=== PATIENT | female | born 1940 | race Caucasian/White ===

== ENCOUNTER → 2016-07-15 | Outpatient (CLI) | payer BC ==
[2016-07-15 16:29] LABS: ALB/GLOB RATIO 1.3 (0.9-2); ALT/SGPT 30 U/L (12-78); AST/SGOT 25 U/L (15-37); BLOOD UREA NITROGEN 31 mg/dl (7-18); BUN/CREATININE RATIO 24.2 (10-20); CALCIUM 9.5 mg/dl (8.5-10.1); CARBON DIOXIDE 29 mmol/L (21-32); CHLORIDE 109 mmol/L (98-107); GLUCOSE 96 mg/dl (70-99); POTASSIUM 4.3 mmol/L (3.5-5.1); SODIUM 143 mmol/L (136-145)
[2016-07-15 16:53] LABS: ALKALINE PHOSPHATASE 81 U/L (45-117); CHOLESTEROL 132 mg/dl (0-200); CHOLESTEROL/HDL RATIO 2.1; HDL CHOLESTEROL 62 mg/dl; LDL CHOLESTEROL CALCULATED 60 mg/dl; TRIGLYCERIDES 51 mg/dl (0-150); VERY LOW DENSITY LIPOPROT CALC 10 mg/dl
[2016-07-15 16:56] LABS: RATIO 7.1 mcg/mg (0-30.0)
[2016-07-16 06:29] LABS: ESTIMATED AVERAGE GLUCOSE 128 mg/dl; HA1C FLAG Normal (Normal)
== END | disposition home or self-care (01) ==
LOC: C.LAB 13:29
PROVIDERS: ATTEND Family Medicine
DX: E11.22 Type 2 diabetes mellitus with diabetic chronic kidney disease (principal); E78.00 Pure hypercholesterolemia, unspecified; I12.9 Hypertensive chronic kidney disease with stage 1 through stage 4 chronic kidney disease, or unspecified chronic kidney disease; N18.3 Chronic kidney disease, stage 3 (moderate)

== ENCOUNTER → 2017-02-09 | Outpatient (CLI) | payer BC ==
[2017-02-09 17:27] LABS: ALT/SGPT 26 U/L (12-78); BLOOD UREA NITROGEN 29 mg/dl (7-18); BUN/CREATININE RATIO 20.4 (10-20); CALCIUM 9.5 mg/dl (8.5-10.1); CARBON DIOXIDE 28 mmol/L (21-32); CHLORIDE 107 mmol/L (98-107); CHOLESTEROL 136 mg/dl (0-200); CREATININE 1.42 mg/dl (0.60-1.20); GLUCOSE 107 mg/dl (70-99); POTASSIUM 4.3 mmol/L (3.5-5.1); SODIUM 140 mmol/L (136-145); TRIGLYCERIDES 67 mg/dl (0-150); VERY LOW DENSITY LIPOPROT CALC 13 mg/dl
[2017-02-09 17:30] LABS: CHOLESTEROL/HDL RATIO 2.2; HDL CHOLESTEROL 61 mg/dl; LDL CHOLESTEROL CALCULATED 62 mg/dl
[2017-02-10 06:49] LABS: ESTIMATED AVERAGE GLUCOSE 128 mg/dl; HA1C FLAG Normal (Normal)
== END | disposition home or self-care (01) ==
LOC: C.LABPBG 12:35
PROVIDERS: ATTEND Family Medicine
DX: E11.9 Type 2 diabetes mellitus without complications (principal); E78.00 Pure hypercholesterolemia, unspecified; I10 Essential (primary) hypertension

== ENCOUNTER → 2017-04-14 | Outpatient (CLI) | payer OTHER | END | disposition home or self-care (01) | LOC: C.MAMM 12:52 | PROVIDERS: ATTEND Family Medicine | DX: Z78.0 Asymptomatic menopausal state (principal); E11.9 Type 2 diabetes mellitus without complications; E78.00 Pure hypercholesterolemia, unspecified; I12.9 Hypertensive chronic kidney disease with stage 1 through stage 4 chronic kidney disease, or unspecified chronic kidney disease; N18.3 Chronic kidney disease, stage 3 (moderate); M85.852 Other specified disorders of bone density and structure, left thigh; M85.851 Other specified disorders of bone density and structure, right thigh ==

== ENCOUNTER → 2017-05-03 | Outpatient (CLI) | payer OTHER | END | disposition home or self-care (01) | LOC: C.LABPBG 12:38 | PROVIDERS: ATTEND Family Medicine | DX: M81.0 Age-related osteoporosis without current pathological fracture (principal) ==

== ENCOUNTER → 2017-10-10 | Outpatient (CLI) | payer OTHER ==
[2017-10-10 17:11] LABS: ALBUMIN 3.5 gm/dl (3.4-5.0); ALKALINE PHOSPHATASE 73 U/L (45-117); ALT/SGPT 26 U/L (12-78); AST/SGOT 22 U/L (15-37); BLOOD UREA NITROGEN 28 mg/dl (7-18); CALCIUM 8.9 mg/dl (8.5-10.1); CARBON DIOXIDE 29 mmol/L (21-32); CHOLESTEROL 125 mg/dl (0-200); GLUCOSE 96 mg/dl (70-99); LDL CHOLESTEROL CALCULATED 58 mg/dl; POTASSIUM 4.4 mmol/L (3.5-5.1); SODIUM 142 mmol/L (136-145); TOTAL PROTEIN 6.8 gm/dl (6.4-8.2)
[2017-10-11 07:01] LABS: HEMOGLOBIN A1C 6.3 % (4.5-5.6)
== END | disposition home or self-care (01) ==
LOC: C.LABPBG 12:46
PROVIDERS: ATTEND Family Medicine
DX: E11.9 Type 2 diabetes mellitus without complications (principal); E78.00 Pure hypercholesterolemia, unspecified; N18.3 Chronic kidney disease, stage 3 (moderate); I12.9 Hypertensive chronic kidney disease with stage 1 through stage 4 chronic kidney disease, or unspecified chronic kidney disease

== ENCOUNTER 2019-12-12 00:36 | Inpatient (IN) ==
[2019-12-12] MEDS ORDERED: fentaNYL citrate 100 MCG/2 ML VIAL IV PRN ×3 (01:03→16:12)
[2019-12-12] MEDS ORDERED: ONDANSETRON INJ 2 MG/ML 2 ML VIAL IV STA (01:03)
[2019-12-12] MEDS ORDERED: ACETAMINOPHEN 1,000 MG/100 ML VIAL IV STA (01:03)
--- NOTE | 2019-12-12 01:11 | Emergency Department Note ---
History of Present Illness General Chief complaint: Abdominal Pain Stated complaint: VOMITING,SEVERE ABDOMINAL/BACK PAIN,SICK Time Seen by Provider: 12/12/19 00:46 Source: patient and family Mode of arrival: ambulatory Limitations: no limitations History of Present Illness Provider complaint: Vomiting, diarrhea, abdominal pain, chills Onset (ago): hour(s) 7 Location: abdomen Radiation: back Severity: severe Pain Consistency: + constant and + colicky Maximum Pain Intensity: 10 Current Pain Intensity: 10 Quality: + constant Relieved By: + none Exacerbated By: + none Associated symptoms: + nausea/vomiting, + weakness and + other (Diarrhea) Treatments prior to arrival: none This is an 79-year-old female who presents from home with her due to complaints of abdominal pain, nausea and vomiting, and diarrhea. Patient states symptoms started around 6 PM this evening. She states she and ate dinner approximately an hour before that. The states that they ate the same thing and he has felt fine. She states that she began to not feel well, developed pain in her upper abdomen which began to radiate around bilaterally into her back. Patient states initially she felt rather queasy and tried to induce vomiting. Patient denied seeing any blood. She states after that she then vomited spontaneously approximately 4 times. Patient states she had several episodes of thick but loose stools. She denied any blood in the stools. Patient states she is chilled, has not felt feverish and has not checked her t emperature. States she takes aspirin, no other blood thinners. states she does have a history of chronic back pain, and takes medication for arthritis. He denies that she is had any changes to her medications recently. No known sick contacts or exposure to coronavirus. No treatment prior to arrival. Pt seen during a time of high acuity and national emergency pandemic while wearing PPE. Home Medications Home Medications Medication Instructions Recorded Confirmed Type coenzyme Q10 200 mg capsule 200 mg PO DAILY cap 11/26/18 12/12/19 History cyanocobalamin (vitamin B-12) 1,000 mcg PO DAILY #90 tab 11/26/18 12/12/19 History 1,000 mcg tablet atorvastatin 40 mg tablet 40 mg PO DAILY #90 tab 12/04/18 12/12/19 Rx irbesartan 300 mg tablet 300 mg PO DAILY #90 tab 12/04/18 12/12/19 Rx meloxicam 15 mg tablet 15 mg PO DAILY #90 tab 12/04/18 12/12/19 Rx metformin 500 mg tablet,extended 500 mg PO DAILY #90 tab 08/01/19 12/12/19 Rx release 24 hr alendronate 35 mg tablet 35 mg PO WEEKLY #12 tab 08/31/19 12/12/19 Rx lorazepam 2 mg tablet 2 mg PO BID PRN #180 tab 08/31/19 12/12/19 Rx aspirin [Aspirin Low Dose] 81 mg PO DAILY 12/12/19 12/12/19 History Allergies Allergy/AdvReac Type Severity Reaction Status Date / Time Iodinated Contrast Media Allergy Intermediate Rash Verified 12/12/19 16:26 influenza virus vacc AdvReac Unknown Verified 12/12/19 02:58 trivalent, split [From Fluzone] Past Med/Surg History Medical History Allergic rhinitis Anxiety CKD (chronic kidney disease) stage 3, GFR 30-59 ml/min Depression Diabetic peripheral neuropathy Hypercholesterolemia Hypertension Insomnia Osteoporosis Raynaud's disease Sjogrens syndrome Sleep apnea Thoracic compression fracture Type 2 diabetes mellitus Surgical History History of hand surgery Status post section Family History Mother Arthritis Diabetes Father Arthritis Diabetes Family/Other Arthritis sibling Diabetes sibling Denies family history of Ovarian cancer Prostate cancer Myocardial infarction Breast cancer Colorectal cancer Social History Smoking Status: Never smoker Hx Alcohol Use: No Hx Substance Use: No Preferred Language: Ecuadorean Communication Ability: Effective Visual Impairment: Limited Hearing Ability: Normal Central Supply Clerk Required: No Beliefs That Will Affect Care: None marital status: Current Living Situation: Spouse current occupational status: retired Feels Safe at Home: Yes Childhood Exposure to Second-Hand Smoke: No caffeine: Yes (Coffee x 1 per day.) during the past year weight has: remained stable Dental Care, Regularly: No Physical Activity Frequency: 3-4 Times per Week Seatbelt Use: always Sunscreen Use: Yes Assistive Devices: None Review of Systems See HPI for pertinent positives & negatives. and A total of 10 systems reviewed and were otherwise negative Physical Exam Vital Signs Vital Signs - 24 hr 12/12/19 01:04 12/12/19 01:38 12/12/19 02:00 Pulse Rate [Apical] 103 H 104 H Pulse Rhythm [Apical] Pulse Strength [Apical] Respiratory Rate 18 18 18 Respiratory Effort / Characteristics Respiratory Depth Respiratory Pattern Blood Pressure [Left Arm] 214/100 H 185/99 H 180/89 H Blood Pressure Mean [Left Arm] 138 127 119 Blood Pressure Position [Left Arm] Pulse Oximetry 94 98 98 Oxygen Delivery Method Room Air Nasal Cannula Room Air Oxygen Flow Rate 2 12/12/19 02:31 12/12/19 02:34 12/12/19 02:35 Pulse Rate [Apical] 102 H Pulse Rhythm [Apical] Pulse Strength [Apical] Respiratory Rate 24 Respiratory Effort / Characteristics Respiratory Depth Respiratory Pattern Blood Pressure [Left Arm] 176/87 H Blood Pressure Mean [Left Arm] 116 Blood Pressure Position [Left Arm] Pulse Oximetry 93 87 L 97 Oxygen Delivery Method Room Air Room Air Nasal Cannula Oxygen Flow Rate 2 12/12/19 03:42 Pulse Rate [Apical] 94 H Pulse Rhythm [Apical] Regular Pulse Strength [Apical] Normal Respiratory Rate 18 Respiratory Effort / Characteristics Non-Labored Spontaneous Respiratory Depth Normal Respiratory Pattern Regular Blood Pressure [Left Arm] 127/70 Blood Pressure Mean [Left Arm] 89 Blood Pressure Position [Left Arm] Lying Pulse Oximetry 98 Oxygen Delivery Method Nasal Cannula Oxygen Flow Rate 3 GENERAL: alert, ill appearing, well nourished, moderate distress, pt had a BM initially here EYE EXAM: normal conjunctiva, PERRL and EOM's grossly intact OROPHARYNX: no exudate, no erythema, lips, buccal mucosa, and tongue normal and mucous membranes are dry NECK: supple, no nuchal rigidity, no adenopathy, non-tender LUNGS: Clear to auscultation. Normal chest wall mechanics, no w/r/r HEART: no murmurs, S1 normal and S2 normal ABDOMEN: abdomen soft, tenderness to palpation in the mid epigastric region, normo-active bowel sounds, no masses, no rebound or guarding. BACK: Back is symmetrical on inspection and there is no deformity, no midline tenderness, no CVA tenderness. SKIN: no rashes and no bruising UPPER EXTREMITIES: upper extremities are grossly normal. FROM, nml pulses b/l. LOWER EXTREMITIES: No pitting edema. FROM, nml pulses b/l. NEURO EXAM: Normal sensorium, cranial nerves II-XII grossly intact, normal speech, no gross weakness of arms, no gross weakness of legs. Gross sensation intact. Course Course 0132: Patient reevaluated. Vital signs stable, patient appears more at ease after pain and nausea medications. Patient was placed on oxygen as a precaution by nursing staff as her oxygen levels did dip following administration of fentanyl. 0235: Pt updated on results so far. States pain medication helps but doesn't completely relieve the pain. She states she still feels slightly nauseated. On review of EMR, there is no prior history of elevated LFTs or lipase. 0255: Pt updated on additional results. 0307: Case discussed with Dr. Calderon. Pt heading to US. She will follow-up US and consult GI/surgery after this. Administered Medications Acetaminophen (Acetaminophen 1000 Mg/100 Ml Iv) 1,000 mg IV Q12H PRN PRN Reason: Pain Stop: 12/15/19 10:29 Last Admin: 12/12/19 10:39 Dose: 1,000 mg Documented by: [id number] Atorvastatin Calcium (Atorvastatin 40 Mg Tab) 40 mg PO DAILY JACOB Stop: 01/11/20 08:59 Last Admin: 12/12/19 08:47 Dose: 40 mg Documented by: [id number] Sodium Chloride (Nss 1000ml) 1,000 mls @ 80 mls/hr IV .[id number] JACOB Stop: 01/11/20 20:28 Last Infusion: 12/12/19 21:16 Dose: 80 mls/hr Documented by: [id number] Infusion: 12/12/19 20:44 Dose: 0 mls/hr Documented by: [id number] Admin: 12/12/19 20:43 Dose: 80 mls/hr Documented by: [id number] Insulin Aspart (Insulin Aspart 100 Units/Ml 3 Ml Pen) 0 units SC ACHS JACOB Stop: 01/11/20 20:59 Last Admin: 12/12/19 21:28 Dose: 1 units Documented by: [id number] Cosigned by: [id number] Irbesartan (Irbesartan 150 Mg Tab) 300 mg PO DAILY JACOB Stop: 01/11/20 08:59 Last Admin: 12/12/19 08:47 Dose: 300 mg Documented by: [id number] Lorazepam (Lorazepam 1 Mg Tab) 2 mg PO BID PRN PRN Reason: anxiety Stop: 01/11/20 05:37 Last Admin: 12/13/19 00:08 Dose: 2 mg Documented by: [id number] Discontinued Medications Bupivacaine HCl (Bupivacaine 0.5 % 5 Mg/1 Ml Mpf 30ml Vial) Confirm Administered Dose 30 ml .ROUTE .STK-MED ONE Stop: 12/12/19 16:22 Last Admin: 12/12/19 18:16 Dose: 9 ml Documented by: [id number] Fentanyl Citrate (Fentanyl Citrate 100 Mcg/2 Ml Vial) 50 mcg IV Q15M PRN PRN Reason: Pain Stop: 12/26/19 01:02 Last Admin: 12/12/19 01:26 Dose: 50 mcg Documented by: [id number] Fentanyl Citrate (Fentanyl Citrate 100 Mcg/2 Ml Vial) 25 mcg IV Q15M PRN PRN Reason: Pain Stop: 12/26/19 02:23 Last Admin: 12/12/19 02:29 Dose: 25 mcg Documented by: [id number] Sodium Chloride (Nss 1000ml) 1,000 mls @ 250 mls/hr IV .Q4H JACOB Stop: 01/11/20 01:14 Last Admin: 12/12/19 05:36 Dose: Not Given Documented by: [id number] Infusion: 12/12/19 05:36 Dose: 0 mls/hr Documented by: [id number] Admin: 12/12/19 01:24 Dose: 250 mls/hr Documented by: [id number] Acetaminophen (Ofirmev) 1,000 mg in 100 mls @ 400 mls/hr IV NOW STA Stop: 12/12/19 01:17 Last Infusion: 12/12/19 01:43 Dose: 0 mls/hr Documented by: [id number] Admin: 12/12/19 01:27 Dose: 400 mls/hr Documented by: [id number] Magnesium Sulfate/Dextrose (Magnesium Sulfate / D5w) 1 gm in 100 mls @ 100 mls/hr IV NOW STA Stop: 12/12/19 03:09 Last Infusion: 12/12/19 03:41 Dose: 0 mls/hr Documented by: [id number] Admin: 12/12/19 02:19 Dose: 100 mls/hr Documented by: [id number] Lactated Ringer's (Lr) 1,000 mls @ 125 mls/hr IV .Q8H JACOB Stop: 12/13/19 05:19 Last Infusion: 12/12/19 20:39 Dose: 0 mls/hr Documented by: [id number] Admin: 12/12/19 14:18 Dose: 125 mls/hr Documented by: [id number] Infusion: 12/12/19 13:53 Dose: 125 mls/hr Documented by: [id number] Admin: 12/12/19 05:53 Dose: 125 mls/hr Documented by: [id number] Piperacillin Sod/Tazobactam (Sod 3.375 gm/ Dextrose) 115 mls @ 230 mls/hr IV ONE ONE; Protocol Stop: 12/12/19 06:29 Last Infusion: 12/12/19 06:45 Dose: 0 mls/hr Documented by: [id number] Admin: 12/12/19 06:12 Dose: 230 mls/hr Documented by: [id number] Piperacillin Sod/Tazobactam (Sod 2.25 gm/ Dextrose) 110 mls @ 200 mls/hr IV Q6H JACOB; Protocol Stop: 12/22/19 05:59 Last Infusion: 12/12/19 21:16 Dose: 0 mls/hr Documented by: [id number] Admin: 12/12/19 20:43 Dose: 200 mls/hr Documented by: [id number] Infusion: 12/12/19 12:56 Dose: 0 mls/hr Documented by: [id number] Admin: 12/12/19 12:10 Dose: 200 mls/hr Documented by: [id number] Acetaminophen (Ofirmev) 1,000 mg in 100 mls @ 400 mls/hr IV NOW ONE; Protocol Stop: 12/12/19 18:54 Last Infusion: 12/12/19 19:50 Dose: 0 mls/hr Documented by: [id number] Admin: 12/12/19 19:35 Dose: 400 mls/hr Documented by: [id number] Indomethacin (Indomethacin 50 Mg Supp) 100 mg UT TODAY@1030 JACOB Stop: 12/12/19 18:00 Last Admin: 12/12/19 18:31 Dose: Not Given Documented by: [id number] Indomethacin (Indomethacin 50 Mg Supp) Confirm Administered Dose 100 mg UT .STK- MED ONE Stop: 12/12/19 16:23 Last Admin: 12/12/19 17:42 Dose: 100 mg Documented by: [id number] Insulin Aspart (Insulin Aspart 100 Units/Ml 3 Ml Pen) 0 units SC Q6 JACOB Stop: 01/11/20 05:59 Last Admin: 12/12/19 20:35 Dose: Not Given Documented by: [id number] Cosigned by: [id number] Admin: 12/12/19 12:16 Dose: Not Given Documented by: [id number] Cosigned by: [id number] Admin: 12/12/19 05:56 Dose: Not Given Documented by: [id number] Ioversol (Ioversol 100ml) 93 ml IV ONCE ONE Stop: 12/12/19 02:15 Last Admin: 12/12/19 02:14 Dose: 93 ml Documented by: [id number] Ioversol (Ioversol 50ml) Confirm Administered Dose 1 ml IV .STK-MED ONE Stop: 12/12/19 13:22 Last Admin: 12/12/19 21:22 Dose: Not Given Documented by: [id number] Ondansetron HCl (Ondansetron Inj 2 Mg/Ml 2 Ml Vial) 4 mg IV NOW STA Stop: 12/12/19 01:04 Last Admin: 12/12/19 01:25 Dose: 4 mg Documented by: [id number] Medical Decision Making Differential Diagnosis Differential: Gastroenteritis, Food Borne, Esophageal Perforation, DKA, Electrolyte Abnormality, Dehydration, Intraabdominal Infection, UTI/Pyelonephritis, Bowel Obstruction, Biliary Pathology, amongst other p athology entertained. Medical Records Attestation: I reviewed the patient's medical records. Home Medications Current Medication List: was personally reviewed by me Laboratory Data Attestation: I reviewed the patient's lab results. Result diagrams: 12/12/19 01:18 12/12/19 01:18 Lab Results 12/12/19 12/12/19 12/12/19 Range/Units 01:18 01:18 01:18 WBC 8.31 (4.8-10.8) K/uL RBC 4.57 (4.2-5.4) M/uL Hgb 13.6 (12.0-16.0) g/dL Hct 41.4 (37-47) % MCV 90.6 (80-100) fL MCH 29.8 (25-34) pg MCHC 32.9 (32-36) g/dL RDW Std Deviation 48.1 H (36.4-46.3) fL RDW Coeff of Shikha 14.5 (11.5-14.5) % Plt Count 172 (130-400) K/uL MPV 10.6 H (7.4-10.4) fL Immature Gran % (Auto) 0.2 % Neut % (Auto) 90.9 % Lymph % (Auto) 7.5 % [place] % (Auto) 1.2 % Eos % (Auto) 0.1 % Baso % (Auto) 0.1 % Neut # (Auto) 7.55 H (1.4-6.5) K/uL Lymph # (Auto) 0.62 L (1.2-3.4) K/uL [place] # (Auto) 0.10 L (0.11-0.59) K/uL Eos # (Auto) 0.01 (0-0.5) K/uL Baso # (Auto) 0.01 (0-0.2) K/uL Immature Gran # (Auto) 0.02 (0.00-0.02) K/uL Rouleaux 1+ PT 11.0 (9.0-12.0) Seconds INR 1.0 (0.9-1.1) Sodium (136-145) mmol/L Potassium (3.5-5.1) mmol/L Chloride (98-107) mmol/L Carbon Dioxide (21-32) mmol/L Anion Gap (3-11) BUN (7-18) mg/dl Creatinine (0.6-1.2) mg/dl Est Cr Clr Drug Dosing ml/min Est GFR ( Amer) Est GFR (Non-Af Amer) BUN/Creatinine Ratio (10-20) Glucose (70-99) mg/dl Lactate 3.0 H* (0.4-2.0) mmol/L Calcium (8.5-10.1) mg/dl Phosphorus (2.5-4.9) mg/dl Magnesium (1.8-2.4) mg/dl Total Bilirubin (0.2-1) mg/dl AST (15-37) U/L ALT (12-78) U/L Alkaline Phosphatase (45-117) U/L Troponin I (0-0.045) ng/ml Total Protein (6.4-8.2) gm/dl Albumin (3.4-5.0) gm/dl Globulin (2.5-4.0) gm/dl Albumin/Globulin Ratio (0.9-2) Lipase (73-393) U/L Urine Color Urine Appearance (Clear) Urine pH (4.5-7.5) Ur Specific [place] (1.000-1.030) Urine Protein (Negative) Urine Glucose (UA) (Negative) Urine Ketones (Negative) Urine Blood (Negative) Urine Nitrite (Negative) Urine Bilirubin (Negative) Urine Urobilinogen (Negative) Ur Leukocyte Esterase (Negative) Urine WBC (Auto) (0-5) /hpf Urine RBC (Auto) (0-4) /hpf U Hyaline Cast (Auto) (0-5) /lpf U Epithel Cells (Auto) (0-5) /lpf Urine Bacteria (Auto) (Negative) 12/12/19 12/12/19 12/12/19 Range/Units 01:18 01:18 02:56 WBC (4.8-10.8) K/uL RBC (4.2-5.4) M/uL Hgb (12.0-16.0) g/dL Hct (37-47) % MCV (80-100) fL MCH (25-34) pg MCHC (32-36) g/dL RDW Std Deviation (36.4-46.3) fL RDW Coeff of Shikha (11.5-14.5) % Plt Count (130-400) K/uL MPV (7.4-10.4) fL Immature Gran % (Auto) % Neut % (Auto) % Lymph % (Auto) % [place] % (Auto) % Eos % (Auto) % Baso % (Auto) % Neut # (Auto) (1.4-6.5) K/uL Lymph # (Auto) (1.2-3.4) K/uL [place] # (Auto) (0.11-0.59) K/uL Eos # (Auto) (0-0.5) K/uL Baso # (Auto) (0-0.2) K/uL Immature Gran # (Auto) (0.00-0.02) K/uL Rouleaux PT (9.0-12.0) Seconds INR (0.9-1.1) Sodium 142 (136-145) mmol/L Potassium 3.6 (3.5-5.1) mmol/L Chloride 108 H (98-107) mmol/L Carbon Dioxide 25 (21-32) mmol/L Anion Gap 9.0 (3-11) BUN 26 H (7-18) mg/dl Creatinine 1.39 H (0.6-1.2) mg/dl Est Cr Clr Drug Dosing 30.2 ml/min Est GFR ( Amer) 41.4 Est GFR (Non-Af Amer) 35.7 BUN/Creatinine Ratio 19.0 (10-20) Glucose 188 H (70-99) mg/dl Lactate (0.4-2.0) mmol/L Calcium 9.2 (8.5-10.1) mg/dl Phosphorus 3.1 (2.5-4.9) mg/dl Magnesium 1.7 L (1.8-2.4) mg/dl Total Bilirubin 2.2 H (0.2-1) mg/dl AST 555 H (15-37) U/L ALT 336 H (12-78) U/L Alkaline Phosphatase 155 H (45-117) U/L Troponin I < 0.015 (0-0.045) ng/ml Total Protein 7.5 (6.4-8.2) gm/dl Albumin 3.9 (3.4-5.0) gm/dl Globulin 3.6 (2.5-4.0) gm/dl Albumin/Globulin Ratio 1.1 (0.9-2) Lipase 673 H (73-393) U/L Urine Color Yellow Urine Appearance Clear (Clear) Urine pH 7.5 (4.5-7.5) Ur Specific [place] 1.022 (1.000-1.030) Urine Protein Negative (Negative) Urine Glucose (UA) Trace H (Negative) Urine Ketones Trace H (Negative) Urine Blood Negative (Negative) Urine Nitrite Negative (Negative) Urine Bilirubin Negative (Negative) Urine Urobilinogen Negative (Negative) Ur Leukocyte Esterase Trace H (Negative) Urine WBC (Auto) 1-5 (0-5) /hpf Urine RBC (Auto) 0-4 (0-4) /hpf U Hyaline Cast (Auto) 1-5 (0-5) /lpf U Epithel Cells (Auto) 5-10 H (0-5) /lpf Urine Bacteria (Auto) Negative (Negative) 12/12/19 Range/Units 04:11 WBC (4.8-10.8) K/uL RBC (4.2-5.4) M/uL Hgb (12.0-16.0) g/dL Hct (37-47) % MCV (80-100) fL MCH (25-34) pg MCHC (32-36) g/dL RDW Std Deviation (36.4-46.3) fL RDW Coeff of Shikha (11.5-14.5) % Plt Count (130-400) K/uL MPV (7.4-10.4) fL Immature Gran % (Auto) % Neut % (Auto) % Lymph % (Auto) % [place] % (Auto) % Eos % (Auto) % Baso % (Auto) % Neut # (Auto) (1.4-6.5) K/uL Lymph # (Auto) (1.2-3.4) K/uL [place] # (Auto) (0.11-0.59) K/uL Eos # (Auto) (0-0.5) K/uL Baso # (Auto) (0-0.2) K/uL Immature Gran # (Auto) (0.00-0.02) K/uL Rouleaux PT (9.0-12.0) Seconds INR (0.9-1.1) Sodium (136-145) mmol/L Potassium (3.5-5.1) mmol/L Chloride (98-107) mmol/L Carbon Dioxide (21-32) mmol/L Anion Gap (3-11) BUN (7-18) mg/dl Creatinine (0.6-1.2) mg/dl Est Cr Clr Drug Dosing ml/min Est GFR ( Amer) Est GFR (Non-Af Amer) BUN/Creatinine Ratio (10-20) Glucose (70-99) mg/dl Lactate 2.1 H* (0.4-2.0) mmol/L Calcium (8.5-10.1) mg/dl Phosphorus (2.5-4.9) mg/dl Magnesium (1.8-2.4) mg/dl Total Bilirubin (0.2-1) mg/dl AST (15-37) U/L ALT (12-78) U/L Alkaline Phosphatase (45-117) U/L Troponin I (0-0.045) ng/ml Total Protein (6.4-8.2) gm/dl Albumin (3.4-5.0) gm/dl Globulin (2.5-4.0) gm/dl Albumin/Globulin Ratio (0.9-2) Lipase (73-393) U/L Urine Color Urine Appearance (Clear) Urine pH (4.5-7.5) Ur Specific [place] (1.000-1.030) Urine Protein (Negative) Urine Glucose (UA) (Negative) Urine Ketones (Negative) Urine Blood (Negative) Urine Nitrite (Negative) Urine Bilirubin (Negative) Urine Urobilinogen (Negative) Ur Leukocyte Esterase (Negative) Urine WBC (Auto) (0-5) /hpf Urine RBC (Auto) (0-4) /hpf U Hyaline Cast (Auto) (0-5) /lpf U Epithel Cells (Auto) (0-5) /lpf Urine Bacteria (Auto) (Negative) Imaging Data Radiologist's Impression: CT abdomen and pelvis with contrast: Areas of mild small and large bowel wall thickening or underdistention. Correlate clinically regarding enterocolitis. Distended gallbladder with prominent biliary ducts and pancreatic duct. Ultrasound/MRCP can further evaluate if indicated. Small hiatal hernia. Right greater than left basilar atelectasis/pneumonitis. Small pulmonary nodules. Trace pericardial fluid. Radiologist: Neeta Summers MD Ultrasound right upper quadrant: Compared to CT 12/12/2019 Distended gallbladder with wall edema. No visualized gallstones. MRCP can fu rther evaluate if indicated. Prominent pancreatic duct. Small right renal cystic structure. Radiologist: Neeta Summers MD ECG Data Attestation: I personally reviewed and interpreted this ECG as follows: Indication: + abdominal pain, + nausea and + vomiting Rate (beats per minute): 110 Rhythm: + normal sinus ECG Intervals/blocks: + Normal QRS and + Normal QT ECG [place]: + Normal ECG ST segments: + Normal ST segments Blood Pressure Blood Pressure Findings: Elevated blood pressure Blood Pressure Disposition: further management by hospitalist [facility] Narrative This is an 79-year-old female who presents the emergency department with abrupt onset of abdominal pain, nausea/vomiting, and diarrhea. Patient initially ill- appearing, however was mildly improved with IV fluids, Zofran, and fentanyl. Patient's labs revealed elevated LFTs and lipase, however no leukocytosis. Lactic acid was mildly elevated at 3.0 although patient was afebrile. Patient denies any prior known history of abnormal LFTs, hepatic or biliary disease. Patient denies any recent use of alcohol. Patient sent for CT of the abdomen and pelvis, and then follow-up ultrasound for better evaluation of the biliary tree and gallbladder. No evidence of acute cholecystitis, cholelithiasis, or choledocholithiasis noted despite the gallbladder distention. Patient remained hemodynamically stable here. Case discussed with hospitalist while ultrasound was still being performed and was pending. They will follow-up ultrasound. We did discuss possible differential diagnosis and potential need for empiric antibiotics at this time given likelihood of biliary disease and concern for evolving infection. Will defer choice of antibiotics to the hospitalist. Given additional pending studies, I had not yet contacted GI or general surgery on- call, hospitalist was in agreement and will follow-up ultrasound and add consultations from there. Patient and at bedside were updated several times and patient rechecked several times given concern for her condition. I did discuss with them possibility of acute cholecystitis, choledocholithiasis, gallstone pancreatitis, or ascending cholangitis. I do not believe there is evidence at this time for bacteremia/sepsis despite mildly elevated lactic. Mild hyperglycemia noted, no evidence of DKA or HHS. Patient with borderline elevated creatinine. Patient and verbalized understanding of all results were in agreement with the plan. An order was placed for continuous cardiac monitoring. The monitor shows a rate of 80_ with _normal sinus_ rhythm. Impression & Plan Abdominal pain, Abnormal LFTs, Elevated lipase, Nausea vomiting and diarrhea Discharge Plan Visit Data Chief Complaint: Abdominal Pain Stated Complaint: VOMITING,SEVERE ABDOMINAL/BACK PAIN,SICK ED Provider: Emilie Turner Discharge Problem: Abdominal pain, Abnormal LFTs, Elevated lipase, Nausea vomiting and diarrhea Patient Disposition: Admitted As Inpatient Discharge Instructions Interventions: ED Discharge Assessment Last Done: 12/12/19 04:49
[2019-12-12] MEDS: SODIUM CHLORIDE 0.9% 1000ML 1,000 ML IV SCH ×3 (01:24→20:43)
[2019-12-12 01:57] LABS: Alanine Aminotransferase 336 U/L (12-78); Albumin Level 3.9 gm/dl (3.4-5.0); Aspartate Aminotransferase 555 U/L (15-37); Blood Urea Nitrogen 26 mg/dl (7-18); Calcium 9.2 mg/dl (8.5-10.1); Carbon Dioxide 25 mmol/L (21-32); Chloride 108 mmol/L (98-107); Creatinine Clr Calc Pharmacy 30.2 ml/min; Est GFR (African American) 41.4; Est GFR (Non-African American) 35.7; Glucose 188 mg/dl (70-99); Lipase 673 U/L (73-393); Magnesium 1.7 mg/dl (1.8-2.4); Potassium 3.6 mmol/L (3.5-5.1); Sodium 142 mmol/L (136-145)
[2019-12-12 02:02] LABS: Albumin Globulin Ratio 1.1 (0.9-2); Alkaline Phosphatase 155 U/L (45-117); Bilirubin,Total 2.2 mg/dl (0.2-1); Globulin 3.6 gm/dl (2.5-4.0); Total Protein 7.5 gm/dl (6.4-8.2); Troponin I < 0.015 ng/ml (0-0.045)
[2019-12-12] MEDS ORDERED: MAGNESIUM SULFATE / D5W 1 GM/100 ML BAG IV STA (02:10)
[2019-12-12 02:14] LABS: Basophils # (auto) 0.01 K/uL (0-0.2); Basophils % (auto) 0.1 %; Eosinophils # (auto) 0.01 K/uL (0-0.5); Eosinophils % (auto) 0.1 %; Hematocrit (blood only) 41.4 % (37-47); Hemoglobin 13.6 g/dL (12.0-16.0); Immature Granulocytes # (auto) 0.02 K/uL (0.00-0.02); Immature Granulocytes % (auto) 0.2 %; Lymphocytes # (auto) 0.62 K/uL (1.2-3.4); Lymphocytes % (auto) 7.5 %; Mean Corpuscular Hemoglobin 29.8 pg (25-34); Mean Corpuscular Hgb Conc 32.9 g/dL (32-36); Mean Corpuscular Volume 90.6 fL (80-100); Mean Platelet Volume 10.6 fL (7.4-10.4); Monocytes % (auto) 1.2 %; Neutrophils # (auto) 7.55 K/uL (1.4-6.5); Neutrophils % (auto) 90.9 %; Platelet Count 172 K/uL (130-400); RDW Coefficient of Variation 14.5 % (11.5-14.5); RDW Standard Deviation 48.1 fL (36.4-46.3); Red Blood Count 4.57 M/uL (4.2-5.4); Rouleaux 1+; White Blood Count 8.31 K/uL (4.8-10.8)
[2019-12-12] MEDS ORDERED: IOVERSOL 100ml IV ONE (02:14)
[2019-12-12 03:04] LABS: Appearance Urine Clear (Clear); Bacteria Urine Automated Negative (Negative); Bilirubin Urine Negative (Negative); Blood Urine Negative (Negative); Color Urine Yellow; Glucose Urine UA Trace (Negative); Ketones Urine Trace (Negative); Leukocyte Esterase Urine Trace (Negative); Nitrite Urine Negative (Negative); Protein Urine Negative (Negative); RBC Urine Automated 0-4 /hpf (0-4); Specific Gravity Urine 1.022 (1.000-1.030); Urobilinogen Urine Negative (Negative); pH Urine 7.5 (4.5-7.5)
--- NOTE | 2019-12-12 04:35 | History & Physical Report ---
Date of Service December 12, 2019 Assessment & Plan (1) Abdominal pain: 79yo C female presenting with acute onset epigastric abdominal pain with radiation to back. Labs significant for abnormal liver studies in mixed hepatocellular/obstructive pattern as well as elevated lipase. Imaging with gallbladder distention, wall edema and dilated biliary and pancreatic ducts. Patient is afebrile, HD stable, non-toxic in appearance. ?Acute cholecystitis, cholangitis, pancreatitis -Admit to medical floor -Keep NPO -Check MRCP -Repeat labs - BMP, CBC, LFTs -Repeat lactate pending -GI Consultation appreciated -May need general surgery consultation as well -Will hold ASA for possible intervention -Will check Covid-19 PCR in anticipation for interventional procedure Present on Admission?: Yes (2) Abnormal LFTs: As above, patient with elevated AP/Tbili, Lipase and AST/ALT -Repeat labs -MRCP -GI consultation appreciated Present on Admission?: Yes (3) Type 2 diabetes mellitus: Well controlled. Last [id number]=[id number] on 12/03/19 -Hold Metformin while inpatient -ISS, goal blood sugar 100 - 140 -NPO for now Present on Admission?: Yes (4) Hypertension: Blood pressure stable at present -Continue Irbesartan. Will need to be held if patient goes to surgery -Continue to monitor Present on Admission?: Yes (5) Hypercholesterolemia: Chronic. Stable -Continue Atorvastatin Present on Admission?: Yes (6) CKD (chronic kidney disease) stage 3, GFR 30-59 ml/min: Chronic. Stable -Monitor BUN/Cr/Electroltyes and UOP -Avoid nephrotoxic agents -Renal dosing where needed F/E/N - LR at 125mL/hr x 1 liter, monitor electrolytes, NPO for now Ppx - SCDs to bilateral LE Code -Full per discussion with patient, at bedside Dispo - Admit to medical floor History of Present Illness Chief Complaint: abdominal pain Primary Care Provider: DO Eloise Cooper Edinson is an 79yo C female with history of HTN, HLP, DM and CKD presenting with abdominal pain. Pain began around 17:00 yesterday, located in the epigastric area with band-like radiation to the back. Pain is severe, "like nothing I ever felt before". Pain began approximately 2 hours after patient ate a TV dinner. She tried to induce emesis thinking that the TV dinner may have caused the discomfort, states that she usually doesn't eat things like that. She had multiple episodes of non-bloody/non-bilious emesis as well as non-bloody diarrhea. Pain continued which prompted her to come to the ER. She had some shaking chills upon arrival to the ER, otherwise no complaints. She feels a little better than before. She denies fever, chest pain, palpitations, cough, SOB, dysuria. No additional complaints at this time. ER Course: Tylenol, Fentanyl, Magnesium, Zofran, NSS Allergies Allergy/AdvReac Type Severity Reaction Status Date / Time influenza virus vacc AdvReac Unknown Verified 12/12/19 02:58 trivalent, split [From Fluzone] Home Medications Home Medications Medication Instructions Recorded Confirmed Type coenzyme Q10 200 mg capsule 200 mg PO DAILY cap 11/26/18 12/12/19 History cyanocobalamin (vitamin B-12) 1,000 mcg PO DAILY #90 tab 11/26/18 12/12/19 History 1,000 mcg tablet atorvastatin 40 mg tablet 40 mg PO DAILY #90 tab 12/04/18 12/12/19 Rx irbesartan 300 mg tablet 300 mg PO DAILY #90 tab 12/04/18 12/12/19 Rx meloxicam 15 mg tablet 15 mg PO DAILY #90 tab 12/04/18 12/12/19 Rx metformin 500 mg tablet,extended 500 mg PO DAILY #90 tab 08/01/19 12/12/19 Rx release 24 hr alendronate 35 mg tablet 35 mg PO WEEKLY #12 tab 08/31/19 12/12/19 Rx lorazepam 2 mg tablet 2 mg PO BID PRN #180 tab 08/31/19 12/12/19 Rx aspirin [Aspirin Low Dose] 81 mg PO DAILY 12/12/19 12/12/19 History Past Med/Surg History Medical History Allergic rhinitis Anxiety CKD (chronic kidney disease) stage 3, GFR 30-59 ml/min Depression Diabetic peripheral neuropathy Hypercholesterolemia Hypertension Insomnia Osteoporosis Raynaud's disease Sjogrens syndrome Sleep apnea Thoracic compression fracture Type 2 diabetes mellitus Surgical History History of hand surgery Status post section Family History Mother Arthritis Diabetes Father Arthritis Diabetes Family/Other Arthritis sibling Diabetes sibling Denies family history of Ovarian cancer Prostate cancer Myocardial infarction Breast cancer Colorectal cancer Social History Smoking Status: Never smoker Hx Alcohol Use: No Hx Substance Use: No Preferred Language: Indonesian Communication Ability: Effective Visual Impairment: Limited Hearing Ability: Normal Beliefs That Will Affect Care: None marital status: Current Living Situation: Spouse current occupational status: retired Feels Safe at Home: Yes Childhood Exposure to Second-Hand Smoke: No caffeine: Yes (Coffee x 1 per day.) during the past year weight has: remained stable Dental Care, Regularly: No Physical Activity Frequency: 3-4 Times per Week Seatbelt Use: always Sunscreen Use: Yes Review of Systems Review of Systems: All systems reviewed & are unremarkable except as noted in HPI & below Physical Exam Physical Exam: General: patient resting comfortably, NAD, non-toxic in appearance, AA&O x 4 Skin: warm, dry, intact, no rashes or lesions, appears slightly jaundiced HEENT: NC/AT, PERRL, mildly icteric sclera, conjunctiva without injection, external ear normal to inspection and nontender, nares patent, moist mucus membranes, dentition intact, no oropharyngeal lesions, neck supple, trachea midline, no LAD, no thyromegaly, no JVD Heart: +S1/S2, regular, no m/r/g Lungs: equal air entry bilaterally, no rales/rhonchi/wheezes Abd: +BS, soft, tender in the epigastric region with voluntary guarding, no masses/organomegaly/ascites Ext: warm, 2+ pulses in UE/LE bilaterally, no clubbing/cyanosis or edema Neuro: nonfocal, patient AA&O x 4, speech intact, no facial droop, moving all extremities on command with equal strength 5/5 Results & Data Results & Data ([facility]) Vital Signs (Past 12 Hours) Vital Signs Temp Pulse Pulse Resp BP Pulse Ox 12/12/19 03:42 94 H 18 127/70 98 12/12/19 02:35 97 12/12/19 02:34 87 L 09/23/20 02:31 102 H 24 176/87 H 93 12/12/19 02:00 104 H 18 180/89 H 98 12/12/19 01:38 103 H 18 185/99 H 98 12/12/19 01:04 18 214/100 H 94 12/12/19 00:38 37.1 C 100 H 22 98 Laboratory Results Lab Results 12/12/19 12/12/19 12/12/19 Range/Units 01:18 01:18 01:18 WBC 8.31 (4.8-10.8) K/uL RBC 4.57 (4.2-5.4) M/uL Hgb 13.6 (12.0-16.0) g/dL Hct 41.4 (37-47) % MCV 90.6 (80-100) fL MCH 29.8 (25-34) pg MCHC 32.9 (32-36) g/dL RDW Std Deviation 48.1 H (36.4-46.3) fL RDW Coeff of Shikha 14.5 (11.5-14.5) % Plt Count 172 (130-400) K/uL MPV 10.6 H (7.4-10.4) fL Immature Gran % (Auto) 0.2 % Neut % (Auto) 90.9 % Lymph % (Auto) 7.5 % [place] % (Auto) 1.2 % Eos % (Auto) 0.1 % Baso % (Auto) 0.1 % Neut # (Auto) 7.55 H (1.4-6.5) K/uL Lymph # (Auto) 0.62 L (1.2-3.4) K/uL [place] # (Auto) 0.10 L (0.11-0.59) K/uL Eos # (Auto) 0.01 (0-0.5) K/uL Baso # (Auto) 0.01 (0-0.2) K/uL Immature Gran # (Auto) 0.02 (0.00-0.02) K/uL Rouleaux 1+ PT 11.0 (9.0-12.0) Seconds INR 1.0 (0.9-1.1) Sodium (136-145) mmol/L Potassium (3.5-5.1) mmol/L Chloride (98-107) mmol/L Carbon Dioxide (21-32) mmol/L Anion Gap (3-11) BUN (7-18) mg/dl Creatinine (0.6-1.2) mg/dl Est Cr Clr Drug Dosing ml/min Est GFR ( Amer) Est GFR (Non-Af Amer) BUN/Creatinine Ratio (10-20) Glucose (70-99) mg/dl Lactate 3.0 H* (0.4-2.0) mmol/L Calcium (8.5-10.1) mg/dl Magnesium (1.8-2.4) mg/dl Total Bilirubin (0.2-1) mg/dl AST (15-37) U/L ALT (12-78) U/L Alkaline Phosphatase (45-117) U/L Troponin I (0-0.045) ng/ml Total Protein (6.4-8.2) gm/dl Albumin (3.4-5.0) gm/dl Globulin (2.5-4.0) gm/dl Albumin/Globulin Ratio (0.9-2) Lipase (73-393) U/L Urine Color Urine Appearance (Clear) Urine pH (4.5-7.5) Ur Specific [place] (1.000-1.030) Urine Protein (Negative) Urine Glucose (UA) (Negative) Urine Ketones (Negative) Urine Blood (Negative) Urine Nitrite (Negative) Urine Bilirubin (Negative) Urine Urobilinogen (Negative) Ur Leukocyte Esterase (Negative) Urine WBC (Auto) (0-5) /hpf Urine RBC (Auto) (0-4) /hpf U Hyaline Cast (Auto) (0-5) /lpf U Epithel Cells (Auto) (0-5) /lpf Urine Bacteria (Auto) (Negative) 12/12/19 12/12/19 Range/Units 01:18 02:56 WBC (4.8-10.8) K/uL RBC (4.2-5.4) M/uL Hgb (12.0-16.0) g/dL Hct (37-47) % MCV (80-100) fL MCH (25-34) pg MCHC (32-36) g/dL RDW Std Deviation (36.4-46.3) fL RDW Coeff of Shikha (11.5-14.5) % Plt Count (130-400) K/uL MPV (7.4-10.4) fL Immature Gran % (Auto) % Neut % (Auto) % Lymph % (Auto) % [place] % (Auto) % Eos % (Auto) % Baso % (Auto) % Neut # (Auto) (1.4-6.5) K/uL Lymph # (Auto) (1.2-3.4) K/uL [place] # (Auto) (0.11-0.59) K/uL Eos # (Auto) (0-0.5) K/uL Baso # (Auto) (0-0.2) K/uL Immature Gran # (Auto) (0.00-0.02) K/uL Rouleaux PT (9.0-12.0) Seconds INR (0.9-1.1) Sodium 142 (136-145) mmol/L Potassium 3.6 (3.5-5.1) mmol/L Chloride 108 H (98-107) mmol/L Carbon Dioxide 25 (21-32) mmol/L Anion Gap 9.0 (3-11) BUN 26 H (7-18) mg/dl Creatinine 1.39 H (0.6-1.2) mg/dl Est Cr Clr Drug Dosing 30.2 ml/min Est GFR ( Amer) 41.4 Est GFR (Non-Af Amer) 35.7 BUN/Creatinine Ratio 19.0 (10-20) Glucose 188 H (70-99) mg/dl Lactate (0.4-2.0) mmol/L Calcium 9.2 (8.5-10.1) mg/dl Magnesium 1.7 L (1.8-2.4) mg/dl Total Bilirubin 2.2 H (0.2-1) mg/dl AST 555 H (15-37) U/L ALT 336 H (12-78) U/L Alkaline Phosphatase 155 H (45-117) U/L Troponin I < 0.015 (0-0.045) ng/ml Total Protein 7.5 (6.4-8.2) gm/dl Albumin 3.9 (3.4-5.0) gm/dl Globulin 3.6 (2.5-4.0) gm/dl Albumin/Globulin Ratio 1.1 (0.9-2) Lipase 673 H (73-393) U/L Urine Color Yellow Urine Appearance Clear (Clear) Urine pH 7.5 (4.5-7.5) Ur Specific [place] 1.022 (1.000-1.030) Urine Protein Negative (Negative) Urine Glucose (UA) Trace H (Negative) Urine Ketones Trace H (Negative) Urine Blood Negative (Negative) Urine Nitrite Negative (Negative) Urine Bilirubin Negative (Negative) Urine Urobilinogen Negative (Negative) Ur Leukocyte Esterase Trace H (Negative) Urine WBC (Auto) 1-5 (0-5) /hpf Urine RBC (Auto) 0-4 (0-4) /hpf U Hyaline Cast (Auto) 1-5 (0-5) /lpf U Epithel Cells (Auto) 5-10 H (0-5) /lpf Urine Bacteria (Auto) Negative (Negative) Diagnostic Findings CT Abdomen and Pelvis with contrast: Per STAT-rad - areas of mild small and large bowel wall thickening or underdistention. Correlate clinically regarding enterocoliltis,. Distended gallbladder with prominent biliary ducts and pancreatic duct. Ultrasound/MRCP can further evaluate if indicated. Small hiatal hernia. Right greater than left basilar atelectasis/pneumonitis. Small pulmonary nodules. Trace pericardial fluid RUQUS - Per STAT-rad: Compared to CT 12/12/19 - Distended gallbladder wtih wall edema. No visualized gallstones. MRCP can further evaluate if indicated. Prominent pancreatic duct. Small right renal cystic structure. ECG Additional Comments: EKG wtih ST at 110, normal axis, FW=140, QRS=86, HJi=982. No acute ischemic changes Code Status & VTE Plan Code Status Full Code PG Care Time/CCT Total # of Minutes Spent Total Time Spent with Patient: Total time spent is greater than 50% in coordination of care (as documented) at patient's floor/unit and/or counseling patient: Coding Level of Care Code 28748 Initial Inpt Care Lvl 3 Diagnoses Abdominal pain R10.10 Abdominal location: upper abdomen, unspecified Abnormal LFTs R94.5 Type 2 diabetes mellitus E11.9 Diabetes mellitus residential insulin use: without residential use Diabetes mellitus complication status: without complication Hypertension I10 Hypertension type: essential hypertension Hypercholesterolemia E78.00 CKD (chronic kidney disease) stage 3, GFR 30-59 ml/min N18.3 (1) Type 2 diabetes mellitus Diabetes mellitus 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
[2019-12-12] MEDS ORDERED: DEXTROSE 50% 50 ML SYRINGE IV PRN (05:20)
[2019-12-12] MEDS ORDERED: GLUCAGON FOR INJ 1 MG VIAL SQ PRN (05:20)
[2019-12-12] MEDS ORDERED: ONDANSETRON INJ 2 MG/ML 2 ML VIAL IV PRN ×3 (05:20→20:29)
[2019-12-12] MEDS ORDERED: GLUCOSE 10 TABS/TUBE PO PRN (05:20)
[2019-12-12] MEDS ORDERED: CARBOHYDRATES FOR HYPOGLYCEMIA PO PRN (05:20)
[2019-12-12] MEDS ORDERED: GLUCOSE 40% GEL 15 GM TUBE PO PRN (05:20)
[2019-12-12] MEDS ORDERED: PIPERACILL/TAZOBAC CONSULT ACTIVE PRN (05:20)
[2019-12-12] MEDS ORDERED: MoRPHine SULFATE 2 MG/ML CARP IV PRN ×2 (05:20→20:29)
[2019-12-12] MEDS: LACTATED RINGER'S 1,000 ML IV SCH ×2 (05:53→14:18)
[2019-12-12] MEDS: INSULIN ASPART 100 UNITS/ML 3 ML PEN SC SCH ×4 (05:56→21:28)
[2019-12-12] MEDS ORDERED: PIPERACILLIN/TAZOBACTAM 3.375 GM in DEXTROSE 5% 100 ML IV ONE (06:00)
--- NOTE | 2019-12-12 06:41 | Ultrasound Report ---
US gallbladder CLINICAL HISTORY: abn lft's, Gi sx COMPARISON STUDY: CT of the abdomen and pelvis December 12, 2019. FINDINGS: Liver is sonographically normal. Note is made of mild biliary ductal dilatation. The common bile duct measures 7 mm in caliber. There is also borderline dilatation of the pancreatic duct, barb uring 3 mm in caliber. Pancreatic body is unremarkable. Head and tail are partially obscured. There i s no right hydronephrosis. No common bile calculi are identified although the distal common bile duct is obscured. Gallbladder is moderately distended. There is gallbladder wall thickening. Gallbladder wall edema is noted. Sonographic Malloy sign could not be assessed for in this patient. No gallstones were identified. IMPRESSION: 1. Moderate gallbladder distention with gallbladder wall thickening and edema within the gallbladder wall. No gallstones. Acute cholecystitis cannot be excluded. A hepatobiliary scan could be obtained i f indicated. 2. Mild biliary ductal dilatation. No common bile duct calculi identified though distal common bile d uct obscured. Correlation with obstructive liver function tests is recommended. Borderline dilatation of the pancreatic duct. ACT 112: Negative or not required by law. Electronically signed by: Davy Bartholomew M.D. 12/12/2019 6:39 AM
--- NOTE | 2019-12-12 08:14 | CT Scan Report ---
ABDOMEN AND PELVIS CT WITH IV CONTRAST CT DOSE: 374.16 mGy.cm HISTORY: Acute nausea, vomiting and diarrhea with upper abdominal pain n/v/d, abd pain TECHNIQUE: Multiaxial CT images of the abdomen and pelvis were performed following the IV administrat ion of 93 cc of Optiray 320, A dose lowering technique was utilized adhering to the principles of AL WILBERTO. COMPARISON STUDY: Right upper quadrant abdominal ultrasound of same day FINDINGS: Coronary artery calcifications. The imaged inferior cardiac chambers are unremarkable. Mild right hemidiaphragmatic elevation. Mild dependent subsegmental bibasilar atelectasis. 2 mm solid nod ule of the right middle lobe. There is no pneumatosis or pneumoperitoneum. The spleen and adrenal glands appear normal. Peripancreatic duct measures the upper limits of normal at 3.7 mm. Additionally, there is mild intrahepatic and extrahepatic biliary ductal dilation with the common bile duct measuring up to approximately 9 mm. No obstructing distal lesion or stone. No joe lithiasis identified. There is moderate distention of the gallbladder with mild gallbladder wall thic k[place]. Liver is otherwise unremarkable. Patency of the hepatic and portal veins. Mild cortical thinning and parenchymal scarring of the superior pole left kidney. Probable cyst of th e inferior pole left kidney, 5 mm. Unremarkable urinary bladder, uterus and adnexa. Mixed plaque the abdominal aorta without aneurysm. No adenopathy. Small hiatal hernia with fluid present within the di stal esophagus. There is no bowel obstruction or bowel wall thickening. Visualized appendix appears n ormal. Soft tissues are within normal limits. Demineralized appearance of the bones with degenerative changes of the spine, pelvis and hips. Dextroscoliosis of the thoracolumbar junction. IMPRESSION: 1. No bowel obstruction or bowel wall thickening. Normal appendix. 2. Moderate gallbladder distention with mild wall thickening. Mild intrahepatic and extrahepatic bili alison ductal dilation is noted in addition to the pancreatic duct measuring within the upper limits of normal. No obstructing stone or lesion identified. Correlation with laboratory analysis recommended t o exclude obstructive process. Additionally, nuclear medicine hepatobiliary scan could be considered to exclude developing acute cholecystitis. 3. Small hiatal hernia. 4. Additional findings as above. ACT 112: Negative or not required by law. The above report was generated using voice recognition software. It may contain grammatical, syntax o r spelling errors. Electronically signed by: Juan Pablo Cuevas M.D. 12/12/2019 8:13 AM
[2019-12-12] MEDS: IRBESARTAN 150 MG TAB PO SCH (08:47)
[2019-12-12] MEDS: ATORVASTATIN 40 MG TAB PO SCH (08:47)
--- NOTE | 2019-12-12 10:28 | Gastrointestinal Consultation ---
Date of Consultation December 12, 2019 Assessment & Plan (1) Abnormal LFTs: Patient with presumed gallstone pancreatitis. Discussed with Miranda PIEDRA of [facility]. Will cancel MRCP and consult [facility] for possible ERCP. Consider general surgery evaluation as well. Continue IV antibiotics and supportive care. Thank you for allowing us to participate in the care of this patient. Supervising Physician Co-Signing Physician Notes Agree with LORENA Aquino Abd: Soft, Tender RUQ, ND Dr. Wooten for ERCP today Continue current therapy and supportive care History of Present Illness Reason for Consultation: Possible Pancreatitis Attending Physician: Velvet Munguia MD History of Present Illness Patient is an 79 yo female with a PMH of HTN, HLD, DM2, and CKD who presents to [facility] with abdominal pain. She reports that her pain began nearly 24 hours prior to presentation to the ED. She describes it as epigastric & RUQ pain that radiates to her back. She reports that the pain was 10/10, noting that it was worse than anything she has ever experienced. She reports she thought she may have food poising from a frozen TV dinner, however the pain worsened and she developed vomiting and diarrhea. She decided to present to the ED. Since presentation, she had an US & CT scan that indicated some concern for a possible gallstone pancreatitis with gallbladder distention and thickening. There appeared to be mild biliary dilatation, however, a stone was not able to be visualized due to limitations of the study. T Bili is 2.2, AST 555, ALT 336, AP 155. She is currently on IV Zosyn. An MRCP is ordered and pending. Eloise reports improvement of her symptoms since coming to the ED, but pain has not entirely resolved. No additional complaints at this time. Allergies Allergy/AdvReac Type Severity Reaction Status Date / Time influenza virus vacc AdvReac Unknown Verified 12/12/19 02:58 trivalent, split [From Fluzone] Home Medications Home Medications Medication Instructions Recorded Confirmed Type coenzyme Q10 200 mg capsule 200 mg PO DAILY cap 11/26/18 12/12/19 History cyanocobalamin (vitamin B-12) 1,000 mcg PO DAILY #90 tab 11/26/18 12/12/19 History 1,000 mcg tablet atorvastatin 40 mg tablet 40 mg PO DAILY #90 tab 12/04/18 12/12/19 Rx irbesartan 300 mg tablet 300 mg PO DAILY #90 tab 12/04/18 12/12/19 Rx meloxicam 15 mg tablet 15 mg PO DAILY #90 tab 12/04/18 12/12/19 Rx metformin 500 mg tablet,extended 500 mg PO DAILY #90 tab 08/01/19 12/12/19 Rx release 24 hr alendronate 35 mg tablet 35 mg PO WEEKLY #12 tab 08/31/19 12/12/19 Rx lorazepam 2 mg tablet 2 mg PO BID PRN #180 tab 08/31/19 12/12/19 Rx aspirin [Aspirin Low Dose] 81 mg PO DAILY 12/12/19 12/12/19 History Patient History Medical History Allergic rhinitis Anxiety CKD (chronic kidney disease) stage 3, GFR 30-59 ml/min Depression Diabetic peripheral neuropathy Hypercholesterolemia Hypertension Insomnia Osteoporosis Raynaud's disease Sjogrens syndrome Sleep apnea Thoracic compression fracture Type 2 diabetes mellitus Surgical History History of hand surgery Status post section Family History Mother Arthritis Diabetes Father Arthritis Diabetes Family/Other Arthritis sibling Diabetes sibling Denies family history of Ovarian cancer Prostate cancer Myocardial infarction Breast cancer Colorectal cancer Social History Smoking Status: Never smoker Hx Alcohol Use: No Hx Substance Use: No Preferred Language: Welsh Communication Ability: Effective Visual Impairment: Limited Hearing Ability: Normal 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 Beliefs That Will Affect Care: None marital status: Current Living Situation: Spouse current occupational status: retired Feels Safe at Home: Yes Childhood Exposure to Second-Hand Smoke: No caffeine: Yes (Coffee x 1 per day.) during the past year weight has: remained stable Dental Care, Regularly: No Physical Activity Frequency: 3-4 Times per Week Seatbelt Use: always Sunscreen Use: Yes Assistive Devices: None Results & Data ([facility]) Vital Signs (Past 12 Hours) Vital Signs Temp Pulse Pulse Pulse Resp BP Pulse Ox 12/12/19 09:47 37 C 92 H 16 111/69 92 12/12/19 07:41 91 H 95 12/12/19 06:16 37.7 C H 104 H 24 162/87 H 100 12/12/19 04:48 101 H 18 141/77 H 99 12/12/19 03:42 94 H 18 127/70 98 12/12/19 02:35 97 12/12/19 02:34 87 L 12/12/19 02:31 102 H 24 176/87 H 93 12/12/19 02:00 104 H 18 180/89 H 98 12/12/19 01:38 103 H 18 185/99 H 98 12/12/19 01:04 18 214/100 H 94 12/12/19 00:38 37.1 C 100 H 22 98 PG Care Time/CCT Total # of Minutes Spent Total Time Spent with Patient: Total time spent is greater than 50% in coordination of care (as documented) at patient's floor/unit and/or counseling patient: Coding Level of Care Code 58325 Initial Inpt Care Lvl 3 Diagnoses Abnormal LFTs R94.5
[2019-12-12] MEDS ORDERED: INDOMETHACIN 50 MG SUPP PR SCH (10:30)
--- NOTE | 2019-12-12 10:30 | Gastroenterology Progress Note ---
Date of Service December 12, 2019 Assessment & Plan (1) Abdominal pain: (2) Abnormal LFTs: (3) Elevated lipase: Pt is a 79 yo female w symptoms of epigastric abd pain radiating to back, noted to have lactic acidosis, febrile, LFTs, lipase elevations. Imaging studies showed distended CBD, pancreatic ducts w/o obvious stones in gallbladder or CBD areas. - IVF support w LR - IV antibx for possible cholangitis - Keep NPO, plan for ERCP in OR by Dr. Darrel Wooten today - Symptomatic management w antiemetics and analgesics prn Admission and Anticipated Discharge Date Admission Date: December 12, 2019 Supervising Physician Co-Signing Physician Notes I performed a history and physical examination of the patient today, including s pecifically on physical exam - soft abdomen. I have discussed the patient's management with the advanced practitioner. Please refer to the nurse practitioner's note for the documented findings and plan of care. 79 yrs old female patient admitted with abdominal pain, found to have elevated lipase and LFTs with dilated CBD on imaging and suspected cholecystitis, concern for choledocholithiasis. EUS/ERCP today. Subjective Received request for ERCP evaluation from [facility]. Pt admitted last night for epigastric abd pain radiating to back associated w n/v. Upon eval noted to have elevated LFTs, lipase, and CT/US imaging studies suggestive of distended gallbladder w edema, dilated biliary (9mm) and pancreatic duct (3mm). CBD stone not identified. Lactic acid is up, pt is febrile. She is receiving Zosyn for possible cholangitis Pt reports this AM abd pain is improved, no more n/v. She denies any changes in bowel habits or signs of dark tarry stools/rectal bleeding. Denies jaundice, or unexpected weight loss She denies tobacco, ETOh, illicit drugs Hx of Csection Brother w hx of pancreatic ca Review of Systems Review of Systems: All systems reviewed & are unremarkable except as noted in HPI & below Physical Exam Constitutional: WD/WN, vitals as above well groomed and cooperative Eyes: PERRL, conjunctivae normal, anicteric sclerae ENMT: external ear and nose normal, oropharynx normal Respiratory: normal respiratory effort, lungs clear to auscultation Cardiovascular: RRR, no murmur, no edema Gastrointestinal (Abdomen): normal bowel sounds, soft, nontender, no hepatosplenomegaly Skin: no rashes, warm and dry no jaundice Psychiatric: A+Ox3, euthymic affect Lymphatic: no lymphedema Results & Data ([facility]) Vital Signs (Past 12 Hours) Vital Signs Temp Pulse Pulse Pulse Resp BP Pulse Ox 12/12/19 09:47 37 C 92 H 16 111/69 92 12/12/19 07:41 91 H 95 12/12/19 06:16 37.7 C H 104 H 24 162/87 H 100 12/12/19 04:48 101 H 18 141/77 H 99 12/12/19 03:42 94 H 18 127/70 98 12/12/19 02:35 97 12/12/19 02:34 87 L 12/12/19 02:31 102 H 24 176/87 H 93 12/12/19 02:00 104 H 18 180/89 H 98 12/12/19 01:38 103 H 18 185/99 H 98 12/12/19 01:04 18 214/100 H 94 12/12/19 00:38 37.1 C 100 H 22 98 (1) Abdominal pain Abdominal location: upper abdomen, unspecified Qualified Code(s): R10.10 - Upper abdominal pain, unspecified
[2019-12-12] MEDS: ACETAMINOPHEN 1000 MG/100 ML IV IV PRN (10:39)
--- NOTE | 2019-12-12 11:37 | Surgery Consultation ---
Date of Consultation December 12, 2019 Assessment & Plan (1) Abnormal LFTs: Evidence of cholecystitis on U/S and CT. On Zosyn. Tentatively plan for lap joe this afternoon to follow ERCP. Will discuss with GI. Dr. Mejia saw the patient in her room and discussed laparoscopic cholecystectom y with the patient-she does seem to understand We will try to proceed after the ERCP to avoid a second operation over the next several days. Normally she should have her gallbladder removed during this admission. It is likely she had sludge or debris from the gallbladder obstruct the common duct. History of Present Illness Attending Physician: Velvet Munguia MD History of Present Illness 79 y/o female developed abdominal pain, N/V, diarrhea between 5 and 6 last ev ening a few hours after eating a TV dinner. No previous symptoms. Symptoms are improved today. Back pain has resolved. Was admitted overnight, ERCP planned for this afternoon. Allergies Allergy/AdvReac Type Severity Reaction Status Date / Time influenza virus vacc AdvReac Unknown Verified 12/12/19 02:58 trivalent, split [From Fluzone] Home Medications Home Medications Medication Instructions Recorded Confirmed Type coenzyme Q10 200 mg capsule 200 mg PO DAILY cap 11/26/18 12/12/19 History cyanocobalamin (vitamin B-12) 1,000 mcg PO DAILY #90 tab 11/26/18 12/12/19 History 1,000 mcg tablet atorvastatin 40 mg tablet 40 mg PO DAILY #90 tab 12/04/18 12/12/19 Rx irbesartan 300 mg tablet 300 mg PO DAILY #90 tab 12/04/18 12/12/19 Rx meloxicam 15 mg tablet 15 mg PO DAILY #90 tab 12/04/18 12/12/19 Rx metformin 500 mg tablet,extended 500 mg PO DAILY #90 tab 08/01/19 12/12/19 Rx release 24 hr alendronate 35 mg tablet 35 mg PO WEEKLY #12 tab 08/31/19 12/12/19 Rx lorazepam 2 mg tablet 2 mg PO BID PRN #180 tab 08/31/19 12/12/19 Rx aspirin [Aspirin Low Dose] 81 mg PO DAILY 12/12/19 12/12/19 History Patient History Medical History Allergic rhinitis Anxiety CKD (chronic kidney disease) stage 3, GFR 30-59 ml/min Depression Diabetic peripheral neuropathy Hypercholesterolemia Hypertension Insomnia Osteoporosis Raynaud's disease Sjogrens syndrome Sleep apnea Thoracic compression fracture Type 2 diabetes mellitus Surgical History History of hand surgery Status post section Family History Mother Arthritis Diabetes Father Arthritis Diabetes Family/Other Arthritis sibling Diabetes sibling Denies family history of Ovarian cancer Prostate cancer Myocardial infarction Breast cancer Colorectal cancer Social History Smoking Status: Never smoker Hx Alcohol Use: No Hx Substance Use: No Preferred Language: Romansh Communication Ability: Effective Visual Impairment: Limited Hearing Ability: Normal [place] Required: No Beliefs That Will Affect Care: None marital status: Current Living Situation: Spouse current occupational status: retired Feels Safe at Home: Yes Childhood Exposure to Second-Hand Smoke: No caffeine: Yes (Coffee x 1 per day.) during the past year weight has: remained stable Dental Care, Regularly: No Physical Activity Frequency: 3-4 Times per Week Seatbelt Use: always Sunscreen Use: Yes Assistive Devices: None Review of Systems Constitutional: no fever and no chills Gastrointestinal: + abdominal pain, + nausea and + vomiting Physical Exam Constitutional: WD/WN, vitals as above Respiratory: normal respiratory effort, lungs clear to auscultation Cardiovascular: RRR, no murmur, no edema Gastrointestinal (Abdomen): Inspection/Auscultation: abdomen not distended Percussion/Palpation: + abdomen tender (mild RUQ) and abdomen soft Results & Data ([facility]) Vital Signs (Past 12 Hours) Vital Signs Temp Pulse Pulse Pulse Resp BP Pulse Ox 12/12/19 09:47 37 C 92 H 16 111/69 92 12/12/19 07:41 91 H 95 12/12/19 06:16 37.7 C H 104 H 24 162/87 H 100 12/12/19 04:48 101 H 18 141/77 H 99 12/12/19 03:42 94 H 18 127/70 98 12/12/19 02:35 97 12/12/19 02:34 87 L 12/12/19 02:31 102 H 24 176/87 H 93 12/12/19 02:00 104 H 18 180/89 H 98 12/12/19 01:38 103 H 18 185/99 H 98 12/12/19 01:04 18 214/100 H 94 12/12/19 00:38 37.1 C 100 H 22 98 PG Care Time/CCT Total # of Minutes Spent Total Time Spent with Patient: Total time spent is greater than 50% in coordination of care (as documented) at patient's floor/unit and/or counseling patient: Coding Level of Care Code 35654 Initial Inpt Care Lvl 1 Diagnoses Abnormal LFTs R94.5
[2019-12-12] MEDS ORDERED: PIPERACILLIN/TAZOBACTAM 3.375 GM in DEXTROSE 5% 100 ML IV SCH (12:00)
[2019-12-12] MEDS: PIPERACILLIN/TAZOBACTAM 2.25 GM in DEXTROSE 5% 100 ML IV SCH ×2 (12:10→20:43)
[2019-12-12] MEDS ORDERED: IOVERSOL 50ml IV ONE (13:21)
--- NOTE | 2019-12-12 14:21 | Medical Student Progress Note ---
Date of Service December 12, 2019 Assessment & Plan (1) Abdominal pain: 79 y/o female presenting with acute epigastric abdominal pain with radiation to the back. Labs significant for transaminitis, elevated T bili, and elevated lipase. Imaging suggestive of gallbladder distention with dilated CBD and pancreatic ducts. 1) Abdominal pain - cholecystitis vs cholangitis vs pancreatitis -Distended gallbladder and dilated CBD/pancreatic duct, transaminitis, elevated t.bili and lipase -GI consulted for ERCP -Gen surgery consult for cholecystectomy evaluation -hold ASA in setting of possible intervention -keep NPO -CMP and CBC daily - no electrolyte abnormalities seen on today's labs 2) Abnormal LFTs -likely elevated in the setting of cholecystitis vs biliary obstruction -GI consulted as above for possible ERCP -CMP daily 3) Type 2 DM - controlled, last A1c - 6.1 -hold metform while inpatient -insulin sliding scale w. goal of 100-140 -npo prior to intervention 4) HTN - Held Irbesartan 300mg 5) Hypercholesterolemia -Stable, continue Atorvastatin 40mg PO 6) CKD stage III -chronic, stable -CMP -avoid nephrotoxic agents and renally dose medications as necessary F/E/N - LR at 125mL/hr x 1 liter, monitor electrolytes, NPO for now Ppx - SCDs to bilateral LE Code -Full code Dispo - Admit to medical floor Abdominal location: upper abdomen, unspecified Qualified Code(s): R10.10 - Upper abdominal pain, unspecified Admission and Anticipated Discharge Date Admission Date: December 12, 2019 Supervising Attestation Medical Student Supervision Note: I was personally present during medical student patient encounter and independently interviewed and examined the patient and verified the stoll history and physical, reviewed labs and image studies, discussed the case with Jose Tellez and agree with the findings and care plan. Subjective Patient stated that she ate a TV dinner last evening and proceeded to have abdominal pain in a belt like pattern around her waist that she rated as 10/10. She forced herself to vomit, thinking it was a viral GI illness but did not have any improvement in her pain. She additionally noted having diarrhea at home but has not had any in the hospital. As of this morning she stated that her pain is now a 2/10 and remains bandlike with the worst pain in the RUQ. She denies any history of previous gallbladder or liver disease. Review of Systems Constitutional: no fever, no chills and no sweats no change in appetite Respiratory: no cough, no chest congestion, no dyspnea and no wheezing Cardiovascular: no chest pain, no orthopnea, no palpitations and no edema Gastrointestinal: no nausea, no vomiting, no constipation and no diarrhea /loose stools Genitourinary: no dysuria Physical Exam Constitutional: Well appearing female resting comfortably in bed Eyes: PERRL, conjunctivae normal, anicteric sclerae ENMT: external ear and nose normal, oropharynx normal Respiratory: Lungs are clear to auscultation bilaterally, no wheezes, rales or rhonchi. Normal work of breathing Cardiovascular: Regular rate and rhythm, 2/6 systolic ejection murmur, no rubs or extra heart sounds Gastrointestinal (Abdomen): Normal bowel sounds x4, tender to palpation in RUQ Skin: no rashes, warm and dry Neurologic: PERRL, EOMI, accommodation nl, no face palsy, no dysarthria Psychiatric: A+Ox3, euthymic affect Results & Data ([facility]) Vital Signs (Past 12 Hours) Vital Signs Temp Pulse Pulse Resp BP Pulse Ox 12/12/19 09:47 37 C 92 H 16 111/69 92 12/12/19 07:41 91 H 95 12/12/19 06:16 37.7 C H 104 H 24 162/87 H 100 12/12/19 04:48 101 H 18 141/77 H 99 12/12/19 03:42 94 H 18 127/70 98 12/12/19 02:35 97 12/12/19 02:34 87 L 12/12/19 02:31 102 H 24 176/87 H 93
--- NOTE | 2019-12-12 16:00 | Anesthesiology Consultation ---
Date of Service December 12, 2019 Assessment & Plan (1) Encounter for pre-operative examination: Chart Review Chart Review: Acceptable Risk for Surgery and Patient NOT seen in Pre Admission Testing Consults Requested none History Surgery Operation Date: 12/12/19 16:45 Proposed Procedures p Endoscopic Retrograde Cholangiopancreatogram - Darrel Wooten MD s Laparoscopic Cholecystectomy - Tigre Cedeno MD, FACS Height/Weight Height: 5 ft 6 in Weight: 61 kg Allergies Allergy/AdvReac Type Severity Reaction Status Date / Time influenza virus vacc AdvReac Unknown Verified 12/12/19 02:58 trivalent, split [From Fluzone] Medications Home Medications Medication Instructions Recorded Confirmed Last Taken coenzyme Q10 200 mg capsule 200 mg PO DAILY cap 11/26/18 12/12/19 Unknown cyanocobalamin (vitamin B-12) 1,000 mcg PO DAILY #90 tab 11/26/18 12/12/19 Unknown 1,000 mcg tablet atorvastatin 40 mg tablet 40 mg PO DAILY #90 tab 12/04/18 12/12/19 Unknown irbesartan 300 mg tablet 300 mg PO DAILY #90 tab 12/04/18 12/12/19 Unknown meloxicam 15 mg tablet 15 mg PO DAILY #90 tab 12/04/18 12/12/19 Unknown metformin 500 mg tablet,extended 500 mg PO DAILY #90 tab 08/01/19 12/12/19 Unknown release 24 hr alendronate 35 mg tablet 35 mg PO WEEKLY #12 tab 08/31/19 12/12/19 Unknown lorazepam 2 mg tablet 2 mg PO BID PRN #180 tab 08/31/19 12/12/19 Unknown aspirin [Aspirin Low Dose] 81 mg PO DAILY 12/12/19 12/12/19 Unknown Active Medications Generic Name Dose Route Start Last Admin Trade Name Freq PRN Reason Stop Dose Admin Acetaminophen 1,000 mg 12/12/19 10:30 12/12/19 10:39 Acetaminophen 1000 Mg/100 Ml Iv IV 12/15/19 10:29 1,000 mg Q12H PRN Administration Pain Atorvastatin Calcium 40 mg 12/12/19 09:00 12/12/19 08:47 Atorvastatin 40 Mg Tab PO 01/11/20 08:59 40 mg DAILY JACOB Administration Lactated Ringer's 1,000 mls @ 125 mls/hr 12/12/19 05:20 12/12/19 14:18 Lr IV 12/13/19 05:19 125 mls/hr .Q8H JACOB Administration Piperacillin Sod/Tazobactam 110 mls @ 200 mls/hr 12/12/19 12:00 12/12/19 12:56 Sod 2.25 gm/ Dextrose IV 12/22/19 05:59 Infused Q6H JACOB Infusion Protocol Insulin Aspart 0 units 12/12/19 06:00 12/12/19 12:16 Insulin Aspart 100 Units/Ml 3 Ml Pen SC 01/11/20 05:59 Not Given Q6 JACOB Irbesartan 300 mg 12/12/19 09:00 12/12/19 08:47 Irbesartan 150 Mg Tab PO 01/11/20 08:59 300 mg DAILY JACOB Administration NPO Date Last Intake of Fluids: 12/12/19 Time Last Intake of Fluids: 09:45 Last Intake of Fluids Comment: Was NPO except chips, sips and meds prior Date Last Intake of Solids: 12/12/19 Time Last Intake of Solids: 05:05 Past Medical History Medical History Allergic rhinitis Anxiety CKD (chronic kidney disease) stage 3, GFR 30-59 ml/min Depression Diabetic peripheral neuropathy Hypercholesterolemia Hypertension Insomnia Osteoporosis Raynaud's disease Sjogrens syndrome Sleep apnea Thoracic compression fracture Type 2 diabetes mellitus Past Family History Family History Mother Arthritis Diabetes Father Arthritis Diabetes Family/Other Arthritis sibling Diabetes sibling Denies family history of Ovarian cancer Prostate cancer Myocardial infarction Breast cancer Colorectal cancer Past Surgical History Surgical History History of hand surgery Status post section Past Anesthesia History No Hx of Anesthesia Complications and No Family Hx of Anesthesia Complications History of PONV No Hx of PONV and No Hx of Motion Sickness Social History Smoking Status: Never smoker Hx Alcohol Use: No Hx Substance Use: No Physical Exam Vital Signs Last Vital Signs Temp 37.2 C 12/12/19 15:41 Pulse 91 H 12/12/19 15:41 Resp 16 12/12/19 15:41 BP 131/65 12/12/19 15:41 Pulse Ox 96 12/12/19 15:41 Testing Laboratory Results 12/12/19 01:18 12/12/19 01:18 PT 11.0 Seconds (9.0-12.0) 12/12/19 01:18 INR 1.0 (0.9-1.1) 12/12/19 01:18 Urine Color Yellow 12/12/19 02:56 Urine Appearance Clear (Clear) 12/12/19 02:56 Urine pH 7.5 (4.5-7.5) 12/12/19 02:56 Ur Specific [place] 1.022 (1.000-1.030) 12/12/19 02:56 Urine Protein Negative (Negative) 12/12/19 02:56 Urine Glucose (UA) Trace (Negative) H 12/12/19 02:56 Urine Ketones Trace (Negative) H 12/12/19 02:56 Urine Nitrite Negative (Negative) 12/12/19 02:56 Ur Leukocyte Esterase Trace (Negative) H 12/12/19 02:56 Urine WBC (Auto) 1-5 /hpf (0-5) 12/12/19 02:56 Urine RBC (Auto) 0-4 /hpf (0-4) 12/12/19 02:56 U Hyaline Cast (Auto) 1-5 /lpf (0-5) 12/12/19 02:56 U Epithel Cells (Auto) 5-10 /lpf (0-5) H 12/12/19 02:56 Urine Bacteria (Auto) Negative (Negative) 12/12/19 02:56 12/12/19 12/12/19 12:08 05:55 POC Glucose 131 H 133 H Electrocardiogram Date: 12/12/19 Findings: + ST @ (110) Sinus tachycardia with Premature supraventricular complexes Possible Left atrial enlargement Borderline ECG When compared with ECG of 20-JAN-2005 13:45, Premature supraventricular complexes are now Present Vent. rate has increased BY 43 BPM
--- NOTE | 2019-12-12 16:05 | History & Physical Bridge Note ---
Date of Service December 12, 2019 History & Physical Bridge Note I have examined the patient, reviewed the History & Physical and in the interval since the performance of the History & Physical I have noted the following changes of clinical significance: no changes noted
[2019-12-12] MEDS ORDERED: MIDAZOLAM HCL 1 MG/ML 2ML VIAL ONE (16:06)
[2019-12-12] MEDS ORDERED: fentaNYL citrate 100 MCG/2 ML VIAL ONE ×2 (16:06→17:49)
[2019-12-12] MEDS ORDERED: ROCURONIUM BROMIDE 10 MG/ML 5 ML VIAL IV ONE ×5 (16:09)
[2019-12-12] MEDS ORDERED: LIDOCAINE HCL 2% 2 ML VIAL/AMP(20MG/ML) INFIL ONE (16:09)
[2019-12-12] MEDS ORDERED: PROPOFOL IV EMULSION 10 MG/ML 20 ML VIAL IV ONE (16:09)
[2019-12-12] MEDS ORDERED: ATROPINE SULFATE 0.1 MG/ML 10ML SYR IV PRN (16:12)
[2019-12-12] MEDS ORDERED: ePHEDrine sulfate 50 MG/ML AMP IV PRN (16:12)
[2019-12-12] MEDS ORDERED: BUPIVACAINE 0.5 % 5 MG/1 ML MPF 30ML VIAL ONE (16:21)
[2019-12-12] MEDS ORDERED: INDOMETHACIN 50 MG SUPP PR ONE (16:22)
[2019-12-12] MEDS ORDERED: DiphenhydrAMINE HCL 50 MG/ML VIAL ONE (16:40)
[2019-12-12] MEDS ORDERED: ONDANSETRON INJ 2 MG/ML 2 ML VIAL ONE (16:54)
--- NOTE | 2019-12-12 17:52 | GI REPORT ---
Patient Name: Eloise Neves Procedure Date: 12/12/2019 4:21 PM Date of : 1940 Admit Type: Inpatient Age: 79 Gender: Female Attending MD: Darrel Wooten MD Procedure: Upper GI endoscopy Providers: Darrel Wooten MD Referring MD: Velvet Munguia Indications: Epigastric abdominal pain Medicines: General Anesthesia Complications: No immediate complications. Estimated Blood Loss: Estimated blood loss: none. Procedure: Pre-Anesthesia Assessment: - Prior to the procedure, a History and Physical was performed, and patient medications, allergies and sensitivities were reviewed. The patient's tolerance of previous anesthesia was reviewed. - The risks and benefits of the procedure and the sedation options and risks were discussed with the patient. All questions were answered and informed consent was obtained. - Patient identification and proposed procedure were verified prior to the procedure by the physician and the nurse. The procedure was verified in the procedure room. - Pre-procedure physical examination revealed no contraindications to sedation. After obtaining informed consent, the endoscope was passed under direct vision. Throughout the procedure, the patient's blood pressure, pulse, and oxygen saturations were monitored continuously. The Scope was introduced through the mouth, and advanced to the second part of duodenum. The upper GI endoscopy was accomplished without difficulty. The patient tolerated the procedure well. Findings: The examined esophagus was normal. The entire examined stomach was normal. The duodenal bulb and second portion of the duodenum were normal. Impression: - Normal esophagus. - Normal stomach. - Normal duodenal bulb and second portion of the duodenum. Recommendation: - Perform an upper endoscopic ultrasound (UEUS) today. Darrel Wooten MD 12/12/2019 5:51:43 PM This report has been signed electronically. Note Initiated On: 12/12/2019 4:21 PM Number of Addenda: 0 I attest to the content of the Intraoperative Record and orders documented therein, exceptions below {[id number]}
--- NOTE | 2019-12-12 17:58 | GI REPORT ---
Patient Name: Eloise Neves Procedure Date: 12/12/2019 4:21 PM Date of : 1940 Admit Type: Inpatient Age: 79 Gender: Female Attending MD: Darrel Wooten MD Procedure: Upper EUS Providers: Darrel Wooten MD Referring MD: Velvet Munguia Indications: Common bile duct dilation (etiology unknown) seen on CT scan, Elevated liver enzymes, Suspected choledocholithiasis Medicines: General Anesthesia Complications: No immediate complications. Estimated Blood Loss: Estimated blood loss: none. Procedure: Pre-Anesthesia Assessment: - Prior to the procedure, a History and Physical was performed, and patient medications, allergies and sensitivities were reviewed. The patient's tolerance of previous anesthesia was reviewed. - The risks and benefits of the procedure and the sedation options and risks were discussed with the patient. All questions were answered and informed consent was obtained. - Patient identification and proposed procedure were verified prior to the procedure by the physician and the nurse. The procedure was verified in the procedure room. - Pre-procedure physical examination revealed no contraindications to sedation. After obtaining informed consent, the endoscope was passed under direct vision. Throughout the procedure, the patient's blood pressure, pulse, and oxygen saturations were monitored continuously. The Endosonoscope was introduced through the mouth, and advanced to the second part of duodenum. The upper EUS was accomplished without difficulty. The patient tolerated the procedure well. Findings: ENDOSONOGRAPHIC FINDING: : There was no sign of significant endosonographic abnormality in the ampulla. No masses were identified. There was dilation in the common bile duct which measured up to 8 mm. Two stones were visualized endosonographically in the common bile duct. They were hyperechoic and characterized by shadowing. A small amount of hyperechoic material consistent with sludge was visualized endosonographically in the gallbladder. There was no sign of significant endosonographic abnormality in the visualized portion of the liver. Homogeneous parenchyma was identified. There was no sign of significant endosonographic abnormality in the entire pancreas. The pancreatic duct measured up to 2.7 mm in diameter in the head and 2.1 mm in the body. There was no sign of significant endosonographic abnormality in the visualized portion of the left adrenal gland. There was no sign of significant endosonographic abnormality involving the celiac trunk. Impression: - There was no sign of significant pathology in the ampulla. - There was dilation in the common bile duct which measured up to 8 mm. - Two stones were visualized endosonographically in the common bile duct. - Hyperechoic material consistent with sludge was visualized endosonographically in the gallbladder. - There was no evidence of significant pathology in the visualized portion of the liver. - There was no sign of significant pathology in the entire pancreas. - Endosonographic images of the left adrenal gland were unremarkable. - The celiac trunk was endosonographically normal. Recommendation: - Perform an ERCP today. Darrel Wooten MD 12/12/2019 5:58:05 PM This report has been signed electronically. Note Initiated On: 12/12/2019 4:21 PM Number of Addenda: 0 I attest to the content of the Intraoperative Record and orders documented therein, exceptions below {[id number]}
--- NOTE | 2019-12-12 18:10 | GI REPORT ---
Patient Name: Eloise Neves Procedure Date: 12/12/2019 4:09 PM Date of : 1940 Admit Type: Inpatient Age: 79 Gender: Female Attending MD: Darrel Wooten MD Procedure: ERCP Providers: Darrel Wooten MD Referring MD: Tigre Arenas Indications: Abnormal endoscopic ultrasound of the biliary system, For therapy of bile duct stone(s), For therapy of ascending cholangitis Medicines: General Anesthesia Complications: No immediate complications. Estimated Blood Loss: Estimated blood loss: none. Procedure: Pre-Anesthesia Assessment: - Prior to the procedure, a History and Physical was performed, and patient medications, allergies and sensitivities were reviewed. The patient's tolerance of previous anesthesia was reviewed. - The risks and benefits of the procedure and the sedation options and risks were discussed with the patient. All questions were answered and informed consent was obtained. - Patient identification and proposed procedure were verified prior to the procedure by the physician and the nurse. The procedure was verified in the procedure room. - Pre-procedure physical examination revealed no contraindications to sedation. After obtaining informed consent, the scope was passed under direct vision. Throughout the procedure, the patient's blood pressure, pulse, and oxygen saturations were monitored continuously. The Scope was introduced through the mouth, and advanced to the duodenum and used to inject contrast into the bile duct. The ERCP was accomplished without difficulty. The patient tolerated the procedure well. Findings: The price checker film was normal. The esophagus was successfully intubated under direct vision. The scope was advanced to a normal major papilla in the descending duodenum without detailed examination of the pharynx, larynx and associated structures, and upper GI tract. The upper GI tract was grossly normal. Pus was emerging from the major papilla. The ventral pancreatic duct was inadvertently cannulated with the short-nosed traction sphincterotome and guidewire. The guidewire was kept in place to assist in biliary cannulation. A 0.035 inch angled standard wire was passed into the biliary tree. The Fusion OMNI sphincterotome was passed over the guidewire and the bile duct was then deeply cannulated. Contrast was injected. I personally interpreted the bile duct images. Ductal flow of contrast was adequate. Image quality was adequate. Contrast extended to the main bile duct. Opacification of the entire biliary tree except for the gallbladder was successful. The maximum diameter of the ducts was 9 mm. The biliary orifice was stenotic. This appeared benign. The lower third of the main bile duct contained a single mild stenosis 10 mm in length. Biliary sphincterotomy was made with a monofilament traction (standard) sphincterotome using ERBE electrocautery. There was no post-sphincterotomy bleeding. Bile duct orifice was successfully dilated with an 8 mm balloon dilator. To discover objects, the biliary tree was swept with a 12 mm balloon starting at the bifurcation. Sludge was swept from the duct. Two stones were removed. No stones remained. Pus was swept from the duct. Cells for cytology were obtained by brushing in the lower third of the main bile duct. Verification of patient identification for the specimen was done by the physician and nurse using the patient's name and date. One 5 Fr by 9 cm plastic pancreatic stent with a single external pigtail and no internal flaps was placed into the ventral pancreatic duct. Clear fluid flowed through the stent. The stent was in good position. One 10 Fr by 8 cm plastic biliary stent with a single external flap and a single internal flap was placed into the common bile duct. Bile flowed through the stent. The stent was in good position. Indomethacin 100 mg was given via suppository to decrease the risk of post-ERCP pancreatitis (PEP). Impression: - Choledocholithiasis was found. Complete removal was accomplished by biliary sphincterotomy, balloon sphincteroplasty and balloon extraction. - Benign biliary papillary stenosis. - A single mild biliary stricture was found in the lower third of the main bile duct. The stricture was inflammatory, likely related on stone passage and underlying cholangitis. Cells for cytology obtained. - The biliary tree was swept and pus was found consistent with acute cholangitis. - One plastic pancreatic stent was placed into the ventral pancreatic duct and Indomethacin given to decrease risk of post-ERCP pancreatitis. - One plastic biliary stent was placed into the common bile duct. Recommendation: - Return patient to [facility] for [facility] care. - Avoid aspirin and nonsteroidal anti-inflammatory medicines for 5 days. - Continue ABx and aim to complete a 10 days course. - Repeat ERCP in 6 weeks to remove the stents. - Await cytology results. Darrel Wooten MD 12/12/2019 6:09:51 PM This report has been signed electronically. Note Initiated On: 12/12/2019 4:09 PM Number of Addenda: 0 I attest to the content of the Intraoperative Record and orders documented therein, exceptions below {[id number]}
[2019-12-12] MEDS ORDERED: GLYCOPYRROLATE 0.2 MG/ML VIAL ONE (18:19)
[2019-12-12] MEDS ORDERED: NEOSTIGMINE METHYLSULFATE 5 MG/5 ML SYR ONE (18:19)
--- NOTE | 2019-12-12 18:27 | Operative Report ---
Post Operative Report Pre & Post Diagnosis Operation Date: 12/12/19 16:45 Pre-Op Diagnosis: Cholangitis, CBD Stone Post-Op Diagnosis: Cholangitis, CBD Stone I identified the patient and participated in the time-out.: Yes Procedure Operation Date: 12/12/19 16:45 Actual Procedures p Endoscopic Retrograde Cholangiopancreatogram(Not Applicable) - MD annabel Ruth Esophagogastroduodenoscopy Dr Wooten(Not Applicable) - MD annabel Elizondo Endoscopic Ultrasonography Upper(Not Applicable) - MD annabel Elizondo Laparoscopic Cholecystectomy - Tigre Cedeno MD, FACS Surgeon Darrel Wooten MD Insulator Technician None Estimated Blood Loss 0 Findings See Below (CBD stone and cholangitis) Specimens CBD brushing cytology Description of Procedure EUS/ERCP I attest to the content of the Intraoperative Record and any orders documented therein. Any exceptions are noted below.
[2019-12-12] MEDS ORDERED: ACETAMINOPHEN 1,000 MG/100 ML VIAL IV ONE (18:40)
--- NOTE | 2019-12-12 18:40 | Post Operative Brief Note ---
PG Immediate Post Op with CF Date of Surgery December 12, 2019 Pre & Post Diagnosis Operation Date: 12/12/19 16:45 Pre-Op Diagnosis: Cholangitis, CBD Stone Post-Op Diagnosis: Cholangitis, CBD Stone I identified the patient and participated in the time-out.: Yes Procedure Operation Date: 12/12/19 16:45 Actual Procedures p Endoscopic Retrograde Cholangiopancreatogram(Not Applicable) - Darrel Wooten MD s Esophagogastroduodenoscopy Dr Wooten(Not Applicable) - Darrel Wooten MD s Endoscopic Ultrasonography Upper(Not Applicable) - Darrel Wooten MD s Laparoscopic Cholecystectomy(Not Applicable) - Tigre Cedeno MD, FACS Surgeon Tigre Cedeno MD, FACS Drill Doctor None Estimated Blood Loss 10 (0 EBL for Endo procedures.) Findings Consistent with Post-Op Diagnosis Specimens Specimen Description: 1734 CBD stricture brushing A. Gall Bladder
[2019-12-12] MEDS ORDERED: DiphenhydrAMINE HCL 50 MG/ML VIAL IV PRN (18:51)
--- NOTE | 2019-12-12 19:17 | Operative Report (OR) ---
DATE OF OPERATION: 12/12/2019 NAME OF OPERATION: Laparoscopic cholecystectomy. PREOPERATIVE DIAGNOSES: Common bile duct obstruction with acute cholecystitis. POSTOPERATIVE DIAGNOSES: Common bile duct obstruction with acute cholecystitis. STAFF SURGEON: Tigre Cedeno MD. ANESTHESIA: General. DESCRIPTION OF PROCEDURE: The patient was in the operating room in a supine position after undergoing EUS and ERCP. Her abdomen was prepped and draped in usual fashion. 0.5% plain Marcaine was used to anesthetize all incisions. Incision was made above the umbilicus, carrying dissection down into the abdomen, placing a Veress needle producing pneumoperitoneum. The patient was placed in reverse Trendelenburg position, rotated to the left, 11 mm port placed. Under visualization, three 5 mm ports were placed, 1 cephalad and 2 laterally. The patient's gallbladder was severely distended, edematous. There was bilious ascites. It was aspirated of bile and found to be clear, indicating hydrops. There were adhesions to the gallbladder, which were taken down both bluntly and sharply. Dissection was carried out the zaida hepatis, identifying the cystic duct and then the cystic artery and a second branch to the gallbladder off of the common hepatic artery, which was visualized. The duct and cystic arteries were clipped and transected and the gallbladder dissected away from the liver bed. There was severe edema in the posterior wall. After appropriate irrigation and hemostasis, the gallbladder was placed in an Endobag and removed through the umbilical site. All ports were removed. Fascia at the umbilicus closed using 0 Vicryl suture. Skin reapproximated using subcuticular 4-0 Monocryl with Steri-Strips. The patient was transferred to recovery room in stable condition. I attest to the content of the Intraoperative Record and any orders documented therein. Any exception s are noted below.
--- NOTE | 2019-12-12 19:51 | Anesthesiology Progress Note ---
Date of Service December 12, 2019 Anesthesia Post Procedure Vital Signs Vital Signs: Temp Pulse Pulse Pulse Resp BP Pulse Ox 12/12/19 19:40 75 18 127/75 96 12/12/19 19:30 76 20 147/75 H 95 12/12/19 19:20 83 16 144/95 H 94 12/12/19 19:10 86 18 167/77 H 97 12/12/19 19:00 63 12 150/73 H 100 12/12/19 18:54 37.1 C 79 12 158/78 H 98 12/12/19 15:41 37.2 C 91 H 16 131/65 96 12/12/19 15:04 36.7 C 80 18 118/65 96 12/12/19 09:47 37 C 92 H 16 111/69 92 12/12/19 07:41 91 H 95 12/12/19 06:16 37.7 C H 104 H 24 162/87 H 100 12/12/19 04:48 101 H 18 141/77 H 99 12/12/19 03:42 94 H 18 127/70 98 12/12/19 02:35 97 12/12/19 02:34 87 L 12/12/19 02:31 102 H 24 176/87 H 93 12/12/19 02:00 104 H 18 180/89 H 98 12/12/19 01:38 103 H 18 185/99 H 98 12/12/19 01:04 18 214/100 H 94 12/12/19 00:38 37.1 C 100 H 22 98 Pain Intensity Abdomen: Pain Intensity: 3 Transfer of Care Handoff Completed per policy Notes Mental Status: alert / awake / arousable and participated in evaluation Patient Amnestic to Procedure: Yes Nausea / Vomiting: adequately controlled Pain: adequately controlled Airway Patency, RR, SpO2: stable & adequate BP & HR: stable & adequate Hydration State: stable & adequate Anesthetic Complications: no major complications apparent Notes: Patient mildly confused, but easily reorients to place and recent procedure. Mild erythematous rash on chest, abdomen and back that was identified after ERCP. Rash is not getting worse and patient was already treated with benadryl. Floor nursing to be notified in report so that it can watched over time. Otherwise, ok to discharge to floor.
[2019-12-12] MEDS ORDERED: PROMETHAZINE HCL 12.5 MG in SODIUM CHLORIDE 0.9% 50 ML IV PRN (20:29)
[2019-12-12] MEDS ORDERED: HYDROCODONE/ACETAMOPHEN 5/325MG TAB PO PRN ×2 (20:29)
--- NOTE | 2019-12-12 20:33 | Fluoroscopy Report ---
FL ERCP biliary ductal CLINICAL HISTORY: ERCP. Bile duct dilatation. COMPARISON STUDY: Abdominal ultrasound 12/12/2019. FLUOROSCOPY TIME: 1 minute and 12 seconds. FINDINGS: 13 fluoroscopic spot images obtained. The ampulla was cannulated and a guidewire seen withi n the common bile duct and main pancreatic duct. Contrast was injected into the common bile duct. A b alloon sweep was performed. A common bile duct and main pancreatic duct stents were placed and appear good position. IMPRESSION: Fluoroscopy provided for ERCP. ACT 112: Negative or not required by law. Electronically signed by: Jacobo Morley M.D. 12/12/2019 8:31 PM
[2019-12-12] MEDS ORDERED: Nursing to Pharmacy Communication SCH (20:45)
[2019-12-13] MEDS: LORazepam 1 MG TAB PO PRN ×2 (00:08→22:01)
[2019-12-13] MEDS: PIPERACILLIN/TAZOBACTAM 3.375 GM in DEXTROSE 5% 100 ML IV SCH ×3 (02:30→17:41)
[2019-12-13 05:38] LABS: Basophils # (auto) 0.01 K/uL (0-0.2); Basophils % (auto) 0.1 %; Eosinophils # (auto) 0.01 K/uL (0-0.5); Eosinophils % (auto) 0.1 %; Hematocrit (blood only) 33.6 % (37-47); Hemoglobin 10.9 g/dL (12.0-16.0); Immature Granulocytes # (auto) 0.02 K/uL (0.00-0.02); Immature Granulocytes % (auto) 0.2 %; Lymphocytes # (auto) 0.97 K/uL (1.2-3.4); Lymphocytes % (auto) 11.6 %; Mean Corpuscular Hemoglobin 29.4 pg (25-34); Mean Corpuscular Hgb Conc 32.4 g/dL (32-36); Mean Corpuscular Volume 90.6 fL (80-100); Mean Platelet Volume 9.4 fL (7.4-10.4); Monocytes % (auto) 2.4 %; Neutrophils # (auto) 7.13 K/uL (1.4-6.5); Neutrophils % (auto) 85.6 %; Platelet Count 105 K/uL (130-400); RDW Coefficient of Variation 15.1 % (11.5-14.5); RDW Standard Deviation 50.6 fL (36.4-46.3); Red Blood Count 3.71 M/uL (4.2-5.4); White Blood Count 8.34 K/uL (4.8-10.8)
[2019-12-13 06:13] LABS: Albumin Globulin Ratio 0.9 (0.9-2); Albumin Level 2.5 gm/dl (3.4-5.0); BUN Creatinine Ratio 14.6 (10-20); Bilirubin Direct 3.2 mg/dl (0-0.2); Bilirubin,Total 4.9 mg/dl (0.2-1); Calcium 7.7 mg/dl (8.5-10.1); Creatinine Clr Calc Pharmacy 28.6 ml/min; Est GFR (African American) 38.7; Est GFR (Non-African American) 33.4; Globulin 2.7 gm/dl (2.5-4.0); Phosphorus 3.4 mg/dl (2.5-4.9); Potassium 3.6 mmol/L (3.5-5.1); Total Protein 5.2 gm/dl (6.4-8.2)
--- NOTE | 2019-12-13 06:57 | Surgery Progress Note ---
Date of Service December 13, 2019 Assessment & Plan (1) Status post laparoscopic cholecystectomy: Patient has rested comfortably overnight without significant pain medication She has tolerated some sips of liquids Her lipase this morning is normal Her total bilirubin is elevated Continue to monitor LFTs, to new IV antibiotics Appears to be stable from a surgical standpoint Admission and Anticipated Discharge Date Admission Date: December 12, 2019 Results & Data ([facility]) Vital Signs (Past 12 Hours) Vital Signs Temp Pulse Pulse Resp BP Pulse Ox 12/13/19 03:31 37.1 C 81 18 99/61 L 92 12/13/19 00:05 92 12/12/19 22:56 37.1 C 76 16 126/78 100 12/12/19 22:03 37.0 C 81 18 144/80 H 99 12/12/19 21:05 37.2 C 71 16 153/79 H 100 12/12/19 20:38 36.9 C 65 16 149/73 H 100 12/12/19 20:05 36.8 C 70 16 137/73 98 12/12/19 19:50 37.4 C 73 20 144/81 H 97 12/12/19 19:40 75 18 127/75 96 12/12/19 19:30 76 20 147/75 H 95 12/12/19 19:20 83 16 144/95 H 94 12/12/19 19:10 86 18 167/77 H 97 12/12/19 19:00 63 12 150/73 H 100 PG Care Time/CCT Total # of Minutes Spent Total Time Spent with Patient: Total time spent is greater than 50% in coordination of care (as documented) at patient's floor/unit and/or counseling patient: Coding Level of Care Code None Diagnoses Status post laparoscopic cholecystectomy Z90.49
[2019-12-13] MEDS: IRBESARTAN 150 MG TAB PO SCH (08:38)
[2019-12-13] MEDS: ATORVASTATIN 40 MG TAB PO SCH (08:39)
[2019-12-13] MEDS: HEPARIN SOD 5,000 UNIT/0.5 ML VIAL SQ SCH ×2 (08:41→22:01)
[2019-12-13] MEDS: SODIUM CHLORIDE 0.9% 1000ML 1,000 ML IV SCH (09:10)
[2019-12-13] MEDS: INSULIN ASPART 100 UNITS/ML 3 ML PEN SC SCH ×4 (09:30→22:01)
--- NOTE | 2019-12-13 10:10 | Gastroenterology Progress Note ---
Date of Service December 13, 2019 Assessment & Plan (1) Abdominal pain: (2) Abnormal LFTs: (3) Elevated lipase: Pt is a 79 yo female w symptoms of epigastric abd pain radiating to back, noted to have lactic acidosis, febrile, LFTs, lipase elevations. Imaging studies showed distended CBD, pancreatic ducts w/o obvious stones in gallbladder or CBD areas. She is POD #1 s/p ERCP w choledocholithiasis removal, biliary sphincterectomy, biliary and pancreatic stents placements. Benign biliary stricture found, cytology pending. Pus consistent w cholangitis found, on IV Zosyn. She had lap cholecystectomy after her ERCP. - Avoid NSAIDs 5 days after ERCP - Complete 10 days of antibx - Repeat ERCP in 6 week's time to remove stents - F/U cytology results - Trend LFTs - CL diet, advance as tolerated - Symptomatic management w antiemetics and analgesics prn - We will follow peripherally Admission and Anticipated Discharge Date Admission Date: December 12, 2019 Subjective Pt reports some abd discomfort but overall doing well, tolerating CL diet w/o n/v. No flatus yet. Noted rise in Tbili, some improvement in transaminases. Review of Systems Review of Systems: All systems reviewed & are unremarkable except as noted in HPI & below Physical Exam Constitutional: WD/WN, vitals as above well groomed and cooperative Eyes: PERRL, conjunctivae normal, anicteric sclerae ENMT: external ear and nose normal, oropharynx normal Respiratory: normal respiratory effort, lungs clear to auscultation Cardiovascular: RRR, no murmur, no edema Gastrointestinal (Abdomen): Post surgical dressing CDI, TTP around surgical sites. BS hypoactive. Skin: no rashes, warm and dry no jaundice Psychiatric: A+Ox3, euthymic affect Lymphatic: no lymphedema Results & Data ([facility]) Vital Signs (Past 12 Hours) Vital Signs Temp Pulse Resp BP Pulse Ox 12/13/19 07:17 36.8 C 79 16 111/71 92 12/13/19 03:31 37.1 C 81 18 99/61 L 92 12/13/19 00:05 92 12/12/19 22:56 37.1 C 76 16 126/78 100
--- NOTE | 2019-12-13 12:41 | Medical Student Progress Note ---
Date of Service December 13, 2019 Assessment & Plan (1) Abdominal pain: 79 y/o female presenting with acute epigastric abdominal pain with radiation to the back. Labs significant for transaminitis, elevated T bili, and elevated lipase. Imaging suggestive of gallbladder distention with dilated CBD and pancreatic ducts, now status post ERCP and cholecystectomy 1) Abdominal pain - improved clinically -Distended gallbladder and dilated CBD/pancreatic duct, transaminitis, elevated t.bili and lipase -s/p ERCP and cholecystectomy -hold ASA per GI recs -10 days of abx per GI recs -CMP and CBC daily - no electrolyte abnormalities seen on today's labs 2) Abnormal LFTs -likely elevated in the setting of cholecystitis vs biliary obstruction -CMP daily 3) Type 2 DM -controlled, last A1c - 6.1 -hold Metformin while inpatient -insulin sliding scale w. goal of 100-140 4) HTN - Continue home Irbesartan 300mg 5) Hypercholesterolemia -Stable, continue Atorvastatin 40mg PO 6) CKD stage III -chronic, Cr. 1.39 to 1.47 today -continue to monitor with CMP -avoid nephrotoxic agents and renally dose medications as necessary F/E/N - NS at 125mL/hr x 1 liter, monitor electrolytes, diabetic diet as tolerated Ppx - SCDs Code -Full code Dispo - Admit to medical floor Admission and Anticipated Discharge Date Admission Date: December 12, 2019 Supervising Attestation Medical Student Supervision Note: I was personally present during medical student patient encounter and independently interviewed and examined the patient and verified the stoll history and physical, reviewed labs and image studies, discussed the case with Jose Tellez and agree with the findings and care plan. Acute cholecystitis with gall stone - now s/p ERCP and cholecystectomy. T bili/ALT higher. AST slightly better. low albumin. mild increase in creatinine. will monitor overnight continue abx. Subjective She states that her abdominal pain has improved significantly from yesterday. She has some abdominal soreness at the sight of the incisions. She had some difficulty sleeping last night but improved with Ativan. Review of Systems Constitutional: no fever, no chills, no sweats and no weakness Eyes: heavy eye lids Respiratory: no cough, no dyspnea, no hemoptysis, no pain on inspiration and no wheezing Cardiovascular: no chest pain, no dyspnea, no orthopnea, no syncope and no edema Gastrointestinal: + abdominal pain; no vomiting, no constipation and no diarrhea/loose stools Physical Exam Eyes: PERRL, conjunctivae normal, anicteric sclerae ENMT: external ear and nose normal, oropharynx normal Respiratory: Lungs clear to auscultation bilaterally, no wheezes, rales or rhonchi Cardiovascular: RRR, 2/6 systolic ejection murmur, no rubs or extra heart sounds Gastrointestinal (Abdomen): normal bowel sounds, soft, nontender, no hepatosplenomegaly bandages in place on abdomen Neurologic: PERRL, EOMI, accommodation nl, no face palsy, no dysarthria Psychiatric: A+Ox3, euthymic affect Results & Data ([facility]) Vital Signs (Past 12 Hours) Vital Signs Temp Pulse Resp BP Pulse Ox 12/13/19 11:05 36.6 C 72 16 145/84 H 96 12/13/19 07:17 36.8 C 79 16 111/71 92 12/13/19 03:31 37.1 C 81 18 99/61 L 92
[2019-12-13] MEDS ORDERED: COUGH DROP (SUGAR FREE) LOZ 24 LOZ/1 BOX BUCCAL PRN (14:25)
[2019-12-13] MEDS: ACETAMINOPHEN 1000 MG/100 ML IV IV PRN (14:38)
[2019-12-13] MEDS ORDERED: ENOXAPARIN INJ 30 MG/0.3 ML SYR SQ SCH (15:15)
[2019-12-13] MEDS: ACETAMINOPHEN 325 MG TAB PO PRN (22:01)
[2019-12-14] MEDS: PIPERACILLIN/TAZOBACTAM 3.375 GM in DEXTROSE 5% 100 ML IV SCH ×3 (02:15→18:03)
[2019-12-14] MEDS: ACETAMINOPHEN 325 MG TAB PO PRN (05:42)
[2019-12-14 05:51] LABS: Eosinophils # (auto) 0.08 K/uL (0-0.5); Eosinophils % (auto) 1.6 %; Hematocrit (blood only) 34.7 % (37-47); Hemoglobin 11.1 g/dL (12.0-16.0); Lymphocytes # (auto) 0.67 K/uL (1.2-3.4); Lymphocytes % (auto) 13.5 %; Mean Corpuscular Hemoglobin 29.4 pg (25-34); Mean Corpuscular Volume 91.8 fL (80-100); Mean Platelet Volume 9.9 fL (7.4-10.4); Monocytes # (auto) 0.21 K/uL (0.11-0.59); Monocytes % (auto) 4.2 %; Neutrophils % (auto) 80.7 %; Platelet Count 105 K/uL (130-400); RDW Coefficient of Variation 15.4 % (11.5-14.5); RDW Standard Deviation 51.6 fL (36.4-46.3); Red Blood Count 3.78 M/uL (4.2-5.4); White Blood Count 4.96 K/uL (4.8-10.8)
[2019-12-14 06:21] LABS: Albumin Level 2.5 gm/dl (3.4-5.0); BUN Creatinine Ratio 12.1 (10-20); Calcium 7.8 mg/dl (8.5-10.1); Creatinine Clr Calc Pharmacy 31.3 ml/min; Est GFR (African American) 43.3; Est GFR (Non-African American) 37.3; Potassium 3.7 mmol/L (3.5-5.1)
[2019-12-14 06:24] LABS: Albumin Globulin Ratio 0.8 (0.9-2); Bilirubin,Total 5.1 mg/dl (0.2-1); Total Protein 5.5 gm/dl (6.4-8.2)
--- NOTE | 2019-12-14 08:07 | Surgery Progress Note ---
Date of Service December 14, 2019 Assessment & Plan (1) Status post laparoscopic cholecystectomy: Patient is bloated-may have an ileus We will check KUB Her total bilirubin has elevated, other LFTs seem to be coming down We will discuss with GI team Check mag and Phos-from this a.m.'s labs Continue IV antibiotics Admission and Anticipated Discharge Date Admission Date: December 12, 2019 Results & Data ([facility]) Vital Signs (Past 12 Hours) Vital Signs Temp Pulse Resp BP Pulse Ox 12/14/19 07:15 36.8 C 78 16 162/80 H 90 12/13/19 23:01 37.0 C 76 16 127/79 94 PG Care Time/CCT Total # of Minutes Spent Total Time Spent with Patient: Total time spent is greater than 50% in coordination of care (as documented) at patient's floor/unit and/or counseling patient: Coding Level of Care Code None Diagnoses Status post laparoscopic cholecystectomy Z90.49
--- NOTE | 2019-12-14 08:31 | Gastroenterology Progress Note ---
Date of Service December 14, 2019 Assessment & Plan (1) Abdominal pain: (2) Abnormal LFTs: (3) Elevated lipase: Pt is a 79 yo female w symptoms of epigastric abd pain radiating to back, noted to have lactic acidosis, febrile, LFTs, lipase elevations. Imaging studies showed distended CBD, pancreatic ducts w/o obvious stones in gallbladder or CBD areas. She is POD #2 s/p ERCP w choledocholithiasis removal, biliary sphincterectomy, biliary and pancreatic stents placements. Benign biliary stricture found, cytology pending. Pus consistent w cholangitis found, on IV Zosyn. She had lap cholecystectomy after her ERCP. - NPO now, we will plan to take her down to OR this afternoon for repeat ERCP and stents exchange to metal stent as there's suspicion the current stents are getting occluded (Tbili up, though transaminases decreasing) - Avoid NSAIDs 5 days after ERCP - Complete 10 days of antibx - F/U cytology results from 12/11-> atypical cells, reactive - Trend LFTs - KUB to r/o ileus; sips of CL till KUB reviewed - Symptomatic management w antiemetics and analgesics prn - We will follow Admission and Anticipated Discharge Date Admission Date: December 12, 2019 Supervising Physician Co-Signing Physician Notes I performed a history and physical examination of the patient today, including specifically on physical exam - soft abdomen. I have discussed the patient's management with the advanced practitioner. Please refer to the nurse practitioner's note for the documented findings and plan of care. T.bili rising however AST/ALT trending down, am concerned about stent occlusion in view of the excessive amount of thick pus she had. ERCP today with stent exchange Subjective Pt reports some abd pain and bloating. No n/v. LFTs reviewed - mild increased in Tbili, transaminases decreasing Review of Systems Review of Systems: All systems reviewed & are unremarkable except as noted in HPI & below Physical Exam Constitutional: WD/WN, vitals as above well groomed and cooperative Eyes: PERRL, conjunctivae normal, anicteric sclerae ENMT: external ear and nose normal, oropharynx normal Respiratory: normal respiratory effort, lungs clear to auscultation Cardiovascular: RRR, no murmur, no edema Gastrointestinal (Abdomen): Inspection/Auscultation: + abdomen distended (mild) and normal bowel sounds Percussion/Palpation: + abdomen tender and abdomen soft Skin: no rashes, warm and dry Psychiatric: A+Ox3, euthymic affect Lymphatic: no lymphedema Results & Data ([facility]) Vital Signs (Past 12 Hours) Vital Signs Temp Pulse Resp BP Pulse Ox 12/14/19 07:15 36.8 C 78 16 162/80 H 90 12/13/19 23:01 37.0 C 76 16 127/79 94
[2019-12-14] MEDS: IRBESARTAN 150 MG TAB PO SCH (08:33)
[2019-12-14] MEDS: ATORVASTATIN 40 MG TAB PO SCH (08:33)
[2019-12-14] MEDS: HEPARIN SOD 5,000 UNIT/0.5 ML VIAL SQ SCH ×2 (08:34→20:45)
[2019-12-14] MEDS: INSULIN ASPART 100 UNITS/ML 3 ML PEN SC SCH ×3 (08:35→17:56)
[2019-12-14 08:42] LABS: Magnesium 2.2 mg/dl (1.8-2.4); Phosphorus 1.8 mg/dl (2.5-4.9)
[2019-12-14] MEDS ORDERED: ENOXAPARIN INJ 30 MG/0.3 ML SYR SQ SCH (09:00)
--- NOTE | 2019-12-14 09:35 | XRay Report ---
ABDOMEN 2 VIEWS HISTORY: Abdominal distention. Ileus. COMPARISON: Abdomen and pelvis CT 12/12/2019. FINDINGS: Prior cholecystectomy. Common bile duct and main pancreatic duct stents are noted and are l ikely in good position. S-shaped scoliosis of the thoracolumbar spine. No dilated loops of small isaias l to suggest an obstruction. Mildly dilated gas and stool-filled colon. No pneumoperitoneum. No pneum atosis. No renal or ureteral calculi. Suspect trace bilateral pleural effusions. Mild cardiomegaly. IMPRESSION: 1. Mildly dilated gas and stool-filled colon. This could be secondary to constipation. No dilated loo ps of small bowel to suggest an obstruction. 2. The common bile duct and main pancreatic duct stents appear in good position. ACT 112: Negative or not required by law. Electronically signed by: Jacobo Morley M.D. 12/14/2019 9:34 AM
[2019-12-14] MEDS ORDERED: Nursing to Pharmacy Communication SCH (10:00)
[2019-12-14] MEDS ORDERED: INDOMETHACIN 50 MG SUPP PR SCH (10:00)
--- NOTE | 2019-12-14 11:57 | Electrocardiogram Report ---
Test Reason : Blood Pressure : / mmHG Vent. Rate : 110 BPM Atrial Rate : 110 BPM P-R Int : 160 ms QRS Dur : 086 ms QT Int : 338 ms P-R-T Axes : 056 017 057 degrees QTc Int : 457 ms Sinus tachycardia with Premature supraventricular complexes Possible Left atrial enlargement Borderline ECG When compared with ECG of 20-JAN-2005 13:45, Premature supraventricular complexes are now Present Vent. rate has increased BY 43 BPM Confirmed by Zelalem Eisenberg ([id number]) on 12/14/2019 11:57:36 AM Referred By: REFERRED SELF Confirmed By:Zelalem Eisenberg
--- NOTE | 2019-12-14 11:59 | Medical Student Progress Note ---
Date of Service December 14, 2019 Assessment & Plan (1) Abdominal pain: 79 y/o female presenting with acute epigastric abdominal pain with radiation to the back. Labs significant for transaminitis, elevated T bili, and elevated lipase. Imaging suggestive of gallbladder distention with dilated CBD and pancreatic ducts, now s/p ERCP and cholecystectomy with post-op obstipation and abdominal bloating and increasing Tbili 1) Abdominal pain - Acute cholecystitis w/ gallstone, transaminitis, elevated t.bili and lipase now s/p ERCP and lap joe -obstipation/distended abdomen with KUB showing colonic dilation suggestive of post op ileus -Repeat ERCP for stent evaluation per GI 12/13 -hold ASA per GI recs (Zosyn 3.375 q8hr) started 12/12 -10 days of abx per GI recs -CMP and CBC daily - no electrolyte abnormalities seen on today's labs 2) Abnormal LFTs -likely elevated in the setting of cholecystitis vs biliary obstruction s/p ERCP stent placement -Stent revision per GI today LFTs downtrending, Tbili rise from 4.9->5.1, ALP 128->148 -CMP daily 3) Type 2 DM -controlled, last A1c - 6.1 -hold Metformin while inpatient -insulin sliding scale w. goal of 100-140 4) HTN - Continue home Irbesartan 300mg 5) Hypercholesterolemia -Stable, continue Atorvastatin 40mg PO 6) CKD stage III -chronic, Cr. 1.47 to 1.34 today -continue to monitor with CMP -avoid nephrotoxic agents and renally dose medications as necessary F/E/N - no IVF, monitor electrolytes, diabetic diet as tolerated Ppx - Heparin per Gen Surg Code -Full code Dispo - Admit to medical floor Admission and Anticipated Discharge Date Admission Date: December 12, 2019 Supervising Attestation Medical Student Supervision Note: I was personally present during medical student patient encounter and independently interviewed and examined the patient and verified the stoll history and physical, reviewed labs and image studies, discussed the case with Jose Tellez and agree with the findings and care plan. s/p ERCP with stent placement and lap joe - Rising LFT - for ERCP today to get stent revision Post op ileus - NPO, IVF, ambulate renal function stable. Subjective States that she had more trouble sleeping last night. She feels that her abdomen is bloated with some pain in the RUQ. She has not passed gas or stool since her lap joe. Review of Systems Constitutional: no fever, no chills, no sweats and no weakness Respiratory: no cough, no dyspnea and no wheezing Cardiovascular: no chest pain, no dyspnea, no palpitations, no lightheadedness, no syncope and no edema Gastrointestinal: + abdominal pain and + bloating; no nausea and no vomiting no bowel movements Neurologic: no dizziness, no syncope, no headache(s) and no confusion Physical Exam Constitutional: well developed and well nourished; no acute distress Eyes: PERRL, conjunctivae normal, anicteric sclerae ENMT: external ear and nose normal, oropharynx normal Respiratory: Lungs clear to auscultation bilaterally, no wheezes, rales or rhonchi Cardiovascular: RRR, 2/6 systolic ejection murmur, no rubs or extra heart sounds Gastrointestinal (Abdomen): Hypoactive bowel sounds, distended abdomen, tender to palpation in RUQ, bandages in place on abdomen Neurologic: PERRL, EOMI, accommodation nl, no face palsy, no dysarthria Psychiatric: A+Ox3, euthymic affect Results & Data ([facility]) Vital Signs (Past 12 Hours) Vital Signs Temp Pulse Resp BP Pulse Ox 12/14/19 07:15 36.8 C 78 16 162/80 H 90
--- NOTE | 2019-12-14 14:09 | Anesthesiology Consultation ---
Date of Service December 14, 2019 Assessment & Plan (1) Encounter for pre-operative examination: Chart Review Chart Review: Acceptable Risk for Surgery Consults Requested none ASA ASA3 Proposed Anesthesia Anesthesia Type: General Risk / Benefits Reviewed With: PT / POA / Parent / Guardian, Accepts Plan and Informed Consent Obtained History Surgery Operation Date: 12/12/19 16:45 Proposed Procedures p Endoscopic Retrograde Cholangiopancreatogram - Darrel Wooten MD s Laparoscopic Cholecystectomy - Tigre Cedeno MD, FACS Operation Date: 12/14/19 07:00 Proposed Procedures p Endoscopic Retrograde Cholangiopancreatogram - Darrel Wooten MD Height/Weight Height: 5 ft 6 in Weight: 61 kg Allergies Allergy/AdvReac Type Severity Reaction Status Date / Time Iodinated Contrast Media Allergy Intermediate Rash Verified 12/12/19 16:26 influenza virus vacc AdvReac Unknown Verified 12/12/19 02:58 trivalent, split [From Fluzone] Medications Home Medications Medication Instructions Recorded Confirmed Last Taken coenzyme Q10 200 mg capsule 200 mg PO DAILY cap 11/26/18 12/12/19 Unknown cyanocobalamin (vitamin B-12) 1,000 mcg PO DAILY #90 tab 11/26/18 12/12/19 Unknown 1,000 mcg tablet atorvastatin 40 mg tablet 40 mg PO DAILY #90 tab 12/04/18 12/12/19 Unknown irbesartan 300 mg tablet 300 mg PO DAILY #90 tab 12/04/18 12/12/19 Unknown meloxicam 15 mg tablet 15 mg PO DAILY #90 tab 12/04/18 12/12/19 Unknown metformin 500 mg tablet,extended 500 mg PO DAILY #90 tab 08/01/19 12/12/19 Unknown release 24 hr alendronate 35 mg tablet 35 mg PO WEEKLY #12 tab 08/31/19 12/12/19 Unknown lorazepam 2 mg tablet 2 mg PO BID PRN #180 tab 08/31/19 12/12/19 Unknown aspirin [Aspirin Low Dose] 81 mg PO DAILY 12/12/19 12/12/19 Unknown Active Medications Generic Name Dose Route Start Last Admin Trade Name Freq PRN Reason Stop Dose Admin Acetaminophen 1,000 mg 12/12/19 10:30 12/13/19 14:38 Acetaminophen 1000 Mg/100 Ml Iv IV 12/15/19 10:29 1,000 mg Q12H PRN Administration Pain Acetaminophen 650 mg 12/12/19 20:29 12/14/19 05:42 Acetaminophen 325 Mg Tab PO 01/11/20 20:28 650 mg Q4H PRN Administration Pain Atorvastatin Calcium 40 mg 12/12/19 09:00 12/14/19 08:33 Atorvastatin 40 Mg Tab PO 01/11/20 08:59 40 mg DAILY JACOB Administration Heparin Sodium (Porcine) 5,000 units 12/13/19 09:00 12/14/19 08:34 Heparin Sod 5,000 Unit/0.5 Ml Vial SQ 01/12/20 08:59 5,000 units Q12 JACOB Administration Piperacillin Sod/Tazobactam 115 mls @ 28.75 mls/hr 12/13/19 02:00 12/14/19 10:16 Sod 3.375 gm/ Dextrose IV 12/22/19 01:59 28.8 mls/hr Q8H JACOB Administration Protocol Insulin Aspart 0 units 12/14/19 12:00 12/14/19 12:12 Insulin Aspart 100 Units/Ml 3 Ml Pen SC 01/13/20 11:59 Not Given Q6 JACOB Irbesartan 300 mg 12/12/19 09:00 12/14/19 08:33 Irbesartan 150 Mg Tab PO 01/11/20 08:59 300 mg DAILY JACOB Administration Lorazepam 2 mg 12/12/19 05:38 12/13/19 22:01 Lorazepam 1 Mg Tab PO 01/11/20 05:37 2 mg BID PRN Administration anxiety Menthol 1 guerda 12/13/19 14:25 12/13/19 14:37 Cough Drop (Sugar Free) Guerda 24 Guerda/1 Box BUCCAL 01/12/20 14:24 1 guerda PRN PRN Administration Sore Throat Ondansetron HCl 4 mg 12/12/19 20:29 12/14/19 05:43 Ondansetron Inj 2 Mg/Ml 2 Ml Vial IV 01/11/20 20:28 4 mg [id number] PRN Administration Nausea NPO Date Last Intake of Fluids: 12/14/19 Time Last Intake of Fluids: 08:00 Last Intake of Fluids Comment: Was NPO except chips, sips and meds prior Date Last Intake of Solids: 12/14/19 Time Last Intake of Solids: 08:00 Past Medical History Medical History Allergic rhinitis Anxiety CKD (chronic kidney disease) stage 3, GFR 30-59 ml/min Depression Diabetic peripheral neuropathy Hypercholesterolemia Hypertension Insomnia Osteoporosis Raynaud's disease Sjogrens syndrome Sleep apnea Thoracic compression fracture Type 2 diabetes mellitus Exercise / Class Metabolic Activity III < 4 Walking/Shop/Light housework Past Family History Family History Mother Arthritis Diabetes Father Arthritis Diabetes Family/Other Arthritis sibling Diabetes sibling Denies family history of Ovarian cancer Prostate cancer Myocardial infarction Breast cancer Colorectal cancer Past Surgical History Surgical History History of hand surgery Status post section Past Anesthesia History No Hx of Anesthesia Complications and No Family Hx of Anesthesia Complications History of PONV No Hx of PONV and No Hx of Motion Sickness Social History Smoking Status: Never smoker Hx Alcohol Use: No Hx Substance Use: No Physical Exam Vital Signs Last Vital Signs Temp 98.8 F 12/14/19 13:59 Pulse 75 12/14/19 13:59 Resp 18 12/14/19 13:59 BP 173/99 H 12/14/19 13:59 Pulse Ox 97 12/14/19 13:59 ENMT Mouth: + dentures (Upper) Thyromental Distance: > or= 3.5 Finger Breadths Mallampati Class: II Neck normal visual inspection Respiratory normal respiratory effort Auscultation: lungs clear to auscultation bilaterally Cardiovascular Rate/Rhythm: regular rate and regular rhythm Testing Laboratory Results 12/14/19 05:22 12/14/19 05:22 PT 11.0 Seconds (9.0-12.0) 12/12/19 01:18 INR 1.0 (0.9-1.1) 12/12/19 01:18 Urine Color Yellow 12/12/19 02:56 Urine Appearance Clear (Clear) 12/12/19 02:56 Urine pH 7.5 (4.5-7.5) 12/12/19 02:56 Ur Specific [place] 1.022 (1.000-1.030) 12/12/19 02:56 Urine Protein Negative (Negative) 12/12/19 02:56 Urine Glucose (UA) Trace (Negative) H 12/12/19 02:56 Urine Ketones Trace (Negative) H 12/12/19 02:56 Urine Nitrite Negative (Negative) 12/12/19 02:56 Ur Leukocyte Esterase Trace (Negative) H 12/12/19 02:56 Urine WBC (Auto) 1-5 /hpf (0-5) 12/12/19 02:56 Urine RBC (Auto) 0-4 /hpf (0-4) 12/12/19 02:56 U Hyaline Cast (Auto) 1-5 /lpf (0-5) 12/12/19 02:56 U Epithel Cells (Auto) 5-10 /lpf (0-5) H 12/12/19 02:56 Urine Bacteria (Auto) Negative (Negative) 12/12/19 02:56 12/12/19 01:18 Escherichia coli Shiga Toxins Test - Preliminary Stool Stool Culture - Preliminary No Salmonella isolated to date, No Shigella isolated to date, No Campylobacter jejuni isolated to date. 12/14/19 12/14/19 12:03 08:11 POC Glucose 129 H 107 H Electrocardiogram Date: 12/12/19 Findings: + ST @ (110) Sinus tachycardia with Premature supraventricular complexes Possible Left atrial enlargement Borderline ECG When compared with ECG of 20-JAN-2005 13:45, Premature supraventricular complexes are now Present Vent. rate has increased BY 43 BPM
[2019-12-14] MEDS ORDERED: ONDANSETRON INJ 2 MG/ML 2 ML VIAL IV PRN (14:10)
[2019-12-14] MEDS ORDERED: ePHEDrine sulfate 50 MG/ML AMP IV PRN (14:10)
[2019-12-14] MEDS ORDERED: ATROPINE SULFATE 0.1 MG/ML 10ML SYR IV PRN (14:10)
[2019-12-14] MEDS ORDERED: fentaNYL citrate 100 MCG/2 ML VIAL IV PRN (14:10)
[2019-12-14] MEDS ORDERED: LIDOCAINE HCL 2% 2 ML VIAL/AMP(20MG/ML) INFIL ONE (14:34)
[2019-12-14] MEDS ORDERED: fentaNYL citrate 100 MCG/2 ML VIAL ONE (14:34)
[2019-12-14] MEDS ORDERED: PROPOFOL IV EMULSION 10 MG/ML 20 ML VIAL IV ONE (14:34)
[2019-12-14] MEDS ORDERED: SUCCINYLCHOLINE CHLORIDE 20 MG/ML 10 ML VIAL IV ONE (14:34)
[2019-12-14] MEDS ORDERED: ROCURONIUM BROMIDE 10 MG/ML 5 ML VIAL IV ONE (14:34)
--- NOTE | 2019-12-14 15:33 | History & Physical Bridge Note ---
Date of Service December 14, 2019 History & Physical Bridge Note I have examined the patient, reviewed the History & Physical and in the interval since the performance of the History & Physical I have noted the following changes of clinical significance: no changes noted
[2019-12-14] MEDS ORDERED: MIDAZOLAM HCL 1 MG/ML 2ML VIAL ONE (16:06)
[2019-12-14] MEDS ORDERED: DiphenhydrAMINE HCL 50 MG/ML VIAL ONE (16:13)
[2019-12-14] MEDS ORDERED: DEXAMETHASONE SOD INJ 4 MG/ML VIAL ONE (16:13)
--- NOTE | 2019-12-14 16:26 | Operative Report ---
Post Operative Report Pre & Post Diagnosis Operation Date: 12/12/19 16:45 Pre-Op Diagnosis: Cholangitis, CBD Stone Post-Op Diagnosis: Cholangitis, CBD Stone Operation Date: 12/14/19 07:00 Pre-Op Diagnosis: Biliary Stricture Post-Op Diagnosis: Biliary Stricture I identified the patient and participated in the time-out.: Yes Procedure Operation Date: 12/12/19 16:45 Actual Procedures s Endoscopic Retrograde Cholangiopancreatogram(Not Applicable) - Darrel Wooten MD p Laparoscopic Cholecystectomy(Not Applicable) - Tigre Cedeno MD, FACS s Endoscopic Ultrasonography Upper(Not Applicable) - Darrel Wooten MD s Esophagogastroduodenoscopy(Not Applicable) - Darrel Wooten MD Operation Date: 12/14/19 07:00 Actual Procedures p Endoscopic Retrograde Cholangiopancreatogram(Not Applicable) - Darrel Wooten MD Surgeon Darrel Wooten MD Mail Weigher None Estimated Blood Loss 0 Findings See Below (CBD stent exchanged) Specimens None Description of Procedure ERCP I attest to the content of the Intraoperative Record and any orders documented therein. Any exceptions are noted below.
--- NOTE | 2019-12-14 16:49 | Fluoroscopy Report ---
[place] ERCP biliary ductal HISTORY: 79 years-old Female EXPLORE DUCTS acute nausea and vomiting COMPARISON: CT abdomen and pelvis 12/12/2019, ERCP 12/12/2019 TECHNIQUE: 6 spot fluoroscopic images of the abdominal right upper quadrant were obtained utilizing 1 minute and 20.9 seconds of fluoroscopy time. FINDINGS: Endoscope is noted within the duodenum. Common bile and pancreatic duct stents are redemonstrated. Ca nnulation of the ampulla with retrograde injection of contrast into the biliary tree. Subsequent imag es demonstrate removal of the common bile duct stent with exchange of an expandable common bile duct stent. There is mild areas of somewhat be narrowing involving the intrahepatic biliary tree. The panc reatic ductal stent remains in place. No biliary filling defects. IMPRESSION: Fluoroscopic assistance as above. ACT 112: Negative or not required by law. The above report was generated using voice recognition software. It may contain grammatical, syntax o r spelling errors. Electronically signed by: Juan Pablo Cuevas M.D. 12/14/2019 4:48 PM
--- NOTE | 2019-12-14 17:11 | Anesthesiology Progress Note ---
Date of Service December 14, 2019 Anesthesia Post Procedure Vital Signs Vital Signs: Temp Pulse Pulse Resp BP Pulse Ox 12/14/19 17:00 36.9 C 77 15 169/93 H 97 12/14/19 16:50 76 17 164/86 H 97 12/14/19 16:40 80 16 175/86 H 97 12/14/19 16:33 36.2 C L 81 15 166/91 H 96 12/14/19 13:59 37.1 C 75 75 18 173/99 H 97 12/14/19 07:15 36.8 C 78 16 162/80 H 90 12/13/19 23:01 37.0 C 76 16 127/79 94 Pain Intensity Abdomen: Pain Intensity: 0 Transfer of Care Handoff Completed per policy Notes Mental Status: alert / awake / arousable and participated in evaluation Patient Amnestic to Procedure: Yes Nausea / Vomiting: adequately controlled Pain: adequately controlled Airway Patency, RR, SpO2: stable & adequate BP & HR: stable & adequate Hydration State: stable & adequate Anesthetic Complications: no major complications apparent
[2019-12-14] MEDS: ACETAMINOPHEN 1000 MG/100 ML IV IV PRN (17:44)
--- NOTE | 2019-12-14 18:02 | GI REPORT ---
Patient Name: Eloise Neves Procedure Date: 12/14/2019 3:55 PM Date of : 1940 Admit Type: Inpatient Age: 79 Gender: Female Attending MD: Darrel Wooten MD Procedure: ERCP Providers: Darrel Wooten MD Referring MD: Tigre Cedeno Indications: Elevated bilirubin, Stent change Medicines: Propofol per Anesthesia Complications: No immediate complications. Estimated Blood Loss: Estimated blood loss: none. Procedure: Pre-Anesthesia Assessment: - Prior to the procedure, a History and Physical was performed, and patient medications, allergies and sensitivities were reviewed. The patient's tolerance of previous anesthesia was reviewed. - The risks and benefits of the procedure and the sedation options and risks were discussed with the patient. All questions were answered and informed consent was obtained. - Patient identification and proposed procedure were verified prior to the procedure by the physician and the nurse. The procedure was verified in the procedure room. - Pre-procedure physical examination revealed no contraindications to sedation. After obtaining informed consent, the scope was passed under direct vision. Throughout the procedure, the patient's blood pressure, pulse, and oxygen saturations were monitored continuously. The Scope was introduced through the mouth, and advanced to the duodenum and used to inject contrast into the bile duct. The ERCP was accomplished without difficulty. The patient tolerated the procedure well. Findings: A wood filler film of the abdomen was obtained. Surgical clips, consistent with a previous cholecystectomy, were seen in the area of the right upper quadrant of the abdomen. A biliary stent was visible on the wood filler film. A pancreatic stent was visible on the wood filler film. The esophagus was successfully intubated under direct vision. The scope was advanced to a normal major papilla in the descending duodenum without detailed examination of the pharynx, larynx and associated structures, and upper GI tract. The upper GI tract was grossly normal. A biliary sphincterotomy had been performed. The sphincterotomy appeared open. One plastic pancreatic stent originating in the pancreatic duct was emerging from the major papilla. One plastic biliary stent originating in the common bile duct was emerging from the major papilla. The stent was visibly occluded. One stent was removed from the common bile duct using a snare and sent for cytology. A 0.035 inch straight standard wire was passed into the biliary tree. The 8.5 mm balloon was passed over the guidewire and the bile duct was then deeply cannulated. Contrast was injected. I personally interpreted the bile duct images. Ductal flow of contrast was adequate. Image quality was adequate. Contrast extended to the main bile duct. Opacification of the entire biliary tree except for the gallbladder was successful. The maximum diameter of the ducts was 9 mm. The biliary tree was swept with a 12 mm balloon starting at the bifurcation. Nothing was found. One 8 mm by 8 cm covered metal biliary stent was placed into the common bile duct. Bile flowed through the stent. The stent was in good position. Verification of patient identification for the specimen was done by the physician and nurse using the patient's name and date. Impression: - One plastic stent was removed from the common bile duct and exchanged with a covered metal biliary stent. Recommendation: - [facility] patient [facility] for [facility] care. - Repeat ERCP in 4 - 6 weeks to remove stent. - Repeat LFTs in 2 weeks as total bilirubin usually takes time to normalize. Darrel Wooten MD 12/14/2019 6:02:27 PM This report has been signed electronically. Note Initiated On: 12/14/2019 3:55 PM Number of Addenda: 0 I attest to the content of the Intraoperative Record and orders documented therein, exceptions below {[id number]}
[2019-12-14] MEDS: LACTATED RINGER'S 1,000 ML IV SCH (18:38)
[2019-12-14] MEDS: DOCUSATE SODIUM 100 MG CAP PO SCH (20:44)
[2019-12-14] MEDS: bisacodyL 5 MG TABEC PO SCH (20:44)
[2019-12-14] MEDS: LORazepam 1 MG TAB PO PRN (22:20)
[2019-12-15] MEDS: INSULIN ASPART 100 UNITS/ML 3 ML PEN SC SCH ×5 (00:23→22:02)
[2019-12-15] MEDS: PIPERACILLIN/TAZOBACTAM 3.375 GM in DEXTROSE 5% 100 ML IV SCH ×3 (02:18→17:54)
[2019-12-15] MEDS: LACTATED RINGER'S 1,000 ML IV SCH (03:31)
[2019-12-15] MEDS: ATORVASTATIN 40 MG TAB PO SCH (07:53)
[2019-12-15] MEDS: DOCUSATE SODIUM 100 MG CAP PO SCH ×2 (07:53→22:00)
[2019-12-15] MEDS: IRBESARTAN 150 MG TAB PO SCH (07:53)
[2019-12-15] MEDS: HEPARIN SOD 5,000 UNIT/0.5 ML VIAL SQ SCH ×2 (07:54→22:01)
[2019-12-15 07:55] LABS: Hematocrit (blood only) 35.6 % (37-47); Hemoglobin 11.7 g/dL (12.0-16.0); Mean Corpuscular Hemoglobin 29.6 pg (25-34); Mean Corpuscular Hgb Conc 32.9 g/dL (32-36); Mean Corpuscular Volume 90.1 fL (80-100); Mean Platelet Volume 10.5 fL (7.4-10.4); Platelet Count 134 K/uL (130-400); RDW Coefficient of Variation 15.2 % (11.5-14.5); RDW Standard Deviation 50.5 fL (36.4-46.3); Red Blood Count 3.95 M/uL (4.2-5.4); White Blood Count 3.55 K/uL (4.8-10.8)
[2019-12-15 08:29] LABS: Albumin Level 2.5 gm/dl (3.4-5.0); BUN Creatinine Ratio 11.9 (10-20); Calcium 8.5 mg/dl (8.5-10.1); Creatinine Clr Calc Pharmacy 38.5 ml/min; Est GFR (African American) 55.5; Est GFR (Non-African American) 47.9
[2019-12-15] MEDS ORDERED: Nursing to Pharmacy Communication SCH (08:45)
[2019-12-15 08:51] LABS: Albumin Globulin Ratio 0.7 (0.9-2); Bilirubin,Total 3.6 mg/dl (0.2-1); Globulin 3.4 gm/dl (2.5-4.0); Phosphorus 2.5 mg/dl (2.5-4.9); Total Protein 5.9 gm/dl (6.4-8.2)
--- NOTE | 2019-12-15 13:01 | Hospitalist Progress Note ---
Date of Service December 15, 2019 Assessment & Plan Admission and Anticipated Discharge Date Admission Date: December 12, 2019 79 y/o female presenting with acute epigastric abdominal pain with radiation to the back. Labs significant for transaminitis, elevated T bili, and elevated lipase. Imaging suggestive of gallbladder distention with dilated CBD and pancreatic ducts, now s/p ERCP X2 and cholecystectomy with post-op obstipation and abdominal bloating that has improved. Acute cholecystitis w/ gallstone - s/p ERCP stent placement and then stent exchange and lap joe -needed to have stent replaced due to rising T bili post ERCP and lap joe -LFTs downtrending, T bili down from 5.1 -> 3.6, ALP 148 -> 179 -hold ASA per GI recs (Zosyn 3.375 q8hr) started 12/12 -10 days of abx per GI recs Post op ileus -obstipation/distended abdomen with KUB showing colonic dilation suggestive of post op ileus -moving flatus -diet advanced -CMP and CBC daily - no electrolyte abnormalities seen on today's labs Type 2 DM -controlled, last A1c - 6.1 -hold Metformin while inpatient -insulin sliding scale w. goal of 100-140 HTN - Continue home Irbesartan 300mg Hypercholesterolemia -Stable, continue Atorvastatin 40mg PO CKD stage III -chronic, Cr. 1.09 today -continue to monitor with CMP -avoid nephrotoxic agents and renally dose medications as necessary F/E/N - no IVF, monitor electrolytes, advancing diabetic diet as tolerated Ppx - Heparin per Gen Surg Code -Full code Supervising Physician Co-Signing Physician Notes Resident Physician Supervision Note: I independently interviewed and examined the patient and verified the stoll history and physical, reviewed labs and image studies, discussed the case with the resident Dr. Smith and agree with the findings and care plan. Subjective Doing okay this morning, she had passed gas and was tolerating her diet as it was advanced today. She has not had a bowel movement but otherwise is well. She was walking around the [place] and had family in visiting with her. Review of Systems Review of Systems: Constitutional: denies fevers, chills Cardiac: denies chest pain, palpitations Pulm: denies cough, shortness of breath GI: admits some mild abdominal bloating : denies urinary pain, frequency, urgency Physical Exam Physical Exam: Constitutional well developed and well nourished; no acute distress Eyes PERRL, conjunctivae normal, anicteric sclerae ENMT external ear and nose normal, oropharynx normal Respiratory Lungs clear to auscultation bilaterally, no wheezes, rales or rhonchi Cardiovascular RRR, 2/6 systolic ejection murmur, no rubs or extra heart sounds Gastrointestinal (Abdomen) Hypoactive bowel sounds, distended abdomen, slightly tender to palpation diffusely Neurologic PERRL, EOMI, accommodation nl, no face palsy, no dysarthria Psychiatric A+Ox3, euthymic affect Results & Data Results & Data ([facility]) Vital Signs (Past 12 Hours) Vital Signs Temp Pulse Pulse Resp BP Pulse Ox 12/15/19 12:24 36.6 C 70 16 144/85 H 95 12/15/19 09:58 144/82 H 12/15/19 07:28 36.5 C 61 16 180/80 H 97 12/15/19 03:45 36.6 C 76 17 155/88 H 96 CBC Results Results Complete Blood Count Results: RBC 3.95 M/uL (4.2-5.4) L 12/15/19 WBC 3.55 K/uL (4.8-10.8) L 12/15/19 Hgb 11.7 g/dL (12.0-16.0) L 12/15/19 Hct 35.6 % (37-47) L 12/15/19 Plt Count 134 K/uL (130-400) 12/15/19 Chemistry (BMP) Results BMP Results: Sodium 144 mmol/L (136-145) 12/16/19 Potassium 3.3 mmol/L (3.5-5.1) L 12/16/19 Chloride 111 mmol/L (98-107) H 12/16/19 BUN 14 mg/dl (7-18) 12/16/19 Creatinine 1.45 mg/dl (0.6-1.2) H 12/16/19 Glucose 112 mg/dl (70-99) H 12/16/19 Resident Activity Tracking Resident Involvement: Resident Care Provided Care Provided: Adult [facility]
--- NOTE | 2019-12-15 14:10 | Surgery Progress Note ---
Date of Service stable, no abdominal pain, no nausea, no fever, (T) bilirubin 3.6 December 15, 2019 Assessment & Plan Admission and Anticipated Discharge Date Admission Date: December 12, 2019 Supervising Physician Co-Signing Physician Notes I performed a history and physical examination of the patient today, including specifically on physical exam - soft abdomen. I have discussed the patient's management with the advanced practitioner. Please refer to the nurse practitioner's note for the documented findings and plan of care. T.bili rising however AST/ALT trending down, am concerned about stent occlusion in view of the excessive amount of thick pus she had. ERCP today with stent exchange 12/15/2019 2:11PM stable, continue treatment repeat labs in am, will F/U Subjective Doing okay this morning, Physical Exam Constitutional: WD/WN, vitals as above well developed and well nourished Eyes: PERRL, conjunctivae normal, anicteric sclerae ENMT: external ear and nose normal, oropharynx normal Neck: trachea midline, no thyromegaly Respiratory: normal respiratory effort, lungs clear to auscultation Cardiovascular: RRR, no murmur, no edema Rate/Rhythm: regular rate and regular rhythm Gastrointestinal (Abdomen): normal bowel sounds, soft, nontender, no hepatosplenomegaly Musculoskeletal: no cyanosis or clubbing, extremities motor strength 5/5 Skin: no rashes, warm and dry Neurologic: patellar DTR's 2+ bilat, sensation intact Psychiatric: Orientation: alert and oriented x 3 Results & Data ([facility]) Vital Signs (Past 12 Hours) Vital Signs Temp Pulse Pulse Resp BP Pulse Ox 12/15/19 12:24 36.6 C 70 16 144/85 H 95 12/15/19 09:58 144/82 H 12/15/19 07:28 36.5 C 61 16 180/80 H 97 12/15/19 03:45 36.6 C 76 17 155/88 H 96 Laboratory Results Abnormal lab results 12/14/19 12/15/19 12/15/19 Range/Units 23:59 06:07 07:12 WBC 3.55 L (4.8-10.8) K/uL RBC 3.95 L (4.2-5.4) M/uL Hgb 11.7 L (12.0-16.0) g/dL Hct 35.6 L (37-47) % RDW Std Deviation 50.5 H (36.4-46.3) fL RDW Coeff of Shikha 15.2 H (11.5-14.5) % MPV 10.5 H (7.4-10.4) fL Chloride (98-107) mmol/L Glucose (70-99) mg/dl POC Glucose 162 H 151 H (70-99) mg/dl Total Bilirubin (0.2-1) mg/dl AST (15-37) U/L ALT (12-78) U/L Alkaline Phosphatase (45-117) U/L Total Protein (6.4-8.2) gm/dl Albumin (3.4-5.0) gm/dl Albumin/Globulin Ratio (0.9-2) 12/15/19 12/15/19 Range/Units 07:12 12:15 WBC (4.8-10.8) K/uL RBC (4.2-5.4) M/uL Hgb (12.0-16.0) g/dL Hct (37-47) % RDW Std Deviation (36.4-46.3) fL RDW Coeff of Shikha (11.5-14.5) % MPV (7.4-10.4) fL Chloride 112 H (98-107) mmol/L Glucose 148 H (70-99) mg/dl POC Glucose 136 H (70-99) mg/dl Total Bilirubin 3.6 H (0.2-1) mg/dl AST 168 H (15-37) U/L ALT 290 H (12-78) U/L Alkaline Phosphatase 179 H (45-117) U/L Total Protein 5.9 L (6.4-8.2) gm/dl Albumin 2.5 L (3.4-5.0) gm/dl Albumin/Globulin Ratio 0.7 L (0.9-2)
[2019-12-15] MEDS: bisacodyL 5 MG TABEC PO SCH (22:00)
[2019-12-15] MEDS: LORazepam 1 MG TAB PO PRN (22:07)
[2019-12-16] MEDS: PIPERACILLIN/TAZOBACTAM 3.375 GM in DEXTROSE 5% 100 ML IV SCH ×3 (02:22→18:04)
[2019-12-16 06:43] LABS: Albumin Globulin Ratio 0.8 (0.9-2); Albumin Level 3.2 gm/dl (3.4-5.0); BUN Creatinine Ratio 9.4 (10-20); Bilirubin,Total 2.2 mg/dl (0.2-1); Calcium 9.4 mg/dl (8.5-10.1); Est GFR (African American) 39.3; Est GFR (Non-African American) 33.9; Globulin 3.9 gm/dl (2.5-4.0); Potassium 3.3 mmol/L (3.5-5.1); Total Protein 7.1 gm/dl (6.4-8.2)
[2019-12-16] MEDS ORDERED: POTASSIUM CHLORIDE 20 MEQ TABCR PO ONE (07:15)
[2019-12-16] MEDS: ACETAMINOPHEN 325 MG TAB PO PRN ×2 (07:31→21:03)
[2019-12-16] MEDS: IRBESARTAN 150 MG TAB PO SCH (07:32)
[2019-12-16] MEDS: ATORVASTATIN 40 MG TAB PO SCH (07:32)
[2019-12-16] MEDS: DOCUSATE SODIUM 100 MG CAP PO SCH ×2 (07:32→20:17)
[2019-12-16] MEDS: HEPARIN SOD 5,000 UNIT/0.5 ML VIAL SQ SCH ×2 (09:08→21:03)
[2019-12-16] MEDS: INSULIN ASPART 100 UNITS/ML 3 ML PEN SC SCH ×4 (09:09→21:03)
--- NOTE | 2019-12-16 12:05 | Surgery Progress Note ---
Date of Service pt feels better, less abdominal pain, no nausea, no vomiting, no fever, LFT better, December 16, 2019 Assessment & Plan Admission and Anticipated Discharge Date Admission Date: December 12, 2019 Supervising Physician Co-Signing Physician Notes Resident Physician Supervision Note: I independently interviewed and examined the patient and verified the stoll history and physical, reviewed labs and image studies, discussed the case with the resident Dr. Smith and agree with the findings and care plan. 12/16/2019 12:05PM doing better, continue treatment, Subjective Doing okay this morning, she had passed gas and was tolerating her diet as it was advanced today. She has not had a bowel movement but otherwise is well. She was walking around the [place] and had family in visiting with her. Physical Exam Constitutional: WD/WN, vitals as above well developed and well nourished Eyes: PERRL, conjunctivae normal, anicteric sclerae ENMT: external ear and nose normal, oropharynx normal Neck: trachea midline, no thyromegaly Respiratory: normal respiratory effort, lungs clear to auscultation Cardiovascular: RRR, no murmur, no edema Rate/Rhythm: regular rate and regular rhythm Gastrointestinal (Abdomen): normal bowel sounds, soft, nontender, no hepatosplenomegaly Musculoskeletal: no cyanosis or clubbing, extremities motor strength 5/5 Skin: no rashes, warm and dry Neurologic: patellar DTR's 2+ bilat, sensation intact Psychiatric: Orientation: alert and oriented x 3 Results & Data ([facility]) Vital Signs (Past 12 Hours) Vital Signs Temp Pulse Resp BP BP Pulse Ox 12/16/19 09:06 138/82 12/16/19 07:22 37.3 C 80 16 179/93 H 97
[2019-12-16] MEDS: LACTOBACILLUS ACIDOPHILUS 1 GM PACK PO SCH (17:28)
--- NOTE | 2019-12-16 17:28 | Hospitalist Progress Note ---
Date of Service December 16, 2019 Assessment & Plan Admission and Anticipated Discharge Date Admission Date: December 12, 2019 79 y/o female presenting with acute epigastric abdominal pain with radiation to the back. Labs significant for transaminitis, elevated T. bili, and elevated lipase. Imaging suggestive of gallbladder distention with dilated CBD and pancreatic ducts, now s/p ERCP X2 and cholecystectomy with post-op obstipation and abdominal bloating that has improved. BP elevated over the day, PRN antihypertensive made available. Acute cholecystitis w/ gallstone - s/p ERCP stent placement and then stent exchange and lap joe. -needed to have stent replaced due to rising T bili post ERCP and lap joe. -LFTs downtrending, T bili down to 2.2, ALP up to 226 -hold ASA per GI recs (Zosyn 3.375 q8hr) started 12/12, consider transitioning to oral -10 days of abx per GI recs HTN urgency - BP elevated to 190 systolic and w/ left facial numbness - symptoms and BP improved with rest to 172 - Hydralazine 5mg available PRN for SBP > 180 - Continue home Irbesartan 300mg Post-op ileus, improved -has passed bowel movement -diet advanced -CMP and CBC daily - no significant electrolyte abnormalities seen on today's labs Type 2 DM -controlled, last A1c - 6.1 -hold Metformin while inpatient -insulin sliding scale w. goal of 100-140 Hypercholesterolemia -Stable, continue Atorvastatin 40mg PO CKD stage III -chronic, Cr. 1.09 today -continue to monitor with CMP -avoid nephrotoxic agents and renally dose medications as necessary F/E/N - no IVF, monitor electrolytes, advancing diabetic diet as tolerated Ppx - Heparin per Gen Surg Code -Full code Supervising Physician Co-Signing Physician Notes Resident Physician Supervision Note: I independently interviewed and examined the patient and verified the stoll history and physical, reviewed labs and image studies, discussed the case with the resident Dr. Smith and agree with the findings and care plan. Subjective Eloise Neves was doing okay this morning, she had several episodes of diarrhea and was experiencing diarrhea. In the afternoon her diarrhea improved but her blood pressure was elevated. She also experienced some left facial numbness after walking around the halls. Her blood pressure at this time was 190 systolic. She said that this felt similar to episodes of elevated blood pressure in the past. She did not have a headache in the afternoon, no vision changes and no focal weakness. was in the room and he did not note any facial pals y/droop. After sitting in a darkened room and relaxing for about 10 minutes her symptoms resolved and her SBP was back to 170. Review of Systems Review of Systems: Constitutional: denies fevers, admits chills GI: denies nausea, vomiting Pulm: denies cough, shortness of breath Physical Exam Physical Exam: Constitutional well developed and well nourished; no acute distress Eyes PERRL, conjunctivae normal, anicteric sclerae ENMT external ear and nose normal, oropharynx normal Respiratory Lungs clear to auscultation bilaterally, no wheezes, rales or rhonchi Cardiovascular RRR, 2/6 systolic ejection murmur, no rubs or extra heart sounds Gastrointestinal (Abdomen) - hypoactive bowel sounds - distended abdomen - slightly tender to palpation diffusely Neurologic - PERRL, EOMI, accommodation nl, no face palsy, no dysarthria - left sided facial numbness, CN II-XII otherwise intact - strength symmetric and 5/5 bilaterally in the upper (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 Psychiatric A+Ox3, euthymic affect Results & Data Results & Data ([facility]) Vital Signs (Past 12 Hours) Vital Signs Temp Pulse Pulse Resp BP BP Pulse Ox 12/16/19 17:09 73 172/100 H 12/16/19 16:34 80 192/114 H 12/16/19 15:31 150/84 H 12/16/19 15:12 36.5 C 66 18 98 12/16/19 09:06 138/82 12/16/19 07:22 37.3 C 80 16 179/93 H 97 CBC Results Results Complete Blood Count Results: RBC 3.95 M/uL (4.2-5.4) L 12/15/19 WBC 3.55 K/uL (4.8-10.8) L 12/15/19 Hgb 11.7 g/dL (12.0-16.0) L 12/15/19 Hct 35.6 % (37-47) L 12/15/19 Plt Count 134 K/uL (130-400) 12/15/19 Chemistry (BMP) Results BMP Results: Sodium 144 mmol/L (136-145) 12/16/19 Potassium 3.3 mmol/L (3.5-5.1) L 12/16/19 Chloride 111 mmol/L (98-107) H 12/16/19 BUN 14 mg/dl (7-18) 12/16/19 Creatinine 1.06 mg/dl (0.6-1.2) 12/17/19 Glucose 112 mg/dl (70-99) H 12/16/19 Resident Activity Tracking Resident Involvement: Resident Care Provided Care Provided: Adult [facility]
[2019-12-16] MEDS: bisacodyL 5 MG TABEC PO SCH (20:17)
[2019-12-16] MEDS: LORazepam 1 MG TAB PO PRN (21:45)
[2019-12-16] MEDS: HydrALAZINE HCL 20 MG/ML VIAL IV PRN (22:42)
[2019-12-17] MEDS: PIPERACILLIN/TAZOBACTAM 3.375 GM in DEXTROSE 5% 100 ML IV SCH ×2 (02:37→09:52)
[2019-12-17 06:42] LABS: Creatinine Clr Calc Pharmacy 39.6 ml/min; Est GFR (African American) 57.4; Est GFR (Non-African American) 49.6
--- NOTE | 2019-12-17 06:47 | Surgery Progress Note ---
Date of Service December 17, 2019 Assessment & Plan (1) Status post laparoscopic cholecystectomy: Patient also underwent repeat ERCP with replacement of stent to a covered metal stent Her liver functions are slowly normalizing She is concerned about her blood pressure GI function seems to be improving-she is moving her bowels Her abdomen is soft Continue diet as tolerated, may discharge home when medically stable Follow-up in office next week Admission and Anticipated Discharge Date Admission Date: December 12, 2019 Results & Data ([facility]) Vital Signs (Past 12 Hours) Vital Signs Pulse Pulse BP BP 12/16/19 23:06 88 180/84 H 12/16/19 22:36 85 191/79 H 12/16/19 20:17 175/92 H 12/16/19 19:11 172/94 H PG Care Time/CCT Total # of Minutes Spent Total Time Spent with Patient: Total time spent is greater than 50% in coordination of care (as documented) at patient's floor/unit and/or counseling patient: Coding Level of Care Code None Diagnoses Status post laparoscopic cholecystectomy Z90.49
[2019-12-17] MEDS: HydrALAZINE HCL 20 MG/ML VIAL IV PRN (07:20)
[2019-12-17] MEDS: ACETAMINOPHEN 325 MG TAB PO PRN (07:20)
[2019-12-17] MEDS: IRBESARTAN 150 MG TAB PO SCH (08:28)
[2019-12-17] MEDS: ATORVASTATIN 40 MG TAB PO SCH (08:29)
[2019-12-17] MEDS: DOCUSATE SODIUM 100 MG CAP PO SCH (08:29)
[2019-12-17] MEDS: LACTOBACILLUS ACIDOPHILUS 1 GM PACK PO SCH ×3 (08:30→11:57)
[2019-12-17] MEDS: LORazepam 1 MG TAB PO PRN (08:35)
[2019-12-17] MEDS: HEPARIN SOD 5,000 UNIT/0.5 ML VIAL SQ SCH (08:37)
[2019-12-17 08:38] LABS: Albumin Level 2.8 gm/dl (3.4-5.0); Calcium 9.5 mg/dl (8.5-10.1); Creatinine Clr Calc Pharmacy 37.2 ml/min; Est GFR (African American) 53.2; Est GFR (Non-African American) 45.9; Potassium 3.5 mmol/L (3.5-5.1)
[2019-12-17] MEDS: INSULIN ASPART 100 UNITS/ML 3 ML PEN SC SCH ×2 (08:40→13:14)
[2019-12-17 08:43] LABS: Albumin Globulin Ratio 0.7 (0.9-2); Bilirubin,Total 1.6 mg/dl (0.2-1); Globulin 3.8 gm/dl (2.5-4.0); Total Protein 6.6 gm/dl (6.4-8.2)
--- NOTE | 2019-12-17 13:31 | Discharge Summary ---
Date of Service December 17, 2019 Admission HPI Per Admitting Provider Eloise Neves is an 79yo C female with history of HTN, HLP, DM and CKD presenting with abdominal pain. Pain began around 17:00 yesterday, located in the epigastric area with band-like radiation to the back. Pain is severe, "like nothing I ever felt before". Pain began approximately 2 hours after patient ate a TV dinner. She tried to induce emesis thinking that the TV dinner may have caused the discomfort, states that she usually doesn't eat things like that. She had multiple episodes of non-bloody/non-bilious emesis as well as non-bloody diarrhea. Pain continued which prompted her to come to the ER. She had some shaking chills upon arrival to the ER, otherwise no complaints. She feels a little better than before. She denies fever, chest pain, palpitations, cough, SOB, dysuria. No additional complaints at this time. ER Course: Tylenol, Fentanyl, Magnesium, Zofran, NSS Admission Exam Per Admitting Provider General: patient resting comfortably, NAD, non-toxic in appearance, AA&O x 4 Skin: warm, dry, intact, no rashes or lesions, appears slightly jaundiced HEENT: NC/AT, PERRL, mildly icteric sclera, conjunctiva without injection, external ear normal to inspection and nontender, nares patent, moist mucus membranes, dentition intact, no oropharyngeal lesions, neck supple, trachea midline, no LAD, no thyromegaly, no JVD Heart: +S1/S2, regular, no m/r/g Lungs: equal air entry bilaterally, no rales/rhonchi/wheezes Abd: +BS, soft, tender in the epigastric region with voluntary guarding, no masses/organomegaly/ascites Ext: warm, 2+ pulses in UE/LE bilaterally, no clubbing/cyanosis or edema Neuro: nonfocal, patient AA&O x 4, speech intact, no facial droop, moving all extremities on command with equal strength 5/5 Principal Diagnosis Cholecystitis, cholangitis Discharge Exam Constitutional Well appearing female appearing anxious Eyes PERRL, conjunctivae normal, anicteric sclerae ENMT external ear and nose normal, oropharynx normal Respiratory Lungs clear to auscultation bilaterally, no wheezes, rales or rhonchi, normal work of breathing Cardiovascular Regular rate and rhythm, no murmurs, rubs or gallops Gastrointestinal (Abdomen) BSx4, nontender to palpation, Musculoskeletal no cyanosis or clubbing, extremities motor strength 5/5 Neurologic PERRL, EOMI, accommodation nl, no face palsy, no dysarthria Psychiatric A+Ox3, euthymic affect Discharge Data Allergies Allergy/AdvReac Type Severity Reaction Status Date / Time Iodinated Contrast Media Allergy Intermediate Rash Verified 12/12/19 16:26 influenza virus vacc AdvReac Unknown Verified 12/12/19 02:58 trivalent, split [From Fluzone] Consultations 12/12/19 03:06 ED Decision to Admit Stat 12/12/19 05:20 Consult Gastroenterology Routine 12/12/19 10:41 Consult General Surgery Routine Procedures Performed Operation Date: 12/12/19 16:45 Actual Procedures s Endoscopic Retrograde Cholangiopancreatogram(Not Applicable) - Darrel Wooten MD p Laparoscopic Cholecystectomy(Not Applicable) - Tigre Cedeno MD, FACS s Endoscopic Ultrasonography Upper(Not Applicable) - Darrel Wooten MD s Esophagogastroduodenoscopy(Not Applicable) - Darrel Wooten MD Operation Date: 12/14/19 07:00 Actual Procedures p Endoscopic Retrograde Cholangiopancreatogram(Not Applicable) - Darrel Wooten MD Ordered Studies 12/12/19 [place] ERCP biliary ductal Routine 12/12/19 01:03 CT abd pelvis IV con only Urgent 12/12/19 02:51 US gallbladder Urgent 12/12/19 16:19 US upper EUS PACS images Routine 12/14/19 13:00 FL ERCP biliary ductal Routine Hospital Course (1) Abnormal LFTs: 79 y/o female with a hx of CKD stage III, HLD, HTN, DMII, and anxiety who presented with acute epigastric abdominal pain with radiation to the back. Labs significant for transaminitis, elevated T. bili, and elevated lipase. Imaging suggestive of gallbladder distention with dilated CBD and pancreatic ducts, now s/p ERCP X2 and cholecystectomy followed by post-op obstipation and abdominal bloating that has resolved. Her BP was elevated over for the last day of hospitalization managed with PRN hydralazine. Acute cholecystitis w/ gallstone - febrile, abdominal pain, elevated T bili, lipase and transaminases suggestive of cholangitis -ERCP stent placement and gallstone removal followed by lap joe. -needed to have stent replaced due to rising T bili post ERCP. -LFTs downtrending, T bili down to 2.2, ALP up to 226 -hold ASA per GI recs for 5 days after ERCP (until 12/18) -Six days of Omnicef and Flagyl for a total of 10 days of abx per GI recs -Repeat LFTs in outpatient follow up -F/u w/ Dr. Cedeno (gen surg) as scheduled HTN urgency - BP elevated to 190 systolic with associated L facial numbness, quickly resolved and no sx at discharge -[place] to be closely tied with anxiety about systolic BP, patient felt anxious regarding BP numbers and became hypertensive following learning about hypertensive numbers. Instructed not to immediately monitor BP at home due to risk of increasing anxiety and cycle. - Continue home Irbesartan 300mg -Monitor in outpatient setting and add medications as necessary, none were added to home regimen in hospital. Chronic conditions of DM2, HLD, CDK III were managed and resumed on home regimens. Total Time Total Time Spent Total Time Spent (In Minutes): >30 separate from OMT time Discharge Plan Discharge Items Patient Disposition: Home - Self-Care Reason For Visit: ABDOMINAL PAIN Discharge Diagnosis: Cholangitis, acute cholecystitis Activity: Per Instructions section Activity Comment: Light activity for 3 weeks Lifting: No more than 10 pounds Bathing Comment: May shower Exercise Comment: Weight 3 weeks Driving/Machine Use: 1 week Non-emergency contact: Primary Care Provider and Surgeon Call non-emergency contact if: your symptoms worsen, you have a fever and your wound has increased drainage Follow-up/Referrals: Tigre Cedeno MD, FACS [Physician] - (For next week) Essie Hernandez DO [Primary Care Provider] - Diet: Regular Addtl Attending Provider Instructions: SPECIAL CARE INSTRUCTIONS: * Cover incisions and change daily for comfort/drainage. *Leave Steri-Strips in place * Expect some swelling and bruising. Call your doctor if: * Temperature above 101 degrees * Pain not relieved by pain medicine ordered * There is increased drainage or redness from any incision * You have any unanswered questions or concerns [phone]. FOLLOW UP VISIT: If not already scheduled, please call the office for a follow-up visit. [facility]: Dr. Cedeno Office Abdominal Pain You came to the hospital for abdominal pain, after performing imaging and a scope, there was a stone that was found and removed from you bile duct by gastroenterology (GI) that had lead to an infection of your gallbladder. Dr. Cedeno removed your gallbladder and you had improvement in your symptoms. You will need to take you antibiotics orally, and follow up as above, as well as with your primary doctor in the next week, with some follow up labs. Pending Studies at Discharge: Yes Studies:: pathology and microbiology samples from procedure Stand-Alone Forms: [facility] [employer], Smoking Cessation Medications and DC Order Prescriptions: New metronidazole 500 mg Tablet 500 mg PO BID 6 Days Qty: 12 RF: 0 cefdinir 300 mg Capsule 300 mg PO DAILY 6 Days Qty: 6 RF: 0 Continued metformin 500 mg tablet extended release 24 hr 500 mg PO DAILY Qty: 90 RF: 3 lorazepam 2 mg tablet 2 mg PO BID PRN (Reason: anxiety) Qty: 180 RF: 0 alendronate 35 mg tablet 35 mg PO WEEKLY Qty: 12 RF: 3 coenzyme Q10 200 mg capsule 200 mg PO DAILY RF: 0 cyanocobalamin (vitamin B-12) 1,000 mcg tablet 1,000 mcg PO DAILY Qty: 90 RF: 0 atorvastatin 40 mg tablet 40 mg PO DAILY Qty: 90 RF: 3 irbesartan 300 mg tablet 300 mg PO DAILY Qty: 90 RF: 3 meloxicam 15 mg tablet 15 mg PO DAILY Qty: 90 RF: 3 aspirin [Aspirin Low Dose] 81 mg Tablet,Delayed Release (Dr/Ec) 81 mg PO DAILY RF: 0 Discharge Orders: Discharge Order (Routine); Ordered 12/17/19 Ordered By: Darion Mcnair/Other Patient Handouts: DVT Post Op Prevention Admission Data Admit Date/Time: 12/12/19 04:14 Attending Provider: Sandeep Short Admit Provider: Ophelia Calderon Primary Care Provider: Essie Hernandez Other Providers: Ophelia Calderon ; Alfie Ladd ; Tigre Cedeno ; Stefan Gomez ; Chance Diallo ; Bethel Rosen Jr ; Dameon Youssef ; Gasper Connolly ; Rajni Hanson ; Harry Spencer ; Des Guillory ; Velvet Munguia Other Interventions: Discharge Summary Assessment (RN) Last Done: 12/17/19 14:53 Supervising Physician Co-Signing Physician Notes I personally examined the patient and verified all stoll points of history and exam, discussed case, and agree with decision making with Brittney Tellez MS4. headache. worried about BP. headache improves w OMT and also earlier as dr haney had her do breathign exercises. if not worried about BP she feels better otherwise vitals noted nad heent nc at mmm breathing unlabored no accessory muscles good effort. cn 2-12 grossly intact gross motor/sensory intact. msk/ost - L > R but b/l suboccipitals high tone/tender/decreased ROM - inhibitory pressure - improved. pt tolerated well and noted some improvement in headache joe - now stable for home HTN - seems heavily anxiety induced. headache without associated neuro sx - suspect headache is tension from suboccipitals and pain from headache causing the effect of worse BP. also BP spiking appears heavily anxiety driven. stable for home headache - somatic dysfunction Cspine - OMT as above, improved. tolerated well stable for home
[2019-12-17] MEDS ORDERED: CEFDINIR 300 MG CAP PO SCH (18:00)
[2019-12-17] MEDS ORDERED: metroNIDAZOLE 500 MG TAB PO SCH (18:00)
--- NOTE | 2019-12-17 19:16 | Hospitalist Progress Note ---
Date of Service December 17, 2019 Assessment & Plan Admission and Anticipated Discharge Date Admission Date: December 12, 2019 Results & Data Results & Data ([facility]) Vital Signs (Past 12 Hours) Vital Signs Temp Pulse Pulse Pulse Resp BP BP 12/17/19 14:53 98.4 F 94 H 87 85 16 168/99 H 175/100 H 12/17/19 08:24 94 H 168/99 H 12/17/19 07:53 161/93 H Pulse Ox 12/17/19 14:53 94 12/17/19 08:24 12/17/19 07:53 PG Care Time/CCT Total # of Minutes Spent Total Time Spent with Patient: Total time spent is greater than 50% in coordination of care (as documented) at patient's floor/unit and/or counseling patient: Coding Level of Care Code None CPT Codes Musculoskeletal - Musculoskeletal: [address] 1-2 Body regions ([id number])
--- NOTE | 2019-12-17 19:16 | Billing Data ---
Date of Service December 17, 2019 Coding Level of Care Code D/C Day Management >30 mins
== END 2019-12-17 15:45 | disposition home or self-care (01) | DRG 417 ==
LOC: ED 00:36 → 3E 04:14 → SUATTDRO 04:14 → 3E 04:49

== ENCOUNTER 2022-09-14 11:55 | Inpatient (IN) ==
[2022-09-14] MEDS ORDERED: fentaNYL citrate PF 100 MCG/2 ML VIAL IV STA ×2 (12:02→13:40)
--- NOTE | 2022-09-14 12:08 | Emergency Department Note ---
Impression & Plan Fall, Closed fracture of left hip ED Provider Note Provider: Leo Soler MD DATE OF SERVICE: 09/14/2022 CHIEF COMPLAINT: Fall, left hip pain HISTORY OF PRESENT ILLNESS: Patient is a 82-year-old female history of type 2 diabetes, neuropathy, hypertension, CKD presenting here today after a fall. States she was in the yard and she thinks her left knee gave out and she fell onto her left hip. Did not strike her head. No loss of consciousness. States he did feel little bit dizzy after this. Said she felt dizzy in the ambulance but not feeling too bad now. Denies significant headache. Reports pain in the left hip and pelvic region and has been able to walk. Was not on the ground that long according to her. Not on blood thinners. States chronic neuropathy issues. Denies feeling dizzy before falling. Denies any chest pain or significant shortness of breath. Did take some ibuprofen earlier today as that is part of her normal regimen. PAST MEDICAL HISTORY: As noted above MEDICATIONS: Reviewed home medications denies anticoagulants but states a baby aspirin every day. SOCIAL HISTORY: PHYSICAL EXAM: GENERAL: alert and oriented laying on stretcher Head: normocephalic and atraumatic EYES: No injection, discharge or icterus. PERRL, EOMI. NECK: Trachea midline. Supple without significant midline tenderness ENT: Mucous membranes pink and moist. Pharynx without erythema or exudate. LUNGS: Airway patent. No retractions. Breath sounds clear with good air entry bilaterally. HEART: Regular rate and rhythm. No chest wall tenderness ABDOMEN: Soft and non-tender, without guarding or rebound. SKIN: Acyanotic, warm, dry, except for an approximately 2 x 4 cm area of contusion or abrasion of the left olecranon. No significant bony tenderness. EXTREMITIES: With intact bilateral gross sensation of the feet. No significant ankle or lower leg tenderness. Some slight discomfort to the left proximal thigh into the left hip region and pain with any movement here. Benign abdomen otherwise. NEUROLOGICAL: No focal deficits. No aphasia. No facial droop or slurred speech. Normal strength and tone in the extremities. Sensation to gross touch normal. Ambulatory. EK bpm normal sinus rhythm. No PVC or PAC. No acute ST segment elevation or depression with a QTc of 446. CONTINUOUS CARDIAC MONITORING: was ordered and showed a heart rate of 70s bpm in normal sinus rhythm PDMP was checked without noted issue. GCS 15. Patient's laboratory studies and imaging reviewed. Differential includes Fracture, dislocation, neurological/head injury, neurovas cular compromise, compartment syndrome, soft tissue injury, as well as other pathologies. IMPRESSION/MEDICAL DECISION MAKING: Patient on aspirin suffered a fall today. Sounds more mechanical. EKG and basic blood work however was obtained. Did strike her head briefly. On a baby aspirin. No other anticoagulants. No neurological deficits at this time. We will complete a CT head exclude injury here. Doubt given the mechanism and her reported complaints of significant neck injury or intrathoracic injury. X-ray of the hip and pelvis obtained of the left side given her pain here and question fracture. Grossly neurologically intact given the limitations with her baseline neuropathy. Given some fentanyl initially for pain. No evidence of any open fracture or significant wounds beyond the small contusion abrasion to the left elbow region without significant bony tenderness. CT head without acute findings. Blood work reassuring without significant anemia or evidence of rhabdomyolysis. Negative COVID and urinalysis as well. X-ray did show a left intertrochanteric hip fracture. Orthopedics was consulted and evaluated the patient in the ER. Hospitalist group contacted for admission. Given some fentanyl for pain control. DIAGNOSIS: Fall, left intertrochanteric hip fracture DISPOSITION: Hospitalist will evaluate Patient was agreeable with this plan. Past Med/Surg History Medical History Allergic rhinitis Anxiety BPPV (benign paroxysmal positional vertigo) CKD (chronic kidney disease) stage 3, GFR 30-59 ml/min Depression with anxiety Diabetic peripheral neuropathy GERD (gastroesophageal reflux disease) Hypercholesterolemia Hypertension Insomnia Lumbar spinal stenosis Nausea vomiting and diarrhea Osteoporosis Raynaud's disease Sjogrens syndrome Sleep apnea Thoracic compression fracture Type 2 diabetes mellitus Urinary incontinence Surgical History History of hand surgery Hx laparoscopic cholecystectomy (12/12/19) Laparoscopic Cholecystectomy 12/12/2019 S/P ERCP Dr. Wooten 12/12/2019 S/P ERCP (12/14/19) Endoscopic Retrograde Cholangiopancreatogram Dr. Wooten 12/14/2019 Status post section Status post laparoscopic cholecystectomy Family History Mother Arthritis Diabetes Father Arthritis Diabetes Family/Other Arthritis sibling Diabetes sibling Denies family history of Ovarian cancer Prostate cancer Myocardial infarction Breast cancer Colorectal cancer Social History Smoking Status: Never smoker Second Hand Exposure: No; Do You Dip or Chew Tobacco: No; Hx Alcohol Use: No Hx Substance Use: Yes (medical marijuana ) Prescribed Medications: Marijuana Preferred Language: Danish Communication Ability: Effective Visual Impairment: No Limitations Hearing Ability: Normal 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 Beliefs That Will Affect Care: None marital status: Current Living Situation: Spouse current occupational status: retired How many Children do You have: 4 Feels Safe at Home: Yes Childhood Exposure to Second-Hand Smoke: No Diet: regular caffeine: Yes (Coffee x 1 per day.) during the past year weight has: remained stable Dental Care, Regularly: No Physical Activity Frequency: 3-4 Times per Week Seatbelt Use: always Sunscreen Use: Yes Assistive Devices: Glasses Allergies Allergies Allergy/AdvReac Type Severity Reaction Status Date / Time Iodinated Contrast Media Allergy Intermediate Rash Verified 05/18/22 14:01 clindamycin [From Cleocin] Allergy Mild hives Verified 05/18/22 14:01 influenza virus vacc AdvReac Unknown Verified 05/18/22 14:01 trivalent, split [From Fluzone] Home Meds Home Medications Medication Instructions Recorded Confirmed coenzyme Q10 200 mg capsule 200 mg PO DAILY 11/26/18 05/18/22 cyanocobalamin (vitamin B-12) 1,000 mcg PO DAILY #90 tabs 11/26/18 05/18/22 1,000 mcg tablet aspirin 81 mg tablet,delayed 81 mg PO DAILY 12/12/19 05/18/22 release (Jack Low Dose Aspirin) zinc acetate PO 01/06/21 05/18/22 polyethylene glycol 3350 17 gram 17 g PO DAILY 03/31/21 05/18/22 oral powder packet (Miralax) docusate sodium 100 mg capsule 100 mg PO BID PRN 01/12/22 05/18/22 (Colace) [id number] C-Mn 250 cap PO 03/01/22 05/18/22 mg-200 mg-30 mg-2.5 mg capsule Previous Rx's Medication Instructions Recorded blood sugar diagnostic (Blood #100 ea 12/24/19 Glucose Test strips) blood-glucose meter (Blood Glucose #1 ea 12/24/19 Monitoring kit) lancets (OneTouch UltraSoft #100 ea 07/11/20 Lancets) atorvastatin 40 mg tablet 40 mg PO DAILY #90 tabs 04/01/22 omeprazole 20 mg capsule,delayed 20 mg PO DAILY PRN reflux #90 caps 04/01/22 release lorazepam 2 mg tablet 2 mg PO BID PRN anxiety #180 tabs 04/12/22 azelastine 137 mcg (0.1 %) nasal 137 mcg (0.137 mL) intranasal BID 05/18/22 spray aerosol #30 mL doxycycline hyclate 100 mg capsule 100 mg PO BID 7 days #14 caps 05/18/22 ipratropium bromide 21 mcg (0.03 2 spray intranasal DAILY #30 mL 05/18/22 %) nasal spray duloxetine 30 mg capsule,delayed 30 mg PO DAILY #90 caps 07/12/22 release irbesartan 300 mg tablet 300 mg PO DAILY #100 tabs 08/25/22 metformin 500 mg tablet,extended 500 mg PO DAILY #100 tabs 08/25/22 release 24 hr Results & Data (ED) Vital Signs Vital Signs - 24 hr 09/14/22 12:10 09/14/22 12:59 09/14/22 13:19 Temperature 36.6 C Temperature Source Temporal Artery Scan Pulse Rate 70 75 Pulse Rate [Apical] 71 Pulse Rhythm [Apical] Regular Respiratory Rate 15 16 Respiratory Depth Normal Blood Pressure 148/79 H Blood Pressure [Left Arm] 148/79 H Blood Pressure Mean 102 Blood Pressure Mean [Left Arm] 102 Pulse Oximetry 96 96 Oxygen Delivery Method Room Air Room Air Sepsis Recent Fever Within 48 Hours No Sepsis New/Unexplained Change in Mental Status N/A Sepsis Action Taken by Nursing No Action Required 09/14/22 13:21 09/14/22 13:21 Temperature Temperature Source Pulse Rate Pulse Rate [Apical] 77 Pulse Rhythm [Apical] Respiratory Rate 15 Respiratory Depth Blood Pressure Blood Pressure [Left Arm] 148/77 H Blood Pressure Mean Blood Pressure Mean [Left Arm] 100 Pulse Oximetry 95 95 Oxygen Delivery Method Room Air Room Air Sepsis Recent Fever Within 48 Hours Sepsis New/Unexplained Change in Mental Status Sepsis Action Taken by Nursing Laboratory Data 09/14/22 12:09 06/27/23 12:09 Lab Results 09/14/22 09/14/22 09/14/22 Range/Units 12:09 12:09 12:09 WBC 7.68 (4.8-10.8) K/ul RBC 4.15 L (4.20-5.40) M/uL Hgb 12.9 (12.0-16.0) g/dl Hct 38.7 (37.0-47.0) % MCV 93.3 (80.0-100.0) fL MCH 31.1 (25.0-34.0) pg MCHC 33.3 (32.0-36.0) g/dL RDW Std Deviation 47.9 H (36.4-46.3) fL RDW Coeff of Shikha 14.1 (11.5-14.5) % Plt Count 169 (130-400) K/uL MPV 9.4 (9.4-12.4) fL Immature Gran % (Auto) 0.7 % Neut % (Auto) 69.6 % Lymph % (Auto) 21.7 % Carver % (Auto) 5.6 % Eos % (Auto) 2.0 % Baso % (Auto) 0.4 % Neut # (Auto) 5.35 (1.40-6.50) K/uL Lymph # (Auto) 1.67 (1.2-3.4) K/uL Carver # (Auto) 0.43 (0.11-0.59) K/uL Eos # (Auto) 0.15 (0-0.50) K/uL Baso # (Auto) 0.03 (0-0.2) K/uL Immature Gran # (Auto) 0.05 (0.01-0.20) K/uL PT 11.0 (9.0-12.0) Seconds INR 1.0 (0.9-1.1) APTT 22.7 (21.0-31.0) Seconds PTT Ratio 0.8 Sodium 139 (136-145) mmol/L Potassium 4.2 (3.5-5.1) mmol/L Chloride 108 H (98-107) mmol/L Carbon Dioxide 25 (21-32) mmol/L Anion Gap 6 (3-11) BUN 29 H (6-23) mg/dl Creatinine 1.27 H (0.6-1.2) mg/dl Est Cr Clr Drug Dosing 30.1 ml/min Est GFR ( Amer) 45.2 ml/min Est GFR (Non-Af Amer) 39.0 ml/min BUN/Creatinine Ratio 22.8 H (10-20) Glucose 130 H (70-99(Fasting)) mg/dl POC Glucose (70-99) mg/dl Calcium 9.5 (8.6-10.3) mg/dl Total Bilirubin 0.8 (0.2-1.0) mg/dl AST 22 (13-39) U/L ALT 18 (7-52) U/L Alkaline Phosphatase 86 (34-104) U/L Total Creatine Kinase 97 (26-192) U/L Troponin I High Sens 6.8 (0-14) pg/ml Total Protein 6.2 (6.0-8.3) gm/dl Albumin 3.8 (3.4-5.0) gm/dl Globulin 2.4 L (2.5-4.0) gm/dl Albumin/Globulin Ratio 1.6 (0.9-2) Urine Color Urine Appearance (Clear) Urine pH (4.5-7.5) Ur Specific [place] (1.000-1.030) Urine Protein (Negative) Urine Glucose (UA) (Negative) Urine Ketones (Negative) Urine Blood (Negative) Urine Nitrite (Negative) Urine Bilirubin (Negative) Urine Urobilinogen (Negative) Ur Leukocyte Esterase (Negative) SARS-CoV-2, RNA, NAAT (NEGATIVE) 09/14/22 09/14/22 09/14/22 Range/Units 12:11 12:11 13:37 WBC (4.8-10.8) K/ul RBC (4.20-5.40) M/uL Hgb (12.0-16.0) g/dl Hct (37.0-47.0) % MCV (80.0-100.0) fL MCH (25.0-34.0) pg MCHC (32.0-36.0) g/dL RDW Std Deviation (36.4-46.3) fL RDW Coeff of Shikha (11.5-14.5) % Plt Count (130-400) K/uL MPV (9.4-12.4) fL Immature Gran % (Auto) % Neut % (Auto) % Lymph % (Auto) % Carver % (Auto) % Eos % (Auto) % Baso % (Auto) % Neut # (Auto) (1.40-6.50) K/uL Lymph # (Auto) (1.2-3.4) K/uL Carver # (Auto) (0.11-0.59) K/uL Eos # (Auto) (0-0.50) K/uL Baso # (Auto) (0-0.2) K/uL Immature Gran # (Auto) (0.01-0.20) K/uL PT (9.0-12.0) Seconds INR (0.9-1.1) APTT (21.0-31.0) Seconds PTT Ratio Sodium (136-145) mmol/L Potassium (3.5-5.1) mmol/L Chloride (98-107) mmol/L Carbon Dioxide (21-32) mmol/L Anion Gap (3-11) BUN (6-23) mg/dl Creatinine (0.6-1.2) mg/dl Est Cr Clr Drug Dosing ml/min Est GFR ( Amer) ml/min Est GFR (Non-Af Amer) ml/min BUN/Creatinine Ratio (10-20) Glucose (70-99(Fasting)) mg/dl POC Glucose 124 H (70-99) mg/dl Calcium (8.6-10.3) mg/dl Total Bilirubin (0.2-1.0) mg/dl AST (13-39) U/L ALT (7-52) U/L Alkaline Phosphatase (34-104) U/L Total Creatine Kinase (26-192) U/L Troponin I High Sens (0-14) pg/ml Total Protein (6.0-8.3) gm/dl Albumin (3.4-5.0) gm/dl Globulin (2.5-4.0) gm/dl Albumin/Globulin Ratio (0.9-2) Urine Color Dark Yellow Urine Appearance Clear (Clear) Urine pH 5.5 (4.5-7.5) Ur Specific [place] 1.029 (1.000-1.030) Urine Protein Negative (Negative) Urine Glucose (UA) Negative (Negative) Urine Ketones Trace H (Negative) Urine Blood Negative (Negative) Urine Nitrite Negative (Negative) Urine Bilirubin Negative (Negative) Urine Urobilinogen Negative (Negative) Ur Leukocyte Esterase Negative (Negative) SARS-CoV-2, RNA, NAAT NEGATIVE (NEGATIVE) Administered Medications Discontinued Medications Fentanyl Citrate (Fentanyl Citrate Pf 100 Mcg/2 Ml Vial) 75 mcg IV NOW STA Stop: 09/14/22 12:03 Last Admin: 09/14/22 12:27 Dose: 75 mcg Documented By: KV Imaging Data Radiologist's Impression: Head CT 09/14/22 12:02 CT head/brain wo con CLINICAL HISTORY: fall, hit head Technique: Contiguous axial CT images of the head were acquired from the base of the skull to the vertex without intravenous contrast administration. Images were viewed in brain, subdural and bone windows. Automated dose lowering techniques and/or adjustment according to patient size were utilized for this exam. Comparison: Comparison is made to CT head 02/04/2020 Findings: Areas of decreased attenuation are present in the periventricular and subcortical white matter bilaterally consistent with small vessel ischemic disease. Generalized cerebral atrophy with commensurate enlargement of the ventricles, sulci, and cisterns is also present. There is no acute intracranial hemorrhage or evidence of acute territorial infarction. No shift of the midline structures, mass effect, or extra-axial abnormalities are shown. Atherosclerotic calcifications are present in the intracranial segments of the internal carotid arteries. Imaged portions of the paranasal sinuses and mastoid air cells are clear. The orbits appear normal. There are no acute fractures of the calvaria or scalp swelling. Impression: No acute intracranial hemorrhage, no evidence of acute territorial infarction or other acute intracranial disease process. ACT 112: Negative or not required by law. Electronically signed by: Andrei Barroso M.D. 09/14/2022 1:41 PM Hip/Pelvis X-Ray 09/14/22 12:02 SINGLE VIEW PELVIS; 2 VIEWS LEFT HIP CLINICAL HISTORY: Fall. FINDINGS: An AP view of the pelvis with AP and crosstable lateral views of the left hip are correlated with pelvic CT dated 12/12/2019. The skeletal structures are osteopenic. There is an impacted and comminuted intertrochanteric fracture of the left proximal femur with overlying soft tissue edema and displaced fragments. There is medial displacement of the lesser trochanter. No additional fracture is seen involving the right hip or the bony pelvis. Mild to moderate arthritic change and joint space narrowing is seen in the hips. There is degenerative sclerosis of the sacroiliac joints. Phleboliths are noted in the pelvis. IMPRESSION: Intertrochanteric fracture of the left proximal femur as above. Electronically signed by: Brenden Nath M.D. 09/14/2022 12:27 PM Chest X-Ray 09/14/22 12:03 XR chest 1V portable CLINICAL HISTORY: fall TECHNIQUE: Single frontal radiograph of the chest was obtained. Comparison: None available at the time of this dictation. FINDINGS: No lines and tubes are seen. The cardiomediastinal silhouette is normal. The lungs are clear. No evidence of pleural effusion or pneumothorax. IMPRESSION: No acute chest disease. ACT 112: Negative or not required by law. Electronically signed by: Andrei Barroso M.D. 09/14/2022 12:33 PM Discharge Plan Visit Data Chief Complaint: Fall Stated Complaint: FALL, L HIP PAIN ED Provider: Leo Soler Discharge Problem: Fall, Closed fracture of left hip Patient Disposition: Being Evaluated by Hospitalist Forms Stand Alone Forms: [facility] Prescriptions Prescriptions: No Action (DME) lancets [OneTouch UltraSoft Lancets] Misc See Rx Instructions .ROUTE .MEDSUPPLY Qty: 100 1RF Rx Instructions: Testing blood sugar once daily lorazepam 2 mg tablet 2 mg PO BID PRN (Reason: anxiety) Qty: 180 0RF duloxetine 30 mg capsule,delayed release(DR/EC) 30 mg PO DAILY Qty: 90 3RF Hold Instructions: Home Medication placed on hold at Doctor's office irbesartan 300 mg tablet 300 mg PO DAILY Qty: 100 3RF metformin 500 mg tablet extended release 24 hr 500 mg PO DAILY Qty: 100 3RF coenzyme Q10 200 mg capsule 200 mg PO DAILY Patient Comments: *confirm dosage and frequency cyanocobalamin (vitamin B-12) 1,000 mcg tablet 1,000 mcg PO DAILY Qty: 90 (DME) Blood Glucose Test Strip See Rx Instructions .ROUTE .MEDSUPPLY Qty: 100 1RF Rx Instructions: As directed. Testing BS daily. Dx: E11.9 (DME) blood-glucose meter [Blood Glucose Monitoring] Kit See Rx Instructions .ROUTE .MEDSUPPLY Qty: 1 0RF Rx Instructions: As directed Testing BS daily. Dx: E11.9 [id number] C-Mn 810-316-12-2.5 mg capsule PO atorvastatin 40 mg tablet 40 mg PO DAILY Qty: 90 3RF omeprazole 20 mg capsule,delayed release(DR/EC) 20 mg PO DAILY PRN (Reason: reflux) Qty: 90 3RF polyethylene glycol 3350 [Miralax] 17 gram powder in packet 17 g PO DAILY zinc acetate PO docusate sodium [Colace] 100 mg capsule 100 mg PO BID PRN ipratropium bromide 21 mcg (0.03 %) spray,non-aerosol 2 spray intranasal DAILY Qty: 30 5RF Rx Instructions: administer into each nostril azelastine 137 mcg (0.1 %) aerosol,spray 137 mcg intranasal BID Qty: 30 3RF Rx Instructions: administer into each nostril doxycycline hyclate 100 mg capsule 100 mg PO BID 7 Days Qty: 14 0RF aspirin [Jack Low Dose Aspirin] 81 mg Tablet,Delayed Release (Dr/Ec) 81 mg PO DAILY Referrals Referrals: Essie Hernandez DO [Primary Care Provider] -
--- NOTE | 2022-09-14 12:28 | XRay Report ---
SINGLE VIEW PELVIS; 2 VIEWS LEFT HIP CLINICAL HISTORY: Fall. FINDINGS: An AP view of the pelvis with AP and crosstable lateral views of the left hip are correlate d with pelvic CT dated 12/12/2019. The skeletal structures are osteopenic. There is an impacted and co mminuted intertrochanteric fracture of the left proximal femur with overlying soft tissue edema and d isplaced fragments. There is medial displacement of the lesser trochanter. No additional fracture is seen involving the right hip or the bony pelvis. Mild to moderate arthritic change and joint space na rrowing is seen in the hips. There is degenerative sclerosis of the sacroiliac joints. Phleboliths ar e noted in the pelvis. IMPRESSION: Intertrochanteric fracture of the left proximal femur as above. Electronically signed by: Brenden Nath M.D. 09/14/2022 12:27 PM
[2022-09-14 12:31] LABS: Basophils # (auto) 0.03 K/uL (0-0.2); Basophils % (auto) 0.4 %; Eosinophils # (auto) 0.15 K/uL (0-0.50); Hematocrit (blood only) 38.7 % (37.0-47.0); Hemoglobin 12.9 g/dl (12.0-16.0); Immature Granulocytes # (auto) 0.05 K/uL (0.01-0.20); Immature Granulocytes % (auto) 0.7 %; Lymphocytes # (auto) 1.67 K/uL (1.2-3.4); Lymphocytes % (auto) 21.7 %; Mean Corpuscular Hemoglobin 31.1 pg (25.0-34.0); Mean Corpuscular Hgb Conc 33.3 g/dL (32.0-36.0); Mean Corpuscular Volume 93.3 fL (80.0-100.0); Mean Platelet Volume 9.4 fL (9.4-12.4); Monocytes # (auto) 0.43 K/uL (0.11-0.59); Monocytes % (auto) 5.6 %; Neutrophils # (auto) 5.35 K/uL (1.40-6.50); Neutrophils % (auto) 69.6 %; Platelet Count 169 K/uL (130-400); RDW Coefficient of Variation 14.1 % (11.5-14.5); RDW Standard Deviation 47.9 fL (36.4-46.3); Red Blood Count 4.15 M/uL (4.20-5.40); White Blood Count 7.68 K/ul (4.8-10.8)
--- NOTE | 2022-09-14 12:34 | XRay Report ---
XR chest 1V portable CLINICAL HISTORY: fall TECHNIQUE: Single frontal radiograph of the chest was obtained. Comparison: None available at the time of this dictation. FINDINGS: No lines and tubes are seen. The cardiomediastinal silhouette is normal. The lungs are clear. No evid ence of pleural effusion or pneumothorax. IMPRESSION: No acute chest disease. ACT 112: Negative or not required by law. Electronically signed by: Andrei Barroso M.D. 09/14/2022 12:33 PM
[2022-09-14 12:46] LABS: Albumin Globulin Ratio 1.6 (0.9-2); Albumin Level 3.8 gm/dl (3.4-5.0); BUN Creatinine Ratio 22.8 (10-20); Bilirubin,Total 0.8 mg/dl (0.2-1.0); Calcium 9.5 mg/dl (8.6-10.3); Creatinine Clr Calc Pharmacy 30.1 ml/min; Est GFR (African American) 45.2 ml/min; Globulin 2.4 gm/dl (2.5-4.0); Potassium 4.2 mmol/L (3.5-5.1); Total Protein 6.2 gm/dl (6.0-8.3)
--- NOTE | 2022-09-14 12:49 | History & Physical Report ---
Date of Service September 14, 2022 Assessment & Plan (1) Closed left hip fracture: Plan: -Admit to med/surge -Currently stable -Sustained an Intertrochanteric fracture of the left proximal femur after a mechanical fall on her driveway earlier today -Did hit her head but no LOC, only on aspirin -Chest xray without acute findings, CT head wo con in process -Will obtain xray of the left elbow to monitor for occult fracture with her pain and swelling -Prn tylenol and PO tramadol for pain, can increase pain regimen if needed -Bedrest, Ortho consult placed, fall precautions ordered -Spoke with Ortho, appreciate their quick response, plan for OR tomorrow afternoon, ok with hold chemical DVT PPX for now -HH, DMII diet, then NPO at midnight for OR tomorrow -BL SCD's for DVT PPX -AM CBC, BMP, Mag, PT/INR (2) Fall from standing: Plan: -Sustained a mechanical fall on her driveway this am while turning -Did hit her head but no LOC or mental status changes, only on aspirin -Will FU on CT head WO (3) Left elbow pain: Plan: -Will follow left elbow xray ordered on admission (4) Hypertension: Plan: -Currently stable -Will hold irbesartan tomorrow in preparation for OR, will needed to restart when stable after OR (5) Depression with anxiety: Plan: -Continue Duloxetine -Takes 2mg Ativan BID prn anxiety at home, will decrease to 1mg BID prn to reduce her risk of oversedation while on narcotics for pain -Would strongly recommend she be weaned off due to risks of long-term use and dementia (6) GERD (gastroesophageal reflux disease): Plan: -Daily PPI (7) Type 2 diabetes mellitus: Plan: -Hold metformin -Monitor BSG q4h while NPO, goal is 110-140 -Start with 5 units lantus BID, CF of 50, will hold CR for now to avoid hypoglycemia -DMII, HH diet until midnight then NPO -Adjust regimen as needed (8) Sleep apnea: Plan: -HS CPAP ordered (9) Hypercholesterolemia: Plan: -Continue statin Plan The patient was discussed with Dr. Thomas at the time of the admission History of Present Illness Chief Complaint: Fall, hip pain Primary Care Provider: DO Eloise Cooper is an 82 year old female with a PMH significant for HTN, HLP, DM, UDAY, Sjogren syndrome, Raynaud's disease, and CKD who presented to the [facility] ED via EMS on 09/14/22 due to a fall and subsequent left arm and left leg pain. In the ED vitals were stable. Labs including CBC, CMP, and covid 19 screen were unremarkable, UA is in process. Chest xray was WNL but xray of the left hip was read as "Intertrochanteric fracture of the left proximal femur". Prior to admission the patient was given 75 mcg of IV fentanyl. At the time of the exam the patient was lying in bed in no acute distress with her sitting bedside, history was obtained from all. She was in her normal state of health, standing on the driveway when she lost her balance while turning and fell backwards. Her states that their driveway slants downward so she was unable to stabilize herself. The patient denies feeling lightheaded, dizzy, feeling SOB, chest pain, heart palpitations prior to or after her fall. She landed on her left arm/hip and did hit the back of her head, but denies any LOC or head pain at this time. Her only pain at his time is left hip and left elbow pain. She denies recent fever, chills, chest pain, SOB, neck or back pain, abd pain, nausea, vomiting, diarrhea, dysuria, hematuria, melena, LE swelling. She took all of her am medications prior to her fall today. We discussed code status, she wishes to be a full code and for her to make medical decisions for her if she cannot make them herself. Please refer to Dr. Thomas's attestation for any changes to the treatment plan Allergies Allergy/AdvReac Type Severity Reaction Status Date / Time Iodinated Contrast Media Allergy Intermediate Rash Verified 05/18/22 14:01 clindamycin [From Cleocin] Allergy Mild hives Verified 05/18/22 14:01 influenza virus vacc AdvReac Unknown Verified 05/18/22 14:01 trivalent, split [From Fluzone] Home Medications Medication Instructions Recorded Confirmed Type coenzyme Q10 200 mg capsule 200 mg PO DAILY 11/26/18 05/18/22 History cyanocobalamin (vitamin B-12) 1,000 mcg PO DAILY #90 tabs 11/26/18 05/18/22 History 1,000 mcg tablet aspirin 81 mg tablet,delayed 81 mg PO DAILY 12/12/19 05/18/22 History release (Jack Low Dose Aspirin) blood sugar diagnostic (Blood #100 ea 12/24/19 05/18/22 Rx Glucose Test strips) blood-glucose meter (Blood Glucose #1 ea 12/24/19 05/18/22 Rx Monitoring kit) lancets (OneTouch UltraSoft #100 ea 07/11/20 05/18/22 Rx Lancets) zinc acetate PO 01/06/21 05/18/22 History polyethylene glycol 3350 17 gram 17 g PO DAILY 03/31/21 05/18/22 History oral powder packet (Miralax) docusate sodium 100 mg capsule 100 mg PO BID PRN 01/12/22 05/18/22 History (Colace) [id number] C-Mn 250 cap PO 03/01/22 05/18/22 History mg-200 mg-30 mg-2.5 mg capsule atorvastatin 40 mg tablet 40 mg PO DAILY #90 tabs 04/01/22 05/18/22 Rx omeprazole 20 mg capsule,delayed 20 mg PO DAILY PRN reflux #90 caps 04/01/22 05/18/22 Rx release lorazepam 2 mg tablet 2 mg PO BID PRN anxiety #180 tabs 04/12/22 05/18/22 Rx azelastine 137 mcg (0.1 %) nasal 137 mcg (0.137 mL) intranasal BID 05/18/22 05/18/22 Rx spray aerosol #30 mL doxycycline hyclate 100 mg capsule 100 mg PO BID 7 days #14 caps 05/18/22 05/18/22 Rx ipratropium bromide 21 mcg (0.03 2 spray intranasal DAILY #30 mL 05/18/22 05/18/22 Rx %) nasal spray duloxetine 30 mg capsule,delayed 30 mg PO DAILY #90 caps 07/12/22 Rx release irbesartan 300 mg tablet 300 mg PO DAILY #100 tabs 08/25/22 Rx metformin 500 mg tablet,extended 500 mg PO DAILY #100 tabs 08/25/22 Rx release 24 hr Past Med/Surg History Medical History Allergic rhinitis Anxiety BPPV (benign paroxysmal positional vertigo) CKD (chronic kidney disease) stage 3, GFR 30-59 ml/min Depression with anxiety Diabetic peripheral neuropathy GERD (gastroesophageal reflux disease) Hypercholesterolemia Hypertension Insomnia Lumbar spinal stenosis Nausea vomiting and diarrhea Osteoporosis Raynaud's disease Sjogrens syndrome Sleep apnea Thoracic compression fracture Type 2 diabetes mellitus Urinary incontinence Surgical History History of hand surgery Hx laparoscopic cholecystectomy (12/12/19) Laparoscopic Cholecystectomy 12/12/2019 S/P ERCP Dr. Wooten 12/12/2019 S/P ERCP (12/14/19) Endoscopic Retrograde Cholangiopancreatogram Dr. Wooten 12/14/2019 Status post section Status post laparoscopic cholecystectomy Family History Mother Arthritis Diabetes Father Arthritis Diabetes Family/Other Arthritis sibling Diabetes sibling Denies family history of Ovarian cancer Prostate cancer Myocardial infarction Breast cancer Colorectal cancer Social History Smoking Status: Never smoker Second Hand Exposure: No; Do You Dip or Chew Tobacco: No; Tobacco Cessation Education Requested by Patient: No Hx Alcohol Use: No Hx Substance Use: No Preferred Language: Iraqi Communication Ability: Effective Visual Impairment: No Limitations Hearing Ability: Normal Manual Writer Required: No Beliefs That Will Affect Care: None marital status: Current Living Situation: Spouse current occupational status: retired How many Children do You have: 4 Other Information That Helps Us Care for You: No Feels Safe at Home: Yes Safety Concerns: Feels Safe At This Time Childhood Exposure to Second-Hand Smoke: No Diet: regular caffeine: Yes (Coffee x 1 per day.) during the past year weight has: remained stable Dental Care, Regularly: No Physical Activity Frequency: 3-4 Times per Week Seatbelt Use: always Sunscreen Use: Yes Assistive Devices: Denture - Upper and Glasses Physical Exam Physical Exam: Physical Exam: General: In no acute distress, stated age, well-nourished, good hygiene HEENT: Normocephalic, atraumatic, no scleral icterus, pupils around round, symmetrical, and reactive to light, moist mucus membranes, trachea midline, no thyromegaly Chest/Pulm: No respiratory distress, symmetrical chest expansion, clear breath sounds throughout Cardiac: RRR, no murmurs noted Abdomen: Negative for ascites and bruising, normoactive bowel sounds, soft, non-tender to palpation throughout Musculoskeletal: No trauma or tenderness to palpation of the face, head, cervical, thoracic, or lumbar spine, chest, right hip, RLE, and left knee/ankle. Patient LLE is currently shortened and externally rotated, no signs of significant bruising noted, Patient with an abrasion and mild swelling over the left elbow, patient with full ROM of the LUE without crepitus on palpation Extremities: Radial, dorsalis pedis, and posterior tibial pulses are intact and symmetrical, no edema noted in the BL LE's Skin: Warm, dry, no rashes , lesions, or scars noted Neuro: Alert and oriented to person, place, month, year, and president, no fo mayank defects, CN II-XII tested and intact, no tremors noted Psych: No acute distress, calm and cooperative during the exam Results & Data Results & Data Vital Signs (Past 12 Hours) Vital Signs Temp Pulse Resp BP Pulse Ox O2 Del Method 09/14/22 12:10 36.6 C 70 15 148/79 H 96 Room Air Laboratory Results Abnormal lab results 09/14/22 09/14/22 09/14/22 Range/Units 12:09 12:09 12:11 RBC 4.15 L (4.20-5.40) M/uL RDW Std Deviation 47.9 H (36.4-46.3) fL Chloride 108 H (98-107) mmol/L BUN 29 H (6-23) mg/dl Creatinine 1.27 H (0.6-1.2) mg/dl BUN/Creatinine Ratio 22.8 H (10-20) Glucose 130 H (70-99(Fasting)) mg/dl Globulin 2.4 L (2.5-4.0) gm/dl Urine Ketones Trace H (Negative) Diagnostic Findings Hip/Pelvis X-Ray 09/14/22 12:02 SINGLE VIEW PELVIS; 2 VIEWS LEFT HIP CLINICAL HISTORY: Fall. FINDINGS: An AP view of the pelvis with AP and crosstable lateral views of the left hip are correlated with pelvic CT dated 12/12/2019. The skeletal structures are osteopenic. There is an impacted and comminuted intertrochanteric fracture of the left proximal femur with overlying soft tissue edema and displaced fragments. There is medial displacement of the lesser trochanter. No additional fracture is seen involving the right hip or the bony pelvis. Mild to moderate arthritic change and joint space narrowing is seen in the hips. There is degenerative sclerosis of the sacroiliac joints. Phleboliths are noted in the pelvis. IMPRESSION: Intertrochanteric fracture of the left proximal femur as above. Electronically signed by: Brenden Nath M.D. 09/14/2022 12:27 PM Chest X-Ray 09/14/22 12:03 XR chest 1V portable CLINICAL HISTORY: fall TECHNIQUE: Single frontal radiograph of the chest was obtained. Comparison: None available at the time of this dictation. FINDINGS: No lines and tubes are seen. The cardiomediastinal silhouette is normal. The lungs are clear. No evidence of pleural effusion or pneumothorax. IMPRESSION: No acute chest disease. ACT 112: Negative or not required by law. Electronically signed by: Andrei Barroso M.D. 09/14/2022 12:33 PM ECG Additional Comments: Normal sinus rhythm Normal ECG When compared with ECG of 12-DEC-2019 01:08, Premature supraventricular complexes are no longer Present Code Status & VTE Plan Code Status Full code VTE Prophylaxis Plan VTE Prophylaxis will be ordered: Yes Supervising Physician Co-Signing Physician Notes Patient seen and examined, chart reviewed, case discussed with Pedro Borrero PA-C and I agree with the assessment and plan as above except as otherwise noted Labs and images reviewed 82-year-old female with history of hypertension, type II DM, UDAY, Sjogren's, Raynaud's, CKD who presented after a fall with left arm and left leg pain. Is found to have a left intertrochanteric fracture of left proximal femur pending surgical intervention; surgery has been consulted. Creatinine is at baseline, will hold irbesartan in the morning for general anesthesia, BSG adequately controlled, UA uninfected, high-sensitivity troponin negative, no leukocytosis, sodium/potassium is normal. X-ray of the left elbow is with no evidence of fracture or effusion, chest x-ray is without acute findings, head CT is without acute hemorrhage or acute findings. Hip x-ray shows intertrochanteric fracture as noted. At bedside left lower extremity is shortened and externally rotated; cap refill in the hallux is less than 2 seconds bilaterally sensation is intact to soft touch in the hands and feet bilaterally. She is not on anticoagulants. Agree with management as above, anticipate operative intervention 09/15 PG Care Time/CCT Total # of Minutes Spent Total Time Spent with Patient: Total time spent is greater than 50% in coordination of care (as documented) at patient's floor/unit and/or counseling patient: Coding [place] [address] INT INP/OBS CARE MIN Patient Type Established Medical Decision Making Moderate Complexity Diagnoses Closed left hip fracture S72.002A Fall from standing W19.XXXA Left elbow pain M25.522 Hypertension I10 Hypertension type: essential hypertension Depression with anxiety F41.8 GERD (gastroesophageal reflux disease) K21.9 Type 2 diabetes mellitus E11.9 Diabetes mellitus complication status: without complication Diabetes mellitus roasterman insulin use: without half-way use Sleep apnea G47.30 Hypercholesterolemia E78.00 (4) Hypertension Hypertension type: essential hypertension Qualified Code(s): I10 - Essential (primary) hypertension (7) Type 2 diabetes mellitus Diabetes mellitus complication status: without complication Diabetes mellitus half-way insulin use: without roasterman use Qualified Code(s): E11.9 - Type 2 diabetes mellitus without complications
[2022-09-14 12:51] LABS: Troponin I High Sensitivity 6.8 pg/ml (0-14)
[2022-09-14 13:00] LABS: Partial Thromboplastin Ratio 0.8; Partial Thromboplastin Time 22.7 Seconds (21.0-31.0)
[2022-09-14] MEDS ORDERED: GLUCOSE 10 TAB/TUBE PO PRN (13:10)
[2022-09-14] MEDS ORDERED: CARBOHYDRATES FOR HYPOGLYCEMIA PO PRN (13:10)
[2022-09-14] MEDS ORDERED: GLUCOSE 40% GEL 15 GM TUBE PO PRN (13:10)
[2022-09-14] MEDS ORDERED: DEXTROSE 50% 50 ML SYRINGE IV PRN (13:10)
[2022-09-14] MEDS ORDERED: GLUCAGON FOR INJ 1 MG VIAL SQ PRN (13:10)
[2022-09-14] MEDS ORDERED: NALOXONE HCL 0.4 MG/1 ML VIAL/CARP IV PRN (13:12)
[2022-09-14] MEDS ORDERED: MAGNESIUM HYDROXIDE SUSP 30 ML UDC PO PRN (13:12)
[2022-09-14] MEDS ORDERED: LACTATED RINGER'S 500 ML IV ONE (13:14)
[2022-09-14 13:19] LABS: Appearance Urine Clear (Clear); Bilirubin Urine Negative (Negative); Blood Urine Negative (Negative); Color Urine Dark Yellow; Glucose Urine UA Negative (Negative); Ketones Urine Trace (Negative); Leukocyte Esterase Urine Negative (Negative); Nitrite Urine Negative (Negative); Protein Urine Negative (Negative); Specific Gravity Urine 1.029 (1.000-1.030); Urobilinogen Urine Negative (Negative); pH Urine 5.5 (4.5-7.5)
--- NOTE | 2022-09-14 13:21 | Orthopedic Consultation ---
Date of Consultation September 14, 2022 Assessment & Plan (1) Closed left hip fracture: Left intertrochanteric hip fracture. Patient will require a left trochanteric femoral nail. Patient currently being admitted by hospitalist service. Plans will be for left TFN tomorrow afternoon pending medical clearance. History of Present Illness Reason for Consultation: Left intertrochanteric hip fracture History of Present Illness Patient is an 82-year-old female who was brought to the emergency room after a fall in her front yard. Patient is accompanied by her and daughter. The patient was outside her home admiring her red as she normally does. Over the last few days she has had a loss of balance. She has not had any falls but she has had several episodes where she has had to catch her balance or hold onto something to steady herself. She states it did not feel like dizziness or lightheadedness. Her states that where she was standing was on downhill angle. The patient ended up losing her balance and falling onto her left side. She states she fell pretty hard and she did bump her head. She denies losing consciousness. She had immediate pain in her left hip and groin and was unable to ambulate. An ambulance was called and she was transported to the ER here. She was seen by the ER staff and x-rays were taken. It was found that she had a left intertrochanteric hip fracture. She is currently being admitted by the hospitalist service and we have been asked to take care of her left hip fracture. Currently she is moderately comfortable stating that her pain rating is only a 3. Allergies Allergy/AdvReac Type Severity Reaction Status Date / Time Iodinated Contrast Media Allergy Intermediate Rash Verified 05/18/22 14:01 clindamycin [From Cleocin] Allergy Mild hives Verified 05/18/22 14:01 influenza virus vacc AdvReac Unknown Verified 05/18/22 14:01 trivalent, split [From Fluzone] Home Medications Medication Instructions Recorded Confirmed Type coenzyme Q10 200 mg capsule 200 mg PO DAILY 11/26/18 05/18/22 History cyanocobalamin (vitamin B-12) 1,000 mcg PO DAILY #90 tabs 11/26/18 05/18/22 History 1,000 mcg tablet aspirin 81 mg tablet,delayed 81 mg PO DAILY 12/12/19 05/18/22 History release (Jack Low Dose Aspirin) blood sugar diagnostic (Blood #100 ea 12/24/19 05/18/22 Rx Glucose Test strips) blood-glucose meter (Blood Glucose #1 ea 12/24/19 05/18/22 Rx Monitoring kit) lancets (OneTouch UltraSoft #100 ea 07/11/20 05/18/22 Rx Lancets) zinc acetate PO 01/06/21 05/18/22 History polyethylene glycol 3350 17 gram 17 g PO DAILY 03/31/21 05/18/22 History oral powder packet (Miralax) docusate sodium 100 mg capsule 100 mg PO BID PRN 01/12/22 05/18/22 History (Colace) [id number] C-Mn 250 cap PO 03/01/22 05/18/22 History mg-200 mg-30 mg-2.5 mg capsule atorvastatin 40 mg tablet 40 mg PO DAILY #90 tabs 04/01/22 05/18/22 Rx omeprazole 20 mg capsule,delayed 20 mg PO DAILY PRN reflux #90 caps 04/01/22 0 05/18/22 Rx release lorazepam 2 mg tablet 2 mg PO BID PRN anxiety #180 tabs 04/12/22 05/18/22 Rx azelastine 137 mcg (0.1 %) nasal 137 mcg (0.137 mL) intranasal BID 05/18/22 05/18/22 Rx spray aerosol #30 mL doxycycline hyclate 100 mg capsule 100 mg PO BID 7 days #14 caps 05/18/22 05/18/22 Rx ipratropium bromide 21 mcg (0.03 2 spray intranasal DAILY #30 mL 05/18/22 05/18/22 Rx %) nasal spray duloxetine 30 mg capsule,delayed 30 mg PO DAILY #90 caps 07/12/22 Rx release irbesartan 300 mg tablet 300 mg PO DAILY #100 tabs 08/25/22 Rx metformin 500 mg tablet,extended 500 mg PO DAILY #100 tabs 08/25/22 Rx release 24 hr Patient History Medical History Allergic rhinitis Anxiety BPPV (benign paroxysmal positional vertigo) CKD (chronic kidney disease) stage 3, GFR 30-59 ml/min Depression with anxiety Diabetic peripheral neuropathy GERD (gastroesophageal reflux disease) Hypercholesterolemia Hypertension Insomnia Lumbar spinal stenosis Nausea vomiting and diarrhea Osteoporosis Raynaud's disease Sjogrens syndrome Sleep apnea Thoracic compression fracture Type 2 diabetes mellitus Urinary incontinence Surgical History History of hand surgery Hx laparoscopic cholecystectomy (12/12/19) Laparoscopic Cholecystectomy 12/12/2019 S/P ERCP Dr. Wooten 12/12/2019 S/P ERCP (12/14/19) Endoscopic Retrograde Cholangiopancreatogram Dr. Wooten 12/14/2019 Status post section Status post laparoscopic cholecystectomy Family History Mother Arthritis Diabetes Father Arthritis Diabetes Family/Other Arthritis sibling Diabetes sibling Denies family history of Ovarian cancer Prostate cancer Myocardial infarction Breast cancer Colorectal cancer Social History Smoking Status: Never smoker Second Hand Exposure: No; Do You Dip or Chew Tobacco: No; Tobacco Cessation Education Requested by Patient: No Hx Alcohol Use: No Hx Substance Use: No Preferred Language: Mexican Communication Ability: Effective Visual Impairment: No Limitations Hearing Ability: Normal Dcs Engineer Required: No Beliefs That Will Affect Care: None marital status: Current Living Situation: Spouse current occupational status: retired How many Children do You have: 4 Other Information That Helps Us Care for You: No Feels Safe at Home: Yes Safety Concerns: Feels Safe At This Time Childhood Exposure to Second-Hand Smoke: No Diet: regular caffeine: Yes (Coffee x 1 per day.) during the past year weight has: remained stable Dental Care, Regularly: No Physical Activity Frequency: 3-4 Times per Week Seatbelt Use: always Sunscreen Use: Yes Assistive Devices: Denture - Upper and Glasses Physical Exam Physical Exam: Patient is an 82-year-old white female who appears her stated age. She is alert and oriented to person and place. She is in no acute distress. She is pleasant and cooperative. On examination of her left lower extremity, her extremity is shortened and externally rotated compared to the right. She is able to move her left lower extremity somewhat but complains of left hip and groin pain. Full range of motion of the left hip is deferred secondary to hip fracture. Left knee is nontender on palpation and does not appear to have an effusion. Range of motion is deferred. Left ankle range of motion is within normal limits actively and passively without pain. Right lower extremity is unaffected and she has good range of motion of her right hip, knee, and ankle without discomfort. She is nontender of the upper extremities at the shoulders, elbows, and wrists. Range of motion appears to be within normal limits. Distal pulses are equal bilaterally of the upper and lower extremities. She denies any cervical, thoracic, low back pain. There is no gross motor or sensory loss seen at this time. Results & Data Vital Signs (Past 12 Hours) Vital Signs Temp Pulse Pulse Resp BP BP Pulse Ox 09/14/22 12:59 71 16 148/79 H 96 09/14/22 12:10 36.6 C 70 15 148/79 H 96 O2 Del Method 09/14/22 12:59 Room Air 09/14/22 12:10 Room Air Laboratory Results Laboratory Results WBC 7.68 K/ul (4.8-10.8) 09/14/22 12:09 RBC 4.15 M/uL (4.20-5.40) L 09/14/22 12:09 Hgb 12.9 g/dl (12.0-16.0) 09/14/22 12:09 Hct 38.7 % (37.0-47.0) 09/14/22 12:09 MCV 93.3 fL (80.0-100.0) 09/14/22 12:09 MCH 31.1 pg (25.0-34.0) 09/14/22 12:09 MCHC 33.3 g/dL (32.0-36.0) 09/14/22 12:09 RDW Std Deviation 47.9 fL (36.4-46.3) H 09/14/22 12:09 RDW Coeff of Hsikha 14.1 % (11.5-14.5) 09/14/22 12:09 Plt Count 169 K/uL (130-400) 09/14/22 12:09 MPV 9.4 fL (9.4-12.4) 09/14/22 12:09 Immature Gran % (Auto) 0.7 % 09/14/22 12:09 Neut % (Auto) 69.6 % 09/14/22 12:09 Lymph % (Auto) 21.7 % 09/14/22 12:09 [place] % (Auto) 5.6 % 09/14/22 12:09 Eos % (Auto) 2.0 % 09/14/22 12:09 Baso % (Auto) 0.4 % 09/14/22 12:09 Neut # (Auto) 5.35 K/uL (1.40-6.50) 09/14/22 12:09 Lymph # (Auto) 1.67 K/uL (1.2-3.4) 09/14/22 12:09 [place] # (Auto) 0.43 K/uL (0.11-0.59) 09/14/22 12:09 Eos # (Auto) 0.15 K/uL (0-0.50) 09/14/22 12:09 Baso # (Auto) 0.03 K/uL (0-0.2) 09/14/22 12:09 Immature Gran # (Auto) 0.05 K/uL (0.01-0.20) 09/14/22 12:09 PT 11.0 Seconds (9.0-12.0) 09/14/22 12:09 INR 1.0 (0.9-1.1) 09/14/22 12:09 APTT 22.7 Seconds (21.0-31.0) 09/14/22 12:09 PTT Ratio 0.8 09/14/22 12:09 Sodium 139 mmol/L (136-145) 09/14/22 12:09 Potassium 4.2 mmol/L (3.5-5.1) 09/14/22 12:09 Chloride 108 mmol/L (98-107) H 09/14/22 12:09 Carbon Dioxide 25 mmol/L (21-32) 09/14/22 12:09 Anion Gap 6 (3-11) 09/14/22 12:09 BUN 29 mg/dl (6-23) H 09/14/22 12:09 Creatinine 1.27 mg/dl (0.6-1.2) H 09/14/22 12:09 Est Cr Clr Drug Dosing 30.1 ml/min 09/14/22 12:09 Est GFR ( Amer) 45.2 ml/min 09/14/22 12:09 Est GFR (Non-Af Amer) 39.0 ml/min 09/14/22 12:09 BUN/Creatinine Ratio 22.8 (10-20) H 09/14/22 12:09 Glucose 130 mg/dl (70-99(Fasting)) H 09/14/22 12:09 Calcium 9.5 mg/dl (8.6-10.3) 09/14/22 12:09 Total Bilirubin 0.8 mg/dl (0.2-1.0) 09/14/22 12:09 AST 22 U/L (13-39) 09/14/22 12:09 ALT 18 U/L (7-52) 09/14/22 12:09 Alkaline Phosphatase 86 U/L (34-104) 09/14/22 12:09 Total Creatine Kinase 97 U/L (26-192) 09/14/22 12:09 Troponin I High Sens 6.8 pg/ml (0-14) 09/14/22 12:09 Total Protein 6.2 gm/dl (6.0-8.3) 09/14/22 12:09 Albumin 3.8 gm/dl (3.4-5.0) 09/14/22 12:09 Globulin 2.4 gm/dl (2.5-4.0) L 09/14/22 12:09 Albumin/Globulin Ratio 1.6 (0.9-2) 09/14/22 12:09 Urine Color Dark Yellow 09/14/22 12:11 Urine Appearance Clear (Clear) 09/14/22 12:11 Urine pH 5.5 (4.5-7.5) 09/14/22 12:11 Ur Specific [place] 1.029 (1.000-1.030) 09/14/22 12:11 Urine Protein Negative (Negative) 09/14/22 12:11 Urine Glucose (UA) Negative (Negative) 09/14/22 12:11 Urine Ketones Trace (Negative) H 09/14/22 12:11 Urine Blood Negative (Negative) 09/14/22 12:11 Urine Nitrite Negative (Negative) 09/14/22 12:11 Urine Bilirubin Negative (Negative) 09/14/22 12:11 Urine Urobilinogen Negative (Negative) 09/14/22 12:11 Ur Leukocyte Esterase Negative (Negative) 09/14/22 12:11 SARS-CoV-2, RNA, NAAT NEGATIVE (NEGATIVE) 09/14/22 12:11 Impressions Hip/Pelvis X-Ray 09/14/22 12:02 SINGLE VIEW PELVIS; 2 VIEWS LEFT HIP CLINICAL HISTORY: Fall. FINDINGS: An AP view of the pelvis with AP and crosstable lateral views of the left hip are correlated with pelvic CT dated 12/12/2019. The skeletal structures are osteopenic. There is an impacted and comminuted intertrochanteric fracture of the left proximal femur with overlying soft tissue edema and displaced fragments. There is medial displacement of the lesser trochanter. No additional fracture is seen involving the right hip or the bony pelvis. Mild to moderate arthritic change and joint space narrowing is seen in the hips. There is degen erative sclerosis of the sacroiliac joints. Phleboliths are noted in the pelvis. IMPRESSION: Intertrochanteric fracture of the left proximal femur as above. Electronically signed by: Brenden Nath M.D. 09/14/2022 12:27 PM Chest X-Ray 09/14/22 12:03 XR chest 1V portable CLINICAL HISTORY: fall TECHNIQUE: Single frontal radiograph of the chest was obtained. Comparison: None available at the time of this dictation. FINDINGS: No lines and tubes are seen. The cardiomediastinal silhouette is normal. The lungs are clear. No evidence of pleural effusion or pneumothorax. IMPRESSION: No acute chest disease. ACT 112: Negative or not required by law. Electronically signed by: Andrei Barroso M.D. 09/14/2022 12:33 PM
--- NOTE | 2022-09-14 13:42 | CT Scan Report ---
CT head/brain wo con CLINICAL HISTORY: fall, hit head Technique: Contiguous axial CT images of the head were acquired from the base of the skull to the yobany billy without intravenous contrast administration. Images were viewed in brain, subdural and [facility]. Automated dose lowering techniques and/or adjustment according to patient size were utilized for this exam. Comparison: Comparison is made to CT head 02/04/2020 Findings: Areas of decreased attenuation are present in the periventricular and subcortical white matter bilate rally consistent with small vessel ischemic disease. Generalized cerebral atrophy with commensurate e nlargement of the ventricles, sulci, and cisterns is also present. There is no acute intracranial hem orrhage or evidence of acute territorial infarction. No shift of the midline structures, mass effect, or extra-axial abnormalities are shown. Atherosclerotic calcifications are present in the intracran ial segments of the internal carotid arteries. Imaged portions of the paranasal sinuses and mastoid air cells are clear. The orbits appear normal. There are no acute fractures of the calvaria or scalp swelling. Impression: No acute intracranial hemorrhage, no evidence of acute territorial infarction or other acute intracra nial disease process. ACT 112: Negative or not required by law. Electronically signed by: Andrei Barroso M.D. 09/14/2022 1:41 PM
[2022-09-14] MEDS: INSULIN ASPART PER UNIT CHARGE SC SCH ×3 (13:47→21:22)
--- NOTE | 2022-09-14 13:50 | XRay Report ---
XR elbow LT min 3V routine CLINICAL HISTORY: fall, left elbow pain/swelling COMPARISON: None FINDINGS: Alignment of the left elbow is anatomic. No acute fracture. No evidence for a joint effusi on. There is ulnotrochlear articulation osteophytosis. IMPRESSION: No acute fracture. No evidence for a left elbow joint effusion. ACT 112: Negative or not required by law. Electronically signed by: Davy Bartholomew M.D. 09/14/2022 1:49 PM
--- NOTE | 2022-09-14 14:28 | Electrocardiogram Report ---
Test Reason : Blood Pressure : / mmHG Vent. Rate : 078 BPM Atrial Rate : 078 BPM P-R Int : 156 ms QRS Dur : 084 ms QT Int : 392 ms P-R-T Axes : 055 017 046 degrees QTc Int : 446 ms Normal sinus rhythm Normal ECG When compared with ECG of 12-DEC-2019 01:08, Premature supraventricular complexes are no longer Present Confirmed by Jimmy Mckinney ([id number]) on 09/14/2022 2:28:02 PM Referred By: REFERRED SELF Confirmed By:Jimmy Mckinney
[2022-09-14] MEDS: ACETAMINOPHEN 500 MG TAB PO PRN (15:35)
[2022-09-14] MEDS: traMADol HCL 50 MG TABLET PO PRN ×2 (17:03→21:17)
[2022-09-14] MEDS ORDERED: Nursing to Pharmacy Communication SCH ×2 (18:00→22:15)
[2022-09-14] MEDS: ATORVASTATIN 40 MG TAB PO SCH (18:18)
[2022-09-14] MEDS: DULoxetine HCL 30 MG CAP PO SCH (18:19)
[2022-09-14] MEDS: DOCUSATE SODIUM/SENNA 50/8.6MG TAB PO SCH (19:58)
[2022-09-14] MEDS: LORazepam 1 MG TAB PO PRN (21:20)
[2022-09-14] MEDS: LANTUS PER UNIT CHARGE SQ SCH (21:22)
[2022-09-15] MEDS: ACETAMINOPHEN 500 MG TAB PO PRN ×2 (01:28→19:17)
[2022-09-15] MEDS: traMADol HCL 50 MG TABLET PO PRN ×4 (01:29→21:53)
[2022-09-15] MEDS: INSULIN ASPART PER UNIT CHARGE SC SCH ×4 (05:47→20:40)
[2022-09-15] MEDS ORDERED: INSULIN ASPART PER UNIT CHARGE SC SCH (07:30)
[2022-09-15 07:56] LABS: Hematocrit (blood only) 33.1 % (37.0-47.0); Mean Corpuscular Hemoglobin 30.4 pg (25.0-34.0); Mean Corpuscular Hgb Conc 33.2 g/dL (32.0-36.0); Mean Corpuscular Volume 91.4 fL (80.0-100.0); Mean Platelet Volume 10.1 fL (9.4-12.4); Platelet Count 162 K/uL (130-400); RDW Coefficient of Variation 13.7 % (11.5-14.5); RDW Standard Deviation 46.7 fL (36.4-46.3); Red Blood Count 3.62 M/uL (4.20-5.40); White Blood Count 8.17 K/ul (4.8-10.8)
[2022-09-15 08:13] LABS: BUN Creatinine Ratio 19.6 (10-20); Calcium 8.5 mg/dl (8.6-10.3); Creatinine Clr Calc Pharmacy 36.8 ml/min; Est GFR (African American) 55.6 ml/min; Magnesium 1.5 mg/dl (1.7-2.4)
[2022-09-15] MEDS ORDERED: MAGNESIUM SULFATE / D5W 1 GM/100 ML BAG IV ONE (08:14)
[2022-09-15 08:16] LABS: Prothrombin Time 11.3 Seconds (9.0-12.0)
--- NOTE | 2022-09-15 08:27 | Hospitalist Progress Note ---
Date of Service September 15, 2022 Assessment & Plan (1) Closed left hip fracture: Plan: Intertrochanteric fracture of the left proximal femur after a mechanical fall -Did hit her head but no LOC, CT head wo con no acute intracranial injury Also struck elbow with pain and swelling x-ray did not show fractures Orthopedic plans on intertrochanteric nail on 09/15/2022 (2) Type 2 diabetes mellitus: Plan: -Hold metformin -Monitor BSG q4h while NPO, goal is 110-140 -Start with 5 units lantus BID, CF of 50, will hold CR (3) Hypertension: Plan: -Currently stable typically on irebasartan and will be held perioperatively (4) Depression with anxiety: Plan: -Continue Duloxetine takes Ativan as needed twice daily (5) Sleep apnea: Plan: -HS CPAP ordered Admission and Anticipated Discharge Date Admission Date: September 14, 2022 Subjective Patient was seen preoperatively in the presence of her she was in stable condition Physical Exam Physical Exam: Awake alert appropriate has tenderness at the fracture site Cardiac exam is regular lungs are clear Results & Data Results & Data Vital Signs (Past 12 Hours) Vital Signs Temp Pulse Resp BP Pulse Ox O2 Del Method 09/15/22 07:15 98.2 F 81 14 133/82 93 Room Air 09/14/22 21:03 98.2 F 73 16 116/76 96 Room Air Laboratory Results Reviewed CBC reviewed chemistry PG Care Time/CCT Total # of Minutes Spent Total Time Spent with Patient: Total time spent is greater than 50% in coordination of care (as documented) at patient's floor/unit and/or counseling patient: Coding Level of Care Code 87523 SUB INP/OBS CARE 2/35MIN Diagnoses Closed left hip fracture S72.002A Type 2 diabetes mellitus E11.9 Diabetes mellitus complication status: without complication Diabetes mellitus jail insulin use: without rat exterminator use Hypertension I10 Hypertension type: essential hypertension Depression with anxiety F41.8 Sleep apnea G47.30 (2) Type 2 diabetes mellitus Diabetes mellitus complication status: without complication Diabetes mellitus rat exterminator insulin use: without rat exterminator use Qualified Code(s): E11.9 - Type 2 diabetes mellitus without complications (3) Hypertension Hypertension type: essential hypertension Qualified Code(s): I10 - Essential (primary) hypertension
[2022-09-15] MEDS: LANTUS PER UNIT CHARGE SQ SCH ×2 (08:34→20:40)
[2022-09-15] MEDS: PANTOprazole 40 MG TAB PO SCH (08:34)
[2022-09-15] MEDS ORDERED: DULoxetine HCL 30 MG CAP PO SCH (09:00)
[2022-09-15] MEDS ORDERED: SODIUM CHLORIDE 0.9% 1000ML 1,000 ML IV SCH (09:00)
[2022-09-15] MEDS ORDERED: ATORVASTATIN 40 MG TAB PO SCH ×2 (09:00→18:00)
[2022-09-15] MEDS: LORazepam 1 MG TAB PO PRN ×2 (12:41→21:54)
[2022-09-15] MEDS ORDERED: ePHEDrine sulfate 50 MG/ML AMP IV PRN (13:51)
[2022-09-15] MEDS ORDERED: fentaNYL citrate PF 100 MCG/2 ML VIAL IV PRN (13:51)
[2022-09-15] MEDS ORDERED: ATROPINE SULFATE 0.1 MG/ML 10ML SYR IV PRN (13:51)
[2022-09-15] MEDS ORDERED: ONDANSETRON INJ 2 MG/ML 2 ML VIAL IV PRN (13:51)
--- NOTE | 2022-09-15 13:58 | Anesthesiology Consultation ---
Date of Service September 15, 2022 Assessment & Plan (1) Encounter for pre-operative examination: Chart Review Chart Review: Acceptable Risk for Surgery and Patient NOT seen in Pre Admission Testing Consults Requested none History Surgery Operation Date: 09/15/22 08:35 Proposed Procedures p Left Trochanteric Nail - Mike Pendleton, Height/Weight Height: 5 ft 3 in Weight: 67.7 kg Allergies Allergy/AdvReac Type Severity Reaction Status Date / Time Iodinated Contrast Media Allergy Intermediate Rash Verified 05/18/22 14:01 clindamycin [From Cleocin] Allergy Mild hives Verified 05/18/22 14:01 influenza virus vacc AdvReac Unknown Verified 05/18/22 14:01 trivalent, split [From Fluzone] Medications Home Medications Medication Instructions Recorded Confirmed Last Taken coenzyme Q10 200 mg capsule 200 mg PO DAILY 11/26/18 05/18/22 Unknown cyanocobalamin (vitamin B-12) 1,000 mcg PO DAILY #90 tabs 11/26/18 05/18/22 U nknown 1,000 mcg tablet aspirin 81 mg tablet,delayed 81 mg PO DAILY 12/12/19 05/18/22 Unknown release (Jack Low Dose Aspirin) blood sugar diagnostic (Blood #100 ea 12/24/19 05/18/22 Unknown Glucose Test strips) blood-glucose meter (Blood Glucose #1 ea 12/24/19 05/18/22 Unknown Monitoring kit) lancets (OneTouch UltraSoft #100 ea 07/11/20 05/18/22 Unknown Lancets) zinc acetate PO 01/06/21 05/18/22 Unknown polyethylene glycol 3350 17 gram 17 g PO DAILY 03/31/21 05/18/22 Unknown oral powder packet (Miralax) docusate sodium 100 mg capsule 100 mg PO BID PRN 01/12/22 05/18/22 Unknown (Colace) [id number]-mclbkhfmp-[id number] C-Mn 250 cap PO 03/01/22 05/18/22 Unknown mg-200 mg-30 mg-2.5 mg capsule atorvastatin 40 mg tablet 40 mg PO DAILY #90 tabs 04/01/22 05/18/22 Unknown omeprazole 20 mg capsule,delayed 20 mg PO DAILY PRN reflux #90 caps 04/01/22 05/18/22 Unknown release lorazepam 2 mg tablet 2 mg PO BID PRN anxiety #180 tabs 04/12/22 05/18/22 Unknown azelastine 137 mcg (0.1 %) nasal 137 mcg (0.137 mL) intranasal BID 05/18/22 Unknown spray aerosol #30 mL doxycycline hyclate 100 mg capsule 100 mg PO BID 7 days #14 caps 05/18/22 05/18/22 Unknown ipratropium bromide 21 mcg (0.03 2 spray intranasal DAILY #30 mL 05/18/22 05/18/22 Unknown %) nasal spray duloxetine 30 mg capsule,delayed 30 mg PO DAILY #90 caps 07/12/22 Unknown release irbesartan 300 mg tablet 300 mg PO DAILY #100 tabs 08/25/22 Unknown metformin 500 mg tablet,extended 500 mg PO DAILY #100 tabs 08/25/22 Unknown release 24 hr Active Medications Generic Name Dose Route Start Last Admin Trade Name Freq PRN Reason Stop Dose Admin Acetaminophen 1,000 mg 09/14/22 13:12 09/15/22 01:28 Acetaminophen 500 Mg Tab PO 10/14/22 13:11 1,000 mg Q8H PRN Administration Pain(1,2,3) & Pre PT Atorvastatin Calcium 40 mg 09/14/22 18:00 09/14/22 18:18 Atorvastatin 40 Mg Tab PO 10/14/22 17:59 40 mg DAILY@1800 JACOB Administration Duloxetine HCl 30 mg 09/14/22 18:00 09/14/22 18:19 Duloxetine Hcl 30 Mg Cap PO 10/14/22 17:59 30 mg DAILY@1800 JACOB Administration Sodium Chloride 1,000 mls @ 80 mls/hr 09/15/22 09:00 09/15/22 08:59 Nss 1000ml IV 09/16/22 09:59 80 mls/hr .[id number] JACOB Administration Insulin Aspart 0 units 09/15/22 06:00 09/15/22 13:01 Insulin Aspart Per Unit Charge SC 10/15/22 05:59 Not Given Q6 JACOB Insulin Glargine 5 units 09/14/22 21:00 09/15/22 08:34 Lantus Per Unit Charge SQ 10/14/22 20:59 2.5 units BID JACOB Administration Lorazepam 1 mg 09/14/22 15:01 09/15/22 12:41 Lorazepam 1 Mg Tab PO 10/14/22 15:00 1 mg BID PRN Administration anxiety Miscellaneous 1 each 09/14/22 16:00 09/15/22 07:30 Ipratropium: Order Awaiting Action N/A 10/14/22 15:59 Not Given QS JACOB Pantoprazole Sodium 40 mg 09/15/22 09:00 09/15/22 08:34 Pantoprazole 40 Mg Tab PO 10/15/22 08:59 40 mg DAILY JACOB Administration Senna/Docusate Sodium 2 tab 09/14/22 21:00 09/14/22 19:58 Docusate Sodium/Senna 50/8.6mg Tab PO 10/14/22 20:59 Not Given HS JACOB Tramadol HCl 50 mg 09/14/22 13:12 09/15/22 10:44 Tramadol Hcl 50 Mg Tablet PO 10/14/22 13:11 50 mg Q4H PRN Administration MODERATE Pain (4+) & Pre PT Past Medical History Medical History Allergic rhinitis Anxiety BPPV (benign paroxysmal positional vertigo) CKD (chronic kidney disease) stage 3, GFR 30-59 ml/min Depression with anxiety Diabetic peripheral neuropathy GERD (gastroesophageal reflux disease) Hypercholesterolemia Hypertension Insomnia Lumbar spinal stenosis Nausea vomiting and diarrhea Osteoporosis Raynaud's disease Sjogrens syndrome Sleep apnea Thoracic compression fracture Type 2 diabetes mellitus Urinary incontinence copd Past Family History Family History Mother Arthritis Diabetes Father Arthritis Diabetes Family/Other Arthritis sibling Diabetes sibling Denies family history of Ovarian cancer Prostate cancer Myocardial infarction Breast cancer Colorectal cancer Past Surgical History Surgical History History of hand surgery Hx laparoscopic cholecystectomy (12/12/19) Laparoscopic Cholecystectomy 12/12/2019 S/P ERCP Dr. Wooten 12/12/2019 S/P ERCP (12/14/19) Endoscopic Retrograde Cholangiopancreatogram Dr. Wooten 12/14/2019 Status post section Status post laparoscopic cholecystectomy Social History Smoking Status: Never smoker Do You Dip or Chew Tobacco: No Hx Alcohol Use: No Hx Substance Use: No Physical Exam Vital Signs Last Vital Signs Temp 36.8 C 09/15/22 14:09 Pulse 90 09/15/22 14:09 Resp 18 09/15/22 14:09 BP 147/87 H 09/15/22 14:09 Pulse Ox 96 09/15/22 14:09 O2 Del Method Room Air 09/15/22 14:09 O2 Flow Rate 2 09/14/22 14:18 Testing Laboratory Results 09/15/22 07:01 09/15/22 07:01 PT 11.3 Seconds (9.0-12.0) 09/15/22 07:01 INR 1.0 (0.9-1.1) 09/15/22 07:01 APTT 22.7 Seconds (21.0-31.0) 09/14/22 12:09 Urine Color Dark Yellow 09/14/22 12:11 Urine Appearance Clear (Clear) 09/14/22 12:11 Urine pH 5.5 (4.5-7.5) 09/14/22 12:11 Ur Specific [place] 1.029 (1.000-1.030) 09/14/22 12:11 Urine Protein Negative (Negative) 09/14/22 12:11 Urine Glucose (UA) Negative (Negative) 09/14/22 12:11 Urine Ketones Trace (Negative) H 09/14/22 12:11 Urine Nitrite Negative (Negative) 09/14/22 12:11 Ur Leukocyte Esterase Negative (Negative) 09/14/22 12:11 Blood Type O Negative 09/14/22 13:20 Antibody Screen NEGATIVE 09/14/22 13:20 09/15/22 09/15/22 12:07 05:43 POC Glucose 113 H 123 H Electrocardiogram Date: 09/14/22 DICTATED BY:Jimmy Mckinney MD Test Reason : Blood Pressure : / mmHG Vent. Rate : 078 BPM Atrial Rate : 078 BPM P-R Int : 156 ms QRS Dur : 084 ms QT Int : 392 ms P-R-T Axes : 055 017 046 degrees QTc Int : 446 ms Normal sinus rhythm Normal ECG When compared with ECG of 12-DEC-2019 01:08, Premature supraventricular complexes are no longer Present Confirmed by Jimmy Mckinney ([id number]) on 09/14/2022 2:28:02 PM Chest X-Ray Date: 09/14/22 XR chest 1V portable CLINICAL HISTORY: fall TECHNIQUE: Single frontal radiograph of the chest was obtained. Comparison: None available at the time of this dictation. FINDINGS: No lines and tubes are seen. The cardiomediastinal silhouette is normal. The lungs are clear. No evidence of pleural effusion or pneumothorax. IMPRESSION: No acute chest disease.
--- NOTE | 2022-09-15 14:56 | History & Physical Bridge Note ---
Date of Service September 15, 2022 History & Physical Bridge Note I have examined the patient, reviewed the History & Physical and in the interval since the performance of the History & Physical I have noted the following changes of clinical significance: no changes noted. Met with patient and had a lengthy discussion regarding risks/benefits of left hip cephalomedullary nail. After reviewing these, the patient elected to proceed with surgery and written consent was obtained.
[2022-09-15] MEDS ORDERED: ceFAZolin 2000MG 2,000 MG/15 ML SYR IV SCH (15:00)
[2022-09-15] MEDS ORDERED: MIDAZOLAM HCL 1 MG/ML 2ML VIAL ONE (15:15)
[2022-09-15] MEDS ORDERED: BUPIVACAINE 0.25% PF 30 ML VIAL ONE (15:20)
[2022-09-15] MEDS ORDERED: BUPIVACAINE 0.5 % 5 MG/1 ML PF 10ML VIAL ONE (15:42)
[2022-09-15] MEDS ORDERED: PHENYLEPHRINE HCL 10 MG/ML VIAL ONE (16:11)
[2022-09-15] MEDS ORDERED: PROPOFOL IV EMULSION 10 MG/ML 20 ML VIAL IV ONE (16:11)
[2022-09-15] MEDS ORDERED: PHENYLEPHRINE 100MCG/ML 5ML SYR ONE (16:11)
--- NOTE | 2022-09-15 16:54 | Fluoroscopy Report ---
INTRAOPERATIVE RADIOGRAPHS CLINICAL HISTORY: Open reduction and internal fixation of the left femur. Fluoro time: 149 seconds Ka,r: 45.16 mGy FINDINGS: 4 spot fluoroscopic views of the left femur are correlated with radiographs dated 09/14/2022 . Intertrochanteric and intramedullary nails have been placed transfixing an intertrochanteric fractu re of the left proximal femur. Near anatomic alignment is restored. There is medial displacement of t he lesser trochanter. A single cortical screw transfixes the distal end of the intramedullary nail. IMPRESSION: Intraoperative images from open reduction and internal fixation of an intertrochanteric l eft femoral fracture as above. Electronically signed by: Brenden Nath M.D. 09/15/2022 4:53 PM
--- NOTE | 2022-09-15 16:57 | Post Operative Brief Note ---
Immediate Post Op Note v1 Date of Surgery September 15, 2022 Pre & Post Diagnosis Operation Date: 09/15/22 08:35 Pre-Op Diagnosis: Left intertrochanteric hip fracture Post-Op Diagnosis: Left intertrochanteric hip fracture I identified the patient and participated in the time-out.: Yes Procedure Operation Date: 09/15/22 08:35 Actual Procedures p Left Trochanteric Nail(Left) - Mike Pendleton DO Surgeon Mike Pendleton DO Category Director None Estimated Blood Loss 25 Findings Consistent with Post-Op Diagnosis See dictation Drains Espinosa Catheter (Present upon arrival to OR) Complications None
--- NOTE | 2022-09-15 17:03 | Operative Report ---
Post Operative Report Pre & Post Diagnosis Operation Date: 09/15/22 08:35 Pre-Op Diagnosis: Left intertrochanteric hip fracture Post-Op Diagnosis: Left intertrochanteric hip fracture I identified the patient and participated in the time-out.: Yes Procedure Operation Date: 09/15/22 08:35 Actual Procedures p Left Trochanteric Nail(Left) - Mike Pendleton DO Surgeon Mike Pendleton DO Seat Builder None Estimated Blood Loss 25 Findings Consistent with Post-Op Diagnosis See dictated Specimens None Complications None Indications 82-year-old female who presented to [facility] emergency department after sustaining a ground-level fall while admiring her garden outside. She landed on her left hip. She noted immediate pain and difficulty ambulating. In the emergency department radiographs were obtained demonstrating a displaced left intertrochanteric femur fracture. Patient was admitted to medical service and orthopedics was consulted for operative management. Preoperatively I met with the patient and the family and we had a lengthy discussion regarding risk benefits potential complications of left hip cephalomedullary nail. After reviewing these they elected to proceed with surgical intervention and written consent was obtained. Description of Procedure Implants: Synthes TFNA left 10 mm x 360 mm 130 degree, 90 mm TFNA fenestrated screw, 5 mm x 38 mm locking screw Procedure: Patient was appropriate identified in the preoperative holding area and the left lower extremity was marked. She received antibiotics per protocol. She was then taken back to the operative suite where she received spinal anesthesia. She was then positioned on the manual fracture table. Using the assistance of C-arm fluoroscopy in the fracture table her fracture was reduced to a satisfactory position. She was then prepped and draped in the standard orthopedic fashion and timeout was then performed. A 3 cm incision just superior to the tip of the trochanter was then made through the skin subcutaneo us tissue and gluteal fascia a threaded guidewire was then inserted into the tip of the trochanter and advanced into the medullary canal. Its position was confirmed on AP and lateral fluoroscopy. Canal opening reamer was then used to open up the proximal aspect of the canal. A ball-tipped guidewire was then inserted through the opening and advanced distally. Length was determined to be 360 mm of the ball-tipped guidewire. The canal was then reamed up to an 11.5 mm reamer to accommodate a 10 mm x 360 mm intramedullary nail. The nail was then inserted over the ball-tipped guidewire and the guidewire was removed. Proximal outrigger was then attached and incision was made through the skin subcutaneous tissue and IT band fascia for the lag screw. Threaded guidewire was then inserted through the lateral cortex and advanced into the femoral head and a center center position just beneath the subchondral bone lateral cortical reamer was then used followed by a tapered reamer set to 90 mm. A 90 mm fenestrated screw was then inserted and the nail was then compressed and locked statically at the proximal aspect. Attention was then turned to distal interlock. Using the assistance of perfect kenaitze fluoroscopy incision was made for the more proximal static interlock. Drill was then used to drill bicortically and a 5 mm x 38 mm locking screw was then inserted. Proximal outrigger was then removed and final radiographs were obtained demonstrating excellent reduction of the fracture and good positioning of the implant. Wounds were then copiously irrigated using normal saline solution local anesthetic was then injected surrounding the proximal incisions. Deep fascia was then closed using 0 Vicryl followed by 2-0 Vicryl for subcutaneous tissue and nakul for skin. Sterile dressings of Xeroform 4 x 4 gauze and OpSite's were then applied. The patient tolerated the procedure well and was taken the recovery room in hemodynamically stable condition I attest to the content of the Intraoperative Record and any orders documented therein. Any exceptions are noted below.
--- NOTE | 2022-09-15 18:11 | Anesthesiology Progress Note ---
Date of Service September 15, 2022 Anesthesia Post Procedure Vital Signs Vital Signs: Temp Pulse Pulse Resp BP Pulse Ox O2 Del Method 09/15/22 17:50 71 14 121/74 100 Nasal Cannula 09/15/22 17:40 71 16 124/70 100 Nasal Cannula 09/15/22 17:30 78 18 104/63 98 Nasal Cannula 09/15/22 17:20 77 16 98/61 L 99 Nasal Cannula 09/15/22 17:10 84 18 83/52 L 100 Nasal Cannula 09/15/22 16:59 74 16 109/63 100 Oxymask 09/15/22 16:50 76 16 98/60 L 100 Oxymask 09/15/22 16:42 97.2 F L 79 16 112/63 97 Oxymask 09/15/22 14:09 98.2 F 90 18 147/87 H 96 Room Air 09/15/22 07:15 98.2 F 81 14 133/82 93 Room Air 09/14/22 20:05 Room Air 09/14/22 21:03 98.2 F 73 16 116/76 96 Room Air O2 Flow Rate 09/15/22 17:50 2 09/15/22 17:40 2 09/15/22 17:30 2 09/15/22 17:20 2 09/15/22 17:10 2 09/15/22 16:59 4 09/15/22 16:50 4 09/15/22 16:42 6 09/15/22 14:09 09/15/22 07:15 09/14/22 20:05 09/14/22 21:03 Pain Intensity Left Hip: Pain Intensity: 4 Transfer of Care Handoff Completed per policy Notes Mental Status: alert / awake / arousable and participated in evaluation Patient Amnestic to Procedure: Yes Nausea / Vomiting: adequately controlled Pain: adequately controlled Airway Patency, RR, SpO2: stable & adequate BP & HR: stable & adequate Hydration State: stable & adequate Neuraxial Anesthesia: was administered and sensory block is resolving Anesthetic Complications: no major complications apparent and Pt Satisfied with anesthetic care
--- NOTE | 2022-09-15 18:34 | Hospitalist Progress Note ---
Date of Service September 15, 2022 Assessment & Plan (1) Closed left hip fracture: Plan: Intertrochanteric fracture of the left proximal femur after a mechanical fall -Did hit her head but no LOC, CT head wo con no acute intracranial injury Also struck elbow with pain and swelling x-ray did not show fractures Orthopedic plans on intertrochanteric nail on 09/15/2022 Acute blood loss anemia seen (2) Type 2 diabetes mellitus: Plan: -Hold metformin -Monitor BSG q4h while NPO, goal is 110-140 -Start with 5 units lantus BID, CF of 50, will hold CR (3) Hypertension: Plan: -Currently stable typically on irebasartan and will be held perioperatively (4) Depression with anxiety: Plan: -Continue Duloxetine takes Ativan as needed twice daily (5) Sleep apnea: Plan: -HS CPAP ordered Admission and Anticipated Discharge Date Admission Date: September 14, 2022 Results & Data Results & Data Vital Signs (Past 12 Hours) Vital Signs Temp Pulse Pulse Resp BP Pulse Ox O2 Del Method 09/15/22 18:10 97.7 F 73 18 109/66 100 Nasal Cannula 09/15/22 18:00 77 14 107/61 100 Nasal Cannula 09/15/22 17:50 71 14 121/74 100 Nasal Cannula 09/15/22 17:40 71 16 124/70 100 Nasal Cannula 09/15/22 17:30 78 18 104/63 98 Nasal Cannula 09/15/22 17:20 77 16 98/61 L 99 Nasal Cannula 09/15/22 17:10 84 18 83/52 L 100 Nasal Cannula 09/15/22 16:59 74 16 109/63 100 Oxymask 09/15/22 16:50 76 16 98/60 L 100 Oxymask 09/15/22 16:42 97.2 F L 79 16 112/63 97 Oxymask 09/15/22 14:09 98.2 F 90 18 147/87 H 96 Room Air 09/15/22 07:15 98.2 F 81 14 133/82 93 Room Air O2 Flow Rate 09/15/22 18:10 2 09/15/22 18:00 2 09/15/22 17:50 2 09/15/22 17:40 2 09/15/22 17:30 2 09/15/22 17:20 2 09/15/22 17:10 2 09/15/22 16:59 4 09/15/22 16:50 4 09/15/22 16:42 6 09/15/22 14:09 09/15/22 07:15 PG Care Time/CCT Total # of Minutes Spent Total Time Spent with Patient: Total time spent is greater than 50% in coordination of care (as documented) at patient's floor/unit and/or counseling patient: Coding Level of Care Code None Diagnoses Closed left hip fracture S72.002A Type 2 diabetes mellitus E11.9 Diabetes mellitus mcfp insulin use: without mcfp use Diabetes mellitus complication status: without complication Hypertension I10 Hypertension type: essential hypertension Depression with anxiety F41.8 Sleep apnea G47.30 (2) Type 2 diabetes mellitus Diabetes mellitus mcfp insulin use: without mcfp use Diabetes mellitus complication status: without complication Qualified Code(s): E11.9 - Type 2 diabetes mellitus without complications (3) Hypertension Hypertension type: essential hypertension Qualified Code(s): I10 - Essential (primary) hypertension
[2022-09-15] MEDS: ATORVASTATIN 40 MG TAB PO SCH (18:40)
[2022-09-15] MEDS: DULoxetine HCL 30 MG CAP PO SCH (18:40)
[2022-09-15] MEDS: SODIUM CHLORIDE 0.9% 1000ML 1,000 ML IV SCH (18:40)
--- NOTE | 2022-09-15 18:59 | Anesthesiology Progress Note ---
Date of Service September 15, 2022 Anesthesia Post Procedure Vital Signs Vital Signs: Temp Pulse Pulse Resp BP Pulse Ox O2 Del Method 09/15/22 18:10 97.7 F 73 18 109/66 100 Nasal Cannula 09/15/22 18:00 77 14 107/61 100 Nasal Cannula 09/15/22 17:50 71 14 121/74 100 Nasal Cannula 09/15/22 17:40 71 16 124/70 100 Nasal Cannula 09/15/22 17:30 78 18 104/63 98 Nasal Cannula 09/15/22 17:20 77 16 98/61 L 99 Nasal Cannula 09/15/22 17:10 84 18 83/52 L 100 Nasal Cannula 09/15/22 16:59 74 16 109/63 100 Oxymask 09/15/22 16:50 76 16 98/60 L 100 Oxymask 09/15/22 16:42 97.2 F L 79 16 112/63 97 Oxymask 09/15/22 14:09 98.2 F 90 18 147/87 H 96 Room Air 09/15/22 07:15 98.2 F 81 14 133/82 93 Room Air 09/14/22 20:05 Room Air 09/14/22 21:03 98.2 F 73 16 116/76 96 Room Air O2 Flow Rate 09/15/22 18:10 2 09/15/22 18:00 2 09/15/22 17:50 2 09/15/22 17:40 2 09/15/22 17:30 2 09/15/22 17:20 2 09/15/22 17:10 2 09/15/22 16:59 4 09/15/22 16:50 4 09/15/22 16:42 6 09/15/22 14:09 09/15/22 07:15 09/14/22 20:05 09/14/22 21:03 Pain Intensity Left Hip: Pain Intensity: 4 Transfer of Care Handoff Completed per policy Notes Mental Status: alert / awake / arousable and participated in evaluation Patient Amnestic to Procedure: Yes Nausea / Vomiting: adequately controlled Pain: adequately controlled Airway Patency, RR, SpO2: stable & adequate BP & HR: stable & adequate Hydration State: stable & adequate Neuraxial Anesthesia: was administered and sensory block is resolving Anesthetic Complications: no major complications apparent and Pt Satisfied with anesthetic care
[2022-09-15] MEDS: DOCUSATE SODIUM/SENNA 50/8.6MG TAB PO SCH (20:39)
[2022-09-15] MEDS: ASPIRIN 81 MG ECTAB PO SCH (20:39)
[2022-09-15] MEDS: ceFAZolin 2000MG 2,000 MG/15 ML SYR IV SCH (23:08)
[2022-09-15] MEDS ORDERED: KETOROLAC TROMETHAMINE 15 MG/ML VIAL IV ONE (23:23)
[2022-09-15] MEDS ORDERED: LORazepam 0.5 MG TAB PO STA (23:54)
[2022-09-16] MEDS: SODIUM CHLORIDE 0.9% 1000ML 1,000 ML IV SCH (02:58)
[2022-09-16] MEDS: ceFAZolin 2000MG 2,000 MG/15 ML SYR IV SCH (06:17)
[2022-09-16 06:19] LABS: Basophils # (auto) 0.01 K/uL (0-0.2); Basophils % (auto) 0.1 %; Eosinophils # (auto) 0.08 K/uL (0-0.50); Hematocrit (blood only) 26.5 % (37.0-47.0); Hemoglobin 8.8 g/dl (12.0-16.0); Immature Granulocytes # (auto) 0.02 K/uL (0.01-0.20); Immature Granulocytes % (auto) 0.3 %; Lymphocytes # (auto) 1.33 K/uL (1.2-3.4); Lymphocytes % (auto) 17.2 %; Mean Corpuscular Hemoglobin 30.8 pg (25.0-34.0); Mean Corpuscular Hgb Conc 33.2 g/dL (32.0-36.0); Mean Corpuscular Volume 92.7 fL (80.0-100.0); Mean Platelet Volume 9.9 fL (9.4-12.4); Monocytes # (auto) 0.49 K/uL (0.11-0.59); Monocytes % (auto) 6.3 %; Neutrophils # (auto) 5.79 K/uL (1.40-6.50); Neutrophils % (auto) 75.1 %; Platelet Count 110 K/uL (130-400); RDW Coefficient of Variation 13.6 % (11.5-14.5); RDW Standard Deviation 46.2 fL (36.4-46.3); Red Blood Count 2.86 M/uL (4.20-5.40); White Blood Count 7.72 K/ul (4.8-10.8)
[2022-09-16 06:44] LABS: INR 1.1 (0.9-1.1); Prothrombin Time 11.6 Seconds (9.0-12.0)
[2022-09-16 06:50] LABS: BUN Creatinine Ratio 18.9 (10-20); Calcium 7.6 mg/dl (8.6-10.3); Creatinine Clr Calc Pharmacy 35.5 ml/min; Est GFR (African American) 53.2 ml/min; Est GFR (Non-African American) 45.9 ml/min; Magnesium 1.7 mg/dl (1.7-2.4); Potassium 4.1 mmol/L (3.5-5.1)
[2022-09-16] MEDS ORDERED: HYDROmorphone INJ 0.5 MG/0.5 ML SYR IV PRN (07:22)
--- NOTE | 2022-09-16 07:28 | Orthopedic Progress Note ---
Date of Service September 16, 2022 Assessment & Plan (1) Closed left hip fracture: Plan: Postop day 1 status post left TFN PT/OT protocols. Weightbearing as tolerated. DVT prophylaxis-aspirin p.o. twice daily, GERTRUDISs, JUNAID [place]. Pain management as written. Low-dose hydromorphone added. Hemoglobin dropped from 11-8.8. Not unexpected secondary to surgery and to her original fracture. Follow for now. DC planning-discussed with the patient. Patient understands she [facility] prior to returning home. We will see how she progresses with her physical therapy. Admission and Anticipated Discharge Date Admission Date: September 14, 2022 Subjective Postop day 1 Patient lying in bed awake and alert. States that her legs feel weak this morning but otherwise she feels well. She is having pain off and on but currently is controlled. No other complaints or concerns this morning. Physical Exam Physical Exam: Dressings are clean, dry, and intact. Mild swelling of the thigh around the incision areas consistent with surgery. No erythema noted. Calves are soft and nontender. Neurovascular intact. Toes are mobile. Results & Data Vital Signs (Past 12 Hours) Vital Signs Temp Pulse Resp BP Pulse Ox O2 Del Method 09/16/22 07:06 36.8 C 87 16 109/70 95 Room Air 09/16/22 03:34 36.8 C 90 16 119/72 93 Room Air 09/15/22 21:47 36.8 C 90 16 125/74 94 Room Air 09/15/22 20:37 36.7 C 76 16 123/74 93 Room Air 09/15/22 19:30 36.5 C 87 16 114/72 93 Room Air Laboratory Results Laboratory Results WBC 7.72 K/ul (4.8-10.8) 09/16/22 05:34 RBC 2.86 M/uL (4.20-5.40) L 09/16/22 05:34 Hgb 8.8 g/dl (12.0-16.0) L 09/16/22 05:34 Hct 26.5 % (37.0-47.0) L 09/16/22 05:34 MCV 92.7 fL (80.0-100.0) 09/16/22 05:34 MCH 30.8 pg (25.0-34.0) 09/16/22 05:34 MCHC 33.2 g/dL (32.0-36.0) 09/16/22 05:34 RDW Std Deviation 46.2 fL (36.4-46.3) 09/16/22 05:34 RDW Coeff of Shikha 13.6 % (11.5-14.5) 09/16/22 05:34 Plt Count 110 K/uL (130-400) L 09/16/22 05:34 MPV 9.9 fL (9.4-12.4) 09/16/22 05:34 Immature Gran % (Auto) 0.3 % 09/16/22 05:34 Neut % (Auto) 75.1 % 09/16/22 05:34 Lymph % (Auto) 17.2 % 09/16/22 05:34 Blanco % (Auto) 6.3 % 09/16/22 05:34 Eos % (Auto) 1.0 % 09/16/22 05:34 Baso % (Auto) 0.1 % 09/16/22 05:34 Neut # (Auto) 5.79 K/uL (1.40-6.50) 09/16/22 05:34 Lymph # (Auto) 1.33 K/uL (1.2-3.4) 09/16/22 05:34 Blanco # (Auto) 0.49 K/uL (0.11-0.59) 09/16/22 05:34 Eos # (Auto) 0.08 K/uL (0-0.50) 09/16/22 05:34 Baso # (Auto) 0.01 K/uL (0-0.2) 09/16/22 05:34 Immature Gran # (Auto) 0.02 K/uL (0.01-0.20) 09/16/22 05:34 PT 11.6 Seconds (9.0-12.0) 09/16/22 05:34 INR 1.1 (0.9-1.1) 09/16/22 05:34 APTT 22.7 Seconds (21.0-31.0) 09/14/22 12:09 PTT Ratio 0.8 09/14/22 12:09 Sodium 137 mmol/L (136-145) 09/16/22 05:34 Potassium 4.1 mmol/L (3.5-5.1) 09/16/22 05:34 Chloride 109 mmol/L (98-107) H 09/16/22 05:34 Carbon Dioxide 25 mmol/L (21-32) 09/16/22 05:34 Anion Gap 3 (3-11) 09/16/22 05:34 BUN 21 mg/dl (6-23) 09/16/22 05:34 Creatinine 1.11 mg/dl (0.6-1.2) 09/16/22 05:34 Est Cr Clr Drug Dosing 35.5 ml/min 09/16/22 05:34 Est GFR ( Amer) 53.2 ml/min 09/16/22 05:34 Est GFR (Non-Af Amer) 45.9 ml/min 09/16/22 05:34 BUN/Creatinine Ratio 18.9 (10-20) 09/16/22 05:34 Glucose 125 mg/dl (70-99(Fasting)) H 09/16/22 05:34 POC Glucose 108 mg/dl (70-99) H 09/15/22 19:23 Calcium 7.6 mg/dl (8.6-10.3) L 09/16/22 05:34 Magnesium 1.7 mg/dl (1.7-2.4) 09/16/22 05:34 Total Bilirubin 0.8 mg/dl (0.2-1.0) 09/14/22 12:09 AST 22 U/L (13-39) 09/14/22 12:09 ALT 18 U/L (7-52) 09/14/22 12:09 Alkaline Phosphatase 86 U/L (34-104) 09/14/22 12:09 Total Creatine Kinase 97 U/L (26-192) 09/14/22 12:09 Troponin I High Sens 6.8 pg/ml (0-14) 09/14/22 12:09 Total Protein 6.2 gm/dl (6.0-8.3) 09/14/22 12:09 Albumin 3.8 gm/dl (3.4-5.0) 09/14/22 12:09 Globulin 2.4 gm/dl (2.5-4.0) L 09/14/22 12:09 Albumin/Globulin Ratio 1.6 (0.9-2) 09/14/22 12:09 25-OH Vitamin D Total 62.7 ng/ml (30-100) 09/16/22 05:34 Urine Color Dark Yellow 09/14/22 12:11 Urine Appearance Clear (Clear) 09/14/22 12:11 Urine pH 5.5 (4.5-7.5) 09/14/22 12:11 Ur Specific [place] 1.029 (1.000-1.030) 09/14/22 12:11 Urine Protein Negative (Negative) 09/14/22 12:11 Urine Glucose (UA) Negative (Negative) 09/14/22 12:11 Urine Ketones Trace (Negative) H 09/14/22 12:11 Urine Blood Negative (Negative) 09/14/22 12:11 Urine Nitrite Negative (Negative) 09/14/22 12:11 Urine Bilirubin Negative (Negative) 09/14/22 12:11 Urine Urobilinogen Negative (Negative) 09/14/22 12:11 Ur Leukocyte Esterase Negative (Negative) 09/14/22 12:11 SARS-CoV-2, RNA, NAAT NEGATIVE (NEGATIVE) 09/14/22 12:11 Blood Type O Negative 09/14/22 13:20 Antibody Screen NEGATIVE 09/14/22 13:20 Hip X-Ray 09/15/22 14:00 INTRAOPERATIVE RADIOGRAPHS CLINICAL HISTORY: Open reduction and internal fixation of the left femur. Fluoro time: 149 seconds Ka,r: 45.16 mGy FINDINGS: 4 spot fluoroscopic views of the left femur are correlated with radiographs dated 09/14/2022. Intertrochanteric and intramedullary nails have been placed transfixing an intertrochanteric fracture of the left proximal femur. Near anatomic alignment is restored. There is medial displacement of the lesser trochanter. A single cortical screw transfixes the distal end of the intramedullary nail. IMPRESSION: Intraoperative images from open reduction and internal fixation of an intertrochanteric left femoral fracture as above. Electronically signed by: Brenden Nath M.D. 09/15/2022 4:53 PM
[2022-09-16] MEDS: INSULIN ASPART PER UNIT CHARGE SC SCH ×4 (08:38→20:50)
[2022-09-16] MEDS: PANTOprazole 40 MG TAB PO SCH (08:42)
[2022-09-16] MEDS: ASPIRIN 81 MG ECTAB PO SCH ×2 (08:42→20:45)
[2022-09-16] MEDS: LANTUS PER UNIT CHARGE SQ SCH ×2 (08:42→20:50)
[2022-09-16] MEDS: traMADol HCL 50 MG TABLET PO PRN ×3 (09:22→20:46)
[2022-09-16] MEDS: ATORVASTATIN 40 MG TAB PO SCH (17:38)
[2022-09-16] MEDS: DULoxetine HCL 30 MG CAP PO SCH (17:39)
[2022-09-16] MEDS: DOCUSATE SODIUM/SENNA 50/8.6MG TAB PO SCH (20:45)
[2022-09-16] MEDS: LORazepam 1 MG TAB PO PRN (20:45)
--- NOTE | 2022-09-16 23:06 | Hospitalist Progress Note ---
Date of Service September 16, 2022 Assessment & Plan (1) Closed left hip fracture: Plan: Intertrochanteric fracture of the left proximal femur after a mechanical fall -Did hit her head but no LOC, CT head wo con no acute intracranial injury Also struck elbow with pain and swelling x-ray did not show fractures Orthopedic plans on intertrochanteric nail on 09/15/2022 Acute blood loss anemia seen will recheck hemoglobin in AM of 09/17 (2) Type 2 diabetes mellitus: Plan: -Hold metformin -Monitor BSG q4h while NPO, goal is 110-140 -Start with 5 units lantus BID, CF of 50, will hold CR (3) Hypertension: Plan: -Currently stable typically on irebasartan and will be held perioperatively (4) Depression with anxiety: Plan: -Continue Duloxetine takes Ativan as needed twice daily (5) Sleep apnea: Plan: -HS CPAP ordered Admission and Anticipated Discharge Date Admission Date: September 14, 2022 Subjective 82 yo female reports no new symptoms. Review of Systems Review of Systems: All systems reviewed & are unremarkable except as noted in HPI & below Physical Exam Physical Exam: Awake alert appropriate has tenderness at the fracture site Cardiac exam is regular lungs are clear Results & Data Results & Data Vital Signs (Past 12 Hours) Vital Signs Temp Pulse Resp BP Pulse Ox O2 Del Method 09/16/22 20:25 37.1 C 93 H 16 150/83 H 95 Room Air 09/16/22 15:34 Room Air 09/16/22 15:07 36.6 C 88 16 107/66 94 Room Air PG Care Time/CCT Total # of Minutes Spent Total Time Spent with Patient: Total time spent is greater than 50% in coordination of care (as documented) at patient's floor/unit and/or counseling patient: Coding Level of Care Code 48433 SUB INP/OBS CARE 2/35MIN Diagnoses Closed left hip fracture S72.002A Type 2 diabetes mellitus E11.9 Diabetes mellitus watermaster insulin use: without watermaster use Diabetes mellitus complication status: without complication Hypertension I10 Hypertension type: essential hypertension Depression with anxiety F41.8 Sleep apnea G47.30 (2) Type 2 diabetes mellitus Diabetes mellitus watermaster insulin use: without watermaster use Diabetes mellitus complication status: without complication Qualified Code(s): E11.9 - Type 2 diabetes mellitus without complications (3) Hypertension Hypertension type: essential hypertension Qualified Code(s): I10 - Essential (primary) hypertension
[2022-09-17 06:07] LABS: Hematocrit (blood only) 25.8 % (37.0-47.0); Hemoglobin 8.7 g/dl (12.0-16.0); Mean Corpuscular Hemoglobin 30.5 pg (25.0-34.0); Mean Corpuscular Hgb Conc 33.7 g/dL (32.0-36.0); Mean Corpuscular Volume 90.5 fL (80.0-100.0); Mean Platelet Volume 9.7 fL (9.4-12.4); Platelet Count 120 K/uL (130-400); RDW Coefficient of Variation 13.9 % (11.5-14.5); RDW Standard Deviation 45.9 fL (36.4-46.3); Red Blood Count 2.85 M/uL (4.20-5.40); White Blood Count 9.06 K/ul (4.8-10.8)
[2022-09-17 06:25] LABS: BUN Creatinine Ratio 19.8 (10-20); Calcium 7.9 mg/dl (8.6-10.3); Est GFR (African American) 63.4 ml/min; Est GFR (Non-African American) 54.7 ml/min; Magnesium 1.9 mg/dl (1.7-2.4); Potassium 4.3 mmol/L (3.5-5.1)
[2022-09-17 06:38] LABS: Prothrombin Time 11.1 Seconds (9.0-12.0)
[2022-09-17] MEDS: traMADol HCL 50 MG TABLET PO PRN (08:08)
[2022-09-17] MEDS: PANTOprazole 40 MG TAB PO SCH (08:08)
[2022-09-17] MEDS: ASPIRIN 81 MG ECTAB PO SCH ×2 (08:08→21:50)
[2022-09-17] MEDS: LANTUS PER UNIT CHARGE SQ SCH ×2 (08:11→20:59)
[2022-09-17] MEDS: INSULIN ASPART PER UNIT CHARGE SC SCH ×4 (08:11→20:59)
--- NOTE | 2022-09-17 10:18 | Hospitalist Progress Note ---
Date of Service September 17, 2022 Assessment & Plan (1) Closed left hip fracture: Plan: Intertrochanteric fracture of the left proximal femur after a mechanical fall -Did hit her head but no LOC, CT head wo con no acute intracranial injury Also struck elbow with pain and swelling x-ray did not show fractures Orthopedic plans on intertrochanteric nail on 09/15/2022 Acute blood loss anemia seen hemoglobin stable on 09/17 Plan to remove alonzo catheter in AM of 09/18 per patient request Awaiting PT notes to submit for auth for rehab. (2) Type 2 diabetes mellitus: Plan: -Hold metformin -Monitor BSG q4h while NPO, goal is 110-140 -Start with 5 units lantus BID, CF of 50, will hold CR (3) Hypertension: Plan: -Currently stable typically on irebasartan and will be held perioperatively (4) Depression with anxiety: Plan: -Continue Duloxetine takes Ativan as needed twice daily (5) Sleep apnea: Plan: -HS CPAP ordered Admission and Anticipated Discharge Date Admission Date: September 14, 2022 Subjective 82 yo female reports no new symptoms. Patient requesting to keep alonzo catheter for another day. Review of Systems Review of Systems: All systems reviewed & are unremarkable except as noted in HPI & below Physical Exam Physical Exam: Awake alert appropriate Cardiac exam is regular lungs are clear Results & Data Results & Data Vital Signs (Past 12 Hours) Vital Signs Temp Pulse Resp BP Pulse Ox Pulse Ox O2 Del Method 09/17/22 08:00 Room Air 09/17/22 07:18 36.8 C 85 16 133/76 94 Room Air 09/17/22 05:00 96 O2 Del Method O2 Flow Rate 09/17/22 08:00 09/17/22 07:18 09/17/22 05:00 Nasal Cannula 2 PG Care Time/CCT Total # of Minutes Spent Total Time Spent with Patient: Total time spent is greater than 50% in coordination of care (as documented) at patient's floor/unit and/or counseling patient: Coding Level of Care Code 65891 SUB INP/OBS CARE 2/35MIN Diagnoses Closed left hip fracture S72.002A Type 2 diabetes mellitus E11.9 Diabetes mellitus complication status: without complication Diabetes mellitus cellar supervisor insulin use: without assisted use Hypertension I10 Hypertension type: essential hypertension Depression with anxiety F41.8 Sleep apnea G47.30 (2) Type 2 diabetes mellitus Diabetes mellitus complication status: without complication Diabetes mellitus assisted insulin use: without cellar supervisor use Qualified Code(s): E11.9 - Type 2 diabetes mellitus without complications (3) Hypertension Hypertension type: essential hypertension Qualified Code(s): I10 - Essential (primary) hypertension
--- NOTE | 2022-09-17 10:29 | Orthopedic Progress Note ---
Date of Service September 17, 2022 Assessment & Plan (1) Closed left hip fracture: Plan: Postop day 2 status post left TFN PT/OT protocols. Weightbearing as tolerated. DVT prophylaxis-aspirin p.o. twice daily, SCDs, JUNAID upt[place]. Pain management as written. . Hemoglobin stabilized at 8.7 DC planning-discussed with the patient. [facility] when ok with Hospitalist Service Admission and Anticipated Discharge Date Admission Date: September 14, 2022 Subjective Postop day 2 Patient sitting up in her bed reading a book. States she had a bit of a rough night last night but is doing much better this morning. Still having some pain in her left hip which we discussed would be ongoing for a little while. She is hoping to increase her ability to get out of bed today. No other complaints. Physical Exam Physical Exam: Dressings are clean, dry, and intact. Continues with left thigh swelling consistent with surgery. Calves are soft nontender. Neurovascular intact. Toes are mobile. Results & Data Vital Signs (Past 12 Hours) Vital Signs Temp Pulse Resp BP Pulse Ox Pulse Ox O2 Del Method 09/17/22 08:00 Room Air 09/17/22 07:18 36.8 C 85 16 133/76 94 Room Air 09/17/22 05:00 96 O2 Del Method O2 Flow Rate 09/17/22 08:00 09/17/22 07:18 09/17/22 05:00 Nasal Cannula 2 Laboratory Results Laboratory Results WBC 9.06 K/ul (4.8-10.8) 09/17/22 05:28 RBC 2.85 M/uL (4.20-5.40) L 09/17/22 05:28 Hgb 8.7 g/dl (12.0-16.0) L 09/17/22 05:28 Hct 25.8 % (37.0-47.0) L 09/17/22 05:28 MCV 90.5 fL (80.0-100.0) 09/17/22 05:28 MCH 30.5 pg (25.0-34.0) 09/17/22 05:28 MCHC 33.7 g/dL (32.0-36.0) 09/17/22 05:28 RDW Std Deviation 45.9 fL (36.4-46.3) 09/17/22 05:28 RDW Coeff of Shikha 13.9 % (11.5-14.5) 09/17/22 05:28 Plt Count 120 K/uL (130-400) L 09/17/22 05:28 MPV 9.7 fL (9.4-12.4) 09/17/22 05:28 Immature Gran % (Auto) 0.3 % 09/16/22 05:34 Neut % (Auto) 75.1 % 09/16/22 05:34 Lymph % (Auto) 17.2 % 09/16/22 05:34 [place] % (Auto) 6.3 % 09/16/22 05:34 Eos % (Auto) 1.0 % 09/16/22 05:34 Baso % (Auto) 0.1 % 09/16/22 05:34 Neut # (Auto) 5.79 K/uL (1.40-6.50) 09/16/22 05:34 Lymph # (Auto) 1.33 K/uL (1.2-3.4) 09/16/22 05:34 [place] # (Auto) 0.49 K/uL (0.11-0.59) 09/16/22 05:34 Eos # (Auto) 0.08 K/uL (0-0.50) 09/16/22 05:34 Baso # (Auto) 0.01 K/uL (0-0.2) 09/16/22 05:34 Immature Gran # (Auto) 0.02 K/uL (0.01-0.20) 09/16/22 05:34 PT 11.1 Seconds (9.0-12.0) 09/17/22 05:28 INR 1.0 (0.9-1.1) 09/17/22 05:28 APTT 22.7 Seconds (21.0-31.0) 09/14/22 12:09 PTT Ratio 0.8 09/14/22 12:09 Sodium 137 mmol/L (136-145) 09/17/22 05:28 Potassium 4.3 mmol/L (3.5-5.1) 09/17/22 05:28 Chloride 106 mmol/L (98-107) 09/17/22 05:28 Carbon Dioxide 26 mmol/L (21-32) 09/17/22 05:28 Anion Gap 5 (3-11) 09/17/22 05:28 BUN 19 mg/dl (6-23) 09/17/22 05:28 Creatinine 0.96 mg/dl (0.6-1.2) 09/17/22 05:28 Est Cr Clr Drug Dosing 41.0 ml/min 09/17/22 05:28 Est GFR ( Amer) 63.4 ml/min 09/17/22 05:28 Est GFR (Non-Af Amer) 54.7 ml/min 09/17/22 05:28 BUN/Creatinine Ratio 19.8 (10-20) 09/17/22 05:28 Glucose 131 mg/dl (70-99(Fasting)) H 09/17/22 05:28 POC Glucose 117 mg/dl (70-99) H 09/17/22 07:58 Calcium 7.9 mg/dl (8.6-10.3) L 09/17/22 05:28 Magnesium 1.9 mg/dl (1.7-2.4) 09/17/22 05:28 Total Bilirubin 0.8 mg/dl (0.2-1.0) 09/14/22 12:09 AST 22 U/L (13-39) 09/14/22 12:09 ALT 18 U/L (7-52) 09/14/22 12:09 Alkaline Phosphatase 86 U/L (34-104) 09/14/22 12:09 Total Creatine Kinase 97 U/L (26-192) 09/14/22 12:09 Troponin I High Sens 6.8 pg/ml (0-14) 09/14/22 12:09 Total Protein 6.2 gm/dl (6.0-8.3) 09/14/22 12:09 Albumin 3.8 gm/dl (3.4-5.0) 09/14/22 12:09 Globulin 2.4 gm/dl (2.5-4.0) L 09/14/22 12:09 Albumin/Globulin Ratio 1.6 (0.9-2) 09/14/22 12:09 25-OH Vitamin D Total 62.7 ng/ml (30-100) 09/16/22 05:34 Urine Color Dark Yellow 09/14/22 12:11 Urine Appearance Clear (Clear) 09/14/22 12:11 Urine pH 5.5 (4.5-7.5) 09/14/22 12:11 Ur Specific [place] 1.029 (1.000-1.030) 09/14/22 12:11 Urine Protein Negative (Negative) 09/14/22 12:11 Urine Glucose (UA) Negative (Negative) 09/14/22 12:11 Urine Ketones Trace (Negative) H 09/14/22 12:11 Urine Blood Negative (Negative) 09/14/22 12:11 Urine Nitrite Negative (Negative) 09/14/22 12:11 Urine Bilirubin Negative (Negative) 09/14/22 12:11 Urine Urobilinogen Negative (Negative) 09/14/22 12:11 Ur Leukocyte Esterase Negative (Negative) 09/14/22 12:11 SARS-CoV-2, RNA, NAAT NEGATIVE (NEGATIVE) 09/14/22 12:11 Blood Type O Negative 09/14/22 13:20 Antibody Screen NEGATIVE 09/14/22 13:20 Impressions Hip X-Ray 09/15/22 14:00 INTRAOPERATIVE RADIOGRAPHS CLINICAL HISTORY: Open reduction and internal fixation of the left femur. Fluoro time: 149 seconds Ka,r: 45.16 mGy FINDINGS: 4 spot fluoroscopic views of the left femur are correlated with radiographs dated 09/14/2022. Intertrochanteric and intramedullary nails have been placed transfixing an intertrochanteric fracture of the left proximal femur. Near anatomic alignment is restored. There is medial displacement of the lesser trochanter. A single cortical screw transfixes the distal end of the intramedullary nail. IMPRESSION: Intraoperative images from open reduction and internal fixation of an intertrochanteric left femoral fracture as above. Electronically signed by: Brenden Nath M.D. 09/15/2022 4:53 PM
[2022-09-17] MEDS ORDERED: ACETAMINOPHEN 325 MG TAB PO STA (11:03)
[2022-09-17] MEDS: POLYETHYLENE (MIRALAX) 17 GM PACK PO SCH ×2 (11:35→21:06)
[2022-09-17] MEDS: CELECOXIB 100 MG CAP PO SCH ×2 (11:35→21:50)
[2022-09-17] MEDS: bisacodyL 10 MG SUPP PR PRN (14:00)
[2022-09-17] MEDS ORDERED: ONDANSETRON INJ 2 MG/ML 2 ML VIAL IV PRN (14:44)
[2022-09-17] MEDS: ACETAMINOPHEN 325 MG TAB PO SCH ×2 (17:15→21:49)
[2022-09-17] MEDS: ATORVASTATIN 40 MG TAB PO SCH (17:15)
[2022-09-17] MEDS: DULoxetine HCL 30 MG CAP PO SCH (17:16)
[2022-09-17] MEDS: DOCUSATE SODIUM/SENNA 50/8.6MG TAB PO SCH (21:06)
[2022-09-17] MEDS: LORazepam 1 MG TAB PO PRN (21:49)
[2022-09-18 05:58] LABS: Hematocrit (blood only) 23.7 % (37.0-47.0); Hemoglobin 7.9 g/dl (12.0-16.0); Mean Corpuscular Hemoglobin 30.9 pg (25.0-34.0); Mean Corpuscular Hgb Conc 33.3 g/dL (32.0-36.0); Mean Corpuscular Volume 92.6 fL (80.0-100.0); Mean Platelet Volume 9.7 fL (9.4-12.4); Platelet Count 130 K/uL (130-400); RDW Standard Deviation 47.3 fL (36.4-46.3); Red Blood Count 2.56 M/uL (4.20-5.40); White Blood Count 7.16 K/ul (4.8-10.8)
[2022-09-18 06:13] LABS: BUN Creatinine Ratio 18.3 (10-20); Calcium 8.2 mg/dl (8.6-10.3); Creatinine Clr Calc Pharmacy 31.3 ml/min; Est GFR (African American) 45.6 ml/min; Est GFR (Non-African American) 39.4 ml/min; Potassium 4.9 mmol/L (3.5-5.1)
--- NOTE | 2022-09-18 06:26 | Orthopedic Progress Note ---
Date of Service September 18, 2022 Assessment & Plan (1) Closed left hip fracture: Plan: Postop day 3 status post left TFN PT/OT protocols. Weightbearing as tolerated. DVT prophylaxis-aspirin p.o. twice daily, SCDs, JUNAID [place]. Pain management as written. . Hemoglobin stabilized at 8.7 DC planning-discussed with the patient. [facility] when ok with Hospitalist Service Admission and Anticipated Discharge Date Admission Date: September 14, 2022 Supervising Physician Co-Signing Physician Notes Patient seen and examined. Agree with CHAI Ortega's note as above. Postoperative day #3 status post long TFN. Patient is resting comfortably in her chair. It sounds like she has just been doing bed to chair transfers so far, and not a lot of ambulation yet. She does endorse some occasional dizziness, but none currently and she denied any with standing earlier today. H/H 12.9/38.7 preop --> 7.9/23.7 today. Vitals stable, not tachycardic. Continue to observe. Transfusion per medicine. Pain is well controlled. Discharge when arrangements made. Subjective Postop day 3 She is resting comfortably in bed, has no complaints. Pain currently well controlled Review of Systems Constitutional: no fever and no chills Respiratory: no cough and no dyspnea Cardiovascular: no chest pain, no dyspnea and no orthopnea Gastrointestinal: no abdominal pain, no nausea and no vomiting Physical Exam Musculoskeletal: Left Hip: Incision clean and dry no erythema warmth or drainage calf soft nontender neurovascularly intact distally Results & Data Vital Signs (Past 12 Hours) Vital Signs Temp Pulse Resp BP Pulse Ox O2 Del Method 09/17/22 19:30 Room Air 09/17/22 20:35 36.9 C 84 18 106/63 97 Room Air Laboratory Results Laboratory Results WBC 7.16 K/ul (4.8-10.8) 09/18/22 05:20 RBC 2.56 M/uL (4.20-5.40) L 09/18/22 05:20 Hgb 7.9 g/dl (12.0-16.0) L 09/18/22 05:20 Hct 23.7 % (37.0-47.0) L 09/18/22 05:20 MCV 92.6 fL (80.0-100.0) 09/18/22 05:20 MCH 30.9 pg (25.0-34.0) 09/18/22 05:20 MCHC 33.3 g/dL (32.0-36.0) 09/18/22 05:20 RDW Std Deviation 47.3 fL (36.4-46.3) H 09/18/22 05:20 RDW Coeff of Shikha 14.0 % (11.5-14.5) 09/18/22 05:20 Plt Count 130 K/uL (130-400) 09/18/22 05:20 MPV 9.7 fL (9.4-12.4) 09/18/22 05:20 Immature Gran % (Auto) 0.3 % 09/16/22 05:34 Neut % (Auto) 75.1 % 09/16/22 05:34 Lymph % (Auto) 17.2 % 09/16/22 05:34 [place] % (Auto) 6.3 % 09/16/22 05:34 Eos % (Auto) 1.0 % 09/16/22 05:34 Baso % (Auto) 0.1 % 09/16/22 05:34 Neut # (Auto) 5.79 K/uL (1.40-6.50) 09/16/22 05:34 Lymph # (Auto) 1.33 K/uL (1.2-3.4) 09/16/22 05:34 [place] # (Auto) 0.49 K/uL (0.11-0.59) 09/16/22 05:34 Eos # (Auto) 0.08 K/uL (0-0.50) 09/16/22 05:34 Baso # (Auto) 0.01 K/uL (0-0.2) 09/16/22 05:34 Immature Gran # (Auto) 0.02 K/uL (0.01-0.20) 09/16/22 05:34 PT 11.1 Seconds (9.0-12.0) 09/17/22 05:28 INR 1.0 (0.9-1.1) 09/17/22 05:28 APTT 22.7 Seconds (21.0-31.0) 09/14/22 12:09 PTT Ratio 0.8 09/14/22 12:09 Sodium 137 mmol/L (136-145) 09/18/22 05:20 Potassium 4.9 mmol/L (3.5-5.1) 09/18/22 05:20 Chloride 107 mmol/L (98-107) 09/18/22 05:20 Carbon Dioxide 29 mmol/L (21-32) 09/18/22 05:20 Anion Gap 1 (3-11) L 09/18/22 05:20 BUN 23 mg/dl (6-23) 09/18/22 05:20 Creatinine 1.26 mg/dl (0.6-1.2) H D 09/18/22 05:20 Est Cr Clr Drug Dosing 31.3 ml/min 09/18/22 05:20 Est GFR ( Amer) 45.6 ml/min 09/18/22 05:20 Est GFR (Non-Af Amer) 39.4 ml/min 09/18/22 05:20 BUN/Creatinine Ratio 18.3 (10-20) 09/18/22 05:20 Glucose 108 mg/dl (70-99(Fasting)) H 09/18/22 05:20 POC Glucose 168 mg/dl (70-99) H 09/17/22 20:33 Calcium 8.2 mg/dl (8.6-10.3) L 09/18/22 05:20 Magnesium 1.9 mg/dl (1.7-2.4) 09/17/22 05:28 Total Bilirubin 0.8 mg/dl (0.2-1.0) 09/14/22 12:09 AST 22 U/L (13-39) 09/14/22 12:09 ALT 18 U/L (7-52) 09/14/22 12:09 Alkaline Phosphatase 86 U/L (34-104) 09/14/22 12:09 Total Creatine Kinase 97 U/L (26-192) 09/14/22 12:09 Troponin I High Sens 6.8 pg/ml (0-14) 09/14/22 12:09 Total Protein 6.2 gm/dl (6.0-8.3) 09/14/22 12:09 Albumin 3.8 gm/dl (3.4-5.0) 09/14/22 12:09 Globulin 2.4 gm/dl (2.5-4.0) L 09/14/22 12:09 Albumin/Globulin Ratio 1.6 (0.9-2) 09/14/22 12:09 25-OH Vitamin D Total 62.7 ng/ml (30-100) 09/16/22 05:34 Urine Color Dark Yellow 09/14/22 12:11 Urine Appearance Clear (Clear) 09/14/22 12:11 Urine pH 5.5 (4.5-7.5) 09/14/22 12:11 Ur Specific [place] 1.029 (1.000-1.030) 09/14/22 12:11 Urine Protein Negative (Negative) 09/14/22 12:11 Urine Glucose (UA) Negative (Negative) 09/14/22 12:11 Urine Ketones Trace (Negative) H 09/14/22 12:11 Urine Blood Negative (Negative) 09/14/22 12:11 Urine Nitrite Negative (Negative) 09/14/22 12:11 Urine Bilirubin Negative (Negative) 09/14/22 12:11 Urine Urobilinogen Negative (Negative) 09/14/22 12:11 Ur Leukocyte Esterase Negative (Negative) 09/14/22 12:11 SARS-CoV-2, RNA, NAAT NEGATIVE (NEGATIVE) 09/14/22 12:11 Blood Type O Negative 09/14/22 13:20 Antibody Screen NEGATIVE 09/14/22 13:[address] 09/14/22 12:02 CT head/brain wo con CLINICAL HISTORY: fall, hit head Technique: Contiguous axial CT images of the head were acquired from the base of the skull to the vertex without intravenous contrast administration. Images were viewed in brain, subdural and bone windows. Automated dose lowering techniques and/or adjustment according to patient size were utilized for this exam. Comparison: Comparison is made to CT head 02/04/2020 Findings: Areas of decreased attenuation are present in the periventricular and subcortical white matter bilaterally consistent with small vessel ischemic disease. Generalized cerebral atrophy with commensurate enlargement of the ventricles, sulci, and cisterns is also present. There is no acute intracranial hemorrhage or evidence of acute territorial infarction. No shift of the midline structures, mass effect, or extra-axial abnormalities are shown. Atherosclerotic calcifications are present in the intracranial segments of the internal carotid arteries. Imaged portions of the paranasal sinuses and mastoid air cells are clear. The orbits appear normal. There are no acute fractures of the calvaria or scalp swelling. Impression: No acute intracranial hemorrhage, no evidence of acute territorial infarction or other acute intracranial disease process. ACT 112: Negative or not required by law. Electronically signed by: Andrei Barroso M.D. 09/14/2022 1:41 PM Hip/Pelvis X-Ray 09/14/22 12:02 SINGLE VIEW PELVIS; 2 VIEWS LEFT HIP CLINICAL HISTORY: Fall. FINDINGS: An AP view of the pelvis with AP and crosstable lateral views of the left hip are correlated with pelvic CT dated 12/12/2019. The skeletal structures are osteopenic. There is an impacted and comminuted intertrochanteric fracture of the left proximal femur with overlying soft tissue edema and displaced fragments. There is medial displacement of the lesser trochanter. No additional fracture is seen involving the right hip or the bony pelvis. Mild to moderate arthritic change and joint space narrowing is seen in the hips. There is degenerative sclerosis of the sacroiliac joints. Phleboliths are noted in the pelvis. IMPRESSION: Intertrochanteric fracture of the left proximal femur as above. Electronically signed by: Brenden Nath M.D. 09/14/2022 12:27 PM Chest X-Ray 09/14/22 12:03 XR chest 1V portable CLINICAL HISTORY: fall TECHNIQUE: Single frontal radiograph of the chest was obtained. Comparison: None available at the time of this dictation. FINDINGS: No lines and tubes are seen. The cardiomediastinal silhouette is normal. The lungs are clear. No evidence of pleural effusion or pneumothorax. IMPRESSION: No acute chest disease. ACT 112: Negative or not required by law. Electronically signed by: Andrei Barroso M.D. 09/14/2022 12:33 PM Elbow X-Ray 09/14/22 13:30 XR elbow LT min 3V routine CLINICAL HISTORY: fall, left elbow pain/swelling COMPARISON: None FINDINGS: Alignment of the left elbow is anatomic. No acute fracture. No evidence for a joint effusion. There is ulnotrochlear articulation osteophytosis. IMPRESSION: No acute fracture. No evidence for a left elbow joint effusion. ACT 112: Negative or not required by law. Electronically signed by: Davy Bartholomew M.D. 09/14/2022 1:49 PM Hip X-Ray 09/15/22 14:00 INTRAOPERATIVE RADIOGRAPHS CLINICAL HISTORY: Open reduction and internal fixation of the left femur. Fluoro time: 149 seconds Ka,r: 45.16 mGy FINDINGS: 4 spot fluoroscopic views of the left femur are correlated with radiographs dated 09/14/2022. Intertrochanteric and intramedullary nails have been placed transfixing an intertrochanteric fracture of the left proximal femur. Near anatomic alignment is restored. There is medial displacement of the lesser trochanter. A single cortical screw transfixes the distal end of the intramedullary nail. IMPRESSION: Intraoperative images from open reduction and internal fixation of an intertrochanteric left femoral fracture as above. Electronically signed by: Brenden Nath M.D. 09/15/2022 4:53 PM
[2022-09-18] MEDS: INSULIN ASPART PER UNIT CHARGE SC SCH ×4 (08:19→20:58)
[2022-09-18] MEDS: PANTOprazole 40 MG TAB PO SCH (08:37)
[2022-09-18] MEDS: POLYETHYLENE (MIRALAX) 17 GM PACK PO SCH ×2 (08:37→20:08)
[2022-09-18] MEDS: ACETAMINOPHEN 325 MG TAB PO SCH ×4 (08:37→20:06)
[2022-09-18] MEDS: CELECOXIB 100 MG CAP PO SCH (08:37)
[2022-09-18] MEDS: LANTUS PER UNIT CHARGE SQ SCH ×2 (08:37→20:57)
[2022-09-18] MEDS: ASPIRIN 81 MG ECTAB PO SCH ×2 (08:37→20:06)
[2022-09-18] MEDS ORDERED: SODIUM CHLORIDE 0.9% 250 ML IV PRN (11:19)
--- NOTE | 2022-09-18 16:06 | Hospitalist Progress Note ---
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 Course complicated by acute blood loss anemia (see below). DVT proph - asa 81mg BID x 6 weeks. Pain control - tramadol prn, scheduled tylenol; resume celebrex tomorrow if H/H are stable. Appreciate ortho assistance. WBAT on LLE. Cont PT/OT. Will need rehab post-d/c. (2) Acute blood loss anemia: Plan: Patient with low or low-normal BPs, had vasovagal episode yesterday with a BM, weak, etc. Thus, Tx 1 unit PRBCs. Repeat CBC am. No signs/symptoms of GI blood loss but watch carefully for such. (3) Abdominal bloating: Plan: KUB x-ray today. If no pathology (severe constipation, etc) consider CT a/p with contrast - r/o ovarian malignancy, other malignancy, etc. Cont bowel regimen. (4) GERD (gastroesophageal reflux disease): Plan: cont PPI (5) Type 2 diabetes mellitus: Plan: Hba1c 6.4% in 03/2022 mild T2DM/pre-DM BSGs well controlled here (6) Hypertension: Plan: due to #2 her BPs are low or low-normal cont to hold ARB (7) CKD (chronic kidney disease) stage 3, GFR 30-59 ml/min: Plan: stage 3b baseline CrCl 30-40 BMP am for stability (8) Sjogrens syndrome: Plan: noted biotene, lemon candy, stay well-hydrated, etc (9) Raynaud's disease: Plan: no issues today (10) DVT prophylaxis: Plan: aspirin 81mg BID Plan spoke with pt's by phone this evening; gave update Admission and Anticipated Discharge Date Admission Date: September 14, 2022 Subjective patient c/o ongoing left hip pain when I entered the room she was transferring with 2 nurses from the commode to the bed she had extreme difficulty with just pivoting and taking 2 steps I had placed the celebrex on hold this am due to the ongoing drop in H/H she asked for it back, stating the celebrex was very helpful for pain she has had no obvious melena or BRBPR she also complains of 6+ months of abdominal bloating; she thinks the left side of abdomen is typically more bloated than the left she has had a change in bowel habits stools are erratic in terms of frequency, and when she has stool they are string-like no melena or BPRBPR no true abd pain no weight loss eating does not make it worse has never had colonoscopy - just a cologuard which was negative she had a large BM yesterday and this did not relieve the bloating she still has her ovaries & uterus apparently during her stool yesterday she had a vasovagal with near-syncope and drop in BP Review of Systems Review of Systems: gen - eating ok; no fevers cv - no cp, no orthopnea pulm - no dyspnea or TRIVEDI GI - no vomiting Physical Exam Physical Exam: gen - a little anxious, NAD otherwise skin - pallor mouth - MMM neck - no JVD heart - RRR, s1 s2 lungs - CTA b/l abd - mildly distended, no masses, no HSM, BS+; slightly tender over suprapubic region and just to left of such ext - edema left thigh, dressings intact; no ankle edema b/l; pulses 2+ b/l psych - a/o x 3 Results & Data Results & Data Vital Signs (Past 12 Hours) Vital Signs Temp Pulse Pulse Resp BP BP Pulse Ox 09/18/22 14:42 37.0 C 81 16 98/65 L 97 09/18/22 14:10 36.5 C 89 16 105/66 97 09/18/22 13:55 37.0 C 88 16 118/71 09/18/22 13:40 36.8 C 85 16 94/62 L 97 09/18/22 14:12 36.5 C 89 16 105/66 97 09/18/22 13:57 37.0 C 88 16 118/71 97 09/18/22 13:53 37.0 C 88 16 118/71 96 09/18/22 13:40 36.8 C 85 16 94/62 L 97 09/18/22 07:45 09/18/22 07:00 36.9 C 83 18 103/67 96 O2 Del Method 09/18/22 14:42 09/18/22 14:10 09/18/22 13:55 09/18/22 13:40 09/18/22 14:12 09/18/22 13:57 09/18/22 13:53 09/18/22 13:40 09/18/22 07:45 Room Air 09/18/22 07:00 Room Air Laboratory Results Laboratory Results - last 48 hr 09/17/22 09/17/22 09/17/22 11:52 17:07 20:33 WBC RBC Hgb Hct MCV MCH MCHC RDW Std Deviation RDW Coeff of Shikha Plt Count MPV Sodium Potassium Chloride Carbon Dioxide Anion Gap BUN Creatinine Est Cr Clr Drug Dosing Est GFR ( Amer) Est GFR (Non-Af Amer) BUN/Creatinine Ratio Glucose POC Glucose 220 H 129 H 168 H Calcium Blood Type Antibody Screen Crossmatch 09/18/22 09/18/22 09/18/22 05:20 05:20 05:20 WBC 7.16 RBC 2.56 L Hgb 7.9 L Hct 23.7 L MCV 92.6 MCH 30.9 MCHC 33.3 RDW Std Deviation 47.3 H RDW Coeff of Shikha 14.0 Plt Count 130 MPV 9.7 Sodium 137 Potassium 4.9 Chloride 107 Carbon Dioxide 29 Anion Gap 1 L BUN 23 Creatinine 1.26 H D Est Cr Clr Drug Dosing 31.3 Est GFR ( Amer) 45.6 Est GFR (Non-Af Amer) 39.4 BUN/Creatinine Ratio 18.3 Glucose 108 H POC Glucose Calcium 8.2 L Blood Type O Negative Antibody Screen NEGATIVE Crossmatch See Detail 09/18/22 09/18/22 09/18/22 07:53 12:05 16:55 WBC RBC Hgb Hct MCV MCH MCHC RDW Std Deviation RDW Coeff of Shikha Plt Count MPV Sodium Potassium Chloride Carbon Dioxide Anion Gap BUN Creatinine Est Cr Clr Drug Dosing Est GFR ( Amer) Est GFR (Non-Af Amer) BUN/Creatinine Ratio Glucose POC Glucose 109 H 116 H 109 H Calcium Blood Type Antibody Screen Crossmatch PG Care Time/CCT Total # of Minutes Spent Total Time Spent with Patient: Total time spent is greater than 50% in coordination of care (as documented) at patient's floor/unit and/or counseling patient: Coding Level of Care Code 97307 SUB INP/OBS CARE 3/50MIN Diagnoses Pathological fracture of left 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-related osteoporosis M80.052A Acute blood loss anemia D62 Abdominal bloating R14.0 GERD (gastroesophageal reflux disease) K21.9 Type 2 diabetes mellitus E11.9 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 use: without chcf use Diabetes mellitus complication status: without complication Hypertension I10 Hypertension type: essential hypertension CKD (chronic kidney disease) stage 3, GFR 30-59 ml/min N18.3 Sjogrens syndrome M35.00 Raynaud's disease I73.00 DVT prophylaxis Z29.9 (5) Type 2 diabetes mellitus 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
[2022-09-18] MEDS: traMADol HCL 50 MG TABLET PO PRN (17:01)
[2022-09-18] MEDS: ATORVASTATIN 40 MG TAB PO SCH (17:27)
[2022-09-18] MEDS: DULoxetine HCL 30 MG CAP PO SCH (17:27)
--- NOTE | 2022-09-18 18:06 | XRay Report ---
KUB HISTORY: bloating, LLQ discomfort, assess fecal load COMPARISON: Abdominal series 12/14/2019. FINDINGS: Moderate well-formed stool seen throughout the colon and rectum. No dilated loops of bowel to suggest an obstruction. Prior cholecystectomy. Postoperative changes consistent with prior interna l fixation fixation of a proximal left femoral fracture. Dextroscoliosis of the thoracolumbar spine a gain noted. No renal calculi. No ureteral calculi. Calcifications in the deep pelvis likely represen t phleboliths. No pneumoperitoneum or pneumatosis. IMPRESSION: 1. Nonobstructive bowel gas pattern. 2. Moderate fecal retention. 3. Internal fixation of a proximal left femoral fracture. ACT 112: Negative or not required by law. Electronically signed by: Jacobo Morley M.D. 09/18/2022 6:04 PM
[2022-09-18] MEDS: DOCUSATE SODIUM/SENNA 50/8.6MG TAB PO SCH (20:17)
[2022-09-19] MEDS: traMADol HCL 50 MG TABLET PO PRN (04:27)
[2022-09-19 05:46] LABS: Hematocrit (blood only) 29.5 % (37.0-47.0); Mean Corpuscular Hemoglobin 29.8 pg (25.0-34.0); Mean Corpuscular Hgb Conc 33.9 g/dL (32.0-36.0); Mean Corpuscular Volume 87.8 fL (80.0-100.0); Mean Platelet Volume 9.4 fL (9.4-12.4); Platelet Count 147 K/uL (130-400); RDW Coefficient of Variation 15.9 % (11.5-14.5); RDW Standard Deviation 50.7 fL (36.4-46.3); Red Blood Count 3.36 M/uL (4.20-5.40); White Blood Count 6.84 K/ul (4.8-10.8)
[2022-09-19 05:56] LABS: BUN Creatinine Ratio 22.8 (10-20); Calcium 8.6 mg/dl (8.6-10.3); Creatinine Clr Calc Pharmacy 34.5 ml/min; Est GFR (African American) 51.5 ml/min; Est GFR (Non-African American) 44.4 ml/min; Potassium 4.7 mmol/L (3.5-5.1)
--- NOTE | 2022-09-19 06:24 | Orthopedic Progress Note ---
Date of Service September 19, 2022 Assessment & Plan (1) Closed left hip fracture: Plan: Postop day 4 status post left TFN PT/OT protocols. Weightbearing as tolerated. DVT prophylaxis-aspirin p.o. twice daily, GERTRUDISs, JUNAID [place]. Pain management as written. transfused 1 unit yesterday, H/H 01/16.5 this am also has c/o constipation, med has ordered Miralax DC planning-discussed with the patient. [facility] when ok with Hospitalist Service, ortho to signs off at this time. will need f/u with Dr Pendleton at [facility] 12-14 days from her surgery, for appt. d/c instructions placed in chart Admission and Anticipated Discharge Date Admission Date: September 14, 2022 Supervising Physician Co-Signing Physician Notes Patient seen and examined. Agree with CHAI Ortega's note as above. She is resting in bed comfortably at this point. Pain is controlled. Sounds like she had a near syncopal episode yesterday while having a bowel movement. She did get transfused 1 unit of packed red blood cells. She states she is not really feeling much better after that. She is currently getting an iron infusion as we ll. She is requiring a lot of assistance to get to bedside chair. Dressings clean, dry, intact. Left thigh is swollen but soft and compressible. Motor and sensory function intact distally. Discharge when stable from medical perspective and disposition arranged. Subjective Postop day 4 She is resting comfortably in bed, Pain currently well controlled, did require 1 unit transfusion yesterday, c/o constipation Review of Systems Constitutional: no fever and no chills Respiratory: no cough and no dyspnea Cardiovascular: no chest pain, no dyspnea and no orthopnea Physical Exam Physical Exam: Vital Signs Temp 36.6 C 09/18/22 20:45 Pulse 80 09/18/22 20:45 Resp 18 09/18/22 20:45 BP 135/81 09/18/22 20:45 Pulse Ox 97 09/18/22 20:45 O2 Del Method Room Air 09/18/22 20:45 O2 Flow Rate 2 09/17/22 05:00 Intake & Output 09/18/22 09/18/22 09/19/22 06:59 18:59 06:59 Intake Total 550 / 750 200 / 750 Output Total 1250 / 1650 425 / 2425 1999 Balance -1250 / -1650 125 / -1675 -1800 / -1675 Intake: Oral 240 / 440 200 / 440 Intake (Blood Pr oduct) Amt 310 / 310 Packed Cells, Leukoreduced 310 / 310 Unit [id number] Output: Urine [id number] Urine Amount (Ca theter) 1250 / 1650 Espinoas/Indwelli ng 125 / 1650 Other: # Unmeasured Voi ds 1 Constitutional: WD/WN, vitals as above Musculoskeletal: Left Hip: Incision clean and dry no erythema warmth or drainage calf soft nontender neurovascularly intact distally Results & Data Vital Signs (Past 12 Hours) Vital Signs Temp Pulse Resp BP Pulse Ox O2 Del Method 09/18/22 20:45 36.6 C 80 18 135/81 97 Room Air Laboratory Results Laboratory Results WBC 6.84 K/ul (4.8-10.8) 09/19/22 05:14 RBC 3.36 M/uL (4.20-5.40) L 09/19/22 05:14 Hgb 10.0 g/dl (12.0-16.0) L 09/19/22 05:14 Hct 29.5 % (37.0-47.0) L 09/19/22 05:14 MCV 87.8 fL (80.0-100.0) D 09/19/22 05:14 MCH 29.8 pg (25.0-34.0) 09/19/22 05:14 MCHC 33.9 g/dL (32.0-36.0) 09/19/22 05:14 RDW Std Deviation 50.7 fL (36.4-46.3) H 09/19/22 05:14 RDW Coeff of Shikha 15.9 % (11.5-14.5) H 09/19/22 05:14 Plt Count 147 K/uL (130-400) 09/19/22 05:14 MPV 9.4 fL (9.4-12.4) 09/19/22 05:14 Immature Gran % (Auto) 0.3 % 09/16/22 05:34 Neut % (Auto) 75.1 % 09/16/22 05:34 Lymph % (Auto) 17.2 % 09/16/22 05:34 [place] % (Auto) 6.3 % 09/16/22 05:34 Eos % (Auto) 1.0 % 09/16/22 05:34 Baso % (Auto) 0.1 % 09/16/22 05:34 Neut # (Auto) 5.79 K/uL (1.40-6.50) 09/16/22 05:34 Lymph # (Auto) 1.33 K/uL (1.2-3.4) 09/16/22 05:34 [place] # (Auto) 0.49 K/uL (0.11-0.59) 09/16/22 05:34 Eos # (Auto) 0.08 K/uL (0-0.50) 09/16/22 05:34 Baso # (Auto) 0.01 K/uL (0-0.2) 09/16/22 05:34 Immature Gran # (Auto) 0.02 K/uL (0.01-0.20) 09/16/22 05:34 PT 11.1 Seconds (9.0-12.0) 09/17/22 05:28 INR 1.0 (0.9-1.1) 09/17/22 05:28 APTT 22.7 Seconds (21.0-31.0) 09/14/22 12:09 PTT Ratio 0.8 09/14/22 12:09 Sodium 138 mmol/L (136-145) 09/19/22 05:14 Potassium 4.7 mmol/L (3.5-5.1) 09/19/22 05:14 Chloride 107 mmol/L (98-107) 09/19/22 05:14 Carbon Dioxide 24 mmol/L (21-32) 09/19/22 05:14 Anion Gap 7 (3-11) 09/19/22 05:14 BUN 26 mg/dl (6-23) H 09/19/22 05:14 Creatinine 1.14 mg/dl (0.6-1.2) 09/19/22 05:14 Est Cr Clr Drug Dosing 34.5 ml/min 09/19/22 05:14 Est GFR ( Amer) 51.5 ml/min 09/19/22 05:14 Est GFR (Non-Af Amer) 44.4 ml/min 09/19/22 05:14 BUN/Creatinine Ratio 22.8 (10-20) H 09/19/22 05:14 Glucose 113 mg/dl (70-99(Fasting)) H 09/19/22 05:14 POC Glucose 116 mg/dl (70-99) H 09/18/22 20:33 Calcium 8.6 mg/dl (8.6-10.3) 09/19/22 05:14 Magnesium 1.9 mg/dl (1.7-2.4) 09/17/22 05:28 Total Bilirubin 0.8 mg/dl (0.2-1.0) 09/14/22 12:09 AST 22 U/L (13-39) 09/14/22 12:09 ALT 18 U/L (7-52) 09/14/22 12:09 Alkaline Phosphatase 86 U/L (34-104) 09/14/22 12:09 Total Creatine Kinase 97 U/L (26-192) 09/14/22 12:09 Troponin I High Sens 6.8 pg/ml (0-14) 09/14/22 12:09 Total Protein 6.2 gm/dl (6.0-8.3) 09/14/22 12:09 Albumin 3.8 gm/dl (3.4-5.0) 09/14/22 12:09 Globulin 2.4 gm/dl (2.5-4.0) L 09/14/22 12:09 Albumin/Globulin Ratio 1.6 (0.9-2) 09/14/22 12:09 25-OH Vitamin D Total 62.7 ng/ml (30-100) 09/16/22 05:34 Urine Color Dark Yellow 09/14/22 12:11 Urine Appearance Clear (Clear) 09/14/22 12:11 Urine pH 5.5 (4.5-7.5) 09/14/22 12:11 Ur Specific Reedy 1.029 (1.000-1.030) 09/14/22 12:11 Urine Protein Negative (Negative) 09/14/22 12:11 Urine Glucose (UA) Negative (Negative) 09/14/22 12:11 Urine Ketones Trace (Negative) H 09/14/22 12:11 Urine Blood Negative (Negative) 09/14/22 12:11 Urine Nitrite Negative (Negative) 09/14/22 12:11 Urine Bilirubin Negative (Negative) 09/14/22 12:11 Urine Urobilinogen Negative (Negative) 09/14/22 12:11 Ur Leukocyte Esterase Negative (Negative) 09/14/22 12:11 SARS-CoV-2, RNA, NAAT NEGATIVE (NEGATIVE) 09/14/22 12:11 Blood Type O Negative 09/18/22 05:20 Antibody Screen NEGATIVE 09/18/22 05:20 Crossmatch See Detail 09/18/22 05:[address] 09/14/22 12:02 CT head/brain wo con CLINICAL HISTORY: fall, hit head Technique: Contiguous axial CT images of the head were acquired from the base of the skull to the vertex without intravenous contrast administration. Images were viewed in brain, subdural and bone windows. Automated dose lowering techniques and/or adjustment according to patient size were utilized for this exam. Comparison: Comparison is made to CT head 02/04/2020 Findings: Areas of decreased attenuation are present in the periventricular and subcortical white matter bilaterally consistent with small vessel ischemic disease. Generalized cerebral atrophy with commensurate enlargement of the ventricles, sulci, and cisterns is also present. There is no acute intracranial hemorrhage or evidence of acute territorial infarction. No shift of the midline structures, mass effect, or extra-axial abnormalities are shown. Atherosclerotic calcifications are present in the intracranial segments of the internal carotid arteries. Imaged portions of the paranasal sinuses and mastoid air cells are clear. The orbits appear normal. There are no acute fractures of the calvaria or scalp swelling. Impression: No acute intracranial hemorrhage, no evidence of acute territorial infarction or other acute intracranial disease process. ACT 112: Negative or not required by law. Electronically signed by: Andrei Barroso M.D. 09/14/2022 1:41 PM Hip/Pelvis X-Ray 09/14/22 12:02 SINGLE VIEW PELVIS; 2 VIEWS LEFT HIP CLINICAL HISTORY: Fall. FINDINGS: An AP view of the pelvis with AP and crosstable lateral views of the left hip are correlated with pelvic CT dated 12/12/2019. The skeletal structures are osteopenic. There is an impacted and comminuted intertrochanteric fracture of the left proximal femur with overlying soft tissue edema and displaced fragments. There is medial displacement of the lesser trochanter. No additional fracture is seen involving the right hip or the bony pelvis. Mild to moderate arthritic change and joint space narrowing is seen in the hips. There is degenerative sclerosis of the sacroiliac joints. Phleboliths are noted in the pelvis. IMPRESSION: Intertrochanteric fracture of the left proximal femur as above. Electronically signed by: Brenden Nath M.D. 09/14/2022 12:27 PM Chest X-Ray 09/14/22 12:03 XR chest 1V portable CLINICAL HISTORY: fall TECHNIQUE: Single frontal radiograph of the chest was obtained. Comparison: None available at the time of this dictation. FINDINGS: No lines and tubes are seen. The cardiomediastinal silhouette is normal. The lungs are clear. No evidence of pleural effusion or pneumothorax. IMPRESSION: No acute chest disease. ACT 112: Negative or not required by law. Electronically signed by: Andrei Barroso M.D. 09/14/2022 12:33 PM Elbow X-Ray 09/14/22 13:30 XR elbow LT min 3V routine CLINICAL HISTORY: fall, left elbow pain/swelling COMPARISON: None FINDINGS: Alignment of the left elbow is anatomic. No acute fracture. No evidence for a joint effusion. There is ulnotrochlear articulation osteophytosis. IMPRESSION: No acute fracture. No evidence for a left elbow joint effusion. ACT 112: Negative or not required by law. Electronically signed by: Davy Bartholomew M.D. 09/14/2022 1:49 PM Hip X-Ray 09/15/22 14:00 INTRAOPERATIVE RADIOGRAPHS CLINICAL HISTORY: Open reduction and internal fixation of the left femur. Fluoro time: 149 seconds Ka,r: 45.16 mGy FINDINGS: 4 spot fluoroscopic views of the left femur are correlated with radiographs dated 09/14/2022. Intertrochanteric and intramedullary nails have been placed transfixing an intertrochanteric fracture of the left proximal femur. Near anatomic alignment is restored. There is medial displacement of the lesser trochanter. A single cortical screw transfixes the distal end of the intramedullary nail. IMPRESSION: Intraoperative images from open reduction and internal fixation of an intertrochanteric left femoral fracture as above. Electronically signed by: Brenden Nath M.D. 09/15/2022 4:53 PM KUB X-Ray 09/18/22 16:31 KUB HISTORY: bloating, LLQ discomfort, assess fecal load COMPARISON: Abdominal series 12/14/2019. FINDINGS: Moderate well-formed stool seen throughout the colon and rectum. No dilated loops of bowel to suggest an obstruction. Prior cholecystectomy. Postoperative changes consistent with prior internal fixation fixation of a proximal left femoral fracture. Dextroscoliosis of the thoracolumbar spine again noted. No renal calculi. No ureteral calculi. Calcifications in the deep pelvis likely represent phleboliths. No pneumoperitoneum or pneumatosis. IMPRESSION: 1. Nonobstructive bowel gas pattern. 2. Moderate fecal retention. 3. Internal fixation of a proximal left femoral fracture. ACT 112: Negative or not required by law. Electronically signed by: Jacobo Morley M.D. 09/18/2022 6:04 PM
[2022-09-19] MEDS: CELECOXIB 100 MG CAP PO SCH ×2 (08:15→20:40)
[2022-09-19] MEDS: PANTOprazole 40 MG TAB PO SCH (08:15)
[2022-09-19] MEDS: HYDROCODONE/ACETAMOPHEN 5/325MG TAB PO PRN ×3 (08:15→20:39)
[2022-09-19] MEDS: ASPIRIN 81 MG ECTAB PO SCH ×2 (08:15→20:41)
[2022-09-19] MEDS: POLYETHYLENE (MIRALAX) 17 GM PACK PO SCH ×2 (08:16→20:50)
[2022-09-19] MEDS: LANTUS PER UNIT CHARGE SQ SCH ×2 (09:33→20:41)
[2022-09-19] MEDS ORDERED: IRON SUCROSE 200 MG in 0.9 % SODIUM CHLORIDE 100 ML IV ONE (09:33)
[2022-09-19] MEDS: INSULIN ASPART PER UNIT CHARGE SC SCH ×4 (09:33→20:41)
[2022-09-19] MEDS: ACETAMINOPHEN 500 MG TAB PO SCH ×3 (10:07→20:39)
[2022-09-19] MEDS: LORazepam 1 MG TAB PO PRN (14:17)
[2022-09-19] MEDS: bisacodyL 10 MG SUPP PR PRN (16:40)
[2022-09-19] MEDS: ATORVASTATIN 40 MG TAB PO SCH (18:47)
[2022-09-19] MEDS: DULoxetine HCL 30 MG CAP PO SCH (18:47)
[2022-09-19] MEDS: DOCUSATE SODIUM/SENNA 50/8.6MG TAB PO SCH (20:38)
--- NOTE | 2022-09-19 20:58 | Hospitalist Progress Note ---
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 Course complicated by acute blood loss anemia (see below). DVT proph - asa 81mg BID x 6 weeks. Pain control - tramadol not helpful thus change to norco prn; cont scheduled tylenol but reduce to 500mg TID to allow more room for the norco; d/c dilaudid; resumed celebrex today at her request but advised against long-term use due to borderline renal function and concomitant aspirin use (high risk of PUD, gastritis, etc) . Appreciate ortho assistance. WBAT on LLE. Cont PT/OT. Will need rehab post-d/c. (2) Acute blood loss anemia: Plan: Patient with low or low-normal BPs, had vasovagal episode with a BM, weak, etc. Thus, Tx 1 unit PRBCs on 09/18/22. Tolerated such with nice response; H/H very stable today. Did give venofer 200mg IV x 1 today as well. No overt signs/symptoms of GI blood loss. (3) Abdominal bloating: Plan: KUB x-ray yesterday with moderate constipation. She did have a large bowel movement yesterday and again today. Despite moving her bowels she still has considerable bloating/distension. The bloating has been present for 6+ months. We have discussed CT a/p with contrast to r/o ovarian malignancy, other malignancy, etc. To clarify - she does NOT have IV contrast allergy. She had IV contrast in 2019. I reviewed all records from that time -- NO reaction identified. Patient states she had some sort of iodine-based wash during a breast surgery and developed a rash locally from the wash/antiseptic only. Thus, can proceed with CT a/p with IV/PO contrast tomorrow. Plan for gentle fluid before & after the CT given CrCl in the 30s. If CT is negative for pathology will recommend outpatient colonoscopy due to change in bowel habits. (4) GERD (gastroesophageal reflux disease): Plan: cont PPI (5) Type 2 diabetes mellitus: Plan: Hba1c 6.4% in 03/2022 mild T2DM/pre-DM BSGs well controlled here (6) Hypertension: Plan: due to #2 her BPs have been low or low-normal cont to hold ARB restart when BPs rise (7) CKD (chronic kidney disease) stage 3, GFR 30-59 ml/min: Plan: stage 3b baseline CrCl 30-40 BMP am for stability (8) Sjogrens syndrome: Plan: noted biotene, lemon candy, stay well-hydrated, etc (9) Raynaud's disease: Plan: no issues (10) DVT prophylaxis: Plan: aspirin 81mg BID x 6 weeks (11) Anxiety disorder: Plan: patient wants to wean off cymbalta has been on it several months it has made her restless legs worse, and she gets "jerks" of her limbs when resting and laying in bed despite being on it she remains quite anxious and tearful at times will ask psych to help with weaning off cymbalta and transitioning to something else Plan spoke with pt's by phone again this evening; gave update told him about CT a/p being planned for tomorrow am I attempted to call her son, Dr Neves, but voicemail is not set up; can't leave message dispo - rehab Admission and Anticipated Discharge Date Admission Date: September 14, 2022 Subjective patient very anxious she reports that she was placed on medication for anxiety/depression in the past (cymbalta) ever since going on such her restless legs have been much worse she also gets "jerks" of her legs/arms when she lays in bed at night despite being on cymbalta she continues with significant anxiety ongoing pain in L hip she asked for the celebrex to be added back today states "tylenol doesn't really help" she tolerated her Fe infusion today without difficulty eating/drinking ok had another large bowel movement today despite having the large BM her abdominal bloating & distension continues we discussed that if the CT a/p is negative we would then recommend colonoscopy (has never had one) Review of Systems Review of Systems: gen - no fevers psych - anxious CV - no chest pain pulm - a little dyspneic at times since her hip fracture GI - no vomiting Physical Exam Physical Exam: gen - anxious, NAD otherwise, comfortable; sitting at side of bed skin - pallor resolved mouth - MMM neck - no JVD heart - RRR, s1 s2, no murmur lungs - CTA b/l, no rales abd - soft, minimally distended, no masses, no HSM, BS+; no tenderness ext - edema left thigh, dressings intact left lateral thigh; no ankle edema b/l; pulses 2+ b/l psych - a/o x 3 but anxious Results & Data Results & Data Vital Signs (Past 12 Hours) Vital Signs Temp Pulse Pulse Resp BP Pulse Ox O2 Del Method 09/19/22 20:25 36.8 C 86 16 132/78 94 Room Air 09/19/22 15:01 36.8 C 89 18 155/77 H 98 Room Air Laboratory Results Laboratory Results - last 24 hr 09/19/22 09/19/22 09/19/22 05:14 05:14 07:54 WBC 6.84 RBC 3.36 L Hgb 10.0 L Hct 29.5 L MCV 87.8 D MCH 29.8 MCHC 33.9 RDW Std Deviation 50.7 H RDW Coeff of Shikha 15.9 H Plt Count 147 MPV 9.4 Sodium 138 Potassium 4.7 Chloride 107 Carbon Dioxide 24 Anion Gap 7 BUN 26 H Creatinine 1.14 Est Cr Clr Drug Dosing 34.5 Est GFR ( Amer) 51.5 Est GFR (Non-Af Amer) 44.4 BUN/Creatinine Ratio 22.8 H Glucose 113 H POC Glucose 118 H Calcium 8.6 09/19/22 09/19/22 09/19/22 11:48 17:04 20:26 WBC RBC Hgb Hct MCV MCH MCHC RDW Std Deviation RDW Coeff of Shikha Plt Count MPV Sodium Potassium Chloride Carbon Dioxide Anion Gap BUN Creatinine Est Cr Clr Drug Dosing Est GFR ( Amer) Est GFR (Non-Af Amer) BUN/Creatinine Ratio Glucose POC Glucose 107 H 131 H 146 H Calcium Diagnostic Findings KUB X-Ray 09/18/22 16:31 KUB HISTORY: bloating, LLQ discomfort, assess fecal load COMPARISON: Abdominal series 12/14/2019. FINDINGS: Moderate well-formed stool seen throughout the colon and rectum. No dilated loops of bowel to suggest an obstruction. Prior cholecystectomy. Postoperative changes consistent with prior internal fixation fixation of a proximal left femoral fracture. Dextroscoliosis of the thoracolumbar spine again noted. No renal calculi. No ureteral calculi. Calcifications in the deep pelvis likely represent phleboliths. No pneumoperitoneum or pneumatosis. IMPRESSION: 1. Nonobstructive bowel gas pattern. 2. Moderate fecal retention. 3. Internal fixation of a proximal left femoral fracture. ACT 112: Negative or not required by law. Electronically signed by: Jacobo Morley M.D. 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 osteoporosis M80.052A Acute blood loss anemia D62 Abdominal bloating R14.0 GERD (gastroesophageal reflux disease) K21.9 Type 2 diabetes mellitus E11.9 Diabetes mellitus complication status: without complication Diabetes mellitus termite control servicer insulin use: without jail use Hypertension I10 Hypertension type: essential hypertension CKD (chronic kidney disease) stage 3, GFR 30-59 ml/min N18.3 Sjogrens syndrome M35.00 Raynaud's disease I73.00 DVT prophylaxis Z29.9 Anxiety disorder F41.9 (5) Type 2 diabetes mellitus Diabetes mellitus complication status: without complication Diabetes mellitus termite control servicer insulin use: without termite control servicer use Qualified Code(s): E11.9 - Type 2 diabetes mellitus without complications (6) Hypertension Hypertension type: essential hypertension Qualified Code(s): I10 - Essential (primary) hypertension
[2022-09-20] MEDS: HYDROCODONE/ACETAMOPHEN 5/325MG TAB PO PRN ×3 (07:27→21:58)
[2022-09-20] MEDS: SODIUM CHLORIDE 0.9% 500 ML IV SCH ×3 (07:28→22:07)
[2022-09-20 07:59] LABS: BUN Creatinine Ratio 18.5 (10-20); Calcium 9.2 mg/dl (8.6-10.3); Creatinine Clr Calc Pharmacy 36.5 ml/min; Est GFR (Non-African American) 47.4 ml/min; Potassium 4.1 mmol/L (3.5-5.1)
[2022-09-20] MEDS: INSULIN ASPART PER UNIT CHARGE SC SCH ×4 (08:16→21:58)
[2022-09-20] MEDS: LANTUS PER UNIT CHARGE SQ SCH ×2 (09:11→22:00)
[2022-09-20] MEDS ORDERED: OPTIRAY 320 100ml IV ONE (09:46)
[2022-09-20] MEDS: ASPIRIN 81 MG ECTAB PO SCH ×2 (10:18→22:02)
[2022-09-20] MEDS: ACETAMINOPHEN 500 MG TAB PO SCH ×3 (10:18→22:03)
[2022-09-20] MEDS: PANTOprazole 40 MG TAB PO SCH (10:18)
[2022-09-20] MEDS: POLYETHYLENE (MIRALAX) 17 GM PACK PO SCH ×2 (10:19→22:03)
[2022-09-20] MEDS: CELECOXIB 100 MG CAP PO SCH ×2 (10:19→22:02)
[2022-09-20] MEDS: LORazepam 1 MG TAB PO PRN ×2 (11:15→23:19)
--- NOTE | 2022-09-20 11:48 | CT Scan Report ---
CT OF THE ABDOMEN AND PELVIS WITH CONTRAST CLINICAL HISTORY: Change in bowel habits, abdominal bloating x 6 months. COMPARISON STUDY: KUB September 18, 2022. CT of the abdomen and pelvis and right upper quadrant ultrasound December 12, 2019. TECHNIQUE: Following IV administration of 93 mL of Optiray, axial images of the abdomen and pelvis we re obtained from the lung bases to the proximal femurs. Images were reviewed in the axial, sagittal, and coronal planes. IV contrast was administered without complication. Automated exposure control wa s utilized for the study. A dose lowering technique was utilized adhering to the principles of ALARA . Oral contrast was administered. CT DOSE: 952.28 mGy.cm FINDINGS: Lung bases are unremarkable. No pneumatosis, free air or portal gas is present. A small amy unt of pneumobilia is likely from prior sphincterotomy. Liver, spleen, adrenal glands, right kidney a nd pancreas are unremarkable. There is mild left renal scarring. There is no hydronephrosis. There is no evidence for a bowel obstruction. The caliber and wall thickness of small and large bowel are nor mal. There is a moderate amount of stool within the colon and rectum. No lymphadenopathy is present. No fluid collection is noted. Major vasculature is patent. Postoperative findings consistent with int ernal fixation of the intertrochanteric fracture of the left femur are noted. Alignment for differenc es in technique, postoperative appearance is likely unchanged. Soft tissue gas is expected in the ear ly postoperative setting. A small amount of fluid is also expected. No large hematoma is present. No additional fractures are identified. The appendix is normal. Small amount of gas within the bladder i s present. IMPRESSION: 1. No acute process within the abdomen or pelvis. 2. No bowel obstruction. No bowel wall thickening. Moderate amount of stool within colon and rectum. 3. Postoperative findings consistent with recent internal fixation of an intertrochanteric fracture o f the left femur. ACT 112: Negative or not required by law. Electronically signed by: Davy Bartholomew M.D. 09/20/2022 11:47 AM
--- NOTE | 2022-09-20 13:27 | Psychiatric Consultation ---
Date of Consultation September 20, 2022 Impression / Recommendations Impression 82 y/o woman with recurrent major depression (one reported previous episode) who reports symptoms as being in remission on current regimen of duloxetine 30 mg daily that was started in September 2021. She attributes a feeling of abdominal bloating to this medication, but does not associate it with any other problems. While she identifies the duloxetine as the cause of the bloating based on temporal correlation, it really looks as if this problem was first reported shortly before duloxetine was started rather than afterward. It is possible that the GI symptoms worsened after the medication was started, and GI side effects including bloating are certainly possible with duloxetine (and with nearly every other antidepressant as well). Even if the GI issues are not caused by the duloxetine, there might be chepe ropriate other reasons to discontinue it. A major one is that she dislikes the idea of being "dependent on" a medication and her ongoing uncertainly about whether she needs to take it or not. This is a reasonable uncertainty - her depression has not been chronic or highly recurrent, and based on average duration of major depressive episodes coupled with the average time patients go prior to seeking treatment, it's often very reasonable to consider discontinuing medication after a year. There are convincing reasons to seek to minimize overall medication load, especially in people her age. There are, however, potentially convincing reasons to continue the medication even if she might no longer need it for depression. These include that it's pretty effective for generalized anxiety disorder (for which many other antidepressants including SSRI's are typically not). Her prescribed lorazepam is quite high at up to 4 mg/day and there's a reasonable possibility she might feel more anxious if duloxetine were stopped so lorazepam might have to be increased. Duloxetine can also be effective for neuropathic pain, and pt reports that in her case it has been. It would be reasonable to expect neuropathic pain to worsen if she were to stop duloxetine so some other agent (such as a gabapentinoid) might have to be added to her regimen. Ultimately, the only good way to know for certain if duloxetine is contributing to her feeling of abdominal bloating or if she still needs to take it for depression (or anxiety or neuropathic pain) would be to stop it. As pt is aware, it is recommended that this medication not be stopped abruptly. A significant number of patients, but by no means every one, experience a discontinuation syndrome with abrupt cessation, especially from higher doses, consisting of flu- like symptoms, mood lability, and odd sensations that are usually described with electrical-sounding words starting with "z" ("zaps", "zings", etc.). The risk of this is mitigated by tapering. She's already taking the lxiy-nt-fesdix dose, so tapering should not be particularly complicated. In my experience, antidepressant-induced GI side effects usually resolve within roughly a week of stopping the medication. Relapse due to discontinuation usually takes somewhat longer, typically 2-4 weeks. It is therefore sometimes possible to answer the question of whether stopping medication would improve a possible side effect while still allowing time to resume the medication before relapse risk peaks if the presumed side effect does not improve. In her case there is additional uncertainty about whether a lower dose might be better- tolerated and whether she requires 30 mg/day rather than a lower dose. (1) Recurrent major depression in remission: (2) STEFFANY (generalized anxiety disorder): Plan To be very clear, in my opinion now would not be a good time to make changes in the duloxetine regimen. It might be appropriate to consider in a few weeks when she's less concerned about pain and mobility, ideally when she's near her pre- injury baseline. If under those conditions, and keeping in mind that it is reasonably likely to be reducing anxiety and neuropathic pain, she still feels strongly that she wants to try stopping the duloxetine (which I rather suspect she will), I recommend proceeding as follows: * Pt should have several appointments scheduled with her prescriber during this process at close intervals of 1-2 weeks for close monitoring until she's been off the medication for 6 weeks. * A clear plan should be in place including timelines and contingencies, and both pt and prescriber should have copies * There should be agreement about what will be done if symptoms worsen (the "backup plan") * resume duloxetine (since we know it works)? * start an alternate medication (for which we have no data about her response in terms of side effects and response, but which might be better-tolerated and still effective)? * if an alternate medication, which one? * venlafaxine XR would be the closest in terms of mechanism of action and treating similar symptoms, but may have higher risk of GI side effects than duloxetine * mirtazapine would likely have lower risk of GI side effects and could help with sleep, but isn't likely to help with neuropathic pain or be as effective for anxiety * Once there's agreement about the planned response if discontinuation is not working out as hoped, * reduce duloxetine to 20 mg daily for one week, monitoring for any improvement in bloating or worsening in mood, anxiety, or neuropathic pain * if improvement in bloating is seen and no worsening in mood, anxiety, or neuropathy, consider continuing the 20 mg dose indefinitely * if at some point pt really wants to stop that dose, it can't really be tapered, at which point it could be stopped and monitored as below * if neither improvement nor worsening is seen during the week on 20 mg, stop the 20 mg dose, monitoring for any improvement in bloating or worsening in mood, anxiety, or neuropathic pain * if improvement in bloating is seen and no worsening in mood, anxiety, or neuropathy, remain off duloxetine and monitor closely for relapse until off medication for 6 weeks * if worsening in anxiety or neuropathy but not in mood is seen, evaluate whether severity warrants initiating "backup plan" * after 2 weeks off duloxetine I would anticipate not much risk of further worsening in anxiety or neuropathy, so if those haven't become problems just focus on mood henceforth * if worsening in mood is seen (with or without change in bloating) during first two weeks off duloxetine, very strongly consider initiating "backup plan" immediately, keeping in mind that recurrence of mood symptoms within first 2 weeks suggests full major depression relapse is likely - relapse is more common after 2 weeks off medication and peaks around 4 weeks * if worsening in mood is seen after two weeks off duloxetine, decide whether severity warrants initiating "backup plan", keeping in mind that relapse is usually somewhat gradual and that medication will take time to work * at 6 weeks off mediation I would stop fretting about immediate depression relapse risk, and would characterize symptoms after that as a recurrence rather than a relapse Psych History Identifying Data FELICE CROSS is a 82-year-old woman with a history of depression and anxiety, admitted on 09/14/2022 for left intertrochanteric femoral fracture. Consult is by the hospitalist service for "at patient request assistance weaning off cymbalta". Chief Complaint "I'm not depressed or anything". History of Present Illness The 82 y/o woman is currently postoperative day 5 following ORIF of a left intertrochanteric femoral fracture. On approach she is sitting in a bedside ch air with multiple family members present. The bulk of my assessment was done with them out of the room, and later her and an adult daughter who's a family therapist were present. I have no concerns about her ability to provide an accurate history or to understand and process medical information. Currently, pt reports no significant psychiatric symptoms. She reports some apprehension about not being able to continue celecoxib following discharge and is worried about adequacy of pain control. She is also somewhat anxious to ensure ongoing physical therapy so she doesn't lose any function. Pt says she's interested in stopping duloxetine because she believes it makes her feel "bloated and uncomfortable". She does not attribute any other adverse effects to it. She's fairly certain duloxetine is the cause of the abdominal symptoms because she recalls that they started not long after she started the medication and that no other cause has been identified. Of significant note is that the EMR includes primary care office notes from before and after she began the duloxetine, and a complaint of "persistent abdominal bloating" was listed as problem on the day of the September 2021 visit when the duloxetine was first prescribed. I do not see it in earlier notes, though other GI issues including reflux, diarrhea, and constipation were reported. Pt reports that starting about a year and a half ago her "mood started slipping" and gradually worsened until she "was crying all the time for no reason". She can identify no precipitant and says "my life is great, so it makes no sense to feel that way". Her degree of interest in her usual activities diminished and her sleep worsened. She became somewhat anhedonic. She denies having felt hopeless or having had suicidal thoughts. She consulted her PCP and after some cognitive-behavioral interventions were ineffective, started duloxetine in September of last year at an initial dose of 30 mg/day which has not been changed. She says she thinks "it worked really well" and that it's been noticeably helpful for neuropathic pain as well. After "a few weeks" she stopped feeling so depressed and has been feeling like her usual self since then. Mrs. Cross reports that between the births of her first and second children (which by my calculation would have been in the 1960's) she took a medication the name of which she doesn't recall for similar depression symptoms. She doesn't remember having had any side effects and thinks it was effective. This would almost certainly have been a tricyclic antidepressant, the only realistic alternative at the time being an MAOI which would be highly unlikely as an initial medication trial. She denies any other serious depressive episodes. Pt somewhat downplays any other psychiatric symptoms, but "anxiety" is listed as an ongoing problem and she is currently prescribed lorazepam 2 mg BID PRN. She also has persistent complaints of "poor sleep" for which there are multiple readily-identifiable potential contributor, not least of which is her diagnosed obstructive sleep apnea. She denies symptoms consistent with panic, phobias, or obsessive-compulsive disorder but guardedly acknowledges that she worries a lot. Pt's and an adult daughter who's a family therapist endorse her report that her depression has not been chronic or highly recurrent. Past Psychiatric History Previous Psych History: One previous episode ca. 60 yr ago treated with what was most likely a TCA. No other antidepressant trials prior to current duloxetine. Previous Psych Admissions: none History of Previous Suicide Attempt: No Allergies Allergy/AdvReac Type Severity Reaction Status Date / Time Iodinated Contrast Media Allergy Intermediate Rash Verified 09/16/22 08:27 clindamycin [From Cleocin] Allergy Mild hives Verified 09/16/22 08:27 influenza virus vacc AdvReac Unknown Verified 09/16/22 08:50 trivalent, split [From Fluzone] Home Medications Medication Instructions Recorded Confirmed Type coenzyme Q10 200 mg capsule 200 mg PO DAILY 11/26/18 09/16/22 History cyanocobalamin (vitamin B-12) 1,000 mcg PO DAILY #90 tabs 11/26/18 09/16/22 History 1,000 mcg tablet aspirin 81 mg tablet,delayed 81 mg PO DAILY 12/12/19 09/16/22 History release (Jack Low Dose Aspirin) blood sugar diagnostic (Blood #100 ea 12/24/19 09/16/22 Rx Glucose Test strips) blood-glucose meter (Blood Glucose #1 ea 12/24/19 09/16/22 Rx Monitoring kit) lancets (OneTouch UltraSoft #100 ea 07/11/20 09/16/22 Rx Lancets) polyethylene glycol 3350 17 gram 17 g PO DAILY 03/31/21 09/16/22 History oral powder packet (Miralax) docusate sodium 100 mg capsule 100 mg PO BID PRN Constipation 01/12/22 09/16/22 History (Colace) [id number] C-Mn 250 1 cap PO BID 03/01/22 09/16/22 History mg-200 mg-30 mg-2.5 mg capsule atorvastatin 40 mg tablet 40 mg PO DAILY #90 tabs 04/01/22 09/16/22 Rx omeprazole 20 mg capsule,delayed 20 mg PO DAILY PRN reflux #90 caps 04/01/22 09/16/22 Rx release lorazepam 2 mg tablet 2 mg PO BID PRN anxiety #180 tabs 04/12/22 09/16/22 Rx azelastine 137 mcg (0.1 %) nasal 137 mcg (0.137 mL) intranasal BID 05/18/22 09/16/22 Rx spray aerosol #30 mL ipratropium bromide 21 mcg (0.03 2 spray intranasal DAILY #30 mL 05/18/22 09/16/22 Rx %) nasal spray duloxetine 30 mg capsule,delayed 30 mg PO DAILY #90 caps 07/12/22 09/16/22 Rx release irbesartan 300 mg tablet 300 mg PO DAILY #100 tabs 08/25/22 09/16/22 Rx metformin 500 mg tablet,extended 500 mg PO DAILY #100 tabs 08/25/22 09/16/22 Rx release 24 hr alendronate 35 mg tablet 35 mg PO .Thursdays09/16/22 09/16/22 History zinc 50 mg capsule 50 mg PO DAILY 09/16/22 09/16/22 History Patient History Medical History (Updated 09/20/22 @ 18:37 by Cale Upton MD) Allergic rhinitis Anxiety BPPV (benign paroxysmal positional vertigo) CKD (chronic kidney disease) stage 3, GFR 30-59 ml/min Depression with anxiety Diabetic peripheral neuropathy STEFFANY (generalized anxiety disorder) GERD (gastroesophageal reflux disease) Hypercholesterolemia Hypertension Insomnia Lumbar spinal stenosis Nausea vomiting and diarrhea Osteoporosis Raynaud's disease Recurrent major depression in remission Sjogrens syndrome Sleep apnea Thoracic compression fracture Type 2 diabetes mellitus Urinary incontinence Surgical History History of hand surgery Hx laparoscopic cholecystectomy (12/12/19) Laparoscopic Cholecystectomy 12/12/2019 S/P ERCP Dr. Wooten 12/12/2019 S/P ERCP (12/14/19) Endoscopic Retrograde Cholangiopancreatogram Dr. Wooten 12/14/2019 Status post section Status post laparoscopic cholecystectomy Family History Mother Arthritis Diabetes Father Arthritis Diabetes Family/Other Arthritis sibling Diabetes sibling Denies family history of Ovarian cancer Prostate cancer Myocardial infarction Breast cancer Colorectal cancer Social History Smoking Status: Never smoker Second Hand Exposure: No; Do You Dip or Chew Tobacco: No; Tobacco Cessation Education Requested by Patient: No Hx Alcohol Use: No Hx Substance Use: No Preferred Language: Bulgarian Communication Ability: Effective Visual Impairment: No Limitations Hearing Ability: Normal Bias Cutter Required: No Beliefs That Will Affect Care: None marital status: Current Living Situation: Spouse current occupational status: retired How many Children do You have: 4 Other Information That Helps Us Care for You: No Feels Safe at Home: Yes Safety Concerns: Feels Safe At This Time Childhood Exposure to Second-Hand Smoke: No Diet: regular caffeine: Yes (Coffee x 1 per day.) during the past year weight has: remained stable Dental Care, Regularly: No Physical Activity Frequency: 3-4 Times per Week Seatbelt Use: always Sunscreen Use: Yes Assistive Devices: None Physical Exam Psychiatric: Orientation: alert, oriented to person, oriented to place, oriented to time and cooperative Apperance: appropriately dressed (in hospital gown) and appropriately groomed; + did not appear stated age (appears younger than stated age) Eye Contact: good eye contact Motor Behavior: no abnormal motor movements; no psychomotor retardation Speech: normal rate/rhythm/volume of speech Affect: euthymic affect Mood: no depressed mood and no anxious mood Thought Process: goal directed thought process, linear/logical thought process and clear/coherent thought process Thought Content: reality based without delusions Suicidal Thoughts: denies suicidal thoughts, denies suicidal plan and denies suicidal intent Homicidal Thoughts: denies homicidal thoughts Hallucinations: no auditory hallucinations and no visual hallucinations Cognition: recent memory grossly intact, remote memory grossly intact, attention grossly intact and language grossly intact Estimated Intelligence: + above average estimated intelligence Insight: good insight Judgment: good judgement Vital Signs (Past 24 Hours): Last Vital Signs Temp 36.4 C L 09/20/22 07:11 Pulse 92 H 09/20/22 07:11 Resp 18 09/20/22 07:11 BP 162/84 H 09/20/22 07:11 Pulse Ox 97 09/20/22 07:11 O2 Del Method Room Air 09/20/22 13:00 O2 Flow Rate 2 09/17/22 05:00 Exam Statement: A physical exam was performed by the admitting hospitalist. I accept that physical as correct and adequate for the purposes of the inpatient physical exam. Review of Systems Psychiatric: no depression, no hopelessness, no anhedonia, no suicidal ideation, no confusion and no hallucinations Results & Data (PSY) Medications Administered Acetaminophen (Acetaminophen 500 Mg Tab) 500 mg PO TID [facility] Stop: 10/19/22 08:59 Last Admin: 09/20/22 10:18 Dose: 500 mg Documented By: Admin: 09/19/22 20:39 Dose: 500 mg Documented By: Admin: 09/19/22 14:17 Dose: Not Given Documented By: [facility] Admin: 09/19/22 10:07 Dose: 500 mg Documented By: MADHAV Hydrocodone Bitart/Acetaminophen (Hydrocodone/Acetamophen 5/325mg Tab) 1 tab PO Q6H PRN PRN Reason: Pain Stop: 10/03/22 07:29 Last Admin: 09/20/22 07:27 Dose: 1 tab Documented By: Admin: 09/19/22 20:39 Dose: 1 tab Documented By: Admin: 09/19/22 14:17 Dose: 1 tab Documented By: [facility] Admin: 09/19/22 08:15 Dose: 1 tab Documented By: [facility] Aspirin (Aspirin 81 Mg Ectab) 81 mg PO BID [facility] Stop: 10/15/22 20:59 Last Admin: 09/20/22 10:18 Dose: 81 mg Documented By: Admin: 09/19/22 20:41 Dose: 81 mg Documented By: Admin: 09/19/22 08:15 Dose: 81 mg Documented By: Admin: 09/18/22 20:06 Dose: 81 mg Documented By: Admin: 09/18/22 08:37 Dose: 81 mg Documented By: Admin: 09/17/22 21:50 Dose: 81 mg Documented By: Admin: 09/17/22 08:08 Dose: 81 mg Documented By: Admin: 09/16/22 20:45 Dose: 81 mg Documented By: Admin: 09/16/22 08:42 Dose: 81 mg Documented By: Admin: 09/15/22 20:39 Dose: 81 mg Documented By: CORTEZ Atorvastatin Calcium (Atorvastatin 40 Mg Tab) 40 mg PO DAILY@1800 JACOB Stop: 10/14/22 17:59 Last Admin: 09/19/22 18:47 Dose: 40 mg Documented By: Admin: 09/18/22 17:27 Dose: 40 mg Documented By: Admin: 09/17/22 17:15 Dose: 40 mg Documented By: Admin: 09/16/22 17:38 Dose: 40 mg Documented By: Admin: 09/15/22 18:40 Dose: 40 mg Documented By: Admin: 09/14/22 18:18 Dose: 40 mg Documented By: ERIC Bisacodyl (Bisacodyl 10 Mg Supp) 10 mg VT DAILY PRN PRN Reason: Constipation Stop: 10/14/22 13:11 Last Admin: 09/19/22 16:40 Dose: 10 mg Documented By: Admin: 09/17/22 14:00 Dose: 10 mg Documented By: KYLE Celecoxib (Celecoxib 100 Mg Cap) 100 mg PO BID JACOB Stop: 10/17/22 11:14 Last Admin: 09/20/22 10:19 Dose: 100 mg Documented By: Admin: 09/19/22 20:40 Dose: 100 mg Documented By: Admin: 09/19/22 08:15 Dose: 100 mg Documented By: Admin: 09/18/22 08:37 Dose: 100 mg Documented By: Admin: 09/17/22 21:50 Dose: 100 mg Documented By: Admin: 09/17/22 11:35 Dose: 100 mg Documented By: SHEREEN Duloxetine HCl (Duloxetine Hcl 30 Mg Cap) 30 mg PO DAILY@1800 JACOB Stop: 10/14/22 17:59 Last Admin: 09/19/22 18:47 Dose: 30 mg Documented By: Admin: 07/01/23 17:27 Dose: 30 mg Documented By: Admin: 09/17/22 17:16 Dose: 30 mg Documented By: Admin: 09/16/22 17:39 Dose: 30 mg Documented By: Admin: 09/15/22 18:40 Dose: 30 mg Documented By: SJAmy Admin: 09/14/22 18:19 Dose: 30 mg Documented By: ERIC Sodium Chloride (Nss) 500 mls @ 75 mls/hr IV .Q6H40M JACOB Stop: 10/20/22 07:59 Last Admin: 09/20/22 07:28 Dose: 75 mls/hr Documented By: CONCHITA Insulin Aspart (Insulin Aspart Per Unit Charge) 0 units SC ACHS JACOB Stop: 10/15/22 20:59 Last Admin: 09/20/22 12:39 Dose: Not Given Documented By: Admin: 09/20/22 08:16 Dose: Not Given Documented By: Admin: 09/19/22 20:41 Dose: 1 units Documented By: MARIBELL Co-signed By: ANTONI Admin: 09/19/22 18:25 Dose: Not Given Documented By: [facility] Admin: 09/19/22 12:47 Dose: Not Given Documented By: [facility] Admin: 09/19/22 09:33 Dose: Not Given Documented By: [facility] Admin: 09/18/22 20:58 Dose: Not Given Documented By: TKKirsten Co-signed By: SG Admin: 09/18/22 17:23 Dose: Not Given Documented By: Admin: 09/18/22 12:20 Dose: Not Given Documented By: Admin: 09/18/22 08:19 Dose: Not Given Documented By: Admin: 09/17/22 20:59 Dose: 1 units Documented By: EM Co-signed By: SG Admin: 09/17/22 17:11 Dose: Not Given Documented By: Admin: 09/17/22 12:16 Dose: 2 units Documented By: SHEREEN Co-signed By: RT Admin: 09/17/22 08:11 Dose: Not Given Documented By: Admin: 09/16/22 20:50 Dose: Not Given Documented By: Admin: 09/16/22 17:21 Dose: Not Given Documented By: SJAmy Admin: 09/16/22 12:26 Dose: 1 units Documented By: SJAmy Co-signed By: PAN Admin: 09/16/22 08:38 Dose: Not Given Documented By: Admin: 09/15/22 20:40 Dose: Not Given Documented By: CORTEZ Co-signed By: RICKI Insulin Glargine (Lantus Per Unit Charge) 5 units SQ BID JACOB Stop: 10/14/22 20:59 Last Admin: 09/20/22 09:11 Dose: 5 units Documented By: CONCHITA Co-signed By: ANIKET Admin: 09/19/22 20:41 Dose: 5 units Documented By: MARIBELL Co-signed By: ANTONI Admin: 09/19/22 09:33 Dose: 5 units Documented By: CONCHITA Co-signed By: SHEREEN Admin: 09/18/22 20:57 Dose: 5 units Documented By: NORTH Co-signed By: MYLES Admin: 09/18/22 08:37 Dose: 5 units Documented By: SHEREEN Co-signed By: CONCHITA Admin: 09/17/22 20:59 Dose: 5 units Documented By: STAN Co-signed By: MYLES Admin: 09/17/22 08:11 Dose: 5 units Documented By: SHEREEN Co-signed By: PAN Admin: 09/16/22 20:50 Dose: 5 units Documented By: MYLES Co-signed By: SIERRA Admin: 09/16/22 08:42 Dose: 5 units Documented By: VENKATESH Co-signed By: RT Admin: 09/15/22 20:40 Dose: 5 units Documented By: CORTEZ Co-signed By: RICKI Admin: 09/15/22 08:34 Dose: 2.5 units Documented By: VENKATESH Co-signed By: PAN Admin: 09/14/22 21:22 Dose: 5 units Documented By: CORTEZ Co-signed By: RICKI Lorazepam (Lorazepam 1 Mg Tab) 1 mg PO BID PRN PRN Reason: anxiety Stop: 10/14/22 15:00 Last Admin: 09/20/22 11:15 Dose: 1 mg Documented By: Admin: 09/19/22 14:17 Dose: 1 mg Documented By: Admin: 09/17/22 21:49 Dose: 1 mg Documented By: Admin: 09/16/22 20:45 Dose: 1 mg Documented By: Admin: 09/15/22 21:54 Dose: 1 mg Documented By: Admin: 09/15/22 12:41 Dose: 1 mg Documented By: Admin: 09/14/22 21:20 Dose: 1 mg Documented By: CORTEZ Magnesium Hydroxide (Magnesium Hydroxide Susp 30 Ml Udc) 30 ml PO DAILY PRN PRN Reason: Constipation Stop: 10/14/22 13:11 Last Admin: 09/17/22 09:41 Dose: 30 ml Documented By: SHEREEN Miscellaneous (Ipratropium: Order Awaiting Action) 1 each N/A QS [facility] Stop: 10/14/22 15:59 Last Admin: 09/20/22 08:16 Dose: Not Given Documented By: Admin: 09/20/22 00:21 Dose: Not Given Documented By: Admin: 09/19/22 17:16 Dose: Not Given Documented By: [facility] Admin: 09/19/22 08:16 Dose: Not Given Documented By: [facility] Admin: 09/18/22 23:02 Dose: Not Given Documented By: Admin: 09/18/22 15:13 Dose: Not Given Documented By: Admin: 09/18/22 07:40 Dose: Not Given Documented By: Admin: 09/18/22 00:01 Dose: Not Given Documented By: Admin: 09/17/22 15:45 Dose: Not Given Documented By: Admin: 09/17/22 08:08 Dose: Not Given Documented By: Admin: 09/17/22 01:00 Dose: Not Given Documented By: Admin: 09/16/22 15:22 Dose: Not Given Documented By: Admin: 09/16/22 08:20 Dose: Not Given Documented By: Admin: 09/15/22 23:11 Dose: Not Given Documented By: Admin: 09/15/22 16:21 Dose: Not Given Documented By: Admin: 09/15/22 07:30 Dose: Not Given Documented By: Admin: 09/14/22 22:52 Dose: Not Given Documented By: Admin: 09/14/22 17:12 Dose: Not Given Documented By: [facility] Pantoprazole Sodium (Pantoprazole 40 Mg Tab) 40 mg PO DAILY [facility] Stop: 10/15/22 08:59 Last Admin: 09/20/22 10:18 Dose: 40 mg Documented By: Admin: 09/19/22 08:15 Dose: 40 mg Documented By: Admin: 09/18/22 08:37 Dose: 40 mg Documented By: Admin: 09/17/22 08:08 Dose: 40 mg Documented By: Admin: 09/16/22 08:42 Dose: 40 mg Documented By: Admin: 09/15/22 08:34 Dose: 40 mg Documented By: VENKATESH Polyethylene Glycol (Polyethylene (Miralax) 17 Gm Pack) 17 gm PO BID JACOB Stop: 10/17/22 11:14 Last Admin: 09/20/22 10:19 Dose: 17 gm Documented By: Admin: 09/19/22 20:50 Dose: Not Given Documented By: Admin: 09/19/22 08:16 Dose: 17 gm Documented By: Admin: 09/18/22 20:08 Dose: 17 gm Documented By: Admin: 09/18/22 08:37 Dose: 17 gm Documented By: Admin: 09/17/22 21:06 Dose: 17 gm Documented By: Admin: 09/17/22 11:35 Dose: 17 gm Documented By: SHEREEN Senna/Docusate Sodium (Docusate Sodium/Senna 50/8.6mg Tab) 2 tab PO HS JACOB Stop: 10/14/22 20:59 Last Admin: 09/19/22 20:38 Dose: 2 tab Documented By: Admin: 09/18/22 20:17 Dose: 2 tab Documented By: Admin: 09/17/22 21:06 Dose: 2 tab Documented By: Admin: 09/16/22 20:45 Dose: 2 tab Documented By: Admin: 09/15/22 20:39 Dose: 2 tab Documented By: Admin: 09/14/22 19:58 Dose: Not Given Documented By: CORTEZ Coding Level of Care Code 99486 [facility] [place] Intl Hosp Care Lvl 3 Diagnoses Recurrent major depression in remission F33.40 STEFFANY (generalized anxiety disorder) F41.1 Time Spent (min) 115
[2022-09-20] MEDS: ATORVASTATIN 40 MG TAB PO SCH (17:01)
[2022-09-20] MEDS: DULoxetine HCL 30 MG CAP PO SCH (17:01)
[2022-09-20] MEDS: DOCUSATE SODIUM/SENNA 50/8.6MG TAB PO SCH (22:01)
--- NOTE | 2022-09-20 23:02 | Hospitalist Progress Note ---
Date of Service September 20, 2022 Assessment & Plan (1) Pathological fracture of left 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-related osteoporosis: Plan: POD #4 s/p ORIF with troch nail by Dr Pendleton. Course complicated by acute blood loss anemia (see below). DVT proph - asa 81mg BID x 6 weeks. Pain control - tramadol not helpful thus change to norco prn; cont scheduled tylenol but reduce to 500mg TID to allow more room for the norco; d/c dilaudid; resumed celebrex today at her request but advised against long-term use due to borderline renal function and concomitant aspirin use (high risk of PUD, gastritis, etc) . Appreciate ortho assistance. WBAT on LLE. Cont PT/OT. Will need rehab post-d/c. (2) Acute blood loss anemia: Plan: Patient with low or low-normal BPs, had vasovagal episode with a BM, weak, etc. Thus, Tx 1 unit PRBCs on 09/18/22. Tolerated such with nice response; H/H very stable today. Did give venofer 200mg IV x 1 today as well. No overt signs/symptoms of GI blood loss. (3) Abdominal bloating: Plan: KUB x-ray yesterday with moderate constipation. She did have a large bowel movement yesterday and again today. Despite moving her bowels she still has considerable bloating/distension. The bloating has been present for 6+ months. We have discussed CT a/p with contrast to r/o ovarian malignancy, other malignancy, etc. To clarify - she does NOT have IV contrast allergy. She had IV contrast in 2019. I reviewed all records from that time -- NO reaction identified. Patient states she had some sort of iodine-based wash during a breast surgery and developed a rash locally from the wash/antiseptic only. Thus, can proceed with CT a/p with IV/PO contrast tomorrow. Plan for gentle fluid before & after the CT given CrCl in the 30s. If CT is negative for pathology will recommend outpatient colonoscopy due to change in bowel habits. (4) GERD (gastroesophageal reflux disease): Plan: cont PPI (5) Type 2 diabetes mellitus: Plan: Hba1c 6.4% in 03/2022 mild T2DM/pre-DM BSGs well controlled here (6) Hypertension: Plan: due to #2 her BPs have been low or low-normal cont to hold ARB restart when BPs rise (7) CKD (chronic kidney disease) stage 3, GFR 30-59 ml/min: Plan: stage 3b baseline CrCl 30-40 BMP am for stability (8) Sjogrens syndrome: Plan: noted biotene, lemon candy, stay well-hydrated, etc (9) Raynaud's disease: Plan: no issues (10) DVT prophylaxis: Plan: aspirin 81mg BID x 6 weeks (11) Anxiety disorder: Plan: patient wants to wean off cymbalta has been on it several months it has made her restless legs worse, and she gets "jerks" of her limbs when resting and laying in bed despite being on it she remains quite anxious and tearful at times will ask psych to help with weaning off cymbalta and transitioning to something else Plan dispo - rehab Admission and Anticipated Discharge Date Admission Date: September 14, 2022 Subjective 82 yo female reports no new symptoms. Review of Systems Review of Systems: All systems reviewed & are unremarkable except as noted in HPI & below Physical Exam Physical Exam: Awake alert appropriate Cardiac exam is regular lungs are clear Results & Data Results & Data Vital Signs (Past 12 Hours) Vital Signs Temp Pulse Resp BP Pulse Ox O2 Del Method O2 Del Method 09/20/22 20:32 37.1 C 76 16 143/82 H 96 Room Air 09/20/22 17:00 Room Air 09/20/22 16:53 36.8 C 79 16 144/79 H 98 Room Air 09/20/22 13:00 Room Air PG Care Time/CCT Total # of Minutes Spent Total Time Spent with Patient: Total time spent is greater than 50% in coordination of care (as documented) at patient's floor/unit and/or counseling patient: Coding Level of Care Code 13913 SUB INP/OBS CARE 2/35MIN Diagnoses Pathological fracture of left 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-related osteoporosis M80.052A Acute blood loss anemia D62 Abdominal bloating R14.0 GERD (gastroesophageal reflux disease) K21.9 Type 2 diabetes mellitus E11.9 Diabetes mellitus complication status: without complication Diabetes mellitus superintendent container terminal insulin use: without superintendent container terminal use Hypertension I10 Hypertension type: essential hypertension CKD (chronic kidney disease) stage 3, GFR 30-59 ml/min N18.3 Sjogrens syndrome M35.00 Raynaud's disease I73.00 DVT prophylaxis Z29.9 Anxiety disorder F41.9 (5) Type 2 diabetes mellitus Diabetes mellitus complication status: without complication Diabetes mellitus mcfp insulin use: without mcfp use Qualified Code(s): E11.9 - Type 2 diabetes mellitus without complications (6) Hypertension Hypertension type: essential hypertension Qualified Code(s): I10 - Essential (primary) hypertension
[2022-09-21] MEDS: SODIUM CHLORIDE 0.9% 500 ML IV SCH ×3 (04:56→17:54)
[2022-09-21 07:29] LABS: Calcium 8.9 mg/dl (8.6-10.3); Creatinine Clr Calc Pharmacy 39.4 ml/min; Est GFR (African American) 60.3 ml/min; Est GFR (Non-African American) 52.1 ml/min; Hematocrit (blood only) 29.8 % (37.0-47.0); Hemoglobin 9.6 g/dl (12.0-16.0); Mean Corpuscular Hemoglobin 29.6 pg (25.0-34.0); Mean Corpuscular Hgb Conc 32.2 g/dL (32.0-36.0); Mean Platelet Volume 9.5 fL (9.4-12.4); Platelet Count 193 K/uL (130-400); Potassium 4.5 mmol/L (3.5-5.1); RDW Coefficient of Variation 15.6 % (11.5-14.5); RDW Standard Deviation 51.4 fL (36.4-46.3); Red Blood Count 3.24 M/uL (4.20-5.40); White Blood Count 5.58 K/ul (4.8-10.8)
[2022-09-21] MEDS: ACETAMINOPHEN 500 MG TAB PO SCH ×3 (08:02→21:42)
[2022-09-21] MEDS: PANTOprazole 40 MG TAB PO SCH (08:02)
[2022-09-21] MEDS: ASPIRIN 81 MG ECTAB PO SCH ×2 (08:02→21:41)
[2022-09-21] MEDS: CELECOXIB 100 MG CAP PO SCH ×2 (08:02→21:41)
[2022-09-21] MEDS: POLYETHYLENE (MIRALAX) 17 GM PACK PO SCH ×2 (08:02→21:44)
[2022-09-21] MEDS: INSULIN ASPART PER UNIT CHARGE SC SCH ×4 (08:04→21:45)
[2022-09-21] MEDS: LANTUS PER UNIT CHARGE SQ SCH ×2 (08:06→21:42)
[2022-09-21] MEDS: HYDROCODONE/ACETAMOPHEN 5/325MG TAB PO PRN ×3 (08:06→21:40)
[2022-09-21] MEDS: ATORVASTATIN 40 MG TAB PO SCH (17:51)
[2022-09-21] MEDS: DULoxetine HCL 30 MG CAP PO SCH (17:51)
[2022-09-21] MEDS: LORazepam 1 MG TAB PO PRN (21:40)
[2022-09-21] MEDS: DOCUSATE SODIUM/SENNA 50/8.6MG TAB PO SCH (21:43)
--- NOTE | 2022-09-21 23:32 | Hospitalist Progress Note ---
Date of Service September 21, 2022 Assessment & Plan (1) Pathological fracture of left 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-related osteoporosis: Plan: POD #4 s/p ORIF with troch nail by Dr Pendleton. Course complicated by acute blood loss anemia (see below). DVT proph - asa 81mg BID x 6 weeks. Pain control - tramadol not helpful thus change to norco prn; cont scheduled tylenol but reduce to 500mg TID to allow more room for the norco; d/c dilaudid; resumed celebrex today at her request but advised against long-term use due to borderline renal function and concomitant aspirin use (high risk of PUD, gastritis, etc) . Appreciate ortho assistance. WBAT on LLE. Cont PT/OT. Will need rehab post-d/c. Family appeal is underway. (2) Acute blood loss anemia: Plan: Patient with low or low-normal BPs, had vasovagal episode with a BM, weak, etc. Thus, Tx 1 unit PRBCs on 09/18/22. Tolerated such with nice response; H/H very stable today. Did give venofer 200mg IV x 1 today as well. No overt signs/symptoms of GI blood loss. (3) Abdominal bloating: Plan: KUB x-ray yesterday with moderate constipation. She did have a large bowel movement yesterday and again today. Despite moving her bowels she still has considerable bloating/distension. The bloating has been present for 6+ months. We have discussed CT a/p with contrast to r/o ovarian malignancy, other malignancy, etc. To clarify - she does NOT have IV contrast allergy. She had IV contrast in 2019. I reviewed all records from that time -- NO reaction identified. Patient states she had some sort of iodine-based wash during a breast surgery and developed a rash locally from the wash/antiseptic only. Thus, can proceed with CT a/p with IV/PO contrast tomorrow. Plan for gentle fluid before & after the CT given CrCl in the 30s. If CT is negative for pathology will recommend outpatient colonoscopy due to change in bowel habits. (4) GERD (gastroesophageal reflux disease): Plan: cont PPI (5) Type 2 diabetes mellitus: Plan: Hba1c 6.4% in 03/2022 mild T2DM/pre-DM BSGs well controlled here (6) Hypertension: Plan: due to #2 her BPs have been low or low-normal cont to hold ARB restart when BPs rise (7) CKD (chronic kidney disease) stage 3, GFR 30-59 ml/min: Plan: stage 3b baseline CrCl 30-40 BMP am for stability (8) Sjogrens syndrome: Plan: noted biotene, lemon candy, stay well-hydrated, etc (9) Raynaud's disease: Plan: no issues (10) DVT prophylaxis: Plan: aspirin 81mg BID x 6 weeks (11) Anxiety disorder: Plan: patient wants to wean off cymbalta has been on it several months it has made her restless legs worse, and she gets "jerks" of her limbs when resting and laying in bed despite being on it she remains quite anxious and tearful at times will ask psych to help with weaning off cymbalta and transitioning to something else Plan dispo - rehab Admission and Anticipated Discharge Date Admission Date: September 14, 2022 Subjective 82 yo female reports no new symptoms. Review of Systems Review of Systems: All systems reviewed & are unremarkable except as noted in HPI & below Physical Exam Physical Exam: Awake alert appropriate Cardiac exam is regular lungs are clear Results & Data Results & Data Vital Signs (Past 12 Hours) Vital Signs Temp Pulse Pulse Resp BP Pulse Ox O2 Del Method 09/21/22 21:39 37.1 C 80 16 147/87 H 96 Room Air 09/21/22 15:46 36.9 C 85 17 132/77 96 Room Air PG Care Time/CCT Total # of Minutes Spent Total Time Spent with Patient: Total time spent is greater than 50% in coordination of care (as documented) at patient's floor/unit and/or counseling patient: Coding Level of Care Code 34366 SUB INP/OBS CARE 2/35MIN Diagnoses Pathological fracture of left 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-related osteoporosis M80.052A Acute blood loss anemia D62 Abdominal bloating R14.0 GERD (gastroesophageal reflux disease) K21.9 Type 2 diabetes mellitus E11.9 Diabetes mellitus complication status: without complication Diabetes mellitus fci insulin use: without terminal manager use Hypertension I10 Hypertension type: essential hypertension CKD (chronic kidney disease) stage 3, GFR 30-59 ml/min N18.3 Sjogrens syndrome M35.00 Raynaud's disease I73.00 DVT prophylaxis Z29.9 Anxiety disorder F41.9 (5) Type 2 diabetes mellitus Diabetes mellitus complication status: without complication Diabetes mellitus terminal manager insulin use: without fci use Qualified Code(s): E11.9 - Type 2 diabetes mellitus without complications (6) Hypertension Hypertension type: essential hypertension Qualified Code(s): I10 - Essential (primary) hypertension
[2022-09-22] MEDS: PANTOprazole 40 MG TAB PO SCH (09:14)
[2022-09-22] MEDS: ACETAMINOPHEN 500 MG TAB PO SCH ×3 (09:14→21:25)
[2022-09-22] MEDS: ASPIRIN 81 MG ECTAB PO SCH ×2 (09:14→21:25)
[2022-09-22] MEDS: CELECOXIB 100 MG CAP PO SCH ×2 (09:14→21:25)
[2022-09-22] MEDS: POLYETHYLENE (MIRALAX) 17 GM PACK PO SCH ×2 (09:15→21:26)
[2022-09-22] MEDS: LANTUS PER UNIT CHARGE SQ SCH ×2 (09:24→21:26)
[2022-09-22] MEDS: INSULIN ASPART PER UNIT CHARGE SC SCH ×4 (09:24→21:25)
[2022-09-22] MEDS: HYDROCODONE/ACETAMOPHEN 5/325MG TAB PO PRN (13:21)
[2022-09-22] MEDS: ATORVASTATIN 40 MG TAB PO SCH (18:01)
[2022-09-22] MEDS: DULoxetine HCL 30 MG CAP PO SCH (18:01)
[2022-09-22] MEDS: LORazepam 1 MG TAB PO PRN (21:25)
[2022-09-22] MEDS: DOCUSATE SODIUM/SENNA 50/8.6MG TAB PO SCH (21:32)
--- NOTE | 2022-09-22 22:28 | Hospitalist Progress Note ---
Date of Service September 22, 2022 Assessment & Plan (1) Pathological fracture of left 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-related osteoporosis: Plan: POD #4 s/p ORIF with troch nail by Dr Pendleton. Course complicated by acute blood loss anemia (see below). DVT proph - asa 81mg BID x 6 weeks. Pain control - tramadol not helpful thus change to norco prn; cont scheduled tylenol but reduce to 500mg TID to allow more room for the norco; d/c dilaudid; resumed celebrex today at her request but advised against long-term use due to borderline renal function and concomitant aspirin use (high risk of PUD, gastritis, etc) . Appreciate ortho assistance. WBAT on LLE. Cont PT/OT. Will need rehab post-d/c. Family appeal is underway. (2) Acute blood loss anemia: Plan: Patient with low or low-normal BPs, had vasovagal episode with a BM, weak, etc. Thus, Tx 1 unit PRBCs on 09/18/22. Tolerated such with nice response; H/H very stable today. Did give venofer 200mg IV x 1 today as well. No overt signs/symptoms of GI blood loss. (3) Abdominal bloating: Plan: KUB x-ray yesterday with moderate constipation. She did have a large bowel movement yesterday and again today. Despite moving her bowels she still has considerable bloating/distension. The bloating has been present for 6+ months. We have discussed CT a/p with contrast to r/o ovarian malignancy, other malignancy, etc. To clarify - she does NOT have IV contrast allergy. She had IV contrast in 2019. I reviewed all records from that time -- NO reaction identified. Patient states she had some sort of iodine-based wash during a breast surgery and developed a rash locally from the wash/antiseptic only. Thus, can proceed with CT a/p with IV/PO contrast tomorrow. Plan for gentle fluid before & after the CT given CrCl in the 30s. If CT is negative for pathology will recommend outpatient colonoscopy due to change in bowel habits. (4) GERD (gastroesophageal reflux disease): Plan: cont PPI (5) Type 2 diabetes mellitus: Plan: Hba1c 6.4% in 03/2022 mild T2DM/pre-DM BSGs well controlled here (6) Hypertension: Plan: due to #2 her BPs have been low or low-normal cont to hold ARB restart when BPs rise (7) CKD (chronic kidney disease) stage 3, GFR 30-59 ml/min: Plan: stage 3b baseline CrCl 30-40 BMP am for stability (8) Sjogrens syndrome: Plan: noted biotene, lemon candy, stay well-hydrated, etc (9) Raynaud's disease: Plan: no issues (10) DVT prophylaxis: Plan: aspirin 81mg BID x 6 weeks (11) Anxiety disorder: Plan: patient wants to wean off cymbalta has been on it several months it has made her restless legs worse, and she gets "jerks" of her limbs when resting and laying in bed despite being on it she remains quite anxious and tearful at times Patient as christiano more calm over past few days. Plan dispo - rehab Admission and Anticipated Discharge Date Admission Date: September 14, 2022 Subjective Patient reports no new symptoms. Review of Systems Review of Systems: All systems reviewed & are unremarkable except as noted in HPI & below Physical Exam Physical Exam: Awake alert appropriate Cardiac exam is regular lungs are clear Results & Data Results & Data Vital Signs (Past 12 Hours) Vital Signs Temp Pulse Resp BP Pulse Ox O2 Del Method 09/22/22 20:40 36.3 C L 87 18 148/87 H 96 Room Air 09/22/22 14:57 36.7 C 80 16 155/76 H 98 Room Air PG Care Time/CCT Total # of Minutes Spent Total Time Spent with Patient: Total time spent is greater than 50% in coordination of care (as documented) at patient's floor/unit and/or counseling patient: Coding Level of Care Code 95743 SUB INP/OBS CARE 2/35MIN Diagnoses Pathological fracture of left 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-related osteoporosis M80.052A Acute blood loss anemia D62 Abdominal bloating R14.0 GERD (gastroesophageal reflux disease) K21.9 Type 2 diabetes mellitus E11.9 Diabetes mellitus complication status: without complication Diabetes mellitus medical insurance verifier insulin use: without medical insurance verifier use Hypertension I10 Hypertension type: essential hypertension CKD (chronic kidney disease) stage 3, GFR 30-59 ml/min N18.3 Sjogrens syndrome M35.00 Raynaud's disease I73.00 DVT prophylaxis Z29.9 Anxiety disorder F41.9 (5) Type 2 diabetes mellitus Diabetes mellitus complication status: without complication Diabetes mellitus fci insulin use: without medical insurance verifier use Qualified Code(s): E11.9 - Type 2 diabetes mellitus without complications (6) Hypertension Hypertension type: essential hypertension Qualified Code(s): I10 - Essential (primary) hypertension
[2022-09-23] MEDS: HYDROCODONE/ACETAMOPHEN 5/325MG TAB PO PRN (03:16)
[2022-09-23] MEDS: INSULIN ASPART PER UNIT CHARGE SC SCH ×4 (08:42→21:35)
[2022-09-23] MEDS: ASPIRIN 81 MG ECTAB PO SCH ×2 (08:45→21:31)
[2022-09-23] MEDS: ACETAMINOPHEN 500 MG TAB PO SCH ×3 (08:45→21:31)
[2022-09-23] MEDS: PANTOprazole 40 MG TAB PO SCH (08:45)
[2022-09-23] MEDS: CELECOXIB 100 MG CAP PO SCH ×2 (08:46→21:31)
[2022-09-23] MEDS: POLYETHYLENE (MIRALAX) 17 GM PACK PO SCH ×2 (08:46→21:29)
[2022-09-23] MEDS: LANTUS PER UNIT CHARGE SQ SCH ×2 (08:56→21:35)
--- NOTE | 2022-09-23 09:31 | Hospitalist Progress Note ---
Date of Service September 23, 2022 Assessment & Plan (1) Pathological fracture of left 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-related osteoporosis: Plan: s/p ORIF 09/15/[address] with troch nail by Dr Pendleton. Course complicated by acute blood loss anemia DVT proph - asa 81mg BID x 6 weeks. Pain control - tramadol not helpful. Hydrocodone and Tylenol resumed celebrex today at her request but advised against long-term use due to borderline renal function and concomitant aspirin use (high risk of PUD, gastritis, etc) WBAT on LLE. Cont PT/OT. Will need rehab post-d/c. Family appeal is underway. (2) Acute blood loss anemia: Plan: Patient with low or low-normal BPs, had vasovagal episode with a BM, weak, etc. Thus, Tx 1 unit PRBCs on 09/18/22. Tolerated such with nice response; Hgb 9.6 Did give venofer 200mg IV x 1 No overt signs/symptoms of GI blood loss. (3) Abdominal bloating: Plan: KUB x-ray yesterday with moderate constipation. She did have a large bowel movement yesterday and again today. Despite moving her bowels she still has considerable bloating/distension. The bloating has been present for 6+ months. CT abd pelvis 09/20 no acute process in abdomen, moderate stool in colon and rectum continue laxatives and cathartic agents ordered additional senna a.m. 09/24/2022 (4) GERD (gastroesophageal reflux disease): Plan: cont PPI (5) Type 2 diabetes mellitus: Plan: Hba1c 6.4% in 03/2022 mild T2DM/pre-DM BSGs well controlled here (6) Hypertension: Plan: BPs have been low or low-normal cont to hold ARB (7) CKD (chronic kidney disease) stage 3, GFR 30-59 ml/min: Plan: stage 3b baseline CrCl 30-40 (8) Sjogrens syndrome: Plan: noted biotene, lemon candy, stay well-hydrated, etc (9) Raynaud's disease: Plan: no issues (10) DVT prophylaxis: Plan: aspirin 81mg BID x 6 weeks (11) Anxiety disorder: Plan: patient wants to wean off cymbalta has been on it several months it has made her restless legs worse, and she gets "jerks" of her limbs when resting and laying in bed despite being on it she remains quite anxious and tearful at times Plan dispo - rehab Admission and Anticipated Discharge Date Admission Date: September 14, 2022 Subjective Patient was observed ambulating with occupational therapy using a walker denies significant pain or discomfort does have significant anxiety regarding her disposition Physical Exam Physical Exam: Awake alert and appropriate no cardiopulmonary symptoms no respiratory distress Results & Data Results & Data Vital Signs (Past 12 Hours) Vital Signs Temp Pulse Resp BP Pulse Ox O2 Del Method 09/23/22 07:13 97.9 F 80 16 138/78 96 Room Air PG Care Time/CCT Total # of Minutes Spent Total Time Spent with Patient: Total time spent is greater than 50% in coordination of care (as documented) at patient's floor/unit and/or counseling patient: Coding Level of Care Code 59653 SUB INP/OBS CARE 2/35MIN Diagnoses Pathological fracture of left 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-related osteoporosis M80.052A Acute blood loss anemia D62 Abdominal bloating R14.0 GERD (gastroesophageal reflux disease) K21.9 Type 2 diabetes mellitus E11.9 Diabetes mellitus complication status: without complication Diabetes mellitus detention insulin use: without detention use Hypertension I10 Hypertension type: essential hypertension CKD (chronic kidney disease) stage 3, GFR 30-59 ml/min N18.3 Sjogrens syndrome M35.00 Raynaud's disease I73.00 DVT prophylaxis Z29.9 Anxiety disorder F41.9 (5) Type 2 diabetes mellitus Diabetes mellitus complication status: without complication Diabetes mellitus detention insulin use: without ferry terminal supervisor use Qualified Code(s): E11.9 - Type 2 diabetes mellitus without complications (6) Hypertension Hypertension type: essential hypertension Qualified Code(s): I10 - Essential (primary) hypertension
[2022-09-23] MEDS: DULoxetine HCL 30 MG CAP PO SCH (18:41)
[2022-09-23] MEDS: ATORVASTATIN 40 MG TAB PO SCH (18:41)
[2022-09-23] MEDS: DOCUSATE SODIUM/SENNA 50/8.6MG TAB PO SCH (21:30)
[2022-09-23] MEDS: LORazepam 1 MG TAB PO PRN (22:31)
[2022-09-24] MEDS: HYDROCODONE/ACETAMOPHEN 5/325MG TAB PO PRN ×3 (06:38→18:26)
[2022-09-24] MEDS: DOCUSATE SODIUM/SENNA 50/8.6MG TAB PO SCH ×2 (07:56→21:00)
[2022-09-24] MEDS: POLYETHYLENE (MIRALAX) 17 GM PACK PO SCH ×2 (07:56→21:01)
[2022-09-24] MEDS: ACETAMINOPHEN 500 MG TAB PO SCH ×3 (08:10→20:59)
[2022-09-24] MEDS: ASPIRIN 81 MG ECTAB PO SCH ×2 (08:11→20:59)
[2022-09-24] MEDS: CELECOXIB 100 MG CAP PO SCH ×2 (08:11→20:59)
[2022-09-24] MEDS: PANTOprazole 40 MG TAB PO SCH (08:11)
[2022-09-24] MEDS: INSULIN ASPART PER UNIT CHARGE SC SCH ×4 (08:12→21:07)
[2022-09-24] MEDS: LANTUS PER UNIT CHARGE SQ SCH ×2 (08:15→21:08)
[2022-09-24] MEDS: DULoxetine HCL 30 MG CAP PO SCH (17:17)
[2022-09-24] MEDS: ATORVASTATIN 40 MG TAB PO SCH (17:17)
--- NOTE | 2022-09-24 17:35 | Hospitalist Progress Note ---
Date of Service September 24, 2022 Assessment & Plan (1) Pathological fracture of left 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-related osteoporosis: Plan: s/p ORIF 09/15/22 with troch nail by Dr Pendleton. Course complicated by acute blood loss anemia DVT proph - asa 81mg BID x 6 weeks. Pain control - tramadol not helpful. Hydrocodone and Tylenol resumed celebrex today at her request but advised against long-term use due to borderline renal function and concomitant aspirin use (high risk of PUD, gastritis, etc) WBAT on LLE. Cont PT/OT. Will need rehab post-d/c. Family appeal is underway. (2) Acute blood loss anemia: Plan: Patient with low or low-normal BPs, had vasovagal episode with a BM, weak, etc. Thus, Tx 1 unit PRBCs on 09/18/22. Tolerated such with nice response; Hgb 9.6 Did give venofer 200mg IV x 1 No overt signs/symptoms of GI blood loss. (3) Abdominal bloating: Plan: KUB x-ray yesterday with moderate constipation. She did have a large bowel movement yesterday and again today. Despite moving her bowels she still has considerable bloating/distension. The bloating has been present for 6+ months. CT abd pelvis 09/20 no acute process in abdomen, moderate stool in colon and rectum continue laxatives and cathartic agents ordered additional senna a.m. 09/24/2022 (4) GERD (gastroesophageal reflux disease): Plan: cont PPI (5) Type 2 diabetes mellitus: Plan: Hba1c 6.4% in 03/2022 mild T2DM/pre-DM BSGs well controlled here (6) Hypertension: Plan: BPs have been low or low-normal cont to hold ARB (7) CKD (chronic kidney disease) stage 3, GFR 30-59 ml/min: Plan: stage 3b baseline CrCl 30-40 (8) Sjogrens syndrome: Plan: noted biotene, lemon candy, stay well-hydrated, etc (9) Raynaud's disease: Plan: no issues (10) DVT prophylaxis: Plan: aspirin 81mg BID x 6 weeks (11) Anxiety disorder: Plan: patient wants to wean off cymbalta has been on it several months it has made her restless legs worse, and she gets "jerks" of her limbs when resting and laying in bed despite being on it she remains quite anxious and tearful at times Plan dispo - rehab Admission and Anticipated Discharge Date Admission Date: September 14, 2022 Subjective Patient was observed ambulating with occupational therapy using a walker denies significant pain or discomfort does have significant anxiety regarding her disposition Physical Exam Physical Exam: Awake alert and appropriate no cardiopulmonary symptoms no respiratory distress Results & Data Results & Data Vital Signs (Past 12 Hours) Vital Signs Temp Pulse Resp BP Pulse Ox O2 Del Method 09/24/22 15:44 98.1 F 84 16 130/83 98 Room Air 09/24/22 07:04 98.1 F 84 18 135/80 95 Room Air PG Care Time/CCT Total # of Minutes Spent Total Time Spent with Patient: Total time spent is greater than 50% in coordination of care (as documented) at patient's floor/unit and/or counseling patient: Coding Level of Care Code 85339 SUB INP/OBS CARE 04/14MIN Diagnoses Pathological fracture of left 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-related osteoporosis M80.052A Acute blood loss anemia D62 Abdominal bloating R14.0 GERD (gastroesophageal reflux disease) K21.9 Type 2 diabetes mellitus E11.9 Diabetes mellitus rat exterminator insulin use: without rat exterminator use Diabetes mellitus complication status: without complication Hypertension I10 Hypertension type: essential hypertension CKD (chronic kidney disease) stage 3, GFR 30-59 ml/min N18.3 Sjogrens syndrome M35.00 Raynaud's disease I73.00 DVT prophylaxis Z29.9 Anxiety disorder F41.9 (5) Type 2 diabetes mellitus Diabetes mellitus nursing home insulin use: without nursing home use Diabetes mellitus complication status: without complication Qualified Code(s): E11.9 - Type 2 diabetes mellitus without complications (6) Hypertension Hypertension type: essential hypertension Qualified Code(s): I10 - Essential (primary) hypertension
[2022-09-24] MEDS: LORazepam 1 MG TAB PO PRN (21:55)
[2022-09-25] MEDS: HYDROCODONE/ACETAMOPHEN 5/325MG TAB PO PRN ×2 (05:33→11:23)
[2022-09-25] MEDS: INSULIN ASPART PER UNIT CHARGE SC SCH (08:11)
[2022-09-25] MEDS: PANTOprazole 40 MG TAB PO SCH (08:11)
[2022-09-25] MEDS: CELECOXIB 100 MG CAP PO SCH (08:11)
[2022-09-25] MEDS: ASPIRIN 81 MG ECTAB PO SCH (08:11)
[2022-09-25] MEDS: ACETAMINOPHEN 500 MG TAB PO SCH (08:12)
[2022-09-25] MEDS: DOCUSATE SODIUM/SENNA 50/8.6MG TAB PO SCH (08:12)
[2022-09-25] MEDS: POLYETHYLENE (MIRALAX) 17 GM PACK PO SCH (08:12)
[2022-09-25] MEDS: LANTUS PER UNIT CHARGE SQ SCH (08:14)
--- NOTE | 2022-09-25 16:55 | Discharge Summary ---
Date of Service September 25, 2022 Admission HPI Per Admitting Provider Eloise is an 82 year old female with a PMH significant for HTN, HLP, DM, UDAY, Sjogren syndrome, Raynaud's disease, and CKD who presented to the [facility] ED via EMS on 09/14/22 due to a fall and subsequent left arm and left leg pain. In the ED vitals were stable. Labs including CBC, CMP, and covid 19 screen were unremarkable, UA is in process. Chest xray was WNL but xray of the left hip was read as "Intertrochanteric fracture of the left proximal femur". Prior to admission the patient was given 75 mcg of IV fentanyl. At the time of the exam the patient was lying in bed in no acute distress with her sitting bedside, history was obtained from all. She was in her normal state of health, standing on the driveway when she lost her balance while turning and fell backwards. Her states that their driveway slants downward so she was unable to stabilize herself. The patient denies feeling lightheaded, dizzy, feeling SOB, chest pain, heart palpitations prior to or after her fall. She landed on her left arm/hip and did hit the back of her head, but denies any LOC or head pain at this time. Her only pain at his time is left hip and left elbow pain. She denies recent fever, chills, chest pain, SOB, neck or back pain, abd pain, nausea, vomiting, diarrhea, dysuria, hematuria, melena, LE swelling. She took all of her am medications prior to her fall today. We discussed code status, she wishes to be a full code and for her to make medical decisions for her if she cannot make them herself. Please refer to Dr. Thomas's attestation for any changes to the treatment plan Principal Diagnosis left hip fracture with trochanteric nail repair 09/15/22 Discharge Exam pt was doing well, no shortness of breath, cardiac regular with murmur Discharge Data Allergies Allergy/AdvReac Type Severity Reaction Status Date / Time Iodinated Contrast Media Allergy Intermediate Rash Verified 09/16/22 08:27 clindamycin [From Cleocin] Allergy Mild hives Verified 09/16/22 08:27 influenza virus vacc AdvReac Unknown Verified 09/16/22 08:50 trivalent, split [From Fluzone] Consultations 09/14/22 12:43 ED Decision to Admit Stat 09/14/22 13:38 Consult Orthopedic Surgery Routine 09/20/22 06:55 Consult Psychiatry Routine Procedures Performed Operation Date: 09/15/22 08:35 Actual Procedures p Left Trochanteric Nail(Left) - [facility], Ordered Studies 09/14/22 12:02 CT head/brain wo con Stat 09/15/22 14:00 FL hip LT 2-3V Routine 09/20/22 11:00 CT Abd and Pelvis [CT abd pelvis oral and IV con] Routine Hospital Course (1) 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 Course complicated by acute blood loss anemia DVT proph - asa 81mg BID x 6 weeks. Pain control - tramadol not helpful. Hydrocodone and Tylenol resumed celebrex today at her request but advised against long-term use due to borderline renal function and concomitant aspirin use (high risk of PUD, gastritis, etc) WBAT on LLE. Cont PT/OT., rehab post-d/c. (2) Acute blood loss anemia: Patient with low or low-normal BPs, had vasovagal episode with a BM, weak, etc. Thus, Tx 1 unit PRBCs on 09/18/22. Tolerated such with nice response; Hgb 9.6 Did give venofer 200mg IV x 1 No overt signs/symptoms of GI blood loss. (3) Abdominal bloating: KUB x-ray yesterday with moderate constipation. She did have a large bowel movement yesterday and again today. did have good bowel movements The bloating has been present for 6+ months. CT abd pelvis 09/20 no acute process in abdomen, moderate stool in colon and rectum continue laxatives and cathartic agents ordered additional senna a.m. 09/24/2022 (4) GERD (gastroesophageal reflux disease): cont PPI (5) Type 2 diabetes mellitus: Hba1c 6.4% in 03/2022 mild T2DM/pre-DM BSGs well controlled here (6) Hypertension: resume arb (7) CKD (chronic kidney disease) stage 3, GFR 30-59 ml/min: stage 3b baseline CrCl 30-40 (8) Sjogrens syndrome: noted biotene, lemon candy, stay well-hydrated, etc (9) Raynaud's disease: no issues (10) DVT prophylaxis: aspirin 81mg BID x 6 weeks (11) Anxiety disorder: patient wants to wean off cymbalta has been on it several months it has made her restless legs worse, and she gets "jerks" of her limbs when re sting and laying in bed despite being on it she remains quite anxious and tearful at times Total Time Total Time Spent Total Time Spent (In Minutes): it required greater than 30 minutes to prepare this patient for discharge Discharge Plan Discharge Items Patient Disposition: Transfer Long Term Fac Reason For Visit: FALL, LEFT LEG PAIN Discharge Diagnosis: Left Intertrochanteric Hip Fracture Activity: Per Instructions section Weightbearing: Left weightbearing Weightbearing Comment: as tolerated with walker Non-emergency contact: Surgeon Call non-emergency contact if: you have any medication questions, your temperature is above 101.5, your wound has increased redness and your wound has increased drainage Follow-up/Referrals: Essie Hernandez DO [Primary Care Provider] - 10/04/22 9:30 am Mike Pendleton DO [Surgeon] - (Follow up with Dr. Pendleton in 2 weeks from the day of your surgery for your first post operative visit. 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 You are to ambulate with a walker or crutches for approximately 6 weeks. B. You are WEIGHT BEARING TOLERATED on your operative lower extremity for at least 6 weeks. C. Wear low heeled shoes with non-slip soles D. Be sure that your floors are free of things that could trip you throw rugs, electrical cords, and small objects. Avoid wet and waxed floors, especially with crutches/walker/cane. E. Try to walk several times a day with rest periods between. F. You may shower 48 hours after surgery and get the incision area wet, but DO NOT soak or submerge incision area in water. (No baths, swimming pools, hot tubs) G. You may have a large, band-aid like dressing over your incision (Aquacel). This will remain on your incision for 7 days, and then can be removed. You CAN shower with this on. If incision is leaking through the dressing, please call the office . H. Do NOT apply soap or any ointment/lotions directly over incision. I. You may use ice as needed to operative site. SPECIAL CARE INSTRUCTIONS: VERY IMPORTANT TO READ AND REVIEW A. You may be at risk for phlebitis or blood clots. a. Wear surgical stockings (JUNAID hose) for 2 weeks after surgery to improve circulation and reduce swelling. b. Take ASPIRIN 81 mg twice daily for 4 weeks or as directed. This is your blood thinner. B. There are a few signs you need to watch for after you are home. Call [facility] at [phone] if you experience any of the following: a. If you have a temperature of 101 degrees or higher. b. Sudden increase in pain in your hip not relieved by rest or pain medication. c. Any fluid or drainage from the incision; redness of the incision. d. Shortness of breath or chest pain. C. Call your physician if: a. Temperature is greater than 101 degrees (F). b. Pain is not relieved by prescribed pain medications. c. Increase drainage or redness from incision. d. Unanswered questions or concerns. D. Pain Medication: a. You will be prescribed pain medication upon discharge that should last till your first post-operative appointment. b. If you experience nausea and/or skin rash, discontinue this medication and contact our office for an alternative medication. c. Caution- narcotic pain medication can cause constipation. FOLLOW UP VISIT: Please call [facility] at [phone] to schedule a follow up appointment 10-14 days from the date of your surgery date. Pending Studies at Discharge: No Stand-Alone Forms: My New [facility] Skilled Items Patient informed of condition?: Yes DNR: No Discharge Level of Care: Skilled Communicable Disease: No Discharge Prognosis: Stable Lines: None Urinary Catheter: No Medications and DC Order Prescriptions: New hydrocodone-acetaminophen 5-325 mg Tablet 1 tab PO Q6H PRN (Reason: pain) Qty: 20 0RF aspirin 81 mg Tablet,Delayed Release (Dr/Ec) 81 mg PO BID Qty: 60 0RF acetaminophen [Tylenol Extra Strength] 500 mg Tablet 500 mg PO TID Qty: 30 0RF Continued (DME) lancets [OneTouch UltraSoft Lancets] Misc See Rx Instructions .ROUTE .MEDSUPPLY Qty: 100 1RF Rx Instructions: Testing blood sugar once daily metformin 500 mg tablet extended release 24 hr 500 mg PO DAILY Qty: 100 3RF coenzyme Q10 200 mg capsule 200 mg PO DAILY Patient Comments: *confirm dosage and frequency cyanocobalamin (vitamin B-12) 1,000 mcg tablet 1,000 mcg PO DAILY Qty: 90 (DME) Blood Glucose Test Strip See Rx Instructions .ROUTE .MEDSUPPLY Qty: 100 1RF Rx Instructions: As directed. Testing BS daily. Dx: E11.9 (DME) blood-glucose meter [Blood Glucose Monitoring] Kit See Rx Instructions .ROUTE .MEDSUPPLY Qty: 1 0RF Rx Instructions: As directed Testing BS daily. Dx: E11.9 [id number] C-Mn [id number] mg capsule 1 cap PO BID atorvastatin 40 mg tablet 40 mg PO DAILY Qty: 90 3RF omeprazole 20 mg capsule,delayed release(DR/EC) 20 mg PO DAILY PRN (Reason: reflux) Qty: 90 3RF polyethylene glycol 3350 [Miralax] 17 gram powder in packet 17 g PO DAILY docusate sodium [Colace] 100 mg capsule 100 mg PO BID PRN (Reason: Constipation) ipratropium bromide 21 mcg (0.03 %) spray,non-aerosol 2 spray intranasal DAILY Qty: 30 5RF Rx Instructions: administer into each nostril azelastine 137 mcg (0.1 %) aerosol,spray 137 mcg intranasal BID Qty: 30 3RF Rx Instructions: administer into each nostril alendronate 35 mg tablet 35 mg PO .THURSDAYS zinc 50 mg Capsule 50 mg PO DAILY Changed lorazepam 2 mg tablet 1 mg PO BID PRN (Reason: anxiety) Qty: 180 0RF Held irbesartan 300 mg tablet 300 mg PO DAILY Qty: 100 3RF Hold Instructions: Resume on 10/01/22. aspirin [Jack Low Dose Aspirin] 81 mg Tablet,Delayed Release (Dr/Ec) 81 mg PO DAILY Hold Instructions: Resume on 11/01/22. Discontinued duloxetine 30 mg capsule,delayed release(DR/EC) 30 mg PO DAILY Qty: 90 3RF Hold Instructions: Home Medication placed on hold at Doctor's office Discharge Orders: Discharge Order (Routine); Ordered 09/25/22 Ordered By: Jp Jaramillo Admission Data Admit Date/Time: 09/14/22 13:10 Attending Provider: Jp Jaramillo Admit Provider: Malvin Thomas Primary Care Provider: Essie Hernandez Other Providers: Malvin Thomas ; Bebeto Owens ; [facility] ; Yanet Montero ; Harini Sagastume ; Cale Upton ; Rogelio Fernandezvanzant ; Rebecca Delarosa at [facility] Other Interventions: Discharge Summary Assessment (RN) Last Done: 09/25/22 10:09 Coding Level of Care Code 29305 INP/OBS DISCH >30 MIN Diagnoses 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
== END 2022-09-25 12:11 | DRG 481 ==
LOC: ED 11:55 → SUATTDRO 13:10 → 3E 13:10

== ENCOUNTER 2024-03-15 05:19 | Inpatient (IN) ==
[2024-03-15] MEDS: MoRPHine SULFATE 4 MG/ML 1 ML CARP\\VIAL IV PRN (05:43)
[2024-03-15] MEDS: ACETAMINOPHEN 1,000 MG/100 ML VIAL IV STA (05:43)
[2024-03-15] MEDS: SODIUM CHLORIDE 0.9% 1,000 ML IV SCH (05:44)
[2024-03-15 05:55] LABS: Basophils # (auto) 0.02 K/uL (0.00-0.20); Basophils % (auto) 0.3 %; Eosinophils # (auto) 0.01 K/uL (0.00-0.50); Eosinophils % (auto) 0.1 %; Hematocrit (blood only) 41.8 % (37.0-47.0); Hemoglobin 13.6 g/dl (12.0-16.0); Immature Granulocytes # (auto) 0.06 K/uL (0.01-0.20); Immature Granulocytes % (auto) 0.9 %; Lymphocytes # (auto) 1.82 K/uL (1.20-3.40); Lymphocytes % (auto) 27.2 %; Mean Corpuscular Hemoglobin 30.3 pg (25.0-34.0); Mean Corpuscular Hgb Conc 32.5 g/dL (32.0-36.0); Mean Corpuscular Volume 93.1 fL (80.0-100.0); Mean Platelet Volume 9.2 fL (9.4-12.4); Monocytes # (auto) 0.73 K/uL (0.11-0.59); Monocytes % (auto) 10.9 %; Neutrophils # (auto) 4.06 K/uL (1.40-6.50); Neutrophils % (auto) 60.6 %; Platelet Count 163 K/uL (130-400); RDW Coefficient of Variation 13.6 % (11.5-14.5); RDW Standard Deviation 46.8 fL (36.4-46.3); Red Blood Count 4.49 M/uL (4.20-5.40)
[2024-03-15 06:08] LABS: Albumin Globulin Ratio 1.3 (0.9-2); Albumin Level 3.9 gm/dl (3.4-5.0); BUN Creatinine Ratio 20.5 (10-20); Calcium 9.1 mg/dl (8.6-10.3); Creatinine Clr Calc Pharmacy 30.9 ml/min; Magnesium 1.7 mg/dl (1.7-2.4); Potassium 4.4 mmol/L (3.5-5.1); Total Protein 6.9 gm/dl (6.0-8.3)
[2024-03-15 06:14] LABS: Troponin I High Sensitivity 10.7 pg/ml (0-14)
[2024-03-15 06:20] LABS: Prothrombin Time 10.9 Seconds (9.0-12.0)
--- NOTE | 2024-03-15 06:24 | Emergency Department Note ---
Impression & Plan Closed fracture of right hip, Fall, Acute UTI (urinary tract infection), Dehydration, URI (upper respiratory infection) ED Provider Note ED Provider Note NAME: FELICE CROSS AGE:83 SEX: Female : 1940 ARRIVES VIA: EMS INFORMANT: Patient, EMS ED PROVIDER(s): Emilie Turner DO CHIEF COMPLAINT: Fall, right hip pain HPI: This is an 83-year-old female who presents emergency department via EMS complaining of right hip pain following a fall. Patient states she got up to go to the bathroom and felt a little dizzy and on the way back from the bathroom became off balance and fell in the hallway. She states she landed on her butt and right hip first and then went backwards. She does not know whether or not she struck her head, she does not believe she lost consciousness. She denies neck or back pain, chest pain, difficulty breathing, or abdominal pain. She denies paresthesias. She denies any current headache or vision changes. PAST MEDICAL HISTORY:See Below PAST SURGICAL HISTORY:See Below FAMILY HISTORY:See Below SOCIAL HISTORY:See Below HOME MEDICATIONS:See Below ALLERGIES:See Below VITALS:See Below PHYSICAL EXAMINATION: GENERAL: alert, well appearing, well nourished, no distress, non-toxic HEAD: nc/at, no evidence of facial trauma, no juarez signs, no raccoon eyes EYE EXAM: normal conjunctiva, PERRL and EOM's grossly intact OROPHARYNX: no exudate, no erythema, lips, buccal mucosa, and tongue normal and mucous membranes are dry NECK: supple, no nuchal rigidity, no adenopathy, no midline tenderness, FROM LUNGS: Clear to auscultation. Normal chest wall mechanics, no w/r/r HEART: no murmurs, S1 normal and S2 normal ABDOMEN: abdomen soft, non-tender, normo-active bowel sounds, no masses, no rebound or guarding. SKIN: no rashes, petechiae, orbruising UPPER EXTREMITIES: upper extremities are grossly normal. FROM, nml pulses b/l. No evidence of trauma or deformity. LOWER EXTREMITIES: No pitting edema. FROM LLE, nml pulses b/l, right lower extremity held externally rotated and is shortened, patient points to pain over the anterolateral right hip, edema noted in this area, right hip is tender with palpation, no other evidence of trauma or deformity to the distal right lower extremity, sensation intact bilaterally NEURO EXAM: Normal sensorium, cranial nerves II-XII grossly intact, normal speech, no facial droop,nogross weakness of arms, no gross weakness of legs. Gross sensation intact. No ataxia. Vital Signs: reviewed and remarkable Differential Diagnosis: ICH, CHI, fracture, contusion, sprain, strain, laceration, abrasions, hemoperitoneum, occult spine injury, acute ligamentous injury, retroperitoneal bleeding, as well as others were considered MEDICAL DECISION MAKING: This is an 83-year-old female who presents emerged part via EMS following a fall at home complaining of right hip pain. Patient with obvious deformity at the right hip and right lower extremity held in external rotation and shortening. She was afebrile vital signs stable, and otherwise did appear clinically dehydrated. No other evidence of acute traumatic injury on exam. Labs drawn and sent, IV established, EKG and x-rays performed at bedside interpreted by me and patient monitored on telemetry. She was started on IV fluids and given IV Tylenol and morphine for pain. Following finding of fracture at the right hip, urinary catheter placed and UA collected and sent. This was suggestive of infection additionally and so IV Rocephin was added. A nasal swab been performed and sent for [employer] and was also positive for an acute viral URI additionally. Patient and family who presented to bedside were updated. I did contact on-call orthopedics and sent him a picture of the x-ray to confirm this was appropriate to keep here. They will see the patient in consult and recommended hospitalist admission. Case discussed with the hospitalist team for additional evaluation and management. At this time of low suspicion for any additional occult traumatic injury. Consultation(s): 0610: Discussed with Dr. Emmanuel, orthopedics, via [place] text. 0618: Discussed with Dr. Calderon, [facility] hospitalist team, for additional evaluation and management. 0815: Chinedu Pablo PA-C with orthopedics now bedside evaluating the patient. ER Treatment Provided: See below 0632: Updated family at bedside. 0800: Patient updated on x-ray findings and need for admission. Diagnostics Interpreted By Me: -ECG: Normal sinus at 90, normal axis, normal intervals, no acute ST/T wave changes -Cardiac Monitoring: An order was placed for continuous cardiac monitoring. The monitor shows a rate of 88 with normal sinus rhythm. -Laboratory studies: As stated above and show below. -Imaging studies: X-ray Chest: A single view study of the chest was reviewed and was negative for cardiomegaly, focal infiltrate, effusion, pulmonary edema, or wide mediastinum. No obvious rib fracture or pneumothorax. X-ray right hip/pelvis: Comminuted intertrochanteric right hip fracture, no other pelvic fractures noted, no dislocation Triage Nursing Note Reviewed Prior/Outside Records Reviewed Past Med/Surg History Problem List Femur fracture, right (Acute ~03/15/24) comminuted displaced intertrochanteric right femur fracture URI (upper respiratory infection) (Acute) Dehydration (Acute) Acute UTI (urinary tract infection) (Acute) Fall (Acute) Closed fracture of right hip (Acute 03/15/24) Comminuted displaced intertrochanteric fractures in the right femur Degenerative arthritis of knee Depression with anxiety History of hip fracture (08/2022) History of compression fracture of vertebral column (~09/19/18) Wedge compression fracture of unspecified thoracic vertebra Recurrent major depression in remission STEFFANY (generalized anxiety disorder) Cystocele with first degree uterine prolapse Altered bowel function Urinary incontinence GERD (gastroesophageal reflux disease) Lumbar spinal stenosis BPPV (benign paroxysmal positional vertigo) Type 2 diabetes mellitus Sleep apnea Sjogrens syndrome Raynaud's disease Osteoporosis Insomnia Hypertension Hypercholesterolemia Diabetic peripheral neuropathy CKD (chronic kidney disease) stage 3, GFR 30-59 ml/min Allergic rhinitis Medical History Pathological fracture of left 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-related osteoporosis (09/14/22) from fall, required surgery Nausea vomiting and diarrhea Thoracic compression fracture (~09/19/18) Surgical History Status post hip surgery (09/15/22) L hip cephalomedullary nail post hip fx S/P ERCP (12/14/19) Endoscopic Retrograde Cholangiopancreatogram Dr. Wooten 12/14/2019 Hx laparoscopic cholecystectomy (12/12/19) Laparoscopic Cholecystectomy 12/12/2019 Status post laparoscopic cholecystectomy History of hand surgery Status post section Family History Mother Arthritis Diabetes Father Arthritis Diabetes Family/Other Arthritis sibling Diabetes sibling Denies family history of Ovarian cancer Prostate cancer Myocardial infarction Breast cancer Colorectal cancer Social History Smoking Status: Never smoker Second Hand Exposure: No; Do You Dip or Chew Tobacco: No; Hx Alcohol Use: No Hx Substance Use: No Preferred Language: Azerbaijani Communication Ability: Effective Visual Impairment: No Limitations Hearing Ability: Normal Pharmacologist Required: No Beliefs That Will Affect Care: None marital status: Current Living Situation: Spouse current occupational status: retired How many Children do You have: 4 Feels Safe at Home: Yes Childhood Exposure to Second-Hand Smoke: No Diet: regular caffeine: Yes (Coffee x 1 per day.) during the past year weight has: remained stable Dental Care, Regularly: No Physical Activity Frequency: 3-4 Times per Week Seatbelt Use: always Sunscreen Use: Yes Assistive Devices: Cane and Denture - Upper Allergies Allergies Allergy/AdvReac Type Severity Reaction Status Date / Time Iodinated Contrast Media Allergy Intermediate Rash Verified 03/15/24 14:10 clindamycin [From Cleocin] Allergy Mild hives Verified 03/15/24 14:10 influenza virus vacc AdvReac Unknown Verified 03/15/24 14:10 trivalent, split [From Fluzone] Home Meds Home Medications Medication Instructions Recorded Confirmed coenzyme Q10 200 mg capsule 200 mg PO DAILY 11/26/18 03/15/24 cyanocobalamin (vitamin B-12) 1,000 mcg PO DAILY #90 tabs 11/26/18 03/15/24 1,000 mcg tablet [id number] C-Mn 250 1 cap PO BID 03/01/22 03/15/24 mg-200 mg-30 mg-2.5 mg capsule zinc 50 mg capsule 50 mg PO DAILY 09/16/22 03/15/24 acetaminophen 500 mg tablet 500 mg PO TID PRN Pain 01/03/23 03/15/24 (Tylenol Extra Strength) Saccharomyces boulardii 250 mg 250 mg PO BID 03/15/24 03/15/24 capsule (Daily Probiotic (S. boulardii)) Previous Rx's Medication Instructions Recorded blood sugar diagnostic (Blood #100 ea 12/24/19 Glucose Test strips) blood-glucose meter (Blood Glucose #1 ea 12/24/19 Monitoring kit) lancets (OneTouch UltraSoft #100 ea 07/11/20 Lancets) calcium 600 mg (as carbonate)-vit 1 tab PO BID #180 tabs 11/26/22 D3 20 mcg (800 unit) chewable tablet (Caltrate plus D) atorvastatin 40 mg tablet 40 mg PO DAILY #100 tabs 12/21/23 clotrimazole-betamethasone 1 1 applic topical BID #45 grams 12/21/23 %-0.05 % topical cream duloxetine 30 mg capsule,delayed 30 mg PO DAILY #100 caps 12/21/23 release famotidine 40 mg tablet 40 mg PO HS #90 tabs 12/21/23 fluticasone propionate 50 2 spray intranasal DAILY #16 grams 12/21/23 mcg/actuation nasal spray,suspension (Flonase Allergy Relief) irbesartan 300 mg tablet 300 mg PO DAILY #100 tabs 12/21/23 metformin 500 mg tablet,extended 500 mg PO DAILY #100 tabs 12/21/23 release 24 hr pantoprazole 40 mg tablet,delayed 40 mg PO DAILY #100 tabs 12/21/23 release azelastine 137 mcg (0.1 %) nasal 137 mcg (0.137 mL) intranasal BID 01/26/24 spray #30 mL ipratropium bromide 21 mcg (0.03 2 spray intranasal DAILY #30 mL 01/26/24 %) nasal spray lorazepam 2 mg tablet 3 mg (1.5 x 2 mg) PO DAILY PRN 02/09/24 anxiety #135 tabs Results & Data (ED) Vital Signs Vital Signs - 24 hr 03/15/24 05:27 03/15/24 05:27 03/15/24 05:37 Temperature 36.6 C 36.6 C Temperature Source Oral Oral Pulse Rate 88 84 Pulse Rate [Right Finger] 88 Pulse Rhythm Regular Pulse Rhythm [Right Finger] Regular Pulse Strength Normal Pulse Strength [Right Finger] Normal Respiratory Rate 20 20 Respiratory Effort / Characteristics Non-Labored Spontaneous Non-Labored Spontaneous Respiratory Depth Normal Normal Respiratory Pattern Regular Regular Blood Pressure 173/104 H Blood Pressure [Left Arm] 166/105 H Blood Pressure Mean 127 Blood Pressure Mean [Left Arm] 125 Blood Pressure Position Lying Blood Pressure Position [Left Arm] Lying Pulse Oximetry 98 98 Oxygen Delivery Method Room Air Room Air Oxygen Flow Rate Sepsis Recent Fever Within 48 Hours No Sepsis New/Unexplained Change in Mental Status N/A Sepsis Action Taken by Nursing No Action Required Oxygen Flow Rate - Titration Pulse Oximetry Post Tiitration 03/15/24 06:00 03/15/24 06:55 03/15/24 07:49 Temperature Temperature Source Pulse Rate Pulse Rate [Right Finger] 85 91 H Pulse Rhythm Pulse Rhythm [Right Finger] Regular Regular Pulse Strength Pulse Strength [Right Finger] Normal Normal Respiratory Rate 18 17 Respiratory Effort / Characteristics Non-Labored Spontaneous Non-Labored Spontaneous Respiratory Depth Normal Normal Respiratory Pattern Regular Regular Blood Pressure Blood Pressure [Left Arm] 159/122 H 143/106 H Blood Pressure Mean Blood Pressure Mean [Left Arm] 134 118 Blood Pressure Position Blood Pressure Position [Left Arm] Lying Lying Pulse Oximetry 96 88 L Oxygen Delivery Method Room Air Room Air Room Air Oxygen Flow Rate 0 Sepsis Recent Fever Within 48 Hours Sepsis New/Unexplained Change in Mental Status Sepsis Action Taken by Nursing Oxygen Flow Rate - Titration 2 Pulse Oximetry Post Tiitration 98 03/15/24 08:00 Temperature Temperature Source Pulse Rate Pulse Rate [Right Finger] 64 Pulse Rhythm Pulse Rhythm [Right Finger] Pulse Strength Pulse Strength [Right Finger] Respiratory Rate 18 Respiratory Effort / Characteristics Respiratory Depth Normal Respiratory Pattern Blood Pressure Blood Pressure [Left Arm] 140/66 Blood Pressure Mean Blood Pressure Mean [Left Arm] 90 Blood Pressure Position Blood Pressure Position [Left Arm] Pulse Oximetry 98 Oxygen Delivery Method Nasal Cannula Oxygen Flow Rate 2 Sepsis Recent Fever Within 48 Hours Sepsis New/Unexplained Change in Mental Status Sepsis Action Taken by Nursing Oxygen Flow Rate - Titration Pulse Oximetry Post Tiitration Laboratory Data 03/15/24 05:35 03/15/24 05:35 Lab Results 03/15/24 03/15/24 Range/Units 05:35 06:06 WBC 6.70 (4.8-10.8) K/ul RBC 4.49 (4.20-5.40) M/uL Hgb 13.6 (12.0-16.0) g/dl Hct 41.8 (37.0-47.0) % MCV 93.1 (80.0-100.0) fL MCH 30.3 (25.0-34.0) pg MCHC 32.5 (32.0-36.0) g/dL RDW Std Deviation 46.8 H (36.4-46.3) fL RDW Coeff of Shikha 13.6 (11.5-14.5) % Plt Count 163 (130-400) K/uL MPV 9.2 L (9.4-12.4) fL Immature Gran % (Auto) 0.9 % Neut % (Auto) 60.6 % Lymph % (Auto) 27.2 % [place] % (Auto) 10.9 % Eos % (Auto) 0.1 % Baso % (Auto) 0.3 % Neut # (Auto) 4.06 (1.40-6.50) K/uL Lymph # (Auto) 1.82 (1.20-3.40) K/uL [place] # (Auto) 0.73 H (0.11-0.59) K/uL Eos # (Auto) 0.01 (0.00-0.50) K/uL Baso # (Auto) 0.02 (0.00-0.20) K/uL Immature Gran # (Auto) 0.06 (0.01-0.20) K/uL PT 10.9 (9.0-12.0) Seconds INR 1.0 (0.9-1.1) Sodium 137 (136-145) mmol/L Potassium 4.4 (3.5-5.1) mmol/L Chloride 103 (98-107) mmol/L Carbon Dioxide 25 (21-32) mmol/L Anion Gap 9 (3-11) BUN 25 H (6-23) mg/dl Creatinine 1.22 H (0.6-1.2) mg/dl Est Cr Clr Drug Dosing 30.9 ml/min eGFR 43.76 BUN/Creatinine Ratio 20.5 H (10-20) Glucose 187 H (70-99(Fasting)) mg/dl Calcium 9.1 (8.6-10.3) mg/dl Magnesium 1.7 (1.7-2.4) mg/dl Total Bilirubin 1.0 (0.2-1.0) mg/dl AST 31 (13-39) U/L ALT 26 (7-52) U/L Alkaline Phosphatase 84 (34-104) U/L Troponin I High Sens 10.7 (0-14) pg/ml Total Protein 6.9 (6.0-8.3) gm/dl Albumin 3.9 (3.4-5.0) gm/dl Globulin 3.0 (2.5-4.0) gm/dl Albumin/Globulin Ratio 1.3 (0.9-2) Urine Color Yellow Urine Appearance Clear (Clear) Urine pH 6.0 (4.5-7.5) Ur Specific [place] 1.020 (1.000-1.030) Urine Protein Trace H (Negative) Urine Glucose (UA) Negative (Negative) Urine Ketones 1+ H (Negative) Urine Blood Negative (Negative) Urine Nitrite Positive A (Negative) Urine Bilirubin Negative (Negative) Urine Urobilinogen Negative (Negative) Ur Leukocyte Esterase Trace H (Negative) Urine WBC (Auto) 6-10 H (0-5) /hpf Urine RBC (Auto) 0-2 (0-2) /hpf U Hyaline Cast (Auto) 0-2 (0-2) /lpf U Epithel Cells (Auto) 0-2 (0-2) /hpf Urine Bacteria (Auto) 4+ H (None Seen) Adenovirus (PCR) Not Detected (NotDetected) B. pertussis DNA (PCR) Not Detected (NotDetected) B.parapertussis DNA PCR Not Detected (NotDetected) C. pneumoniae DNA (PCR) Not Detected (NotDetected) Coronavirus OC43 (PCR) Not Detected (NotDetected) Coronavirus HKU1 (PCR) Not Detected (NotDetected) Coronavirus 229E (PCR) Not Detected (NotDetected) SARS-CoV-2 (PCR) Not Detected (NotDetected) Coronavirus NL63 (PCR) Not Detected (NotDetected) Human Metapneumovir PCR Not Detected (NotDetected) Influenza Type A (PCR) Not Detected (NotDetected) Influenza Type B (PCR) Not Detected (NotDetected) M. pneumoniae (PCR) Not Detected (NotDetected) Parainfluenza 1 (PCR) DETECTED A (NotDetected) Parainfluenza 2 (PCR) Not Detected (NotDetected) Parainfluenza 3 (PCR) Not Detected (NotDetected) Parainfluenza 4 (PCR) Not Detected (NotDetected) RSV (PCR) Not Detected (NotDetected) Entero/Rhino (PCR) Not Detected (NotDetected) Administered Medications Acetaminophen (Acetaminophen 325 Mg Tab) 650 mg PO Q6H PRN PRN Reason: Pain or Fever Stop: 04/14/24 21:32 Last Admin: 03/15/24 21:57 Dose: 650 mg Documented By: [facility] Azelastine HCl (Azelastine Hcl 0.1% Nasal 200 Sprays/27,400 Mcg Btl) 1 sprays NA BID [facility] Stop: 04/14/24 20:59 Last Admin: 03/15/24 21:04 Dose: 1 sprays Documented By: [facility] Famotidine (Famotidine 40 Mg Tablet) 40 mg PO HS [facility] Stop: 04/14/24 20:59 Last Admin: 03/15/24 21:04 Dose: 40 mg Documented By: [facility] Insulin Aspart (Insulin Aspart Per Unit Charge) 0 units SC ACHS [facility] Stop: 04/14/24 11:29 Last Admin: 03/15/24 21:16 Dose: Not Given Documented By: Admin: 03/15/24 20:03 Dose: Not Given Documented By: [facility] Admin: 03/15/24 11:33 Dose: Not Given Documented By: MMG Lorazepam (Lorazepam 1 Mg Tab) 3 mg PO DAILY PRN PRN Reason: anxiety Stop: 04/14/24 11:22 Last Admin: 03/15/24 23:37 Dose: 3 mg Documented By: [facility] Discontinued Medications Bupivacaine HCl/Epinephrine Bitart (Bupivacaine/Epinephrine 0.25% 1:200,000 30 Ml Vial) Confirm Administered Dose 30 ml .ROUTE .STK-MED ONE Stop: 03/15/24 14:14 Last Admin: 03/15/24 16:30 Dose: 17 ml Documented By: PSS Sodium Chloride (Nss) 1,000 mls @ 250 mls/hr IV .Q4H [facility] Stop: 03/16/24 05:29 Last Admin: 03/15/24 20:02 Dose: Not Given Documented By: Admin: 03/15/24 20:02 Dose: Not Given Documented By: Infusion: 03/15/24 20:01 Dose: Infused Documented By: [facility] Admin: 03/15/24 08:51 Dose: 250 mls/hr Documented By: Infusion: 03/15/24 08:50 Dose: Infused Documented By: Admin: 03/15/24 05:44 Dose: 250 mls/hr Documented By: RAHEEL Acetaminophen (Ofirmev) 1,000 mg in 100 mls @ 400 mls/hr IV NOW STA Stop: 03/15/24 05:43 Last Infusion: 03/15/24 06:36 Dose: Infused Documented By: Admin: 03/15/24 05:43 Dose: 400 mls/hr Documented By: RAHEEL Ceftriaxone Sodium (Rocephin) 2,000 mg in 50 mls @ 100 mls/hr IV NOW STA Stop: 03/15/24 07:29 Last Infusion: 03/15/24 08:22 Dose: Infused Documented By: Admin: 03/15/24 07:32 Dose: 100 mls/hr Documented By: QUOC Cefazolin Sodium (Ancef 2000mg) 2,000 mg in 15 mls @ 3.75 mls/min IV PREOP JACOB; Protocol Stop: 03/15/24 18:00 Last Admin: 03/15/24 14:39 Dose: 3.75 mls/min Documented By: DAVID Tranexamic Acid (Tranexamic Acid / 0.7% Nacl) 1,000 mg in 100 mls @ 600 mls/hr IV PREOP JACOB Stop: 03/15/24 18:00 Last Infusion: 03/15/24 20:02 Dose: Infused Documented By: [facility] Admin: 03/15/24 14:33 Dose: 600 mls/hr Documented By: JAYLA Tranexamic Acid (Tranexamic Acid / 0.7% Nacl) 1,000 mg in 100 mls @ 600 mls/hr IV ONE ONE Stop: 03/16/24 00:19 Last Infusion: 03/16/24 00:10 Dose: Infused Documented By: Admin: 03/15/24 23:37 Dose: 600 mls/hr Documented By: SINDY Lidocaine HCl (Lidocaine 1% Local 20 Ml Vial) Confirm Administered Dose 1 ml .ROUTE .STK-MED ONE Stop: 03/15/24 14:14 Last Admin: 03/15/24 16:30 Dose: 17 ml Documented By: CORTEZ Morphine Sulfate (Morphine Sulfate 4 Mg/Ml 1 Ml Carp\Vial) 4 mg IV Q1H PRN PRN Reason: Severe Pain (Rating 7,8,9,10) Stop: 03/29/24 05:28 Last Admin: 03/15/24 06:49 Dose: 4 mg Documented By: Admin: 03/15/24 05:43 Dose: 4 mg Documented By: RAHEEL Imaging Data Radiologist's Impression: Chest X-Ray 03/15/24 05:29 EXAM: XR chest 1V portable CLINICAL HISTORY: PT FELL KFK TECHNIQUE: X-ray image of the chest obtained in 1 frontal projection. COMPARISON: No prior studies available for comparison. FINDINGS: Pulmonary Parenchyma: Lungs are clear bilaterally. No evidence of consolidation, collapse, or focal opacities. No pulmonary nodules identified. No evidence of pleural effusion or pleural thickening. Heart and Mediastinum: Heart size and shape are normal. No mediastinal widening or masses. No hilar or mediastinal lymphadenopathy. Bony Thorax: Bony thorax appears intact without fractures or deformities. Soft Tissues: Soft tissues overlying the chest wall are unremarkable. IMPRESSION: Normal chest X-ray. No acute cardiopulmonary abnormalities identified. Electronically signed by Allison Briseno 03-15-2024 06:37 AM Hip/Pelvis X-Ray 03/15/24 05:29 EXAM: XR hip RT 2V w pelvis CLINICAL HISTORY: PT FELL KFK TECHNIQUE: X-ray images of the right hip joint and pelvis were obtained in anteroposterior (AP) and lateral projections. COMPARISON: None. FINDINGS: Hip Joints: Comminuted displaced intertrochanteric fractures in the right femur. Internal fixation in the left femur with mildly displaced lesser trochanteric fracture. Reduced bilateral hip joint space. Sacroiliac joints appear normal and unremarkable. No evidence of sacroiliitis or significant degenerative changes. Symphysis Pubis: The symphysis pubis is normal and intact. No evidence of separation or widening. Soft Tissues: Right hip/proximal thigh soft tissue swelling. No calcifications, or masses. IMPRESSION: 1. Comminuted displaced intertrochanteric fractures in the right femur. 2. Internal fixation in the left femur with mildly displaced lesser trochanteric fracture. 3. Reduced bilateral hip joint space. Disclaimer: A subtle bone abnormality or fracture may not be readily apparent on X-rays, thus clinical correlation and further imaging including follow-up CT, MRI, or follow-up X-rays are advised as needed. Electronically signed by Allison Briseno 03-15-2024 07:23 AM Discharge Plan Visit Data Chief Complaint: Fall Stated Complaint: fall ED Provider: Emilie Turner Discharge Problem: Closed fracture of right hip, Fall, Acute UTI (urinary tract infection), Dehydration, URI (upper respiratory infection) Discharge Instructions Interventions: ED Discharge Assessment Last Done: 03/15/24 11:19
[2024-03-15 06:37] LABS: Appearance Urine Clear (Clear); Bacteria Urine Automated 4+ (None Seen); Bilirubin Urine Negative (Negative); Blood Urine Negative (Negative); Cast Urine Automated 0-2 /lpf (0-2); Color Urine Yellow; Epithelial Cell Urine Auto 0-2 /hpf (0-2); Glucose Urine UA Negative (Negative); Ketones Urine 1+ (Negative); Leukocyte Esterase Urine Trace (Negative); Nitrite Urine Positive (Negative); Protein Urine Trace (Negative); RBC Urine Automated 0-2 /hpf (0-2); Urobilinogen Urine Negative (Negative)
--- NOTE | 2024-03-15 06:37 | XRay Report ---
EXAM: XR chest 1V portable CLINICAL HISTORY: PT FELL KFK TECHNIQUE: X-ray image of the chest obtained in 1 frontal projection. COMPARISON: No prior studies available for comparison. FINDINGS: Pulmonary Parenchyma: Lungs are clear bilaterally. No evidence of consolidation, collapse, or focal opacities. No pulmonary nodules identified. No evidence of pleural effusion or pleural thickening. Heart and Mediastinum: Heart size and shape are normal. No mediastinal widening or masses. No hilar or mediastinal lymphadenopathy. Bony Thorax: Bony thorax appears intact without fractures or deformities. Soft Tissues: Soft tissues overlying the chest wall are unremarkable. IMPRESSION: Normal chest X-ray. No acute cardiopulmonary abnormalities identified. Electronically signed by Allison Briseno 03-15-2024 06:37 AM
[2024-03-15 07:09] LABS: Adenovirus PCR Not Detected (NotDetected); Bordetella parapertussis PCR Not Detected (NotDetected); Bordetella pertussis PCR Not Detected (NotDetected); Chlamydia pneumoniae PCR Not Detected (NotDetected); Coronavirus 229E PCR Not Detected (NotDetected); Coronavirus CoV-2 (COVID19)PCR Not Detected (NotDetected); Coronavirus HKU1 PCR Not Detected (NotDetected); Coronavirus NL63 PCR Not Detected (NotDetected); Coronavirus OC43PCR Not Detected (NotDetected); Human Metapneumovirus PCR Not Detected (NotDetected); Influenza A PCR Not Detected (NotDetected); Influenza B PCR Not Detected (NotDetected); Mycoplasma pneumoniae PCR Not Detected (NotDetected); Parainfluenza Virus 1 PCR DETECTED (NotDetected); Parainfluenza Virus 2 PCR Not Detected (NotDetected); Parainfluenza Virus 3 PCR Not Detected (NotDetected); Parainfluenza Virus 4 PCR Not Detected (NotDetected); Respiratory Syncytial VirusPCR Not Detected (NotDetected); Rhinovirus/Enterovirus PCR Not Detected (NotDetected)
--- NOTE | 2024-03-15 07:23 | XRay Report ---
EXAM: XR hip RT 2V w pelvis CLINICAL HISTORY: PT FELL KFK TECHNIQUE: X-ray images of the right hip joint and pelvis were obtained in anteroposterior (AP) and lateral projections. COMPARISON: None. FINDINGS: Hip Joints: Comminuted displaced intertrochanteric fractures in the right femur. Internal fixation in the left femur with mildly displaced lesser trochanteric fracture. Reduced bilateral hip joint space. Sacroiliac joints appear normal and unremarkable. No evidence of sacroiliitis or significant degenerative changes. Symphysis Pubis: The symphysis pubis is normal and intact. No evidence of separation or widening. Soft Tissues: Right hip/proximal thigh soft tissue swelling. No calcifications, or masses. IMPRESSION: 1. Comminuted displaced intertrochanteric fractures in the right femur. 2. Internal fixation in the left femur with mildly displaced lesser trochanteric fracture. 3. Reduced bilateral hip joint space. Disclaimer: A subtle bone abnormality or fracture may not be readily apparent on X-rays, thus clinical correlation and further imaging including follow-up CT, MRI, or follow-up X-rays are advised as needed. Electronically signed by Allison Briseno 03-15-2024 07:23 AM
[2024-03-15] MEDS: cefTRIAXone SODIUM 2,000 MG/50 ML BAG IV STA (07:32)
--- NOTE | 2024-03-15 07:50 | CT Scan Report ---
EXAM: CT head/brain wo con CLINICAL HISTORY: Pt was trying to walk to the bathroom and lost her balance. Pt fell backward and fell to the ground. Pt denies hitting her head, stomach pain, neck pain, or chest pain. Pt states she has right hip pain. Pt denies being on blood thinners. PW TECHNIQUE: An axial non-contrast CT scan of the brain was performed from the skull base to the high parietal region. One of the following dose reduction techniques were utilized for this exam: Automated exposure control, adjustment of the mA and/or kV according to patient size, and use of iterative reconstruction. COMPARISON: None. FINDINGS: Brain Parenchyma: Generalized cerebral atrophy Ill-defined hypoattenuating areas seen in bilateral marcelino ventricular and subcortical white matter suggestive of small vessel disease. Encephalomalacia seen in right posterior parietal lobe in central [place] No evidence of acute infarct, hemorrhage, or mass effect. Ventricular System: Ventricles, sulci and cisterns are prominent proportionate to the degree of cerebral atrophy. Subarachnoid Spaces: Normal sulci and cisterns. No evidence of subarachnoid hemorrhage or extra-axial fluid collections. Cerebellum and Brainstem: Normal size and signal. Encephalomalacia seen in right cerebellar hemisphere Orbits: Normal appearance of the globes, optic nerves, and extraocular muscles. No evidence of orbital masses Sinuses: Ethmoid sinus mucosal thickening. Mastoid Air Cells: Bilateral chronic mastoiditis. Skull: Normal skull morphology. IMPRESSION: 1. Generalized cerebral atrophy. 2. Small vessel disease. 3. Encephalomalacia in the right posterior parietal lobe and right cerebellar hemisphere. 4. No acute brain insult or skull fractures 5. No intracranial acute pathology was seen. Electronically signed by Allison Briseno 03-15-2024 07:50 AM
--- NOTE | 2024-03-15 08:10 | CT Scan Report ---
EXAM: CT cervical spine wo con CLINICAL HISTORY: Patient fell backwards and fell to the ground, denies hitting her head, stomach pain, neck pain, or chest pain. Patient states she has right hip pain. TECHNIQUE: CT scan of the cervical spine was performed without the administration of intravenous contrast. Contiguous axial images were obtained from the skull base to the upper thoracic spine. Coronal and sagittal reconstructed images were also obtained. One of the following dose reduction techniques was utilized for this exam. Automated exposure control, adjustment of the mA and/or kV according to patient size, and use of iterative reconstruction. COMPARISON: No previous studies are available for comparison. FINDINGS: Vertebrae: There is a thin hypodense line seen at the lower dens/posterior aspect of the body of the C2 vertebra, can be artifactual, however considering the history of trauma, the possibility of undisplaced fracture cannot be entirely excluded. Minimal retrolithesis of C5 vertebra. The vertebral bodies are normal in height and alignment. The cortical and trabecular bone patterns are normal. No signs of lytic or sclerotic lesions. Normal configuration of the posterior elements. Multiple marginal osteophytes. Intervertebral Discs and Neural Foramina: Reduced C5-C6 intervertebral disc space with positive vaccum phenomenon. C3-C4 right paracentral posterolateral and C5-C6 posterior and biposterolateral disc/osteophyte complex are seen effacing the ventral epidural space and compromising the related neural exit pathways. No calcifications or ossifications were noted within the discs. Facet Joints: Neurocentral and facet joints arthropathy mainly noted at C3-C4 and C5-C6 levels. Prevertebral Soft Tissues: The prevertebral soft tissues are normal in thickness without evidence of mass or abnormal fluid collection. Additional Findings: No other significant findings are noted in the visualized soft tissue structures or bony elements. IMPRESSION: There is a thin hypodense line seen at the lower dens/posterior aspect of the body of the C2 vertebra, can be artifactual, however considering the history of trauma, the possibility of undisplaced fracture cannot be entirely excluded. MRI of the cervical spine is advised if clinically indicated. Minimal retrolithesis of C5 vertebra. Degenerative changes mainly at C5-C6 level. C3-C4 and C5-C6 disc/osteophyte complexes are seen compromising the related neural exit pathways. Neurocentral and facet joints arthropathy, mainly at C3-C4 and C5-C6 levels. Electronically signed by Allison Briseno 03-15-2024 08:10 AM
--- NOTE | 2024-03-15 08:35 | History & Physical Report ---
Date of Service March 15, 2024 Assessment & Plan (1) Closed fracture of right hip: Plan: 83-year-old female with PMHx osteoporosis, T2DM, HTN, CKD stage III, Sjogren's syndrome, and neuropathy presenting s/p fall from standing, complaining of R hip pain. Found to have right intertrochanteric fracture, comminuted and displaced. Plans to take patient to the OR with orthopedic surgery for management. Hemodynamically stable, H&H stable on admission, EKG NSR rate around 90 bpm. #R intertrochanteric fracture/Fall/ ? C2 vertebral fracture Pt presenting for R hip pain s/p fall from standing; did not hit her head, not on blood thinners - CBC stable with H&H 13.6/41.8, CMP BUN 25, creatinine 1.22 (baseline 1.2-1.3) - EKG NSR w/ rate ~ 90 bpm - Hip and pelvis x-ray (right) comminuted displaced intertrochanteric fracture of the right femur, internal fixation in the left femur with mildly displaced lesser trochanteric fracture, reduced bilateral hip joint space - ? C2 vertebral fracture as seen on cervical spine CT; pending MRI to evaluate for; patient is not having any cervical spine tenderness, but will take C-spine precautions with collar; anesthesiology made aware - Continue maintenance fluids - Pain management as ordered - Medically stable for surgical interventions based on H/H, VS, EKG, and patient presentation - Ortho consulted - plans for right trochanteric nail on 03/15/2024 --> Appreciate ortho input + recs #UTI Currently asx HOWEVER, may have contributed to unsteadiness resulting in fall this AM therefore deem it appropriate to tx - No documented h/o pseudomonas - UA show trace protein, 1+ ketones, positive nitrite, trace LE, presence of WBC, 4+ bacteria - Pending cx - Continue ceftriaxone IV - Zofran prn #URI Biofire (+) parainfluenza 1; symptoms of headache located at forehead x 1 week but also h/o migraines - Lungs WNL on exam, no additional infectious symptoms - No leukocytosis, CXR WNL - CT head generalized cerebral atrophy, small vessel disease, encephalomalacia in the R posterior parietal lobe and R cerebellar hemisphere, no acute brain insult or skull fx, no intracranial acute pathology was seen. - Supportive management - CBC am #T2DM H/o DMT2; with peripheral neuropathy - At home regimen metformin - hold - Most recent A1C (12/2023) 6.8% - SSI with target BSG range 110-140mg/dL, CF 40, carb ratio 5 - avoid hypoglycemia so wider ranges - BSG ACHS - Adjust regimen as needed - Pharm glycemic management consult placed Chronic conditions: CKD stage III- baseline creatinine 1.2-1.3, BMP am Sleep apnea- CPAP nightly; may use own Hypercholesterolemia- atorvastatin HTN- Irbesartan, no salt diet per PCP note (12/21/2023) Depression with anxiety, insomnia- duloxetine, lorazepam prn GERD- pantoprazole, famotidine Osteoporosis- Prolia every 6 months (most recent 12/05/2023), follows with [facility] Dispo: Admit Diet: NPO until Sx then T2DM and no salt VTE Prophylaxis: HOLD until Sx Code: Full This document was dictated utilizing Kormeli. Please excuse any grammatical errors that may be secondary to use of this software. (2) Acute UTI (urinary tract infection): (3) URI (upper respiratory infection): (4) Fall: (5) Depression with anxiety: (6) Type 2 diabetes mellitus: (7) CKD (chronic kidney disease) stage 3, GFR 30-59 ml/min: (8) Diabetic peripheral neuropathy: (9) Osteoporosis: Admission and Anticipated Discharge Date Admission Date: 03/15/2024 History of Present Illness Chief Complaint: R hip pain Primary Care Provider: Essie Hernandez DO 83-year-old female presenting to ED via EMS after fall from standing, complaining of R hip pain. ED course: CBC grossly WNL with exception of RDW 46.8, MPV 9.2; PT/INR WNL; CMP BUN 25, creatinine 1.22, BUN/creatinine ratio 20.5, glucose 187; troponin 10.7; UA trace protein, 1+ ketones, positive nitrite, trace LE, presence of WBC, 4+ bacteria; BioFire positive for par ainfluenza 1 CXR normal chest x-ray; head CT generalized cerebral atrophy, small vessel disease, encephalomalacia in right posterior parietal lobe with right cerebellar hemisphere, no acute brain insult or skull fractures, no intracranial acute pathology seen; hip and pelvis x-ray (right) comminuted displaced intertrochanteric fracture of the right femur, internal fixation in the left femur with mildly displaced lesser trochanteric fracture, reduced bilateral hip joint space; pending cervical spine CT read; EKG NSR, rate around 90 bpm; patient provided with 1 L NSS, morphine 4 mg, ceftriaxone 2 g, acetaminophen 1 g in ED. Patient is an 83-year-old female with PMHx T2DM, CKD stage III, hypercholesterolemia, HTN, OP, Sjogren syndrome, sleep apnea, GERD, STEFFANY, and history of prior hip fracture (08/2022) who presents s/p fall from standing. Pt's daughter + present in room at time of visit, help to provide a history. Patient was walking to her bathroom, lost her balance and fell backwards to the ground 2 times. Patient states she did not hit her head, only complaint at this time is right hip pain. Pt states she may have had some dizziness prior to the event, but is not certain. No additional symptoms prior to this event to include chest pain, shortness of breath, palpitations, or headache. Daughter believes that the patient got up from the toilet and her undergarments were around her ankles, causing her to fall. Pt was unable to get off of the floor herself secondary to "not being able to move leg" and was on the ground for ~25-30 minutes before the ambulance came to assist her. Hip pain has subsided for now, no pain elsewhere to include neck, head, abdomen, or other extremities. Has had mild headaches across forehead for the past week, w/ history of migraines. Has o ccasional bloating and changes in bowel habits as well such as alternating between diarrhea and constipation; last BM the AM of arrival. Patient currently denying chest pain, shortness of breath, palpitations, abdominal pain, N/V/D/C, numbness/tingling, LUTS, or active headache. Please see Dr. Jaramillo's attestation for adjustments/additions to treatment plan. Allergies Allergy/AdvReac Type Severity Reaction Status Date / Time Iodinated Contrast Media Allergy Intermediate Rash Verified 11/03/23 14:19 clindamycin [From Cleocin] Allergy Mild hives Verified 11/03/23 14:19 influenza virus vacc AdvReac Unknown Verified 11/03/23 14:19 trivalent, split [From Fluzone] Home Medications Medication Instructions Recorded Confirmed Type coenzyme Q10 200 mg capsule 200 mg PO DAILY 11/26/18 03/15/24 History cyanocobalamin (vitamin B-12) 1,000 mcg PO DAILY #90 tabs 11/26/18 03/15/24 History 1,000 mcg tablet blood sugar diagnostic (Blood #100 ea 12/24/19 01/26/24 Rx Glucose Test strips) blood-glucose meter (Blood Glucose #1 ea 12/24/19 01/26/24 Rx Monitoring kit) lancets (OneTouch UltraSoft #100 ea 07/11/20 01/26/24 Rx Lancets) [id number] C-Mn 250 1 cap PO BID 03/01/22 03/15/24 History mg-200 mg-30 mg-2.5 mg capsule zinc 50 mg capsule 50 mg PO DAILY 09/16/22 03/15/24 History calcium 600 mg (as carbonate)-vit 1 tab PO BID #180 tabs 11/26/22 03/15/24 Rx D3 20 mcg (800 unit) chewable tablet (Caltrate plus D) acetaminophen 500 mg tablet 500 mg PO TID PRN Pain 01/03/23 03/15/24 History (Tylenol Extra Strength) atorvastatin 40 mg tablet 40 mg PO DAILY #100 tabs 12/21/23 03/15/24 Rx clotrimazole-betamethasone 1 1 applic topical BID #45 grams 12/21/23 03/15/24 Rx %-0.05 % topical cream duloxetine 30 mg capsule,delayed 30 mg PO DAILY #100 caps 12/21/23 03/15/24 Rx release famotidine 40 mg tablet 40 mg PO HS #90 tabs 12/21/23 03/15/24 Rx fluticasone propionate 50 2 spray intranasal DAILY #16 grams 12/21/23 03/15/24 Rx mcg/actuation nasal spray,suspension (Flonase Allergy Relief) irbesartan 300 mg tablet 300 mg PO DAILY #100 tabs 12/21/23 03/15/24 Rx metformin 500 mg tablet,extended 500 mg PO DAILY #100 tabs 12/21/23 03/15/24 Rx release 24 hr pantoprazole 40 mg tablet,delayed 40 mg PO DAILY #100 tabs 12/21/23 03/15/24 Rx release azelastine 137 mcg (0.1 %) nasal 137 mcg (0.137 mL) intranasal BID 01/26/24 03/15/24 Rx spray #30 mL ipratropium bromide 21 mcg (0.03 2 spray intranasal DAILY #30 mL 01/26/24 03/15/24 Rx %) nasal spray lorazepam 2 mg tablet 3 mg (1.5 x 2 mg) PO DAILY PRN 02/09/24 03/15/24 Rx anxiety #135 tabs Saccharomyces boulardii 250 mg 250 mg PO BID 03/15/24 03/15/24 History capsule (Daily Probiotic (S. boulardii)) Past Med/Surg History Problem List URI (upper respiratory infection) (Acute) Dehydration (Acute) Acute UTI (urinary tract infection) (Acute) Fall (Acute) Closed fracture of right hip (Acute) Degenerative arthritis of knee Depression with anxiety History of hip fracture (08/2022) History of compression fracture of vertebral column (~09/19/18) Wedge compression fracture of unspecified thoracic vertebra Recurrent major depression in remission STEFFANY (generalized anxiety disorder) Cystocele with first degree uterine prolapse Altered bowel function Urinary incontinence GERD (gastroesophageal reflux disease) Lumbar spinal stenosis BPPV (benign paroxysmal positional vertigo) Type 2 diabetes mellitus Sleep apnea Sjogrens syndrome Raynaud's disease Osteoporosis Insomnia Hypertension Hypercholesterolemia Diabetic peripheral neuropathy CKD (chronic kidney disease) stage 3, GFR 30-59 ml/min Allergic rhinitis Medical History Pathological fracture of left 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-related osteoporosis (09/14/22) from fall, required surgery Nausea vomiting and diarrhea Thoracic compression fracture (~09/19/18) Surgical History Status post hip surgery (09/15/22) L hip cephalomedullary nail post hip fx S/P ERCP (12/14/19) Endoscopic Retrograde Cholangiopancreatogram Dr. Wooten 12/14/2019 Hx laparoscopic cholecystectomy (12/12/19) Laparoscopic Cholecystectomy 12/12/2019 Status post laparoscopic cholecystectomy History of hand surgery Status post section Family History Mother Arthritis Diabetes Father Arthritis Diabetes Family/Other Arthritis sibling Diabetes sibling Denies family history of Ovarian cancer Prostate cancer Myocardial infarction Breast cancer Colorectal cancer Social History Smoking Status: Never smoker Second Hand Exposure: No; Do You Dip or Chew Tobacco: No; Hx Alcohol Use: No Hx Substance Use: No Preferred Language: Slovak Communication Ability: Effective Visual Impairment: No Limitations Hearing Ability: Normal Minute Clerk Required: No Beliefs That Will Affect Care: None marital status: Current Living Situation: Spouse current occupational status: retired How many Children do You have: 4 Feels Safe at Home: Yes Childhood Exposure to Second-Hand Smoke: No Diet: regular caffeine: Yes (Coffee x 1 per day.) during the past year weight has: remained stable Dental Care, Regularly: No Physical Activity Frequency: 3-4 Times per Week Seatbelt Use: always Sunscreen Use: Yes Assistive Devices: None Review of Systems Review of Systems: All systems reviewed & are unremarkable except as noted in Subjective Physical Exam Physical Exam: General: No acute distress Skin: Warm and dry, without rashes or lesions Head: Normocephalic, atraumatic Eyes: PERRL, conjunctivae clear, sclera non-icteric; EOM intact ENT: External ear and ear canal without swelling; nose atraumatic; good dentition, tongue normal appearance, oropharynx appearing very dry Neck: Supple, no LAD Cardio: RRR, no M/G/R, S1 and S2 normal Resp: No respiratory distress, Lungs CTA in all lobes bilaterally, no wheezes, rales, or rhonchi Abdomen: Soft, symmetric, nontender; No distention; No masses or hepatosplenomegaly; Bowel sounds normoactive MSK: RLE externally rotated and is shortened, pain located over the anterolateral right hip; R hip w/ tenderness to palpation; Otherwise, full ROM throughout; pulses palpable and equal; no edema. Neuro: Awake, alert; Sensation intact bilaterally; CN grossly intact Psych: Appropriate mood and affect Daughter + present in room at time of visit. Results & Data Results & Data Vital Signs (Past 12 Hours) Vital Signs Temp Pulse Pulse Resp BP BP Pulse Ox 03/15/24 08:00 64 18 140/66 98 03/15/24 07:49 88 L 03/15/24 06:55 91 H 17 143/106 H 03/15/24 06:00 85 18 159/122 H 96 03/15/24 05:37 84 03/15/24 05:27 36.6 C 88 20 166/105 H 98 03/15/24 05:27 36.6 C 88 20 173/104 H 98 O2 Del Method O2 Flow Rate 03/15/24 08:00 Nasal Cannula 2 03/15/24 07:49 Room Air 0 03/15/24 06:55 Room Air 03/15/24 06:00 Room Air 03/15/24 05:37 03/15/24 05:27 Room Air 03/15/24 05:27 Room Air Laboratory Results 03/15/24 06:06 Urine Culture - Pending Urine,Clean Catch 03/15/24 03/15/24 06:06 05:35 WBC 6.70 RBC 4.49 Hgb 13.6 Hct 41.8 MCV 93.1 MCH 30.3 MCHC 32.5 RDW Std Deviation 46.8 H RDW Coeff of Shikha 13.6 Plt Count 163 MPV 9.2 L Immature Gran % (Auto) 0.9 Neut % (Auto) 60.6 Lymph % (Auto) 27.2 Chester % (Auto) 10.9 Eos % (Auto) 0.1 Baso % (Auto) 0.3 Neut # (Auto) 4.06 Lymph # (Auto) 1.82 Chester # (Auto) 0.73 H Eos # (Auto) 0.01 Baso # (Auto) 0.02 Immature Gran # (Auto) 0.06 PT 10.9 INR 1.0 Sodium 137 Potassium 4.4 Chloride 103 Carbon Dioxide 25 Anion Gap 9 BUN 25 H Creatinine 1.22 H Est Cr Clr Drug Dosing 30.9 eGFR 43.76 BUN/Creatinine Ratio 20.5 H Glucose 187 H Calcium 9.1 Magnesium 1.7 Total Bilirubin 1.0 AST 31 ALT 26 Alkaline Phosphatase 84 Troponin I High Sens 10.7 Total Protein 6.9 Albumin 3.9 Globulin 3.0 Albumin/Globulin Ratio 1.3 Urine Color Yellow Urine Appearance Clear Urine pH 6.0 Ur Specific Sawyer 1.020 Urine Protein Trace H Urine Glucose (UA) Negative Urine Ketones 1+ H Urine Blood Negative Urine Nitrite Positive A Urine Bilirubin Negative Urine Urobilinogen Negative Ur Leukocyte Esterase Trace H Urine WBC (Auto) 6-10 H Urine RBC (Auto) 0-2 U Hyaline Cast (Auto) 0-2 U Epithel Cells (Auto) 0-2 Urine Bacteria (Auto) 4+ H Adenovirus (PCR) Not Detected B. pertussis DNA (PCR) Not Detected B.parapertussis DNA PCR Not Detected C. pneumoniae DNA (PCR) Not Detected Coronavirus OC43 (PCR) Not Detected Coronavirus HKU1 (PCR) Not Detected Coronavirus 229E (PCR) Not Detected SARS-CoV-2 (PCR) Not Detected Coronavirus NL63 (PCR) Not Detected Human Metapneumovir PCR Not Detected Influenza Type A (PCR) Not Detected Influenza Type B (PCR) Not Detected M. pneumoniae (PCR) Not Detected Parainfluenza 1 (PCR) DETECTED A Parainfluenza 2 (PCR) Not Detected Parainfluenza 3 (PCR) Not Detected Parainfluenza 4 (PCR) Not Detected RSV (PCR) Not Detected Entero/Rhino (PCR) Not Detected Diagnostic Findings Cervical Spine CT 03/15/24 05:29 EXAM: CT cervical spine wo con CLINICAL HISTORY: Patient fell backwards and fell to the ground, denies hitting her head, stomach pain, neck pain, or chest pain. Patient states she has right hip pain. TECHNIQUE: CT scan of the cervical spine was performed without the administration of intravenous contrast. Contiguous axial images were obtained from the skull base to the upper thoracic spine. Coronal and sagittal reconstructed images were also obtained. One of the following dose reduction techniques was utilized for this exam. Automated exposure control, adjustment of the mA and/or kV according to patient size, and use of iterative reconstruction. COMPARISON: No previous studies are available for comparison. FINDINGS: Vertebrae: There is a thin hypodense line seen at the lower dens/posterior aspect of the body of the C2 vertebra, can be artifactual, however considering the history of trauma, the possibility of undisplaced fracture cannot be entirely excluded. Minimal retrolithesis of C5 vertebra. The vertebral bodies are normal in height and alignment. The cortical and trabecular bone patterns are normal. No signs of lytic or sclerotic lesions. Normal configuration of the posterior elements. Multiple marginal osteophytes. Intervertebral Discs and Neural Foramina: Reduced C5-C6 intervertebral disc space with positive vaccum phenomenon. C3-C4 right paracentral posterolateral and C5-C6 posterior and biposterolateral disc/osteophyte complex are seen effacing the ventral epidural space and compromising the related neural exit pathways. No calcifications or ossifications were noted within the discs. Facet Joints: Neurocentral and facet joints arthropathy mainly noted at C3-C4 and C5-C6 levels. Prevertebral Soft Tissues: The prevertebral soft tissues are normal in thickness without evidence of mass or abnormal fluid collection. Additional Findings: No other significant findings are noted in the visualized soft tissue structures or bony elements. IMPRESSION: There is a thin hypodense line seen at the lower dens/posterior aspect of the body of the C2 vertebra, can be artifactual, however considering the history of trauma, the possibility of undisplaced fracture cannot be entirely excluded. MRI of the cervical spine is advised if clinically indicated. Minimal retrolithesis of C5 vertebra. Degenerative changes mainly at C5-C6 level. C3-C4 and C5-C6 disc/osteophyte complexes are seen compromising the related neural exit pathways. Neurocentral and facet joints arthropathy, mainly at C3-C4 and C5-C6 levels. Electronically signed by Allison Briseno 03-15-2024 08:10 AM Chest X-Ray 03/15/24 05:29 EXAM: XR chest 1V portable CLINICAL HISTORY: PT FELL KFK TECHNIQUE: X-ray image of the chest obtained in 1 frontal projection. COMPARISON: No prior studies available for comparison. FINDINGS: Pulmonary Parenchyma: Lungs are clear bilaterally. No evidence of consolidation, collapse, or focal opacities. No pulmonary nodules identified. No evidence of pleural effusion or pleural thickening. Heart and Mediastinum: Heart size and shape are normal. No mediastinal widening or masses. No hilar or mediastinal lymphadenopathy. Bony Thorax: Bony thorax appears intact without fractures or deformities. Soft Tissues: Soft tissues overlying the chest wall are unremarkable. IMPRESSION: Normal chest X-ray. No acute cardiopulmonary abnormalities identified. Electronically signed by Allison Briseno 03-15-2024 06:[address] 03/15/24 05:29 EXAM: CT head/brain wo con CLINICAL HISTORY: Pt was trying to walk to the bathroom and lost her balance. Pt fell backward and fell to the ground. Pt denies hitting her head, stomach pain, neck pain, or chest pain. Pt states she has right hip pain. Pt denies being on blood thinners. PW TECHNIQUE: An axial non-contrast CT scan of the brain was performed from the skull base to the high parietal region. One of the following dose reduction techniques were utilized for this exam: Automated exposure control, adjustment of the mA and/or kV according to patient size, and use of iterative reconstruction. COMPARISON: None. FINDINGS: Brain Parenchyma: Generalized cerebral atrophy Ill-defined hypoattenuating areas seen in bilateral marcelino ventricular and subcortical white matter suggestive of small vessel disease. Encephalomalacia seen in right posterior parietal lobe in central [place] No evidence of acute infarct, hemorrhage, or mass effect. Ventricular System: Ventricles, sulci and cisterns are prominent proportionate to the degree of cerebral atrophy. Subarachnoid Spaces: Normal sulci and cisterns. No evidence of subarachnoid hemorrhage or extra-axial fluid collections. Cerebellum and Brainstem: Normal size and signal. Encephalomalacia seen in right cerebellar hemisphere Orbits: Normal appearance of the globes, optic nerves, and extraocular muscles. No evidence of orbital masses Sinuses: Ethmoid sinus mucosal thickening. Mastoid Air Cells: Bilateral chronic mastoiditis. Skull: Normal skull morphology. IMPRESSION: 1. Generalized cerebral atrophy. 2. Small vessel disease. 3. Encephalomalacia in the right posterior parietal lobe and right cerebellar hemisphere. 4. No acute brain insult or skull fractures 5. No intracranial acute pathology was seen. Electronically signed by Allison Briseno 03-15-2024 07:50 AM Hip/Pelvis X-Ray 03/15/24 05:29 EXAM: XR hip RT 2V w pelvis CLINICAL HISTORY: PT FELL KFK TECHNIQUE: X-ray images of the right hip joint and pelvis were obtained in anteroposterior (AP) and lateral projections. COMPARISON: None. FINDINGS: Hip Joints: Comminuted displaced intertrochanteric fractures in the right femur. Internal fixation in the left femur with mildly displaced lesser trochanteric fracture. Reduced bilateral hip joint space. Sacroiliac joints appear normal and unremarkable. No evidence of sacroiliitis or significant degenerative changes. Symphysis Pubis: The symphysis pubis is normal and intact. No evidence of separation or widening. Soft Tissues: Right hip/proximal thigh soft tissue swelling. No calcifications, or masses. IMPRESSION: 1. Comminuted displaced intertrochanteric fractures in the right femur. 2. Internal fixation in the left femur with mildly displaced lesser trochanteric fracture. 3. Reduced bilateral hip joint space. Disclaimer: A subtle bone abnormality or fracture may not be readily apparent on X-rays, thus clinical correlation and further imaging including follow-up CT, MRI, or follow-up X-rays are advised as needed. Electronically signed by Allison Briseno 03-15-2024 07:23 AM Code Status & VTE Plan Code Status Full VTE Prophylaxis Plan VTE Prophylaxis will be ordered: Yes Supervising Physician Co-Signing Physician Notes Patient was seen and examined independently, 83-year-old female with a history of chemical fall at home sustaining a right intertrochanteric hip fracture incidental finding of possible C2 lucency yet to be determined a fracture or chronic, type 2 diabetes on metformin anxiety and depression using as needed lorazepam and duloxetine scheduled for surgical repair 03/15/2024 I discussed the case with Mariel CRARILLO I reviewed pertinent past medical social family history and also the plan of care and agree with the plan of care. Patient was seen in the company of her family she is having some right-sided hip pain with external rotation and shortening of her right leg. She has a history of a fall and a previous left hip fracture July 2023. She cannot recall events preceding her fall she has had no chest pain preceding her fall. She previously has a history of dizziness but denies the same. There is a question of lucency of C2 she has a c-collar in place pending MRI of her cervical spine anesthesias been notified. She has good distal pulses and sensation of her legs Cardiac exam is regular there are no murmurs lungs are clear good excursion abdomen NABS soft nontender her right leg has a good distal sensation and pulses are intact Patient is scheduled to go to the operating room on 03/15/[address] Emmanuel For the lucency seen at C2 patient is on a c-collar anesthesia was notified and an MRI scan of be undertaken For prehospital history hypertension boldly restarting for 24 hours postoperatively using hypertension control with hydralazine Family is aware the PT OT may be a challenge and they are open to consider rehab Any exceptions will be noted below PG Care Time/CCT Total # of Minutes Spent Total Time Spent with Patient: Total time spent is greater than 50% in coordination of care (as documented) at patient's floor/unit and/or counseling patient: Coding Level of Care Code 88425 INT INP/OBS CARE MIN Diagnoses Closed fracture of right hip S72.001A Acute UTI (urinary tract infection) N39.0 URI (upper respiratory infection) J06.9 Fall W19.XXXA Depression with anxiety F41.8 Type 2 diabetes mellitus without complication, without long-term current use of insulin E11.9 Diabetes mellitus complication status: without complication Diabetes mellitus predatory animal exterminator insulin use: without predatory animal exterminator use CKD (chronic kidney disease) stage 3, GFR 30-59 ml/min N18.3 Diabetic peripheral neuropathy E11.42 Osteoporosis M81.0 (6) Type 2 diabetes mellitus Diabetes mellitus complication status: without complication Diabetes mellitus predatory animal exterminator insulin use: without predatory animal exterminator use Qualified Code(s): E11.9 - Type 2 diabetes mellitus without complications
--- NOTE | 2024-03-15 10:25 | Orthopedic Consultation ---
Date of Consultation March 15, 2024 Assessment & Plan (1) Femur fracture, right: The patient and her family were educated regarding today's findings. Conservative care measures were discussed. Necessity for internal fixation was discussed if she would like to continue ambulating. Nonoperative management is an option, however her mobility would be limited to bed to chair transfers and there is a likelihood of chronic pain. She would like to proceed with surgery. Informed written consent was obtained by Dr. Emmanuel. We will wait to see what her MRI results show, but would anticipate going to the OR early this afternoon for open reduction internal fixation using a trochanteric nail. She has already been seen by the hospitalist team. Her labs are favorable. She is already being treated for the UTI. Nasal swab was positive for parainfluenza virus, though the patient is not having any significant cold symptoms. She will be made n.p.o. in anticipation of the OR. The patient was seen in conjunction with Dr. Emmanuel, who also evaluated the patient and concurred with today's diagnosis and treatment plan. Supervising Physician Co-Signing Physician Notes Any exceptions will be noted below History of Present Illness Reason for Consultation: Right hip intertrochanteric fracture History of Present Illness This 83-year-old female presented via ambulance to the ED for right hip pain after falling. History is obtained from her, her , and daughter. The patient was attempting to walk to the bathroom last night around 4 AM when she lost her balance and fell. She landed on her right side and had immediate onset of pain. She was brought to the ER and found to have an intertrochanteric fracture of the femur. Orthopedics was consulted for further management. The patient currently has no other complaints. She has a history of osteoporosis and previous left hip fracture a year and a half ago that required ORIF with a trochanteric nail. It is of similar pattern. She is currently in a cervical collar awaiting MRI imaging of her cervical spine due to questionable finding on CT scan. She does not take any blood thinners. There is no history of DVT or PE. She last ate or drank around 430am. She had approximately 3 to 4 ounces of water at that time. Allergies Allergy/AdvReac Type Severity Reaction Status Date / Time Iodinated Contrast Media Allergy Intermediate Rash Verified 11/03/23 14:19 clindamycin [From Cleocin] Allergy Mild hives Verified 11/03/23 14:19 influenza virus vacc AdvReac Unknown Verified 11/03/23 14:19 trivalent, split [From Fluzone] Home Medications Medication Instructions Recorded Confirmed Type coenzyme Q10 200 mg capsule 200 mg PO DAILY 11/26/18 03/15/24 History cyanocobalamin (vitamin B-12) 1,000 mcg PO DAILY #90 tabs 11/26/18 03/15/24 History 1,000 mcg tablet blood sugar diagnostic (Blood #100 ea 12/24/19 01/26/24 Rx Glucose Test strips) blood-glucose meter (Blood Glucose #1 ea 12/24/19 01/26/24 Rx Monitoring kit) lancets (OneTouch UltraSoft #100 ea 07/11/20 01/26/24 Rx Lancets) [id number] C-Mn 250 1 cap PO BID 03/01/22 03/15/24 History mg-200 mg-30 mg-2.5 mg capsule zinc 50 mg capsule 50 mg PO DAILY 09/16/22 03/15/24 History calcium 600 mg (as carbonate)-vit 1 tab PO BID #180 tabs 11/26/22 03/15/24 Rx D3 20 mcg (800 unit) chewable tablet (Caltrate plus D) acetaminophen 500 mg tablet 500 mg PO TID PRN Pain 01/03/23 03/15/24 History (Tylenol Extra Strength) atorvastatin 40 mg tablet 40 mg PO DAILY #100 tabs 12/21/23 03/15/24 Rx clotrimazole-betamethasone 1 1 applic topical BID #45 grams 12/21/23 03/15/24 Rx %-0.05 % topical cream duloxetine 30 mg capsule,delayed 30 mg PO DAILY #100 caps 12/21/23 03/15/24 Rx release famotidine 40 mg tablet 40 mg PO HS #90 tabs 12/21/23 03/15/24 Rx fluticasone propionate 50 2 spray intranasal DAILY #16 grams 12/21/23 03/15/24 Rx mcg/actuation nasal spray,suspension (Flonase Allergy Relief) irbesartan 300 mg tablet 300 mg PO DAILY #100 tabs 12/21/23 03/15/24 Rx metformin 500 mg tablet,extended 500 mg PO DAILY #100 tabs 12/21/23 03/15/24 Rx release 24 hr pantoprazole 40 mg tablet,delayed 40 mg PO DAILY #100 tabs 12/21/23 03/15/24 Rx release azelastine 137 mcg (0.1 %) nasal 137 mcg (0.137 mL) intranasal BID 01/26/24 03/15/24 Rx spray #30 mL ipratropium bromide 21 mcg (0.03 2 spray intranasal DAILY #30 mL 01/26/24 03/15/24 Rx %) nasal spray lorazepam 2 mg tablet 3 mg (1.5 x 2 mg) PO DAILY PRN 02/09/24 03/15/24 Rx anxiety #135 tabs Saccharomyces boulardii 250 mg 250 mg PO BID 03/15/24 03/15/24 History capsule (Daily Probiotic (S. boulardii)) Patient History Medical History Pathological fracture of left 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-related osteoporosis (09/14/22) from fall, required surgery Nausea vomiting and diarrhea Thoracic compression fracture (~09/19/18) Surgical History Status post hip surgery (09/15/22) L hip cephalomedullary nail post hip fx S/P ERCP (12/14/19) Endoscopic Retrograde Cholangiopancreatogram Dr. Wooten 12/14/2019 Hx laparoscopic cholecystectomy (12/12/19) Laparoscopic Cholecystectomy 12/12/2019 Status post laparoscopic cholecystectomy History of hand surgery Status post section Family History Mother Arthritis Diabetes Father Arthritis Diabetes Family/Other Arthritis sibling Diabetes sibling Denies family history of Ovarian cancer Prostate cancer Myocardial infarction Breast cancer Colorectal cancer Social History Smoking Status: Never smoker Second Hand Exposure: No; Do You Dip or Chew Tobacco: No; Hx Alcohol Use: No Hx Substance Use: No Preferred Language: Macedonian Communication Ability: Effective Visual Impairment: No Limitations Hearing Ability: Normal Colored Leather Setter Required: No Beliefs That Will Affect Care: None marital status: Current Living Situation: Spouse current occupational status: retired How many Children do You have: 4 Feels Safe at Home: Yes Childhood Exposure to Second-Hand Smoke: No Diet: regular caffeine: Yes (Coffee x 1 per day.) during the past year weight has: remained stable Dental Care, Regularly: No Physical Activity Frequency: 3-4 Times per Week Seatbelt Use: always Sunscreen Use: Yes Assistive Devices: None Review of Systems Review of Systems: All systems reviewed & are unremarkable except as noted in HPI & below Physical Exam Physical Exam: General: Frail, elderly female, in no acute distress. Laying in bed. Alert and oriented. Skin: Warm dry with fair turgor. No rashes. No ecchymosis or edema currently. No skin tears. Heart: Heart RRR. No GR. Soft systolic murmur is noted at the left sternal border. Peripheral pulses are 2+. Lungs: Lungs are clear to auscultation. No crackles rhonchi or wheezing. Good air movement. The patient is able to take a deep breath. Abdomen: Abdomen was inspected, auscultated, and palpated. Bowel sounds present x 4. Hyperactive. Soft, nontender to palpation. No hepato-splenomegaly. No masses noted. No rebound. Musculoskeletal: Right hip evaluation reveals no obvious asymmetry. She does have an externally rotated position with shortened leg. Any attempted passive motion of the hip causes significant pain. She has no discomfort with palpation over her knee, lower leg, ankle, or foot. She has intact motor function of her ankles and toes. They are symmetric. Strength is 5/5 for resisted plantarflexion and dorsiflexion of the ankles. No active motion of the right leg was attempted. Neurologic: Gross sensation is intact across both lower extremities by soft touch. Peripheral pulses are 2+. Results & Data Vital Signs (Past 12 Hours) Vital Signs Temp Pulse Pulse Resp BP BP Pulse Ox 03/15/24 10:00 91 H 20 159/89 H 97 03/15/24 09:36 94 H 03/15/24 08:00 64 18 140/66 98 03/15/24 07:49 88 L 03/15/24 06:55 91 H 17 143/106 H 03/15/24 06:00 85 18 159/122 H 96 03/15/24 05:37 84 03/15/24 05:27 36.6 C 88 20 166/105 H 98 03/15/24 05:27 36.6 C 88 20 173/104 H 98 O2 Del Method O2 Flow Rate 03/15/24 10:00 Nasal Cannula 2 03/15/24 09:36 03/15/24 08:00 Nasal Cannula 2 03/15/24 07:49 Room Air 0 03/15/24 06:55 Room Air 03/15/24 06:00 Room Air 03/15/24 05:37 03/15/24 05:27 Room Air 03/15/24 05:27 Room Air Laboratory Results CBC obtained this morning shows a white count of 6.7. H&H of 13.6 and 41.8. Platelets are normal at 263,000. INR today is 1.0. PT 10.9 seconds. Chemistry panel obtained this morning shows normal electrolytes. BUN of 25 with creatinine 1.22. This is consistent with her previous values from December. Normal calcium and magnesium. LFTs are also unremarkable. Troponin this morning is normal at 10.7. UA shows trace ketones, positive nitrates, and trace leukocyte esterase. Bacteria noted without significant epithelials or RBCs, suggesting UTI. Bio fire nasal swab is positive for parainfluenza virus Diagnostic Findings Radiographic imaging previously obtained shows a comminuted and displaced intertrochanteric fracture of the right femur. CT scan imaging of the cervical spine shows a thin hypodense line at the lower dens and posterior aspect of the body of C2 vertebrae. While likely artifactual, the possibility of undisplaced fracture cannot be entirely excluded. MRI imaging is advised and is currently being completed.
[2024-03-15] MEDS ORDERED: MAGNESIUM HYDROXIDE SUSP 30 ML UDC PO PRN (11:15)
[2024-03-15] MEDS ORDERED: GLUCOSE 10 TAB/TUBE PO PRN (11:15)
[2024-03-15] MEDS ORDERED: hydrALAZINE HCL 20 MG/ML VIAL IV PRN (11:15)
[2024-03-15] MEDS ORDERED: GLUCAGON FOR INJ 1 MG VIAL SQ PRN (11:15)
[2024-03-15] MEDS ORDERED: MoRPHine SULFATE 4 MG/ML 1 ML CARP\\VIAL IV PRN (11:15)
[2024-03-15] MEDS ORDERED: MoRPHine SULFATE IR 15 MG TAB (IMMEDIATE RELEASE) PO PRN (11:15)
[2024-03-15] MEDS ORDERED: ONDANSETRON INJ 2 MG/ML 2 ML VIAL IV PRN ×2 (11:15→16:44)
[2024-03-15] MEDS ORDERED: DEXTROSE 50% 50 ML SYRINGE IV PRN (11:15)
[2024-03-15] MEDS ORDERED: GLUCOSE 40% GEL 15 GM TUBE PO PRN (11:15)
[2024-03-15] MEDS ORDERED: POLYETHYLENE (MIRALAX) 17 GM PACK PO PRN (11:15)
[2024-03-15] MEDS ORDERED: MoRPHine SULFATE 2 MG/ML CARP IV PRN (11:15)
[2024-03-15] MEDS ORDERED: PHARMACY GLYCEMIC MGMT CONSULT PRN (11:15)
[2024-03-15] MEDS ORDERED: CARBOHYDRATES FOR HYPOGLYCEMIA PO PRN (11:15)
[2024-03-15] MEDS: INSULIN ASPART PER UNIT CHARGE SC SCH (11:33)
--- NOTE | 2024-03-15 11:57 | Pharmacy Report ---
Pharmacy Glycemic Short Note 2 - Date of Service March 15, 2024 - Glycemic Short BSG Results (Last 24 hours): 03/15/24 05:35 Glucose 187 H OUTPATIENT ANTIDIABETIC REGIMEN: * metformin 500mg PO daily HbA1C: ___ ASSESSMENT: * Pt is an 83 year old female admitted in setting of fall and femur fracture. Plan for OR today for surgical repair. History of DM2 on metformin @ home. Pharmacy consulted for inpatient glycemic management. * BSGs so far today, 187-144mg/dL. Receiving IV antibiotics, and currently NPO for planned OR. * Will initiate Novolog ACHS/q6 mild-moderate stress scale. Hold basal for now. PLAN FOR INPATIENT GLYCEMIC CONTROL: * Hold outpatient oral diabetes medications * Basal insulin * hold * Bolus insulin * NovoLog per scale ACHS or Q6hrs while NPO * Goal Range: Low 110 mg/dL - High 140 mg/dL * Correction Factor: 40 mg/dL/unit * Nutritional / Prandial insulin per carb ratio of 1 unit per 15 grams CHO consumed
--- NOTE | 2024-03-15 12:44 | Electrocardiogram Report ---
Test Reason : Blood Pressure : */* mmHG Vent. Rate : 90 BPM Atrial Rate : 90 BPM P-R Int : 160 ms QRS Dur : 84 ms QT Int : 372 ms P-R-T Axes : 53 15 46 degrees QTcB Int : 455 ms Normal sinus rhythm Normal ECG When compared with ECG of 14-Sep-2022 12:27, No significant change was found Confirmed by Bebeto Hallman ([id number]) on 03/15/2024 12:44:18 PM Referred By: Confirmed By: Bebeto Hallman
--- NOTE | 2024-03-15 13:35 | Magnetic Resonance Report ---
MR cervical spine wo con HISTORY: 83 years-old Female ? C2 fracture, s/p fall acute neck injury status post fall COMPARISON: CT cervical spine of same day at 6:20 AM, CT abdomen and pelvis 09/20/2022 TECHNIQUE: Multiplanar multisequence MRI of the cervical spine was obtained without IV contrast FINDINGS: The imaged posterior fossa structures appear unremarkable. There is no acute fracture, subluxation, e ndplate erosion, marrow replacing process or marrow edema. No epidural fluid collections. Wall thicke chris noted throughout the mid to distal esophagus measures up to approximately 5-6 mm circumferential ly. There is suggestion of periesophageal edema. Normal signal within the cervical and imaged upper t horacic spinal cord. Study is motion degraded. C2-C3: Mild intervertebral disc space narrowing and uncovertebral upper tree with small posterior juliano ular disc bulge. Moderate to severe facet arthrosis. Patent central canal. Mild left with mild to mod erate right foraminal narrowing. C3-C4: Moderate intervertebral disc space narrowing. Small posterior disc osteophyte complex with mod erate to severe facet arthrosis. Mild central canal stenosis with AP dimension of the thecal sac 7.6 mm. Moderate bilateral foraminal narrowing. C4-C5: Small posterior annular disc bulge/disc osteophyte complex with [id number] facet arthros is. The central canal is patent. Mild bilateral foraminal narrowing. C5-C6: Severe intervertebral disc space narrowing with circumferential disc osteophyte complex. Moder ate to advanced facet arthrosis. AP dimension of the thecal sac measures 6.6 mm. Mild to moderate mabel tral canal stenosis with minimal mass effect on both the ventral and dorsal aspects of the cervical s paul cord. Mild bilateral foraminal narrowing. C6-C7: Tiny posterior annular disc bulge with moderate facet arthrosis. No central canal or foraminal narrowing. C7-T1: Grade 1 anterolisthesis secondary to chronic facet arthrosis. Posterior annular disc bulge wit h 5 mm left paracentral disc protrusion on image 104 series 6. Moderate facet arthrosis. Central sher l is patent. No significant neural foraminal narrowing. IMPRESSION: 1. No acute fracture, subluxation or bone marrow edema. 2. Discogenic degeneration with facet arthrosis as above resulting in multilevel central canal and ne ural foraminal narrowing. 3. There is apparent circumferential wall thickening within the mid esophagus. Findings could be chari elated with endoscopy. ACT 112: Negative or not required by law. The above report was generated using voice recognition software. It may contain grammatical, syntax o r spelling errors. Electronically signed by: Mike Cuevas M.D. 03/15/2024 1:34 PM
[2024-03-15] MEDS ORDERED: ePHEDrine sulfate 50 MG/ML AMP ONE (14:13)
[2024-03-15] MEDS ORDERED: MIDAZOLAM HCL 1 MG/ML 2ML VIAL ONE (14:13)
[2024-03-15] MEDS ORDERED: PROPOFOL IV EMULSION 10 MG/ML 20 ML VIAL IV ONE ×2 (14:13→14:15)
[2024-03-15] MEDS ORDERED: PHENYLEPHRINE HCL 10 MG/ML VIAL ONE ×2 (14:13→15:32)
[2024-03-15] MEDS ORDERED: ONDANSETRON INJ 2 MG/ML 2 ML VIAL ONE (14:14)
[2024-03-15] MEDS ORDERED: DEXAMETHASONE SOD INJ 4 MG/ML VIAL ONE (14:14)
[2024-03-15] MEDS ORDERED: KETAMINE HCL 10MG/ML SYR ONE (14:14)
[2024-03-15] MEDS ORDERED: LIDOCAINE 2% 2 ML VIAL/AMP(20MG/ML) INFIL ONE (14:14)
[2024-03-15] MEDS ORDERED: SODIUM CHLORIDE 0.9% PF INJ 10 ML VIAL ONE (14:17)
[2024-03-15] MEDS ORDERED: fentaNYL citrate PF 100 MCG/2 ML VIAL ONE (14:26)
[2024-03-15] MEDS: TRANEXAMIC ACID / 0.7% NACL 1,000 MG/100 ML BAG IV SCH (14:33)
[2024-03-15] MEDS: ceFAZolin 2000MG 2,000 MG/15 ML SYR IV SCH (14:39)
[2024-03-15] MEDS ORDERED: BUPIVACAINE 0.5 % 5 MG/1 ML PF 10ML VIAL ONE (14:45)
[2024-03-15] MEDS ORDERED: PHENYLEPHRINE 100MCG/ML 5ML SYR ONE (16:14)
[2024-03-15] MEDS: LIDOCAINE 1% LOCAL 20 ML VIAL ONE (16:30)
[2024-03-15] MEDS: BUPIVACAINE/EPINEPHRINE 0.25% 1:200,000 30 ML VIAL ONE (16:30)
--- NOTE | 2024-03-15 16:43 | Anesthesiology Consultation ---
Date of Service March 15, 2024 Assessment & Plan Chart Review Chart Review: Acceptable Risk for Surgery Consults Requested none History Surgery Operation Date: 03/15/24 09:20 Proposed Procedures p Right Troch Nail - Malvin Emmanuel MD Height/Weight Height: 5 ft 5 in Weight: 65 kg Allergies Allergy/AdvReac Type Severity Reaction Status Date / Time Iodinated Contrast Media Allergy Intermediate Rash Verified 03/15/24 14:10 clindamycin [From Cleocin] Allergy Mild hives Verified 03/15/24 14:10 influenza virus vacc AdvReac Unknown Verified 03/15/24 14:10 trivalent, split [From Fluzone] Medications Home Medications Medication Instructions Recorded Confirmed Last Taken coenzyme Q10 200 mg capsule 200 mg PO DAILY 11/26/18 03/15/24 09/15/22 cyanocobalamin (vitamin B-12) 1,000 mcg PO DAILY #90 tabs 11/26/18 03/15/24 09/15/22 1,000 mcg tablet blood sugar diagnostic (Blood #100 ea 12/24/19 01/26/24 09/15/22 Glucose Test strips) blood-glucose meter (Blood Glucose #1 ea 12/24/19 01/26/24 09/15/22 Monitoring kit) lancets (OneTouch UltraSoft #100 ea 07/11/20 01/26/24 09/15/22 Lancets) [id number] C-Mn 250 1 cap PO BID 03/01/22 03/15/24 09/15/22 mg-200 mg-30 mg-2.5 mg capsule zinc 50 mg capsule 50 mg PO DAILY 09/16/22 03/15/24 09/15/22 calcium 600 mg (as carbonate)-vit 1 tab PO BID #180 tabs 11/26/22 03/15/24 Unknown D3 20 mcg (800 unit) chewable tablet (Caltrate plus D) acetaminophen 500 mg tablet 500 mg PO TID PRN Pain 01/03/23 03/15/24 Unknown (Tylenol Extra Strength) atorvastatin 40 mg tablet 40 mg PO DAILY #100 tabs 12/21/23 03/15/24 Unknown clotrimazole-betamethasone 1 1 applic topical BID #45 grams 12/21/23 03/15/24 Unknown %-0.05 % topical cream duloxetine 30 mg capsule,delayed 30 mg PO DAILY #100 caps 12/21/23 03/15/24 Unknown release famotidine 40 mg tablet 40 mg PO HS #90 tabs 12/21/23 03/15/24 Unknown fluticasone propionate 50 2 spray intranasal DAILY #16 grams 12/21/23 03/15/24 Unknown mcg/actuation nasal spray,suspension (Flonase Allergy Relief) irbesartan 300 mg tablet 300 mg PO DAILY #100 tabs 12/21/23 03/15/24 Unknown metformin 500 mg tablet,extended 500 mg PO DAILY #100 tabs 12/21/23 03/15/24 Unknown release 24 hr pantoprazole 40 mg tablet,delayed 40 mg PO DAILY #100 tabs 12/21/23 03/15/24 Unknown release azelastine 137 mcg (0.1 %) nasal 137 mcg (0.137 mL) intranasal BID 01/26/24 03/15/24 Unknown spray #30 mL ipratropium bromide 21 mcg (0.03 2 spray intranasal DAILY #30 mL 01/26/24 03/15/24 Unknown %) nasal spray lorazepam 2 mg tablet 3 mg (1.5 x 2 mg) PO DAILY PRN 02/09/24 03/15/24 Unknown anxiety #135 tabs Saccharomyces boulardii 250 mg 250 mg PO BID 03/15/24 03/15/24 Unknown capsule (Daily Probiotic (S. boulardii)) Active Medications Generic Name Dose Route Start Last Admin Trade Name Freq PRN Reason Stop Dose Admin Sodium Chloride 1,000 mls @ 250 mls/hr 03/15/24 05:30 03/15/24 08:51 Nss IV 03/16/24 05:29 250 mls/hr .Q4H JACOB Administration Cefazolin Sodium 2,000 mg in 15 mls @ 3.75 mls/min 03/15/24 11:53 03/15/24 14:39 Ancef 2000mg IV 03/15/24 18:00 3.75 mls/min PREOP JACOB Administration Protocol Tranexamic Acid 1,000 mg in 100 mls @ 600 mls/hr 03/15/24 11:53 03/15/24 14:33 Tranexamic Acid / 0.7% Nacl IV 03/15/24 18:00 600 mls/hr PREOP JACOB Administration Insulin Aspart 0 units 03/15/24 11:30 03/15/24 11:33 Insulin Aspart Per Unit Charge SC 04/14/24 11:29 Not Given ACHS JACOB NPO Date Last Intake of Fluids: 03/15/24 Time Last Intake of Fluids: 03:30 Date Last Intake of Solids: 03/14/24 Time Last Intake of Solids: 19:30 Past Medical History Medical History Pathological fracture of left 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-related osteoporosis (09/14/22) from fall, required surgery Nausea vomiting and diarrhea Thoracic compression fracture (~09/19/18) Past Family History Family History Mother Arthritis Diabetes Father Arthritis Diabetes Family/Other Arthritis sibling Diabetes sibling Denies family history of Ovarian cancer Prostate cancer Myocardial infarction Breast cancer Colorectal cancer Past Surgical History Surgical History Status post hip surgery (09/15/22) L hip cephalomedullary nail post hip fx S/P ERCP (12/14/19) Endoscopic Retrograde Cholangiopancreatogram Dr. Wooten 12/14/2019 Hx laparoscopic cholecystectomy (12/12/19) Laparoscopic Cholecystectomy 12/12/2019 Status post laparoscopic cholecystectomy History of hand surgery Status post section Social History Smoking Status: Never smoker Do You Dip or Chew Tobacco: No Hx Alcohol Use: No Hx Substance Use: No Physical Exam Vital Signs Last Vital Signs Temp 36.7 C 03/15/24 14:11 Pulse 95 H 03/15/24 14:11 Resp 18 03/15/24 14:11 BP 174/97 H 03/15/24 14:11 Pulse Ox 100 03/15/24 14:11 O2 Del Method Room Air 03/15/24 14:11 O2 Flow Rate 2 03/15/24 12:00 Testing Laboratory Results 03/15/24 05:35 03/15/24 05:35 PT 10.9 Seconds (9.0-12.0) 03/15/24 05:35 INR 1.0 (0.9-1.1) 03/15/24 05:35 Urine Color Yellow 03/15/24 06:06 Urine Appearance Clear (Clear) 03/15/24 06:06 Urine pH 6.0 (4.5-7.5) 03/15/24 06:06 Ur Specific Lyman 1.020 (1.000-1.030) 03/15/24 06:06 Urine Protein Trace (Negative) H 03/15/24 06:06 Urine Glucose (UA) Negative (Negative) 03/15/24 06:06 Urine Ketones 1+ (Negative) H 03/15/24 06:06 Urine Nitrite Positive (Negative) A 03/15/24 06:06 Ur Leukocyte Esterase Trace (Negative) H 03/15/24 06:06 Urine WBC (Auto) 6-10 /hpf (0-5) H 03/15/24 06:06 Urine RBC (Auto) 0-2 /hpf (0-2) 03/15/24 06:06 U Hyaline Cast (Auto) 0-2 /lpf (0-2) 03/15/24 06:06 U Epithel Cells (Auto) 0-2 /hpf (0-2) 03/15/24 06:06 Urine Bacteria (Auto) 4+ (None Seen) H 03/15/24 06:06 Blood Type O Negative 03/15/24 12:32 Antibody Screen NEGATIVE 03/15/24 12:32 03/15/24 03/15/24 14:36 12:39 POC Glucose 128 H 144 H
[2024-03-15] MEDS ORDERED: PROMETHAZINE HCL 6.25 MG in SODIUM CHLORIDE 0.9% 50 ML IV PRN (16:44)
[2024-03-15] MEDS ORDERED: ATROPINE SULFATE 0.1 MG/ML 10ML SYR IV PRN (16:44)
[2024-03-15] MEDS ORDERED: HYDROmorphone INJ 1 MG/ML SYRINGE IV PRN (16:44)
[2024-03-15] MEDS ORDERED: fentaNYL citrate PF 100 MCG/2 ML VIAL IV PRN (16:44)
[2024-03-15] MEDS ORDERED: ePHEDrine sulfate 50 MG/ML AMP IV PRN (16:44)
--- NOTE | 2024-03-15 17:45 | Operative Report ---
Post Operative Report Pre & Post Diagnosis Operation Date: 03/15/24 09:20 Pre-Op Diagnosis: Right Intertrochanteric Fracture Post-Op Diagnosis: Right Intertrochanteric Fracture. I identified the patient and participated in the time-out.: Yes Procedure Operation Date: 03/15/24 09:20 Actual Procedures p Right Troch Nail(Right) - Malvin Emmanuel MD Surgeon Malvin Emmanuel MD Design Architect Chinedu Pablo physicians assistant professor of art no resident or fellow available Estimated Blood Loss 25 Findings Consistent with Post-Op Diagnosis Specimens None Anesthesia Type Spinal MAC Complications none Disposition Accompanied Patient To Recovery: No Disposition: Recovery Room Indications Eloise is 83 years old. Status post fall last evening resulting in a comminuted right hip intertrochanteric fracture. Treatment options risks and benefits were discussed. Surgery was recommended and she has agreed to proceed. She is status post the same injury on the contralateral leg 1-1/2 years ago. She was seen and evaluated by medicine. There was a questionable finding on her cervical spine CT scan which on MRI did not show any acute pathology. Description of Procedure Informed consent. Patient identified. She identified the procedure site as the right hip which I marked with my initials. A preoperative surgical timeout was performed. Preop dose of IV antibiotics was given. She was taken to the operating room position supine on the fracture table. Prior to that the anesthetic was administered on the hospital bed. She was positioned supine. A padded perineal post was utilized. The legs were placed into balanced scissors traction with the right leg up and the left leg down. Open all bony prominences were inspected and padded. The feet were padded with soft roll ABDs and secured into the boots with Coban. The right arm was folded over her chest and padded with eggcrate. Her torso was secured to the table with 3 inch tape. The left arm was brought out on an armboard and an IV was started. The leg was prescrubbed and then prepped and draped in the usual sterile fashion. DVT prophylaxis with SCD intraoperatively. Postop early mobility mechanical devices and Eliquis. Prior to prepping and draping fluoroscopic guidance was utilized to assess the fracture. With gentle longitudinal traction the fracture reduced well in the AP projection. Comminution was noted. This was a intertrochanteric fracture. There is likely another fracture extending distally probably resulting in a free greater trochanteric fragment. The lesser trochanter was f ractured and displaced. On the lateral view the trochanter and shaft fragments were well aligned however the head and neck fragment was angulated and slightly displaced anteriorly. This could be corrected somewhat with external pressure however trying to reduce it by applying and removing traction and rotating the leg was not effective. The hip could not be flexed anymore than it presently was. I made the decision to reduce this intraoperatively with a instrument at the appropriate time.TXA given. Fluoroscopic guidance was utilized to identify the appropriate location for the incision which was made just proximal to the tip the greater trochanter and about 6 to 8 cm in length. The skin and subcutaneous tissues were sharply incised down to the level of the gluteal fascia which was likewise sharply incised under direct visualization gaining access to the tip of the greater trochanter. At this time I carefully dissected with my finger over the anterior femoral neck in an extracapsular fashion. I was then able to insert under fluoroscopic control a Mckeon elevator over the anterior femoral neck. On the lateral view I was then able to pry the head neck fragment inferiorly and correct the angulation and displacement. The starting point was identified just lateral to the tip of the trochanter and in line with the shaft. This was adjusted x 1 and a guidepin was introduced confirmed to be intramedullary and in good position on multiplanar fluoroscopy. This was followed with the starting reamer followed by the intramedullary guide sonal which was determined to be intramedullary on multiplanar fluoroscopy. Tip of the sonal was placed at the top of the patella and sonal length was determined to be 360 mm. Reaming began at size 10 and proceeded in half millimeter increments up to 11.5 mm with strong cortical chatter. A 10 mm x 360 mm sonal was then inserted under hand power. It was aligned to the femoral neck on the lateral view. The triple trocar was then introduced in a percutaneous fashion through a separate distal stab incision and applied against the bone. At this time the Mckeon elevator was reinserted anterior to the nail insertion device and lifted in order to apply a posterior force on the head neck fragment which then resulted in anatomical alignment which I checked in multiplanar fluoroscopy. I then introduced a guidepin into the femoral head and neck which was adjusted x 3 to be in the good proper position. It was slightly inferior on the AP view and slightly posterior on the lateral view. The proximal fragment remained anatomically reduced. I then inserted a percutaneous pin anteriorly which secured it in place. The length was determined to be 95 mm. The lateral cortical reamer followed by the triple reamer and insertion of the 95 degree spiral blade. This was within a centimeter of the apex on the AP and lateral views and the proximal fragment was anatomically reduced. The setscrew was advanced fully and then backed off one half turn to allow for compression and the insertion apparatus was removed. Data Acquisition Technician fluoroscopic images were obtained. 2 screws were inserted distally. These were interlocking screws. Static and d ynamic. This was done using the perfect eek technique in the standard fashion. I had to redrilled the proximal static pin x 1 as I skived anteriorly on the initial pass. Position of the screws was confirmed on multiplanar fluoroscopy. Prior to inserting these distal screws the traction was relieved on the leg. All the incisions were copiously irrigated with sterile saline. The distal inci sions were closed with 0 and 2-0 Vicryl where appropriate followed by nakul on the skin. The proximal incision #1 Vicryl was used to close the gluteal fascia. Hemostasis was achieved in all incisions. The subcutaneous fat was closed with 0 Vicryl followed by 2-0 Vicryl on the dermal layer and nakul on the skin. The leg was cleaned with wet and dry sponges and a saw sterile dressing was chepe lied Xeroform 4 x 4's ABD and foam tape. Patient awakened from anesthesia without difficulty and taken to the recovery room in stable condition. There were no specimens or complications. Counts wer e correct and blood loss is estimated to be 25 cc. At the conclusion of the operation I spoke the patient's family and informed him my findings. Postop instructions were discussed. Eliquis for DVT prophylaxis beginning the morning after surgery. She may weight-bear as tolerated in rehab . The sonal inserted was a Synthes trochanteric femoral nail 10 mm diameter by 360 mm length with a 95 mm spiral blade and 2 distal interlocking screws. I attest to the content of the Intraoperative Record and any orders documented therein. Any exceptions are noted below.
--- NOTE | 2024-03-15 18:17 | Operative Report ---
Post Operative Report Pre & Post Diagnosis Operation Date: 03/15/24 09:20 Pre-Op Diagnosis: Right Intertrochanteric Fracture Post-Op Diagnosis: Right Intertrochanteric Fracture. I identified the patient and participated in the time-out.: Yes Procedure Operation Date: 03/15/24 09:20 Actual Procedures p Right Troch Nail(Right) - Malvin Emmanuel MD Surgeon CAROLE Emmanuel MD Mask Former Chinedu Pablo physician obstetric assistant no resident or fellow available Estimated Blood Loss 25 Findings Consistent with Post-Op Diagnosis see operative report Specimens none Drains none Complications none Disposition Accompanied Patient To Recovery: Yes Indications This 83 year old female presented to the ER after falling at home early this morning. She was found to have a comminuted intertrochanteric fracture of the right hip. She and her family elected to proceed with surgical intervention after being educated about potential risks and outcomes. Preoperative imaging was obtained. Description of Procedure The patient was taken to the operating room where she was administered a spinal anesthetic. She was also given sedation. She was prepped and draped in the usual sterile fashion. Please see Dr. Emmanuel's operative report for specifics of the procedure. I was present for the entire case from initial patient positioning through final wound closure. Assistance was provided in tissue retraction, hemostasis, fracture reduction, hardware placement, and final wound closure. The patient was taken to the recovery room in satisfactory condition. I attest to the content of the Intraoperative Record and any orders documented therein. Any exceptions are noted below.
[2024-03-15] MEDS ORDERED: AZELASTINE HCL 0.1% NASAL 200 SPRAYS/27,400 MCG BTL SCH (21:00)
[2024-03-15] MEDS: AZELASTINE HCL 0.1% NASAL 200 SPRAYS/27,400 MCG BTL SCH (21:04)
[2024-03-15] MEDS: FAMOTIDINE 40 MG TABLET PO SCH (21:04)
--- NOTE | 2024-03-15 21:30 | Anesthesiology Progress Note ---
Date of Service March 15, 2024 Anesthesia Post Procedure Vital Signs Vital Signs: Temp Pulse Pulse Pulse Resp BP BP 03/15/24 21:28 36.6 C 97 H 18 144/84 H 03/15/24 20:35 37 C 91 H 16 152/85 H 03/15/24 20:05 36.7 C 84 17 132/84 03/15/24 19:49 03/15/24 19:30 36.9 C 88 16 102/57 L 03/15/24 19:15 82 16 119/68 03/15/24 19:00 36.6 C 81 18 121/69 03/15/24 18:50 82 16 120/66 03/15/24 18:40 81 15 120/69 03/15/24 18:30 86 22 110/60 03/15/24 18:20 84 18 115/70 03/15/24 18:10 87 18 95/58 L 03/15/24 18:02 36.4 C L 80 16 104/62 03/15/24 14:11 36.7 C 95 H 18 174/97 H 03/15/24 12:00 94 H 20 164/97 H 03/15/24 11:55 91 H 16 145/91 H 03/15/24 11:23 90 20 122/85 03/15/24 10:00 91 H 20 159/89 H 03/15/24 09:36 94 H 03/15/24 08:00 64 18 140/66 03/15/24 07:49 03/15/24 06:55 91 H 17 143/106 H 03/15/24 06:00 85 18 159/122 H 03/15/24 05:37 84 03/15/24 05:27 36.6 C 88 20 166/105 H 03/15/24 05:27 36.6 C 88 20 173/104 H Pulse Ox O2 Del Method O2 Flow Rate 03/15/24 21:28 96 Nasal Cannula 03/15/24 20:35 100 Nasal Cannula 4 03/15/24 20:05 98 Nasal Cannula 03/15/24 19:49 Nasal Cannula 2 03/15/24 19:30 94 Nasal Cannula 2 03/15/24 19:15 95 Nasal Cannula 2 03/15/24 19:00 97 Nasal Cannula 2 03/15/24 18:50 97 Nasal Cannula 2 03/15/24 18:40 98 Nasal Cannula 2 03/15/24 18:30 97 Nasal Cannula 2 03/15/24 18:20 99 Room Air 03/15/24 18:10 100 Oxymask 6 03/15/24 18:02 96 Oxymask 8 03/15/24 14:11 100 Room Air 03/15/24 12:00 98 Nasal Cannula 2 03/15/24 11:55 98 Nasal Cannula 2 03/15/24 11:23 97 Nasal Cannula 2 03/15/24 10:00 97 Nasal Cannula 2 03/15/24 09:36 03/15/24 08:00 98 Nasal Cannula 2 03/15/24 07:49 88 L Room Air 0 03/15/24 06:55 Room Air 03/15/24 06:00 96 Room Air 03/15/24 05:37 03/15/24 05:27 98 Room Air 03/15/24 05:27 98 Room Air Pain Intensity Right Hip: Pain Intensity: 5 Notes Mental Status: alert / awake / arousable Patient Amnestic to Procedure: Yes Nausea / Vomiting: adequately controlled Pain: adequately controlled Airway Patency, RR, SpO2: stable & adequate BP & HR: stable & adequate Hydration State: stable & adequate Neuraxial Anesthesia: was administered and sensory block is resolving Anesthetic Complications: no major complications apparent
[2024-03-15] MEDS: ACETAMINOPHEN 325 MG TAB PO PRN (21:57)
[2024-03-15] MEDS: LORazepam 1 MG TAB PO PRN (23:37)
[2024-03-15] MEDS: TRANEXAMIC ACID / 0.7% NACL 1,000 MG/100 ML BAG IV ONE (23:37)
--- NOTE | 2024-03-16 06:27 | Fluoroscopy Report ---
FL hip RT 2-3V CLINICAL HISTORY: RT TROCHright femoral fracture COMPARISON STUDY: Radiographs of same day FLUOROSCOPY TIME: 4 minutes and 3.9 seconds FLUOROSCOPY IMAGES: 5 EXPOSURE DOSE: 33.569 mGy FINDINGS: Status post placement of an intertrochanteric nail with medullary sonal fixating the acute in tertrochanteric fracture with improved alignment. IMPRESSION: Fluoroscopic assistance as above. ACT 112: Negative or not required by law. Electronically signed by: Mike Cuevas M.D. 03/16/2024 6:24 AM
--- NOTE | 2024-03-16 07:53 | Hospitalist Progress Note ---
Date of Service March 16, 2024 Assessment & Plan (1) Closed fracture of right hip: Plan: 83-year-old female with PMHx osteoporosis, T2DM, HTN, CKD stage III, Sjogren's syndrome, and neuropathy who had a mechanical fall and sustained right hip fracture Operation Date: 03/15/24 09:20 Actual Procedures p Right Troch Nail(Right) - Malvin Emmanuel MD - pain control scheduled acetaminophen p.o., judicious opioids as needed - remove Espinosa per protocol - increased bowel regimen - PT and OT - DVT prophylaxis - low-dose apixaban Acute blood loss anemia related to hip fracture - Hg 13.6--> 9.8 - CBC in am - empiric iron replacement once bowels are moving possible C2 abnormality on CT with question of fractureC-spine MRI was negative for fracture, no pain or tenderness on full range of motion during neck exam - monitor for symptoms #UTI Currently asx HOWEVER, may have contributed to unsteadiness resulting in fall this AM therefore deem it appropriate to tx - urine culture pending, continue ceftriaxone - leukocytosis is probably stress demargination from fracture #parainfluenza URI - has cough, CXR clear, continue supportive care, droplet precautions #T2DM - with peripheral neuropathy - At home regimen metformin - hold - Most recent A1C (12/2023) 6.8%. repeat A1c pending - SSI with target BSG range 110-140mg/dL, CF 40, carb ratio 5 - avoid hypoglycemia so wider ranges - BSG ACHS - Adjust regimen as needed - Pharm glycemic management consult placed -BG reviewed, at goal 03/16 Chronic conditions: CKD stage III- baseline creatinine 1.2-1.3, better than baseline Cr 0.99 today Sleep apnea- CPAP nightly; may use own Hypercholesterolemia- atorvastatin HTN- Irbesartan, no salt diet per PCP note (12/21/2023) Depression with anxiety, insomnia- duloxetine, lorazepam prn - decreased lorazepam dose from 3 mg to 1 mg. Recommend tapering off of this, can contribute to falls GERD- pantoprazole, famotidine Osteoporosis- Prolia every 6 months (most recent 12/05/2023), [facility] -Vitamin D level was normal at 46 DVT ppx - apixaban PT/OT pending, anticipate need for rehab (2) Acute UTI (urinary tract infection): (3) URI (upper respiratory infection): (4) Type 2 diabetes mellitus: (5) CKD (chronic kidney disease) stage 3, GFR 30-59 ml/min: (6) Diabetic peripheral neuropathy: (7) Osteoporosis: Admission and Anticipated Discharge Date Admission Date: March 15, 2024 Max Navas is doing ok this AM not having pain from R hip at rest, has not been up OOB yet Did not volunteer that she had any neck soreness but when specifically asked thinks she might have hit L side of neck/base of head on counter when she fell Did not have pain or tenderness on ROM side to side or chin to chest and neck extension Has cough but no shortness of breath or chest pain Physical Exam 2 Physical Exam: PHYSICAL EXAMINATION Last 24h vital signs reviewed, see documentation in flowsheet General: comfortable appearing, no distress, sitting up in bed awake HEENT: Normocephalic, atraumatic, pupils round and equal, sclerae anicteric, no conjunctival injection, moist mucus membranes Did not have pain or tenderness on ROM side to side or chin to chest and neck extension Lungs: Normal respiratory effort. Clear to auscultation bilaterally. No RRW. occasional dry sounding cough Heart: Regular rate and rhythm, no murmurs. No JVD Abdomen: Soft, nontender, nondistended. Bowel sounds present. Extremities: Warm, dry, well-perfused. No extremity edema. right hip and surgical dressing no deformity or swelling no ecchymosis, both DP pulses are strong Espinosa catheter draining clear yellow urine Neuro: Alert and oriented x hospital and situation made 1 confused sounding statement, face symmetric, moves 4 extremities well Psych: Normal affect and behavior Results & Data Results & Data Vital Signs (Past 12 Hours) Vital Signs Temp Pulse Resp BP Pulse Ox O2 Del Method O2 Flow Rate 03/16/24 03:18 98.1 F 99 H 16 99/65 L 95 Nasal Cannula 2 03/15/24 22:45 99.1 F 95 H 16 108/68 96 Nasal Cannula 2 03/15/24 21:28 97.9 F 97 H 18 144/84 H 96 Nasal Cannula 03/15/24 20:35 98.6 F 91 H 16 152/85 H 100 Nasal Cannula 4 03/15/24 20:05 98.1 F 84 17 132/84 98 Nasal Cannula Laboratory Results 03/16/24 08:25 03/16/24 08:25 PG Care Time/CCT Total # of Minutes Spent Total Time Spent with Patient: Total time spent is greater than 50% in coordination of care (as documented) at patient's floor/unit and/or counseling patient: Coding Level of Care Code 77340 SUB INP/OBS CARE 2/35MIN Diagnoses Closed fracture of right hip S72.001A Acute UTI (urinary tract infection) N39.0 URI (upper respiratory infection) J06.9 Type 2 diabetes mellitus without complication, without long-term current use of insulin E11.9 Diabetes mellitus complication status: without complication Diabetes mellitus mcfp insulin use: without buttermilk drier operator use CKD (chronic kidney disease) stage 3, GFR 30-59 ml/min N18.3 Diabetic peripheral neuropathy E11.42 Osteoporosis M81.0 (4) Type 2 diabetes mellitus Diabetes mellitus complication status: without complication Diabetes mellitus buttermilk drier operator insulin use: without buttermilk drier operator use Qualified Code(s): E11.9 - Type 2 diabetes mellitus without complications
[2024-03-16] MEDS: cefTRIAXone SODIUM 2,000 MG/50 ML BAG IV SCH (08:13)
[2024-03-16] MEDS: PANTOprazole 40 MG TAB PO SCH (08:14)
[2024-03-16] MEDS: ATORVASTATIN 40 MG TAB PO SCH (08:14)
[2024-03-16] MEDS: CYANOCOBALAMIN (B-12) 500 MCG TABLET PO SCH (08:15)
[2024-03-16] MEDS: DULoxetine HCL 30 MG CAP PO SCH (08:15)
[2024-03-16] MEDS: APIXABAN 2.5 MG TAB PO SCH (08:15)
[2024-03-16] MEDS: FLUTICASONE PROPIONATE NA SPR 16 GM BTL SCH (08:16)
[2024-03-16 09:18] LABS: BUN Creatinine Ratio 19.2 (10-20); Calcium 7.8 mg/dl (8.6-10.3); Creatinine Clr Calc Pharmacy 38.1 ml/min; Potassium 4.4 mmol/L (3.5-5.1)
[2024-03-16 09:33] LABS: Basophils # (auto) 0.02 K/uL (0.00-0.20); Basophils % (auto) 0.2 %; Hematocrit (blood only) 30.9 % (37.0-47.0); Hemoglobin 9.8 g/dl (12.0-16.0); Immature Granulocytes # (auto) 0.04 K/uL (0.01-0.20); Immature Granulocytes % (auto) 0.3 %; Lymphocytes % (auto) 17.8 %; Mean Corpuscular Hemoglobin 29.6 pg (25.0-34.0); Mean Corpuscular Hgb Conc 31.7 g/dL (32.0-36.0); Mean Corpuscular Volume 93.4 fL (80.0-100.0); Mean Platelet Volume 9.5 fL (9.4-12.4); Monocytes # (auto) 0.45 K/uL (0.11-0.59); Monocytes % (auto) 3.5 %; Neutrophils # (auto) 10.13 K/uL (1.40-6.50); Neutrophils % (auto) 78.2 %; Platelet Count 143 K/uL (130-400); RDW Coefficient of Variation 13.8 % (11.5-14.5); RDW Standard Deviation 47.5 fL (36.4-46.3); Red Blood Count 3.31 M/uL (4.20-5.40); White Blood Count 12.94 K/ul (4.8-10.8)
--- NOTE | 2024-03-16 09:59 | Pharmacy Report ---
Pharmacy Glycemic Short Note 2 - Date of Service March 16, 2024 - Glycemic Short BSG Results (Last 24 hours): 03/15/24 03/15/24 03/15/24 12:39 14:36 18:04 Glucose POC Glucose 144 H 128 H 140 H 03/15/24 03/16/24 03/16/24 21:01 07:52 08:25 Glucose 166 H POC Glucose 138 H 149 H OUTPATIENT ANTIDIABETIC REGIMEN: * metformin 500mg PO daily HbA1C: ___ ASSESSMENT: 03/16 * Patient did not require any insulin yesterday despite appearing to have received steroids in the OR. * Fasting BSG was 149mg/dL this morning. Will not start basal insulin at this time as BSG only slightly out of goal range. * Will continue with fairly loose bolus insulin parameters as ordered for now. T2DM diet started, so if BSGs continue to rise parameters will be tightened as needed. * She continues on ceftriaxone for a UTI. 03/15 * Pt is an 83 year old female admitted in setting of fall and femur fracture. Plan for OR today for surgical repair. History of DM2 on metformin @ home. Pharmacy consulted for inpatient glycemic management. * BSGs so far today, 187-144mg/dL. Receiving IV antibiotics, and currently NPO for planned OR. * Will initiate Novolog ACHS/q6 mild-moderate stress scale. Hold basal for now. PLAN FOR INPATIENT GLYCEMIC CONTROL: * Hold outpatient oral diabetes medications * Basal insulin * hold * Bolus insulin * NovoLog per scale ACHS or Q6hrs while NPO * Goal Range: Low 110 mg/dL - High 140 mg/dL * Correction Factor: 40 mg/dL/unit * Nutritional / Prandial insulin per carb ratio of 1 unit per 15 grams CHO consumed
[2024-03-16 11:47] LABS: Estimated Average Glucose 143 mg/dl; Hemoglobin A1C 6.6 % (4.5-5.6)
[2024-03-16] MEDS: ACETAMINOPHEN 325 MG TAB PO SCH (12:05)
[2024-03-16] MEDS: POLYETHYLENE (MIRALAX) 17 GM PACK PO SCH (12:05)
--- NOTE | 2024-03-16 12:14 | Orthopedic Progress Note ---
Date of Service March 16, 2024 Assessment & Plan (1) Femur fracture, right: Plan: Day 1 status post right hip trochanteric nailing Postoperative dressing will be changed tomorrow DVT prophylaxis per medicine service Pain controlled p.o. medication Weightbearing as tolerated with walker assistance PT/OT Ice with easy wrap Patient will most likely need to go to either a rehab or shelter facility upon discharge Follow-up at [facility] orthopedics in approximately 2 weeks With questions contact our clinic at [phone] Admission and Anticipated Discharge Date Admission Date: March 15, 2024 Subjective This 83-year-old female seen today for her day 1 follow-up after undergoing trochanteric nailing for a right hip fracture. Patient states that her pain is fairly well-controlled with the p.o. pain medication she is receiving. She states she is unable to lift the leg off of the bed. She denies any numbness or tingling in the right lower extremity. Currently she denies chest pain, shortness of breath, fever, chills, sweats, nausea, vomiting, diarrhea. She currently has a Espinosa catheter in place. Review of Systems Review of Systems: All systems reviewed & are unremarkable except as noted in Subjective Physical Exam Physical Exam: Right hip: Dressing is clean dry and intact and left in place. Patient is unable to perform active straight leg raise test. She is able to actively dorsi and plantarflex her foot without issue. Her peripheral pulses are 2+. She tolerates light logroll testing. I was only able to flex her knee to about 45 degrees. She has some slight discomfort and pulling sensation with very light passive internal and external hip rotation. Results & Data Vital Signs (Past 12 Hours) Vital Signs Temp Pulse Resp BP Pulse Ox O2 Del Method O2 Flow Rate 03/16/24 07:57 36.7 C 100 H 18 107/64 95 Room Air 03/16/24 03:18 36.7 C 99 H 16 99/65 L 95 Nasal Cannula 2 Diagnostic Findings Laboratory Results WBC 12.94 K/ul (4.8-10.8) H 03/16/24 08:25 RBC 3.31 M/uL (4.20-5.40) L 03/16/24 08:25 Hgb 9.8 g/dl (12.0-16.0) L D 03/16/24 08:25 Hct 30.9 % (37.0-47.0) L 03/16/24 08:25 MCV 93.4 fL (80.0-100.0) 03/16/24 08:25 MCH 29.6 pg (25.0-34.0) 03/16/24 08:25 MCHC 31.7 g/dL (32.0-36.0) L 03/16/24 08:25 RDW Std Deviation 47.5 fL (36.4-46.3) H 03/16/24 08:25 RDW Coeff of Shikha 13.8 % (11.5-14.5) 03/16/24 08:25 Plt Count 143 K/uL (130-400) 03/16/24 08:25 MPV 9.5 fL (9.4-12.4) 03/16/24 08:25 Immature Gran % (Auto) 0.3 % 03/16/24 08:25 Neut % (Auto) 78.2 % 03/16/24 08:25 Lymph % (Auto) 17.8 % 03/16/24 08:25 [place] % (Auto) 3.5 % 03/16/24 08:25 Eos % (Auto) 0.0 % 03/16/24 08:25 Baso % (Auto) 0.2 % 03/16/24 08:25 Neut # (Auto) 10.13 K/uL (1.40-6.50) H 03/16/24 08:25 Lymph # (Auto) 2.30 K/uL (1.20-3.40) 03/16/24 08:25 [place] # (Auto) 0.45 K/uL (0.11-0.59) 03/16/24 08:25 Eos # (Auto) 0.00 K/uL (0.00-0.50) 03/16/24 08:25 Baso # (Auto) 0.02 K/uL (0.00-0.20) 03/16/24 08:25 Immature Gran # (Auto) 0.04 K/uL (0.01-0.20) 03/16/24 08:25 PT 10.9 Seconds (9.0-12.0) 03/15/24 05:35 INR 1.0 (0.9-1.1) 03/15/24 05:35 Sodium 139 mmol/L (136-145) 03/16/24 08:25 Potassium 4.4 mmol/L (3.5-5.1) 03/16/24 08:25 Chloride 107 mmol/L (98-107) 03/16/24 08:25 Carbon Dioxide 26 mmol/L (21-32) 03/16/24 08:25 Anion Gap 6 (3-11) 03/16/24 08:25 BUN 19 mg/dl (6-23) 03/16/24 08:25 Creatinine 0.99 mg/dl (0.6-1.2) 03/16/24 08:25 Est Cr Clr Drug Dosing 38.1 ml/min 03/16/24 08:25 eGFR 56.23 03/16/24 08:25 BUN/Creatinine Ratio 19.2 (10-20) 03/16/24 08:25 Glucose 166 mg/dl (70-99(Fasting)) H 03/16/24 08:25 POC Glucose 164 mg/dl (70-99) H 03/16/24 11:28 Estimat Average Glucose 143 mg/dl 03/16/24 08:25 Hemoglobin A1c 6.6 % (4.5-5.6) H 03/16/24 08:25 Calcium 7.8 mg/dl (8.6-10.3) L 03/16/24 08:25 Magnesium 1.7 mg/dl (1.7-2.4) 03/15/24 05:35 Total Bilirubin 1.0 mg/dl (0.2-1.0) 03/15/24 05:35 AST 31 U/L (13-39) 03/15/24 05:35 ALT 26 U/L (7-52) 03/15/24 05:35 Alkaline Phosphatase 84 U/L (34-104) 03/15/24 05:35 Troponin I High Sens 10.7 pg/ml (0-14) 03/15/24 05:35 Total Protein 6.9 gm/dl (6.0-8.3) 03/15/24 05:35 Albumin 3.9 gm/dl (3.4-5.0) 03/15/24 05:35 Globulin 3.0 gm/dl (2.5-4.0) 03/15/24 05:35 Albumin/Globulin Ratio 1.3 (0.9-2) 03/15/24 05:35 25-OH Vitamin D Total 46.5 ng/ml (30-100) 03/16/24 08:25 Urine Color Yellow 03/15/24 06:06 Urine Appearance Clear (Clear) 03/15/24 06:06 Urine pH 6.0 (4.5-7.5) 03/15/24 06:06 Ur Specific [place] 1.020 (1.000-1.030) 03/15/24 06:06 Urine Protein Trace (Negative) H 03/15/24 06:06 Urine Glucose (UA) Negative (Negative) 03/15/24 06:06 Urine Ketones 1+ (Negative) H 03/15/24 06:06 Urine Blood Negative (Negative) 03/15/24 06:06 Urine Nitrite Positive (Negative) A 03/15/24 06:06 Urine Bilirubin Negative (Negative) 03/15/24 06:06 Urine Urobilinogen Negative (Negative) 03/15/24 06:06 Ur Leukocyte Esterase Trace (Negative) H 03/15/24 06:06 Urine WBC (Auto) 6-10 /hpf (0-5) H 03/15/24 06:06 Urine RBC (Auto) 0-2 /hpf (0-2) 03/15/24 06:06 U Hyaline Cast (Auto) 0-2 /lpf (0-2) 03/15/24 06:06 U Epithel Cells (Auto) 0-2 /hpf (0-2) 03/15/24 06:06 Urine Bacteria (Auto) 4+ (None Seen) H 03/15/24 06:06 Adenovirus (PCR) Not Detected (NotDetected) 03/15/24 06:06 B. pertussis DNA (PCR) Not Detected (NotDetected) 03/15/24 06:06 B.parapertussis DNA PCR Not Detected (NotDetected) 03/15/24 06:06 C. pneumoniae DNA (PCR) Not Detected (NotDetected) 03/15/24 06:06 Coronavirus OC43 (PCR) Not Detected (NotDetected) 03/15/24 06:06 Coronavirus HKU1 (PCR) Not Detected (NotDetected) 03/15/24 06:06 Coronavirus 229E (PCR) Not Detected (NotDetected) 03/15/24 06:06 SARS-CoV-2 (PCR) Not Detected (NotDetected) 03/15/24 06:06 Coronavirus NL63 (PCR) Not Detected (NotDetected) 03/15/24 06:06 Human Metapneumovir PCR Not Detected (NotDetected) 03/15/24 06:06 Influenza Type A (PCR) Not Detected (NotDetected) 03/15/24 06:06 Influenza Type B (PCR) Not Detected (NotDetected) 03/15/24 06:06 M. pneumoniae (PCR) Not Detected (NotDetected) 03/15/24 06:06 Parainfluenza 1 (PCR) DETECTED (NotDetected) A 03/15/24 06:06 Parainfluenza 2 (PCR) Not Detected (NotDetected) 03/15/24 06:06 Parainfluenza 3 (PCR) Not Detected (NotDetected) 03/15/24 06:06 Parainfluenza 4 (PCR) Not Detected (NotDetected) 03/15/24 06:06 RSV (PCR) Not Detected (NotDetected) 03/15/24 06:06 Entero/Rhino (PCR) Not Detected (NotDetected) 03/15/24 06:06 Blood Type O Negative 03/15/24 12:32 Antibody Screen NEGATIVE 03/15/24 12:32 Impressions Hip X-Ray 03/15/24 00:00 FL hip RT 2-3V CLINICAL HISTORY: RT TROCHright femoral fracture COMPARISON STUDY: Radiographs of same day FLUOROSCOPY TIME: 4 minutes and 3.9 seconds FLUOROSCOPY IMAGES: 5 EXPOSURE DOSE: 33.569 mGy FINDINGS: Status post placement of an intertrochanteric nail with medullary sonal fixating the acute intertrochanteric fracture with improved alignment. IMPRESSION: Fluoroscopic assistance as above. ACT 112: Negative or not required by law. Electronically signed by: Mike Cuevas M.D. 03/16/2024 6:[address] 03/15/24 05:29 EXAM: CT cervical spine wo con CLINICAL HISTORY: Patient fell backwards and fell to the ground, denies hitting her head, stomach pain, neck pain, or chest pain. Patient states she has right hip pain. TECHNIQUE: CT scan of the cervical spine was performed without the administration of intravenous contrast. Contiguous axial images were obtained from the skull base to the upper thoracic spine. Coronal and sagittal reconstructed images were also obtained. One of the following dose reduction techniques was utilized for this exam. Automated exposure control, adjustment of the mA and/or kV according to patient size, and use of iterative reconstruction. COMPARISON: No previous studies are available for comparison. FINDINGS: Vertebrae: There is a thin hypodense line seen at the lower dens/posterior aspect of the body of the C2 vertebra, can be artifactual, however considering the history of trauma, the possibility of undisplaced fracture cannot be entirely excluded. Minimal retrolithesis of C5 vertebra. The vertebral bodies are normal in height and alignment. The cortical and trabecular bone patterns are normal. No signs of lytic or sclerotic lesions. Normal configuration of the posterior elements. Multiple marginal osteophytes. Intervertebral Discs and Neural Foramina: Reduced C5-C6 intervertebral disc space with positive vaccum phenomenon. C3-C4 right paracentral posterolateral and C5-C6 posterior and biposterolateral disc/osteophyte complex are seen effacing the ventral epidural space and compromising the related neural exit pathways. No calcifications or ossifications were noted within the discs. Facet Joints: Neurocentral and facet joints arthropathy mainly noted at C3-C4 and C5-C6 levels. Prevertebral Soft Tissues: The prevertebral soft tissues are normal in thickness without evidence of mass or abnormal fluid collection. Additional Findings: No other significant findings are noted in the visualized soft tissue structures or bony elements. IMPRESSION: There is a thin hypodense line seen at the lower dens/posterior aspect of the body of the C2 vertebra, can be artifactual, however considering the history of trauma, the possibility of undisplaced fracture cannot be entirely excluded. MRI of the cervical spine is advised if clinically indicated. Minimal retrolithesis of C5 vertebra. Degenerative changes mainly at C5-C6 level. C3-C4 and C5-C6 disc/osteophyte complexes are seen compromising the related neural exit pathways. Neurocentral and facet joints arthropathy, mainly at C3-C4 and C5-C6 levels. Electronically signed by Allison Briseno 03-15-2024 08:10 AM Chest X-Ray 03/15/24 05:29 EXAM: XR chest 1V portable CLINICAL HISTORY: PT FELL KFK TECHNIQUE: X-ray image of the chest obtained in 1 frontal projection. COMPARISON: No prior studies available for comparison. FINDINGS: Pulmonary Parenchyma: Lungs are clear bilaterally. No evidence of consolidation, collapse, or focal opacities. No pulmonary nodules identified. No evidence of pleural effusion or pleural thickening. Heart and Mediastinum: Heart size and shape are normal. No mediastinal widening or masses. No hilar or mediastinal lymphadenopathy. Bony Thorax: Bony thorax appears intact without fractures or deformities. Soft Tissues: Soft tissues overlying the chest wall are unremarkable. IMPRESSION: Normal chest X-ray. No acute cardiopulmonary abnormalities identified. Electronically signed by Allison Briseno 03-15-2024 06:[address] 03/15/24 05:29 EXAM: CT head/brain wo con CLINICAL HISTORY: Pt was trying to walk to the bathroom and lost her balance. Pt fell backward and fell to the ground. Pt denies hitting her head, stomach pain, neck pain, or chest pain. Pt states she has right hip pain. Pt denies being on blood thinners. PW TECHNIQUE: An axial non-contrast CT scan of the brain was performed from the skull base to the high parietal region. One of the following dose reduction techniques were utilized for this exam: Automated exposure control, adjustment of the mA and/or kV according to patient size, and use of iterative reconstruction. COMPARISON: None. FINDINGS: Brain Parenchyma: Generalized cerebral atrophy Ill-defined hypoattenuating areas seen in bilateral [place] ventricular and subcortical white matter suggestive of small vessel disease. Encephalomalacia seen in right posterior parietal lobe in central [place] No evidence of acute infarct, hemorrhage, or mass effect. Ventricular System: Ventricles, sulci and cisterns are prominent proportionate to the degree of cerebral atrophy. Subarachnoid Spaces: Normal sulci and cisterns. No evidence of subarachnoid hemorrhage or extra-axial fluid collections. Cerebellum and Brainstem: Normal size and signal. Encephalomalacia seen in right cerebellar hemisphere Orbits: Normal appearance of the globes, optic nerves, and extraocular muscles. No evidence of orbital masses Sinuses: Ethmoid sinus mucosal thickening. Mastoid Air Cells: Bilateral chronic mastoiditis. Skull: Normal skull morphology. IMPRESSION: 1. Generalized cerebral atrophy. 2. Small vessel disease. 3. Encephalomalacia in the right posterior parietal lobe and right cerebellar hemisphere. 4. No acute brain insult or skull fractures 5. No intracranial acute pathology was seen. Electronically signed by Allison Briseno 03-15-2024 07:50 AM Hip/Pelvis X-Ray 03/15/24 05:29 EXAM: XR hip RT 2V w pelvis CLINICAL HISTORY: PT FELL KFK TECHNIQUE: X-ray images of the right hip joint and pelvis were obtained in anteroposterior (AP) and lateral projections. COMPARISON: None. FINDINGS: Hip Joints: Comminuted displaced intertrochanteric fractures in the right femur. Internal fixation in the left femur with mildly displaced lesser trochanteric fracture. Reduced bilateral hip joint space. Sacroiliac joints appear normal and unremarkable. No evidence of sacroiliitis or significant degenerative changes. Symphysis Pubis: The symphysis pubis is normal and intact. No evidence of separation or widening. Soft Tissues: Right hip/proximal thigh soft tissue swelling. No calcifications, or masses. IMPRESSION: 1. Comminuted displaced intertrochanteric fractures in the right femur. 2. Internal fixation in the left femur with mildly displaced lesser trochanteric fracture. 3. Reduced bilateral hip joint space. Disclaimer: A subtle bone abnormality or fracture may not be readily apparent on X-rays, thus clinical correlation and further imaging including follow-up CT, MRI, or follow-up X-rays are advised as needed. Electronically signed by Allison Briseno 03-15-2024 07:23 AM Cervical Spine MRI 03/15/24 09:39 MR cervical spine wo con HISTORY: 83 years-old Female ? C2 fracture, s/p fall acute neck injury status post fall COMPARISON: CT cervical spine of same day at 6:20 AM, CT abdomen and pelvis 09/20/2022 TECHNIQUE: Multiplanar multisequence MRI of the cervical spine was obtained without IV contrast FINDINGS: The imaged posterior fossa structures appear unremarkable. There is no acute fracture, subluxation, endplate erosion, marrow replacing process or marrow edema. No epidural fluid collections. Wall thickening noted throughout the mid to distal esophagus measures up to approximately 5-6 mm circumferentially. There is suggestion of periesophageal edema. Normal signal within the cervical and imaged upper thoracic spinal cord. Study is motion degraded. C2-C3: Mild intervertebral disc space narrowing and uncovertebral upper tree with small posterior annular disc bulge. Moderate to severe facet arthrosis. Patent central canal. Mild left with mild to moderate right foraminal narrowing. C3-C4: Moderate intervertebral disc space narrowing. Small posterior disc osteophyte complex with moderate to severe facet arthrosis. Mild central canal stenosis with AP dimension of the thecal sac 7.6 mm. Moderate bilateral foraminal narrowing. C4-C5: Small posterior annular disc bulge/disc osteophyte complex with [id number] facet arthrosis. The central canal is patent. Mild bilateral foraminal narrowing. C5-C6: Severe intervertebral disc space narrowing with circumferential disc osteophyte complex. Moderate to advanced facet arthrosis. AP dimension of the thecal sac measures 6.6 mm. Mild to moderate central canal stenosis with minimal mass effect on both the ventral and dorsal aspects of the cervical spinal cord. Mild bilateral foraminal narrowing. C6-C7: Tiny posterior annular disc bulge with moderate facet arthrosis. No central canal or foraminal narrowing. C7-T1: Grade 1 anterolisthesis secondary to chronic facet arthrosis. Posterior annular disc bulge with 5 mm left paracentral disc protrusion on image 104 series 6. Moderate facet arthrosis. Central canal is patent. No significant neural foraminal narrowing. IMPRESSION: 1. No acute fracture, subluxation or bone marrow edema. 2. Discogenic degeneration with facet arthrosis as above resulting in multilevel central canal and neural foraminal narrowing. 3. There is apparent circumferential wall thickening within the mid esophagus. Findings could be correlated with endoscopy. ACT 112: Negative or not required by law. The above report was generated using voice recognition software. It may contain grammatical, syntax or spelling errors. Electronically signed by: Mike Cuevas M.D. 03/15/2024 1:34 PM
[2024-03-16] MEDS: LORazepam 1 MG TAB PO PRN (20:48)
[2024-03-16] MEDS: MELATONIN 3 MG TAB PO PRN (20:48)
[2024-03-17 07:07] LABS: Hematocrit (blood only) 26.6 % (37.0-47.0); Hemoglobin 8.6 g/dl (12.0-16.0); Mean Corpuscular Hemoglobin 30.1 pg (25.0-34.0); Mean Corpuscular Hgb Conc 32.3 g/dL (32.0-36.0); Mean Platelet Volume 9.8 fL (9.4-12.4); Platelet Count 118 K/uL (130-400); RDW Coefficient of Variation 13.7 % (11.5-14.5); RDW Standard Deviation 47.1 fL (36.4-46.3); Red Blood Count 2.86 M/uL (4.20-5.40); White Blood Count 8.17 K/ul (4.8-10.8)
[2024-03-17 07:26] LABS: BUN Creatinine Ratio 18.1 (10-20); Calcium 7.9 mg/dl (8.6-10.3); Creatinine Clr Calc Pharmacy 35.9 ml/min; Potassium 4.5 mmol/L (3.5-5.1)
[2024-03-17] MEDS: SENNA 8.6 MG TAB PO SCH (08:14)
--- NOTE | 2024-03-17 08:50 | Orthopedic Progress Note ---
Date of Service March 17, 2024 Assessment & Plan (1) Femur fracture, right: Plan: Day 2 status post right hip trochanteric nailing by Dr. Emmanuel DVT prophylaxis per medicine service Pain controlled p.o. medication Weightbearing as tolerated with walker assistance PT/OT Ice with easy wrap Patient will most likely need to go to either a rehab or halfway facility upon discharge Continue care per primary service Follow-up at [facility] orthopedics in approximately 2 weeks With questions contact our clinic at [phone] Admission and Anticipated Discharge Date Admission Date: March 15, 2024 Subjective Feeling a little better today, feels like she could get up today. Physical Exam Physical Exam: RLE: Sensation to light touch intact distally. BCR < 2 sec. Wiggling toe and ankle up and down. Dressing is clean, dry, intact. Results & Data Vital Signs (Past 12 Hours) Vital Signs Temp Pulse Resp BP Pulse Ox O2 Del Method O2 Flow Rate 03/17/24 08:41 Room Air 03/17/24 07:38 36.7 C 84 16 111/72 98 Nasal Cannula 1 03/16/24 23:15 Nasal Cannula 2 03/16/24 22:15 95 Nasal Cannula 2 Laboratory Results Laboratory Results WBC 8.17 K/ul (4.8-10.8) 03/17/24 06:07 RBC 2.86 M/uL (4.20-5.40) L 03/17/24 06:07 Hgb 8.6 g/dl (12.0-16.0) L 03/17/24 06:07 Hct 26.6 % (37.0-47.0) L 03/17/24 06:07 MCV 93.0 fL (80.0-100.0) 03/17/24 06:07 MCH 30.1 pg (25.0-34.0) 03/17/24 06:07 MCHC 32.3 g/dL (32.0-36.0) 03/17/24 06:07 RDW Std Deviation 47.1 fL (36.4-46.3) H 03/17/24 06:07 RDW Coeff of Shikha 13.7 % (11.5-14.5) 03/17/24 06:07 Plt Count 118 K/uL (130-400) L 03/17/24 06:07 MPV 9.8 fL (9.4-12.4) 03/17/24 06:07 Immature Gran % (Auto) 0.3 % 03/16/24 08:25 Neut % (Auto) 78.2 % 03/16/24 08:25 Lymph % (Auto) 17.8 % 03/16/24 08:25 Rapides % (Auto) 3.5 % 03/16/24 08:25 Eos % (Auto) 0.0 % 03/16/24 08:25 Baso % (Auto) 0.2 % 03/16/24 08:25 Neut # (Auto) 10.13 K/uL (1.40-6.50) H 03/16/24 08:25 Lymph # (Auto) 2.30 K/uL (1.20-3.40) 03/16/24 08:25 Rapides # (Auto) 0.45 K/uL (0.11-0.59) 03/16/24 08:25 Eos # (Auto) 0.00 K/uL (0.00-0.50) 03/16/24 08:25 Baso # (Auto) 0.02 K/uL (0.00-0.20) 03/16/24 08:25 Immature Gran # (Auto) 0.04 K/uL (0.01-0.20) 03/16/24 08:25 PT 10.9 Seconds (9.0-12.0) 03/15/24 05:35 INR 1.0 (0.9-1.1) 03/15/24 05:35 Sodium 142 mmol/L (136-145) 03/17/24 06:07 Potassium 4.5 mmol/L (3.5-5.1) 03/17/24 06:07 Chloride 109 mmol/L (98-107) H 03/17/24 06:07 Carbon Dioxide 29 mmol/L (21-32) 03/17/24 06:07 Anion Gap 4 (3-11) 03/17/24 06:07 BUN 19 mg/dl (6-23) 03/17/24 06:07 Creatinine 1.05 mg/dl (0.6-1.2) 03/17/24 06:07 Est Cr Clr Drug Dosing 35.9 ml/min 03/17/24 06:07 eGFR 52.39 03/17/24 06:07 BUN/Creatinine Ratio 18.1 (10-20) 03/17/24 06:07 Glucose 126 mg/dl (70-99(Fasting)) H 03/17/24 06:07 POC Glucose 124 mg/dl (70-99) H 03/17/24 07:38 Estimat Average Glucose 143 mg/dl 03/16/24 08:25 Hemoglobin A1c 6.6 % (4.5-5.6) H 03/16/24 08:25 Calcium 7.9 mg/dl (8.6-10.3) L 03/17/24 06:07 Magnesium 1.7 mg/dl (1.7-2.4) 03/15/24 05:35 Total Bilirubin 1.0 mg/dl (0.2-1.0) 03/15/24 05:35 AST 31 U/L (13-39) 03/15/24 05:35 ALT 26 U/L (7-52) 03/15/24 05:35 Alkaline Phosphatase 84 U/L (34-104) 03/15/24 05:35 Troponin I High Sens 10.7 pg/ml (0-14) 03/15/24 05:35 Total Protein 6.9 gm/dl (6.0-8.3) 03/15/24 05:35 Albumin 3.9 gm/dl (3.4-5.0) 03/15/24 05:35 Globulin 3.0 gm/dl (2.5-4.0) 03/15/24 05:35 Albumin/Globulin Ratio 1.3 (0.9-2) 03/15/24 05:35 25-OH Vitamin D Total 46.5 ng/ml (30-100) 03/16/24 08:25 Urine Color Yellow 03/15/24 06:06 Urine Appearance Clear (Clear) 03/15/24 06:06 Urine pH 6.0 (4.5-7.5) 03/15/24 06:06 Ur Specific [place] 1.020 (1.000-1.030) 03/15/24 06:06 Urine Protein Trace (Negative) H 03/15/24 06:06 Urine Glucose (UA) Negative (Negative) 03/15/24 06:06 Urine Ketones 1+ (Negative) H 03/15/24 06:06 Urine Blood Negative (Negative) 03/15/24 06:06 Urine Nitrite Positive (Negative) A 03/15/24 06:06 Urine Bilirubin Negative (Negative) 03/15/24 06:06 Urine Urobilinogen Negative (Negative) 03/15/24 06:06 Ur Leukocyte Esterase Trace (Negative) H 03/15/24 06:06 Urine WBC (Auto) 6-10 /hpf (0-5) H 03/15/24 06:06 Urine RBC (Auto) 0-2 /hpf (0-2) 03/15/24 06:06 U Hyaline Cast (Auto) 0-2 /lpf (0-2) 03/15/24 06:06 U Epithel Cells (Auto) 0-2 /hpf (0-2) 03/15/24 06:06 Urine Bacteria (Auto) 4+ (None Seen) H 03/15/24 06:06 Adenovirus (PCR) Not Detected (NotDetected) 03/15/24 06:06 B. pertussis DNA (PCR) Not Detected (NotDetected) 03/15/24 06:06 B.parapertussis DNA PCR Not Detected (NotDetected) 03/15/24 06:06 C. pneumoniae DNA (PCR) Not Detected (NotDetected) 03/15/24 06:06 Coronavirus OC43 (PCR) Not Detected (NotDetected) 03/15/24 06:06 Coronavirus HKU1 (PCR) Not Detected (NotDetected) 03/15/24 06:06 Coronavirus 229E (PCR) Not Detected (NotDetected) 03/15/24 06:06 SARS-CoV-2 (PCR) Not Detected (NotDetected) 03/15/24 06:06 Coronavirus NL63 (PCR) Not Detected (NotDetected) 03/15/24 06:06 Human Metapneumovir PCR Not Detected (NotDetected) 03/15/24 06:06 Influenza Type A (PCR) Not Detected (NotDetected) 03/15/24 06:06 Influenza Type B (PCR) Not Detected (NotDetected) 03/15/24 06:06 M. pneumoniae (PCR) Not Detected (NotDetected) 03/15/24 06:06 Parainfluenza 1 (PCR) DETECTED (NotDetected) A 03/15/24 06:06 Parainfluenza 2 (PCR) Not Detected (NotDetected) 03/15/24 06:06 Parainfluenza 3 (PCR) Not Detected (NotDetected) 03/15/24 06:06 Parainfluenza 4 (PCR) Not Detected (NotDetected) 03/15/24 06:06 RSV (PCR) Not Detected (NotDetected) 03/15/24 06:06 Entero/Rhino (PCR) Not Detected (NotDetected) 03/15/24 06:06 Blood Type O Negative 03/15/24 12:32 Antibody Screen NEGATIVE 03/15/24 12:32 Impressions Hip X-Ray 03/15/24 00:00 FL hip RT 2-3V CLINICAL HISTORY: RT TROCHright femoral fracture COMPARISON STUDY: Radiographs of same day FLUOROSCOPY TIME: 4 minutes and 3.9 seconds FLUOROSCOPY IMAGES: 5 EXPOSURE DOSE: 33.569 mGy FINDINGS: Status post placement of an intertrochanteric nail with medullary sonal fixating the acute intertrochanteric fracture with improved alignment. IMPRESSION: Fluoroscopic assistance as above. ACT 112: Negative or not required by law. Electronically signed by: Mike Cuevas M.D. 03/16/2024 6:[address] 03/15/24 05:29 EXAM: CT cervical spine wo con CLINICAL HISTORY: Patient fell backwards and fell to the ground, denies hitting her head, stomach pain, neck pain, or chest pain. Patient states she has right hip pain. TECHNIQUE: CT scan of the cervical spine was performed without the administration of intravenous contrast. Contiguous axial images were obtained from the skull base to the upper thoracic spine. Coronal and sagittal reconstructed images were also obtained. One of the following dose reduction techniques was utilized for this exam. Automated exposure control, adjustment of the mA and/or kV according to patient size, and use of iterative reconstruction. COMPARISON: No previous studies are available for comparison. FINDINGS: Vertebrae: There is a thin hypodense line seen at the lower dens/posterior aspect of the body of the C2 vertebra, can be artifactual, however considering the history of trauma, the possibility of undisplaced fracture cannot be entirely excluded. Minimal retrolithesis of C5 vertebra. The vertebral bodies are normal in height and alignment. The cortical and trabecular bone patterns are normal. No signs of lytic or sclerotic lesions. Normal configuration of the posterior elements. Multiple marginal osteophytes. Intervertebral Discs and Neural Foramina: Reduced C5-C6 intervertebral disc space with positive vaccum phenomenon. C3-C4 right paracentral posterolateral and C5-C6 posterior and biposterolateral disc/osteophyte complex are seen effacing the ventral epidural space and compromising the related neural exit pathways. No calcifications or ossifications were noted within the discs. Facet Joints: Neurocentral and facet joints arthropathy mainly noted at C3-C4 and C5-C6 levels. Prevertebral Soft Tissues: The prevertebral soft tissues are normal in thickness without evidence of mass or abnormal fluid collection. Additional Findings: No other significant findings are noted in the visualized soft tissue structures or bony elements. IMPRESSION: There is a thin hypodense line seen at the lower dens/posterior aspect of the body of the C2 vertebra, can be artifactual, however considering the history of trauma, the possibility of undisplaced fracture cannot be entirely excluded. MRI of the cervical spine is advised if clinically indicated. Minimal retrolithesis of C5 vertebra. Degenerative changes mainly at C5-C6 level. C3-C4 and C5-C6 disc/osteophyte complexes are seen compromising the related neural exit pathways. Neurocentral and facet joints arthropathy, mainly at C3-C4 and C5-C6 levels. Electronically signed by Allison Briseno 03-15-2024 08:10 AM Chest X-Ray 03/15/24 05:29 EXAM: XR chest 1V portable CLINICAL HISTORY: PT FELL KFK TECHNIQUE: X-ray image of the chest obtained in 1 frontal projection. COMPARISON: No prior studies available for comparison. FINDINGS: Pulmonary Parenchyma: Lungs are clear bilaterally. No evidence of consolidation, collapse, or focal opacities. No pulmonary nodules identified. No evidence of pleural effusion or pleural thickening. Heart and Mediastinum: Heart size and shape are normal. No mediastinal widening or masses. No hilar or mediastinal lymphadenopathy. Bony Thorax: Bony thorax appears intact without fractures or deformities. Soft Tissues: Soft tissues overlying the chest wall are unremarkable. IMPRESSION: Normal chest X-ray. No acute cardiopulmonary abnormalities identified. Electronically signed by Allisno Briseno 03-15-2024 06:[address] 03/15/24 05:29 EXAM: CT head/brain wo con CLINICAL HISTORY: Pt was trying to walk to the bathroom and lost her balance. Pt fell backward and fell to the ground. Pt denies hitting her head, stomach pain, neck pain, or chest pain. Pt states she has right hip pain. Pt denies being on blood thinners. PW TECHNIQUE: An axial non-contrast CT scan of the brain was performed from the skull base to the high parietal region. One of the following dose reduction techniques were utilized for this exam: Automated exposure control, adjustment of the mA and/or kV according to patient size, and use of iterative reconstruction. COMPARISON: None. FINDINGS: Brain Parenchyma: Generalized cerebral atrophy Ill-defined hypoattenuating areas seen in bilateral marcelino ventricular and subcortical white matter suggestive of small vessel disease. Encephalomalacia seen in right posterior parietal lobe in central [place] No evidence of acute infarct, hemorrhage, or mass effect. Ventricular System: Ventricles, sulci and cisterns are prominent proportionate to the degree of cerebral atrophy. Subarachnoid Spaces: Normal sulci and cisterns. No evidence of subarachnoid hemorrhage or extra-axial fluid collections. Cerebellum and Brainstem: Normal size and signal. Encephalomalacia seen in right cerebellar hemisphere Orbits: Normal appearance of the globes, optic nerves, and extraocular muscles. No evidence of orbital masses Sinuses: Ethmoid sinus mucosal thickening. Mastoid Air Cells: Bilateral chronic mastoiditis. Skull: Normal skull morphology. IMPRESSION: 1. Generalized cerebral atrophy. 2. Small vessel disease. 3. Encephalomalacia in the right posterior parietal lobe and right cerebellar hemisphere. 4. No acute brain insult or skull fractures 5. No intracranial acute pathology was seen. Electronically signed by Allison Briseno 03-15-2024 07:50 AM Hip/Pelvis X-Ray 03/15/24 05:29 EXAM: XR hip RT 2V w pelvis CLINICAL HISTORY: PT FELL KFK TECHNIQUE: X-ray images of the right hip joint and pelvis were obtained in anteroposterior (AP) and lateral projections. COMPARISON: None. FINDINGS: Hip Joints: Comminuted displaced intertrochanteric fractures in the right femur. Internal fixation in the left femur with mildly displaced lesser trochanteric fracture. Reduced bilateral hip joint space. Sacroiliac joints appear normal and unremarkable. No evidence of sacroiliitis or significant degenerative changes. Symphysis Pubis: The symphysis pubis is normal and intact. No evidence of separation or widening. Soft Tissues: Right hip/proximal thigh soft tissue swelling. No calcifications, or masses. IMPRESSION: 1. Comminuted displaced intertrochanteric fractures in the right femur. 2. Internal fixation in the left femur with mildly displaced lesser trochanteric fracture. 3. Reduced bilateral hip joint space. Disclaimer: A subtle bone abnormality or fracture may not be readily apparent on X-rays, thus clinical correlation and further imaging including follow-up CT, MRI, or follow-up X-rays are advised as needed. Electronically signed by Allison Briseno 03-15-2024 07:23 AM Cervical Spine MRI 03/15/24 09:39 MR cervical spine wo con HISTORY: 83 years-old Female ? C2 fracture, s/p fall acute neck injury status post fall COMPARISON: CT cervical spine of same day at 6:20 AM, CT abdomen and pelvis 09/20/2022 TECHNIQUE: Multiplanar multisequence MRI of the cervical spine was obtained without IV contrast FINDINGS: The imaged posterior fossa structures appear unremarkable. There is no acute fracture, subluxation, endplate erosion, marrow replacing process or marrow edema. No epidural fluid collections. Wall thickening noted throughout the mid to distal esophagus measures up to approximately 5-6 mm circumferentially. There is suggestion of periesophageal edema. Normal signal within the cervical and imaged upper thoracic spinal cord. Study is motion degraded. C2-C3: Mild intervertebral disc space narrowing and uncovertebral upper tree with small posterior annular disc bulge. Moderate to severe facet arthrosis. Patent central canal. Mild left with mild to moderate right foraminal narrowing. C3-C4: Moderate intervertebral disc space narrowing. Small posterior disc osteophyte complex with moderate to severe facet arthrosis. Mild central canal stenosis with AP dimension of the thecal sac 7.6 mm. Moderate bilateral foraminal narrowing. C4-C5: Small posterior annular disc bulge/disc osteophyte complex with [id number] facet arthrosis. The central canal is patent. Mild bilateral foraminal narrowing. C5-C6: Severe intervertebral disc space narrowing with circumferential disc osteophyte complex. Moderate to advanced facet arthrosis. AP dimension of the thecal sac measures 6.6 mm. Mild to moderate central canal stenosis with minimal mass effect on both the ventral and dorsal aspects of the cervical spinal cord. Mild bilateral foraminal narrowing. C6-C7: Tiny posterior annular disc bulge with moderate facet arthrosis. No central canal or foraminal narrowing. C7-T1: Grade 1 anterolisthesis secondary to chronic facet arthrosis. Posterior annular disc bulge with 5 mm left paracentral disc protrusion on image 104 series 6. Moderate facet arthrosis. Central canal is patent. No significant neural foraminal narrowing. IMPRESSION: 1. No acute fracture, subluxation or bone marrow edema. 2. Discogenic degeneration with facet arthrosis as above resulting in multilevel central canal and neural foraminal narrowing. 3. There is apparent circumferential wall thickening within the mid esophagus. Findings could be correlated with endoscopy. ACT 112: Negative or not required by law. The above report was generated using voice recognition software. It may contain grammatical, syntax or spelling errors. Electronically signed by: Mike Cuevas M.D. 03/15/2024 1:34 PM
[2024-03-17] MEDS ORDERED: LOSARTAN POTASSIUM 50 MG TAB PO SCH (09:00)
--- NOTE | 2024-03-17 11:31 | Hospitalist Progress Note ---
Date of Service March 17, 2024 Assessment & Plan (1) Closed fracture of right hip: Plan: 83-year-old female with PMHx osteoporosis, T2DM, HTN, CKD stage III, Sjogren's syndrome, and neuropathy who had a mechanical fall and sustained right hip fracture Operation Date: 03/15/24 09:20 Actual Procedures p Right Troch Nail(Right) - Malvin Emmanuel MD Has been slow to mobilize, hampered by pain when standing and orthostatic hypotension - pain control scheduled acetaminophen p.o., judicious opioids as needed - bowel regimen - PT and OT - DVT prophylaxis - low-dose apixaban Acute blood loss anemia related to hip fracture - Hg 13.6--> 9.8--> 8.6 - consider transfusion if Hg dropping further / orthostasis persists - am CBC - empiric iron replacement once bowels are moving Orthostatic hypotension - losartan has been on hold. Reviewed other meds and no culprits except opioids. Anemia, parainfluenza, UTI, and opioids contributing. Has diabetic peripheral neuropathy so there may also be some baseline autonomic neuropathy. Consider midodrine if persisting. Parainfluenza URI. Transient hypoxia yesterday was related to atelectasis - resolved with deep breathing, mobility, IS - crackles L base today so will get CXR. Is already on ceftriaxone E. coli UTI - possible UTI, hard to know if symptomatic. Aranda-sensitive - continue antibiotics, can change ceftriaxone to oral but will wait for CXR in case needing pneumonia coverage possible C2 abnormality on CT with question of fractureC-spine MRI was negative for fracture, no pain or tenderness on full range of motion during neck exam - monitor for symptoms #T2DM - with peripheral neuropathy - At home regimen metformin - hold - A1c 6.6, at goal - SSI with target BSG range 110-140mg/dL, CF 40, carb ratio 5 - avoid hypoglycemia so wider ranges - BSG ACHS - Adjust regimen as needed - Pharm glycemic management consult placed -BG reviewed, at goal 03/17 Chronic conditions: CKD stage III- baseline creatinine 1.2-1.3, better than baseline Cr 1.05 today, electrolytes unremarkable Sleep apnea- CPAP nightly; may use own Hypercholesterolemia- atorvastatin HTN- ARB held, liberalize to regular salt diet Depression with anxiety, insomnia- duloxetine, lorazepam prn - decreased lorazepam dose from 3 mg to 1 mg. Recommend tapering off of this, can contribute to falls GERD- pantoprazole, famotidine Osteoporosis- Prolia every 6 months (most recent 12/05/2023), follows with [facility] osteoporosis clinic -Vitamin D level was normal at 46 DVT ppx - apixaban will need acute rehab or SNF rehab (2) Acute UTI (urinary tract infection): (3) URI (upper respiratory infection): (4) Type 2 diabetes mellitus: (5) CKD (chronic kidney disease) stage 3, GFR 30-59 ml/min: (6) Diabetic peripheral neuropathy: (7) Osteoporosis: Admission and Anticipated Discharge Date Admission Date: March 15, 2024 Subjective Seen while getting up with PT Sitting on EOB Witnessed 2nd stand trial, needed a lot of assist, stood briefly, sat down because lightheaded Cough persists. Not short of breath. Physical Exam 2 Physical Exam: PHYSICAL EXAMINATION Last 24h vital signs reviewed, see documentation in flowsheet General: elderly/frail woman sitting on EOB HEENT: Normocephalic, atraumatic, pupils round and equal, sclerae anicteric, no conjunctival injection, moist mucus membranes Lungs: Normal respiratory effort. 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 left basilar crackles, otherwise clear Heart: Regular rate and rhythm, no murmurs. No JVD Abdomen: Soft, nontender, nondistended. Bowel sounds present. Extremities: Warm, dry, well-perfused. No extremity edema. R hip incisions dressed Neuro: Alert and oriented x to hospital and basic situation, vague responses, face symmetric, moves 4 extremities well Psych: Normal affect and behavior Results & Data Results & Data Vital Signs (Past 12 Hours) Vital Signs Temp Pulse Resp BP Pulse Ox O2 Del Method O2 Flow Rate 03/17/24 09:50 95 Room Air 03/17/24 08:41 Room Air 03/17/24 07:38 98.1 F 84 16 111/72 98 Nasal Cannula 1 Laboratory Results 03/17/24 06:07 03/17/24 06:07 PG Care Time/CCT Total # of Minutes Spent Total Time Spent with Patient: Total time spent is greater than 50% in coordination of care (as documented) at patient's floor/unit and/or counseling patient: Coding Level of Care Code 57457 SUB INP/OBS CARE 2/35MIN Diagnoses Closed fracture of right hip S72.001A Acute UTI (urinary tract infection) N39.0 URI (upper respiratory infection) J06.9 Type 2 diabetes mellitus without complication, without long-term current use of insulin E11.9 Diabetes mellitus alf insulin use: without alf use Diabetes mellitus complication status: without complication CKD (chronic kidney disease) stage 3, GFR 30-59 ml/min N18.3 Diabetic peripheral neuropathy E11.42 Osteoporosis M81.0 (4) Type 2 diabetes mellitus 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
--- NOTE | 2024-03-17 11:59 | XRay Report ---
XR chest 1V portable CLINICAL HISTORY: cough, abnormal lung exam left base TECHNIQUE: Single frontal radiograph of the chest was obtained. Comparison: Comparison is made to chest radiograph 03/15/2024 FINDINGS: No lines and tubes are seen. The cardiomediastinal silhouette is normal. The lungs are clear. No evid ence of pleural effusion or pneumothorax. IMPRESSION: No acute chest disease. ACT 112: Negative or not required by law. Electronically signed by: Andrei Barroso M.D. 03/17/2024 11:58 AM
[2024-03-17] MEDS: oxyCODONE HCL IR 5 MG TAB (IMMEDIATE RELEASE) PO PRN (16:14)
[2024-03-18 06:42] LABS: Hematocrit (blood only) 24.5 % (37.0-47.0); Hemoglobin 8.1 g/dl (12.0-16.0); Mean Corpuscular Hemoglobin 30.7 pg (25.0-34.0); Mean Corpuscular Hgb Conc 33.1 g/dL (32.0-36.0); Mean Corpuscular Volume 92.8 fL (80.0-100.0); Mean Platelet Volume 9.6 fL (9.4-12.4); Platelet Count 133 K/uL (130-400); RDW Coefficient of Variation 13.9 % (11.5-14.5); RDW Standard Deviation 46.9 fL (36.4-46.3); Red Blood Count 2.64 M/uL (4.20-5.40); White Blood Count 8.71 K/ul (4.8-10.8)
--- NOTE | 2024-03-18 09:00 | Orthopedic Progress Note ---
Date of Service March 18, 2024 Assessment & Plan (1) Femur fracture, right: Plan: Day 3 status post right hip trochanteric nailing by Dr. Emmanuel Acute anemia blood loss, Hgb 8.1 DVT prophylaxis per medicine service Continue Pain control Weightbearing as tolerated with walker assistance PT/OT Ice with easy wrap Patient will most likely need to go to either a rehab or fpc facility upon discharge Continue care per primary service Follow-up at [facility] orthopedics in approximately 2 weeks With questions contact our clinic at [phone] Admission and Anticipated Discharge Date Admission Date: March 15, 2024 Subjective Was not able to get OOB yesterday. + Flatus, -BM Physical Exam Physical Exam: RLE: Sensation to light touch intact distally. BCR < 2 sec. Wiggling toe and ankle up and down. Incision is clean, dry, intact, bruising around incisions. Results & Data Vital Signs (Past 12 Hours) Vital Signs Temp Pulse Pulse Resp BP Pulse Ox O2 Del Method 03/18/24 07:42 37.1 C 90 16 102/65 96 Room Air 03/18/24 04:37 105 H 94 Room Air 03/17/24 21:58 Room Air Laboratory Results 03/18/24 03/18/24 03/17/24 Range/Units 07:40 06:08 20:24 WBC 8.71 (4.8-10.8) K/ul RBC 2.64 L (4.20-5.40) M/uL Hgb 8.1 L (12.0-16.0) g/dl Hct 24.5 L (37.0-47.0) % MCV 92.8 (80.0-100.0) fL MCH 30.7 (25.0-34.0) pg MCHC 33.1 (32.0-36.0) g/dL RDW Std Deviation 46.9 H (36.4-46.3) fL RDW Coeff of Shikha 13.9 (11.5-14.5) % Plt Count 133 (130-400) K/uL MPV 9.6 (9.4-12.4) fL POC Glucose 128 H 166 H (70-99) mg/dl Blood Type O Negative Antibody Screen NEGATIVE 03/17/24 03/17/24 Range/Units 16:30 11:40 WBC (4.8-10.8) K/ul RBC (4.20-5.40) M/uL Hgb (12.0-16.0) g/dl Hct (37.0-47.0) % MCV (80.0-100.0) fL MCH (25.0-34.0) pg MCHC (32.0-36.0) g/dL RDW Std Deviation (36.4-46.3) fL RDW Coeff of Shikha (11.5-14.5) % Plt Count (130-400) K/uL MPV (9.4-12.4) fL POC Glucose 148 H 127 H (70-99) mg/dl Blood Type Antibody Screen
[2024-03-18] MEDS ORDERED: SODIUM CHLORIDE 0.9% 50 ML IV PRN (10:31)
[2024-03-18] MEDS ORDERED: SODIUM CHLORIDE 0.9% 100 ML IV PRN (10:31)
--- NOTE | 2024-03-18 15:14 | Hospitalist Progress Note ---
Date of Service March 18, 2024 Assessment & Plan (1) Closed fracture of right hip: Plan: 83-year-old female with osteoporosis, T2DM, HTN, CKD stage III, Sjogren's syndrome, and neuropathy who had a mechanical fall and sustained right hip fracture Operation Date: 03/15/24 09:20 Actual Procedures p Right Troch Nail(Right) - Malvin Emmanuel MD Has been slow to mobilize, hampered by pain when standing and orthostatic hypotension - pain control scheduled acetaminophen p.o., judicious opioids as needed - bowel regimen - discontinue alonzo - PT and OT - DVT prophylaxis - low-dose apixaban Acute blood loss anemia related to hip fracture - Hg 13.6--> 9.8--> 8.6--> 8.1 stable overnight - transfuse 1 units RBC today - symptomatic of orthostatic hypotension, which is impairing her rehab - am CBC - empiric iron replacement once bowels are moving Orthostatic hypotension - losartan has been on hold. Reviewed other meds and no culprits except opioids. Anemia, parainfluenza, UTI, and opioids contributing. Has diabetic peripheral neuropathy so there may also be some baseline autonomic neuropathy. Transfuse. Consider midodrine if persisting. Parainfluenza URI. Transient hypoxia yesterday was related to atelectasis - resolved with deep breathing, mobility, IS - CXR 03/17 was clear E. coli UTI - possible UTI, hard to know if symptomatic. Aranda-sensitive - completed treatment with three days of ceftriaxone possible C2 abnormality on CT with question of fractureC-spine MRI was negative for fracture, no pain or tenderness on full range of motion during neck exam - monitor for symptoms #T2DM - with peripheral neuropathy - At home regimen metformin - hold - A1c 6.6, at goal - SSI with target BSG range 110-140mg/dL, CF 40, carb ratio 5 - avoid hypoglycemia so wider ranges - BSG ACHS - Adjust regimen as needed - Pharm glycemic management consult placed -BG reviewed, at goal 03/18 Chronic conditions: CKD stage III- baseline creatinine 1.2-1.3, AM BMP Sleep apnea- CPAP nightly; may use own Hypercholesterolemia- atorvastatin HTN- ARB held, liberalize to regular salt diet. Normotensive with no meds. Depression with anxiety, insomnia- duloxetine, lorazepam prn - decreased lorazepam dose from 3 mg to 1 mg. Recommend tapering off of this, can contribute to falls GERD- pantoprazole, famotidine Osteoporosis- Prolia every 6 months (most recent 12/05/2023), follows with [facility] osteoporosis clinic -Vitamin D level was normal at 46 DVT ppx - apixaban will need acute rehab or SNF rehab I updated her son Dr. Neves 03/17 (2) Acute UTI (urinary tract infection): (3) URI (upper respiratory infection): (4) Type 2 diabetes mellitus: (5) CKD (chronic kidney disease) stage 3, GFR 30-59 ml/min: (6) Diabetic peripheral neuropathy: (7) Osteoporosis: Admission and Anticipated Discharge Date Admission Date: March 15, 2024 Subjective Seems more alert and interactive today. No hip pain currently because just got pain med. Planning up for PT soon this AM Still has alonzo this AM, no BM yet Still has cough but improved Physical Exam 2 Physical Exam: PHYSICAL EXAMINATION Last 24h vital signs reviewed, see documentation in flowsheet General: awake sitting in bed, looks a little better today HEENT: Normocephalic, atraumatic, pupils round and equal, sclerae anicteric, no conjunctival injection, moist mucus membranes Lungs: CTA ant, normal WOB, not currently coughing Heart: Regular rate and rhythm, no murmurs. No JVD Abdomen: Soft, nontender, nondistended. Bowel sounds present. Extremities: Warm, dry, well-perfused. No extremity edema. Neuro: Alert and oriented x to hospital and basic situation, verbal responses increased today, face symmetric, moves 4 extremities well Psych: Normal affect and behavior Results & Data Results & Data Vital Signs (Past 12 Hours) Vital Signs Temp Pulse Pulse Pulse Resp BP BP 03/18/24 13:19 99.5 F 93 H 14 104/66 03/18/24 12:27 99.5 F 90 16 101/67 03/18/24 11:55 97.9 F 101 H 14 100/63 03/18/24 11:25 98.4 F 87 16 102/66 03/18/24 11:10 99.0 F 93 H 16 110/68 03/18/24 10:46 98.2 F 90 18 104/64 03/18/24 07:42 98.8 F 90 16 102/65 03/18/24 04:37 105 H Pulse Ox O2 Del Method 03/18/24 13:19 94 03/18/24 12:27 92 03/18/24 11:55 92 03/18/24 11:25 97 03/18/24 11:10 97 03/18/24 10:46 95 03/18/24 07:42 96 Room Air 03/18/24 04:37 94 Room Air Laboratory Results 03/18/24 06:08 03/17/24 06:07 PG Care Time/CCT Total # of Minutes Spent Total Time Spent with Patient: Total time spent is greater than 50% in coordination of care (as documented) at patient's floor/unit and/or counseling patient: Coding Level of Care Code 99737 SUB INP/OBS CARE 350MIN Diagnoses Closed fracture of right hip S72.001A Acute UTI (urinary tract infection) N39.0 URI (upper respiratory infection) J06.9 Type 2 diabetes mellitus without complication, without long-term current use of insulin E11.9 Diabetes mellitus salvage determiner insulin use: without salvage determiner use Diabetes mellitus complication status: without complication CKD (chronic kidney disease) stage 3, GFR 30-59 ml/min N18.3 Diabetic peripheral neuropathy E11.42 Osteoporosis M81.0 (4) Type 2 diabetes mellitus Diabetes mellitus halfway insulin use: without halfway use Diabetes mellitus complication status: without complication Qualified Code(s): E11.9 - Type 2 diabetes mellitus without complications
[2024-03-19 09:21] LABS: Hematocrit (blood only) 30.8 % (37.0-47.0); Hemoglobin 10.1 g/dl (12.0-16.0); Mean Corpuscular Hgb Conc 32.8 g/dL (32.0-36.0); Mean Corpuscular Volume 91.4 fL (80.0-100.0); Mean Platelet Volume 9.3 fL (9.4-12.4); Platelet Count 178 K/uL (130-400); RDW Coefficient of Variation 14.3 % (11.5-14.5); RDW Standard Deviation 48.2 fL (36.4-46.3); Red Blood Count 3.37 M/uL (4.20-5.40); White Blood Count 8.69 K/ul (4.8-10.8)
[2024-03-19 09:45] LABS: Calcium 7.9 mg/dl (8.6-10.3); Creatinine Clr Calc Pharmacy 37.7 ml/min; Potassium 4.2 mmol/L (3.5-5.1)
--- NOTE | 2024-03-19 10:26 | Orthopedic Progress Note ---
Date of Service March 19, 2024 Assessment & Plan (1) Femur fracture, right: Plan: Postop day #4 status post a right hip trochanteric femoral nail. Labs and vitals noted. Doing well with PT and pain control. Eliquis and SCDs for DVT prophylaxis. She may weight-bear as tolerated with PT and OT. Walker. Recommend longterm facility or acute care rehab for disposition.Vitamin D within normal limits. Nutritional status okay.Promote pulmonary toilet. Admission and Anticipated Discharge Date Admission Date: March 15, 2024 Subjective Sitting in chair. No problems with breathing. Tolerating oral diet. No chest pains or shortness of breath. She is not coughing as much today. Physical Exam Physical Exam: Sensation intact. PT trace. Able to flex and extend the knee ankle and toes against resistance. Limited excursion. Strength is 4+ to 5- out of 5. Thigh is soft. Incisions are benign except for bruising especially proximally. No fluctuance or significant drainage. No erythema. Results & Data Vital Signs (Past 12 Hours) Vital Signs Temp Pulse Resp BP Pulse Ox O2 Del Method 03/19/24 07:51 36.6 C 83 18 110/71 92 Room Air 03/19/24 07:40 Room Air Laboratory Results Laboratory Results WBC 8.69 K/ul (4.8-10.8) 03/19/24 08:46 RBC 3.37 M/uL (4.20-5.40) L 03/19/24 08:46 Hgb 10.1 g/dl (12.0-16.0) L 03/19/24 08:46 Hct 30.8 % (37.0-47.0) L 03/19/24 08:46 MCV 91.4 fL (80.0-100.0) 03/19/24 08:46 MCH 30.0 pg (25.0-34.0) 03/19/24 08:46 MCHC 32.8 g/dL (32.0-36.0) 03/19/24 08:46 RDW Std Deviation 48.2 fL (36.4-46.3) H 03/19/24 08:46 RDW Coeff of Shikha 14.3 % (11.5-14.5) 03/19/24 08:46 Plt Count 178 K/uL (130-400) 03/19/24 08:46 MPV 9.3 fL (9.4-12.4) L 03/19/24 08:46 139 mmol/L (136-145) 03/19/24 08:46 Potassium 4.2 mmol/L (3.5-5.1) 03/19/24 08:46 Chloride 106 mmol/L (98-107) 03/19/24 08:46 Carbon Dioxide 27 mmol/L (21-32) 03/19/24 08:46 Anion Gap 6 (3-11) 03/19/24 08:46 BUN 18 mg/dl (6-23) 03/19/24 08:46 Creatinine 1.00 mg/dl (0.6-1.2) 03/19/24 08:46 Est Cr Clr Drug Dosing 37.7 ml/min 03/19/24 08:46 eGFR 55.55 03/19/24 08:46 BUN/Creatinine Ratio 18.0 (10-20) 03/19/24 08:46 Glucose 203 mg/dl (70-99(Fasting)) H 03/19/24 08:46 POC Glucose 152 mg/dl (70-99) H 03/19/24 07:05 Estimat Average Glucose 143 mg/dl 03/16/24 08:25 Hemoglobin A1c 6.6 % (4.5-5.6) H 03/16/24 08:25 Calcium 7.9 mg/dl (8.6-10.3) L 03/19/24 08:46 Magnesium 1.7 mg/dl (1.7-2.4) 03/15/24 05:35 Total Bilirubin 1.0 mg/dl (0.2-1.0) 03/15/24 05:35 AST 31 U/L (13-39) 03/15/24 05:35 ALT 26 U/L (7-52) 03/15/24 05:35 Alkaline Phosphatase 84 U/L (34-104) 03/15/24 05:35 Troponin I High Sens 10.7 pg/ml (0-14) 03/15/24 05:35 Total Protein 6.9 gm/dl (6.0-8.3) 03/15/24 05:35 Albumin 3.9 gm/dl (3.4-5.0) 03/15/24 05:35 Globulin 3.0 gm/dl (2.5-4.0) 03/15/24 05:35 Albumin/Globulin Ratio 1.3 (0.9-2) 03/15/24 05:35 25-OH Vitamin D Total 46.5 ng/ml (30-100) 03/16/24 08:25 03/15/24 06:06 Blood Type O Negative 03/18/24 06:08 Antibody Screen NEGATIVE 03/18/24 06:08 Crossmatch See Detail 03/18/24 06:08 Impressions Hip X-Ray 03/15/24 00:00 FL hip RT 2-3V CLINICAL HISTORY: RT TROCHright femoral fracture COMPARISON STUDY: Radiographs of same day FLUOROSCOPY TIME: 4 minutes and 3.9 seconds FLUOROSCOPY IMAGES: 5 EXPOSURE DOSE: 33.569 mGy FINDINGS: Status post placement of an intertrochanteric nail with medullary sonal fixating the acute intertrochanteric fracture with improved alignment. IMPRESSION: Fluoroscopic assistance as above.
--- NOTE | 2024-03-19 14:06 | Pharmacy Report ---
Pharmacy Glycemic Short Note 2 - Date of Service March 19, 2024 - Glycemic Short BSG Results (Last 24 hours): 03/18/24 03/18/24 03/19/24 16:37 20:10 07:05 Glucose POC Glucose 142 H 123 H 152 H 03/19/24 03/19/24 08:46 11:14 Glucose 203 H POC Glucose 130 H OUTPATIENT ANTIDIABETIC REGIMEN: * metformin 500mg PO daily HbA1C: 6.6% (12/22/23) ASSESSMENT: 03/19 * Eloise received 9 units of bolus insulin yesterday * Fasting BSG acceptable this AM, no basal indicated at this time. * No changes to NovoLog at this time, no glycemic stressors noted today. 03/16 * Patient did not require any insulin yesterday despite appearing to have received steroids in the OR. * Fasting BSG was 149mg/dL this morning. Will not start basal insulin at this time as BSG only slightly out of goal range. * Will continue with fairly loose bolus insulin parameters as ordered for now. T2DM diet started, so if BSGs continue to rise parameters will be tightened as needed. * She continues on ceftriaxone for a UTI. 03/15 * Pt is an 83 year old female admitted in setting of fall and femur fracture. Plan for OR today for surgical repair. History of DM2 on metformin @ home. Pharmacy consulted for inpatient glycemic management. * BSGs so far today, 187-144mg/dL. Receiving IV antibiotics, and currently NPO for planned OR. * Will initiate Novolog ACHS/q6 mild-moderate stress scale. Hold basal for now. PLAN FOR INPATIENT GLYCEMIC CONTROL: * Hold outpatient oral diabetes medications * Basal insulin * hold * Bolus insulin * NovoLog per scale ACHS or Q6hrs while NPO * Goal Range: Low 110 mg/dL - High 140 mg/dL * Correction Factor: 40 mg/dL/unit * Nutritional / Prandial insulin per carb ratio of 1 unit per 15 grams CHO consumed
--- NOTE | 2024-03-19 18:17 | Hospitalist Progress Note ---
Date of Service March 19, 2024 Assessment & Plan (1) Closed fracture of right hip: Plan: 83-year-old female with osteoporosis, T2DM, HTN, CKD stage III, Sjogren's syndrome, and neuropathy who had a mechanical fall and sustained right hip fracture Operation Date: 03/15/24 09:20 Actual Procedures p Right Troch Nail(Right) - Malvin Emmanuel MD Has been slow to mobilize, hampered by pain when standing and orthostatic hypotension - both these issues are resolved/much improved 03/19 - pain control scheduled acetaminophen p.o., judicious opioids as needed - bowel regimen - PT and OT - DVT prophylaxis - low-dose apixaban Acute blood loss anemia related to hip fracture - Hg 13.6--> --> 8.1 and was symptomatic with persistent severe orthostatic lightheadedness - transfused 1 unit RBCs on 03/18, hemoglobin 10 on 03/19 - empiric iron replacement ferrous sulfate every 48 hours once bowels are moving Orthostatic hypotension - losartan has been on hold. Reviewed other meds and no culprits except opioids. Anemia, parainfluenza, UTI, and opioids contributing. Has diabetic peripheral neuropathy so there may also be some baseline autonomic neuropathy. - better today after transfusion - consider midodrine if recurrent issue Parainfluenza URI. Transient hypoxia yesterday was related to atelectasis - resolved with deep breathing, mobility, IS - CXR 03/17 was clear E. coli UTI - possible UTI, hard to know if symptomatic. Aranda-sensitive - completed treatment with three days of ceftriaxone possible C2 abnormality on CT with question of fractureC-spine MRI was negative for fracture, no pain or tenderness on full range of motion during neck exam - monitor for symptoms, has had no further complaints of neck pain #T2DM - with peripheral neuropathy - At home regimen metformin - hold - A1c 6.6, at goal - SSI with target BSG range 110-140mg/dL, CF 40, carb ratio 5 - avoid hypoglycemia so wider ranges - BSG ACHS - Adjust regimen as needed - Pharm glycemic management consult placed -BG reviewed, at goal 03/19 Chronic conditions: CKD stage III- baseline creatinine 1.2-1.3, better than baseline currently Sleep apnea- CPAP nightly; may use own Hypercholesterolemia- atorvastatin HTN- ARB held, liberalize to regular salt diet. Normotensive with no meds. Depression with anxiety, insomnia- duloxetine, lorazepam prn - decreased lorazepam dose from 3 mg to 1 mg. Recommend tapering off of this, can contribute to falls GERD- pantoprazole, famotidine Osteoporosis- Prolia every 6 months (most recent 12/05/2023), [place] [facility] [place] -Vitamin D level was normal at 46 DVT ppx - apixaban will need rehab - medically stable for discharge to SNF/rehab at this time I updated her son Dr. Neves 03/18 (2) Acute UTI (urinary tract infection): (3) URI (upper respiratory infection): (4) Type 2 diabetes mellitus: (5) CKD (chronic kidney disease) stage 3, GFR 30-59 ml/min: (6) Diabetic peripheral neuropathy: (7) Osteoporosis: Admission and Anticipated Discharge Date Admission Date: March 15, 2024 Subjective Eloise feeling better after blood transfusion yesterday, was able to get up and walk 25 feet with PT did not get lightheaded, currently sitting in the chair getting dressing changed by Ortho PA no shortness of breath no chest pain, cough persists Physical Exam 2 Physical Exam: PHYSICAL EXAMINATION Last 24h vital signs reviewed, see documentation in flowsheet General: sitting up in the chair and looks much better, no longer pale HEENT: Normocephalic, atraumatic, pupils round and equal, sclerae anicteric, no conjunctival injection, moist mucus membranes Lungs: CTA ant, normal WOB, mild right basilar crackles seem to clear with successive inspirations Heart: Regular rate and rhythm, no murmurs. No JVD Abdomen: Soft, nontender, nondistended. Bowel sounds present. Extremities: Warm, dry, well-perfused. No extremity edema. right hip incisions are intact currently undergoing dressing change Neuro: Alert and oriented x to hospital and basic situation, conversational, face symmetric, moves 4 extremities well Psych: Normal affect and behavior Results & Data Results & Data Vital Signs (Past 12 Hours) Vital Signs Temp Pulse Resp BP Pulse Ox O2 Del Method 03/19/24 16:31 98.8 F 95 H 16 121/83 95 Room Air 03/19/24 07:51 97.9 F 83 18 110/71 92 Room Air 03/19/24 07:40 Room Air Laboratory Results 03/19/24 08:46 12/30/24 08:46 PG Care Time/CCT Total # of Minutes Spent Total Time Spent with Patient: Total time spent is greater than 50% in coordination of care (as documented) at patient's floor/unit and/or counseling patient: Coding Level of Care Code 89511 SUB INP/OBS CARE 2/35MIN Diagnoses Closed fracture of right hip S72.001A Acute UTI (urinary tract infection) N39.0 URI (upper respiratory infection) J06.9 Type 2 diabetes mellitus without complication, without long-term current use of insulin E11.9 Diabetes mellitus intermediate manager insulin use: without assisted use Diabetes mellitus complication status: without complication CKD (chronic kidney disease) stage 3, GFR 30-59 ml/min N18.3 Diabetic peripheral neuropathy E11.42 Osteoporosis M81.0 (4) Type 2 diabetes mellitus Diabetes mellitus intermediate manager insulin use: without intermediate manager use Diabetes mellitus complication status: without complication Qualified Code(s): E11.9 - Type 2 diabetes mellitus without complications
--- NOTE | 2024-03-20 10:33 | Orthopedic Progress Note ---
Date of Service March 20, 2024 Assessment & Plan (1) Femur fracture, right: Plan: Postop day #5 status post a right hip trochanteric femoral nail. Doing well with PT and pain control. Eliquis and SCDs for DVT prophylaxis. She may weight-bear as tolerated with PT and OT. Walker. [facility] or acute care rehab for disposition (discharge to [facility] today). Vitamin D within normal limits. Nutritional status okay. Promote pulmonary toilet. Follow-up with [facility] orthopedics as previously scheduled. With questions contact our clinic at [phone] Admission and Anticipated Discharge Date Admission Date: March 15, 2024 Subjective This 83-year-old female seen for follow-up of a right femoral fracture fixation with trochanteric nailing. Patient states she is doing much better after having a blood transfusion 2 days ago. She was able to participate with physical therapy in the past few days. She was able to transition from her chair to her walker and ambulate into the hallway and back with PT while I was evaluating her. She states she has talked with case management and is planning on being discharged to the [facility] later today. She states she still has a cough but denies chest pain, shortness of breath, fever, chills, sweats, nausea, vomiting or difficulty voiding. She also has no complaint of numbness or tingling in her right lower extremity. Review of Systems Review of Systems: All systems reviewed & are unremarkable except as noted in Subjective Physical Exam Physical Exam: Right hip: Dressing is clean dry and intact and left in place. Patient is able to perform active straight leg raise test. She is able to actively dorsi and plantarflex her foot without issue. Her peripheral pulses are 2+. She tolerates light logroll testing. Passive hip flexion to 80 degrees causes only minimal discomfort. Patient has slight discomfort and pulling sensation with very light passive internal and external hip rotation. She is neurovascularly intact in right lower extremity. Her quad strength is 3+ out of 5 Results & Data Vital Signs (Past 12 Hours) Vital Signs Temp Pulse Resp Pulse Ox O2 Del Method 03/20/24 08:29 36.8 C 86 16 95 Room Air 03/19/24 23:41 Room Air Diagnostic Findings Laboratory Results WBC 8.69 K/ul (4.8-10.8) 03/19/24 08:46 RBC 3.37 M/uL (4.20-5.40) L 03/19/24 08:46 Hgb 10.1 g/dl (12.0-16.0) L 03/19/24 08:46 Hct 30.8 % (37.0-47.0) L 03/19/24 08:46 MCV 91.4 fL (80.0-100.0) 03/19/24 08:46 MCH 30.0 pg (25.0-34.0) 03/19/24 08:46 MCHC 32.8 g/dL (32.0-36.0) 03/19/24 08:46 RDW Std Deviation 48.2 fL (36.4-46.3) H 03/19/24 08:46 RDW Coeff of Shikha 14.3 % (11.5-14.5) 03/19/24 08:46 Plt Count 178 K/uL (130-400) 03/19/24 08:46 MPV 9.3 fL (9.4-12.4) L 03/19/24 08:46 Immature Gran % (Auto) 0.3 % 03/16/24 08:25 Neut % (Auto) 78.2 % 03/16/24 08:25 Lymph % (Auto) 17.8 % 03/16/24 08:25 Camp % (Auto) 3.5 % 03/16/24 08:25 Eos % (Auto) 0.0 % 03/16/24 08:25 Baso % (Auto) 0.2 % 03/16/24 08:25 Neut # (Auto) 10.13 K/uL (1.40-6.50) H 03/16/24 08:25 Lymph # (Auto) 2.30 K/uL (1.20-3.40) 03/16/24 08:25 Camp # (Auto) 0.45 K/uL (0.11-0.59) 03/16/24 08:25 Eos # (Auto) 0.00 K/uL (0.00-0.50) 03/16/24 08:25 Baso # (Auto) 0.02 K/uL (0.00-0.20) 03/16/24 08:25 Immature Gran # (Auto) 0.04 K/uL (0.01-0.20) 03/16/24 08:25 PT 10.9 Seconds (9.0-12.0) 03/15/24 05:35 INR 1.0 (0.9-1.1) 03/15/24 05:35 Sodium 139 mmol/L (136-145) 03/19/24 08:46 Potassium 4.2 mmol/L (3.5-5.1) 03/19/24 08:46 Chloride 106 mmol/L (98-107) 03/19/24 08:46 Carbon Dioxide 27 mmol/L (21-32) 03/19/24 08:46 Anion Gap 6 (3-11) 03/19/24 08:46 BUN 18 mg/dl (6-23) 03/19/24 08:46 Creatinine 1.00 mg/dl (0.6-1.2) 03/19/24 08:46 Est Cr Clr Drug Dosing 37.7 ml/min 03/19/24 08:46 eGFR 55.55 03/19/24 08:46 BUN/Creatinine Ratio 18.0 (10-20) 03/19/24 08:46 Glucose 203 mg/dl (70-99(Fasting)) H 03/19/24 08:46 POC Glucose 126 mg/dl (70-99) H 03/20/24 07:07 Estimat Average Glucose 143 mg/dl 03/16/24 08:25 Hemoglobin A1c 6.6 % (4.5-5.6) H 03/16/24 08:25 Calcium 7.9 mg/dl (8.6-10.3) L 03/19/24 08:46 Magnesium 1.7 mg/dl (1.7-2.4) 03/15/24 05:35 Total Bilirubin 1.0 mg/dl (0.2-1.0) 03/15/24 05:35 AST 31 U/L (13-39) 03/15/24 05:35 ALT 26 U/L (7-52) 03/15/24 05:35 Alkaline Phosphatase 84 U/L (34-104) 03/15/24 05:35 Troponin I High Sens 10.7 pg/ml (0-14) 03/15/24 05:35 Total Protein 6.9 gm/dl (6.0-8.3) 03/15/24 05:35 Albumin 3.9 gm/dl (3.4-5.0) 03/15/24 05:35 Globulin 3.0 gm/dl (2.5-4.0) 03/15/24 05:35 Albumin/Globulin Ratio 1.3 (0.9-2) 03/15/24 05:35 25-OH Vitamin D Total 46.5 ng/ml (30-100) 03/16/24 08:25 Urine Color Yellow 03/15/24 06:06 Urine Appearance Clear (Clear) 03/15/24 06:06 Urine pH 6.0 (4.5-7.5) 03/15/24 06:06 Ur Specific [place]ley 1.020 (1.000-1.030) 03/15/24 06:06 Urine Protein Trace (Negative) H 03/15/24 06:06 Urine Glucose (UA) Negative (Negative) 03/15/24 06:06 Urine Ketones 1+ (Negative) H 03/15/24 06:06 Urine Blood Negative (Negative) 03/15/24 06:06 Urine Nitrite Positive (Negative) A 03/15/24 06:06 Urine Bilirubin Negative (Negative) 03/15/24 06:06 Urine Urobilinogen Negative (Negative) 03/15/24 06:06 Ur Leukocyte Esterase Trace (Negative) H 03/15/24 06:06 Urine WBC (Auto) 6-10 /hpf (0-5) H 03/15/24 06:06 Urine RBC (Auto) 0-2 /hpf (0-2) 03/15/24 06:06 U Hyaline Cast (Auto) 0-2 /lpf (0-2) 03/15/24 06:06 U Epithel Cells (Auto) 0-2 /hpf (0-2) 03/15/24 06:06 Urine Bacteria (Auto) 4+ (None Seen) H 03/15/24 06:06 Adenovirus (PCR) Not Detected (NotDetected) 03/15/24 06:06 B. pertussis DNA (PCR) Not Detected (NotDetected) 03/15/24 06:06 B.parapertussis DNA PCR Not Detected (NotDetected) 03/15/24 06:06 C. pneumoniae DNA (PCR) Not Detected (NotDetected) 03/15/24 06:06 Coronavirus OC43 (PCR) Not Detected (NotDetected) 03/15/24 06:06 Coronavirus HKU1 (PCR) Not Detected (NotDetected) 03/15/24 06:06 Coronavirus 229E (PCR) Not Detected (NotDetected) 03/15/24 06:06 SARS-CoV-2 (PCR) Not Detected (NotDetected) 03/15/24 06:06 Coronavirus NL63 (PCR) Not Detected (NotDetected) 03/15/24 06:06 Human Metapneumovir PCR Not Detected (NotDetected) 03/15/24 06:06 Influenza Type A (PCR) Not Detected (NotDetected) 03/15/24 06:06 Influenza Type B (PCR) Not Detected (NotDetected) 03/15/24 06:06 M. pneumoniae (PCR) Not Detected (NotDetected) 03/15/24 06:06 Parainfluenza 1 (PCR) DETECTED (NotDetected) A 03/15/24 06:06 Parainfluenza 2 (PCR) Not Detected (NotDetected) 03/15/24 06:06 Parainfluenza 3 (PCR) Not Detected (NotDetected) 03/15/24 06:06 Parainfluenza 4 (PCR) Not Detected (NotDetected) 03/15/24 06:06 RSV (PCR) Not Detected (NotDetected) 03/15/24 06:06 Entero/Rhino (PCR) Not Detected (NotDetected) 03/15/24 06:06 Blood Type O Negative 03/18/24 06:08 Antibody Screen NEGATIVE 03/18/24 06:08 Crossmatch See Detail 03/18/24 06:08 Impressions Hip X-Ray 03/15/24 00:00 FL hip RT 2-3V CLINICAL HISTORY: RT TROCHright femoral fracture COMPARISON STUDY: Radiographs of same day FLUOROSCOPY TIME: 4 minutes and 3.9 seconds FLUOROSCOPY IMAGES: 5 EXPOSURE DOSE: 33.569 mGy FINDINGS: Status post placement of an intertrochanteric nail with medullary sonal fixating the acute intertrochanteric fracture with improved alignment. IMPRESSION: Fluoroscopic assistance as above. ACT 112: Negative or not required by law. Electronically signed by: Mike Cuevas M.D. 03/16/2024 6:[address] 03/15/24 05:29 EXAM: CT cervical spine wo con CLINICAL HISTORY: Patient fell backwards and fell to the ground, denies hitting her head, stomach pain, neck pain, or chest pain. Patient states she has right hip pain. TECHNIQUE: CT scan of the cervical spine was performed without the administration of intravenous contrast. Contiguous axial images were obtained from the skull base to the upper thoracic spine. Coronal and sagittal reconstructed images were also obtained. One of the following dose reduction techniques was utilized for this exam. Automated exposure control, adjustment of the mA and/or kV according to patient size, and use of iterative reconstruction. COMPARISON: No previous studies are available for comparison. FINDINGS: Vertebrae: There is a thin hypodense line seen at the lower dens/posterior aspect of the body of the C2 vertebra, can be artifactual, however considering the history of trauma, the possibility of undisplaced fracture cannot be entirely excluded. Minimal retrolithesis of C5 vertebra. The vertebral bodies are normal in height and alignment. The cortical and trabecular bone patterns are normal. No signs of lytic or sclerotic lesions. Normal configuration of the posterior elements. Multiple marginal osteophytes. Intervertebral Discs and Neural Foramina: Reduced C5-C6 intervertebral disc space with positive vaccum phenomenon. C3-C4 right paracentral posterolateral and C5-C6 posterior and biposterolateral disc/osteophyte complex are seen effacing the ventral epidural space and compromising the related neural exit pathways. No calcifications or ossifications were noted within the discs. Facet Joints: Neurocentral and facet joints arthropathy mainly noted at C3-C4 and C5-C6 levels. Prevertebral Soft Tissues: The prevertebral soft tissues are normal in thickness without evidence of mass or abnormal fluid collection. Additional Findings: No other significant findings are noted in the visualized soft tissue structures or bony elements. IMPRESSION: There is a thin hypodense line seen at the lower dens/posterior aspect of the body of the C2 vertebra, can be artifactual, however considering the history of trauma, the possibility of undisplaced fracture cannot be entirely excluded. MRI of the cervical spine is advised if clinically indicated. Minimal retrolithesis of C5 vertebra. Degenerative changes mainly at C5-C6 level. C3-C4 and C5-C6 disc/osteophyte complexes are seen compromising the related neural exit pathways. Neurocentral and facet joints arthropathy, mainly at C3-C4 and C5-C6 levels. Electronically signed by Allison Briseno 03-15-2024 08:[address] 03/15/24 05:29 EXAM: CT head/brain wo con CLINICAL HISTORY: Pt was trying to walk to the bathroom and lost her balance. Pt fell backward and fell to the ground. Pt denies hitting her head, stomach pain, neck pain, or chest pain. Pt states she has right hip pain. Pt denies being on blood thinners. PW TECHNIQUE: An axial non-contrast CT scan of the brain was performed from the skull base to the high parietal region. One of the following dose reduction techniques were utilized for this exam: Automated exposure control, adjustment of the mA and/or kV according to patient size, and use of iterative reconstruction. COMPARISON: None. FINDINGS: Brain Parenchyma: Generalized cerebral atrophy Ill-defined hypoattenuating areas seen in bilateral marcelino ventricular and subcortical white matter suggestive of small vessel disease. Encephalomalacia seen in right posterior parietal lobe in central [place] No evidence of acute infarct, hemorrhage, or mass effect. Ventricular System: Ventricles, sulci and cisterns are prominent proportionate to the degree of cerebral atrophy. Subarachnoid Spaces: Normal sulci and cisterns. No evidence of subarachnoid hemorrhage or extra-axial fluid collections. Cerebellum and Brainstem: Normal size and signal. Encephalomalacia seen in right cerebellar hemisphere Orbits: Normal appearance of the globes, optic nerves, and extraocular muscles. No evidence of orbital masses Sinuses: Ethmoid sinus mucosal thickening. Mastoid Air Cells: Bilateral chronic mastoiditis. Skull: Normal skull morphology. IMPRESSION: 1. Generalized cerebral atrophy. 2. Small vessel disease. 3. Encephalomalacia in the right posterior parietal lobe and right cerebellar hemisphere. 4. No acute brain insult or skull fractures 5. No intracranial acute pathology was seen. Electronically signed by Allison Briseno 03-15-2024 07:50 AM Hip/Pelvis X-Ray 03/15/24 05:29 EXAM: XR hip RT 2V w pelvis CLINICAL HISTORY: PT FELL KFK TECHNIQUE: X-ray images of the right hip joint and pelvis were obtained in anteroposterior (AP) and lateral projections. COMPARISON: None. FINDINGS: Hip Joints: Comminuted displaced intertrochanteric fractures in the right femur. Internal fixation in the left femur with mildly displaced lesser trochanteric fracture. Reduced bilateral hip joint space. Sacroiliac joints appear normal and unremarkable. No evidence of sacroiliitis or significant degenerative changes. Symphysis Pubis: The symphysis pubis is normal and intact. No evidence of separation or widening. Soft Tissues: Right hip/proximal thigh soft tissue swelling. No calcifications, or masses. IMPRESSION: 1. Comminuted displaced intertrochanteric fractures in the right femur. 2. Internal fixation in the left femur with mildly displaced lesser trochanteric fracture. 3. Reduced bilateral hip joint space. Disclaimer: A subtle bone abnormality or fracture may not be readily apparent on X-rays, thus clinical correlation and further imaging including follow-up CT, MRI, or follow-up X-rays are advised as needed. Electronically signed by Allison Briseno 03-15-2024 07:23 AM Cervical Spine MRI 03/15/24 09:39 MR cervical spine wo con HISTORY: 83 years-old Female ? C2 fracture, s/p fall acute neck injury status post fall COMPARISON: CT cervical spine of same day at 6:20 AM, CT abdomen and pelvis 09/20/2022 TECHNIQUE: Multiplanar multisequence MRI of the cervical spine was obtained without IV contrast FINDINGS: The imaged posterior fossa structures appear unremarkable. There is no acute fracture, subluxation, endplate erosion, marrow replacing process or marrow edema. No epidural fluid collections. Wall thickening noted throughout the mid to distal esophagus measures up to approximately 5-6 mm circumferentially. There is suggestion of periesophageal edema. Normal signal within the cervical and imaged upper thoracic spinal cord. Study is motion degraded. C2-C3: Mild intervertebral disc space narrowing and uncovertebral upper tree with small posterior annular disc bulge. Moderate to severe facet arthrosis. Patent central canal. Mild left with mild to moderate right foraminal narrowing. C3-C4: Moderate intervertebral disc space narrowing. Small posterior disc osteophyte complex with moderate to severe facet arthrosis. Mild central canal stenosis with AP dimension of the thecal sac 7.6 mm. Moderate bilateral foraminal narrowing. C4-C5: Small posterior annular disc bulge/disc osteophyte complex with mild-to- moderate facet arthrosis. The central canal is patent. Mild bilateral foraminal narrowing. C5-C6: Severe intervertebral disc space narrowing with circumferential disc osteophyte complex. Moderate to advanced facet arthrosis. AP dimension of the thecal sac measures 6.6 mm. Mild to moderate central canal stenosis with minimal mass effect on both the ventral and dorsal aspects of the cervical spinal cord. Mild bilateral foraminal narrowing. C6-C7: Tiny posterior annular disc bulge with moderate facet arthrosis. No central canal or foraminal narrowing. C7-T1: Grade 1 anterolisthesis secondary to chronic facet arthrosis. Posterior annular disc bulge with 5 mm left paracentral disc protrusion on image 104 series 6. Moderate facet arthrosis. Central canal is patent. No significant neural foraminal narrowing. IMPRESSION: 1. No acute fracture, subluxation or bone marrow edema. 2. Discogenic degeneration with facet arthrosis as above resulting in multilevel central canal and neural foraminal narrowing. 3. There is apparent circumferential wall thickening within the mid esophagus. Findings could be correlated with endoscopy. ACT 112: Negative or not required by law. The above report was generated using voice recognition software. It may contain grammatical, syntax or spelling errors. Electronically signed by: Mike Cuevas M.D. 03/15/2024 1:34 PM Chest X-Ray 03/17/24 11:21 XR chest 1V portable CLINICAL HISTORY: cough, abnormal lung exam left base TECHNIQUE: Single frontal radiograph of the chest was obtained. Comparison: Comparison is made to chest radiograph 03/15/2024 FINDINGS: No lines and tubes are seen. The cardiomediastinal silhouette is normal. The lungs are clear. No evidence of pleural effusion or pneumothorax. IMPRESSION: No acute chest disease. ACT 112: Negative or not required by law. Electronically signed by: Andrei Barroso M.D. 03/17/2024 11:58 AM
[2024-03-20] MEDS: ALBUTEROL HFA 8 GM INHALER INH ONE (11:29)
--- NOTE | 2024-03-20 11:49 | XRay Report ---
XR chest 1V portable CLINICAL HISTORY: parainfluenza infection, RLL crackles COMPARISON STUDY: Chest radiograph March 17, 2024. FINDINGS: Lung volumes are normal. No pneumothorax or pleural effusion is present. A 2.2 cm right low er lung airspace opacity has developed since prior exam. Subtle asymmetric interstitial thickening wi thin the right lung is present. There may be a few patchy left lung opacities as well. IMPRESSION: Interval development of a 2.2 cm right lower lung airspace opacity with suspected additio nal patchy bilateral airspace opacities. The findings favor pneumonia. ACT 112: Negative or not required by law. Electronically signed by: Davy Bartholomew M.D. 03/20/2024 11:48 AM
[2024-03-20] MEDS: cefTRIAXone SODIUM 2,000 MG/50 ML BAG IV SCH (13:05)
[2024-03-20] MEDS: guaiFENesin 600 MG TABCR PO SCH (13:05)
--- NOTE | 2024-03-20 19:57 | Hospitalist Progress Note ---
Date of Service March 20, 2024 Assessment & Plan (1) RLL pneumonia: Plan: uncertain if cxr findings are due to parainfluenza viral infection itself vs bacterial superinfection in light of worsening cxr, advanced age, ongoing cough/congestion/failure to thrive/etc - would Rx for bacterial pneumonia resume rocephin 2gm daily (previously received IV rocephin x 3 days earlier this admission) plan 7 days of Rx in total add bronchodilators add mucinex 600mg BID (2) Parainfluenza infection: Plan: tested + for such on day of admission initial cause of cough/congestion now with #1 above (3) Closed fracture of right hip: Plan: s/p mechanical fall with resulting right hip fracture s/p ORIF with troch nail by Dr Emmanuel, [facility], on 03/15 thus, POD #5 DVT prophylaxis - low-dose apixaban 2.5mg BID stay complicated by acute blood loss anemia related Hemoglobin 13.6--> 8.1 symptomatic from such with orthostatic lightheadedness s/p 1 unit pRBCs on 03/18 repeat CBC, BMP am cont PT/OT ultimate disposition - [facility] for rehab (4) Acute UTI (urinary tract infection): Plan: 2nd ecoli did receive 3 days of IV rocephin earlier in the admission now going back on rocephin for pneumonia rocephin will suffice (5) Type 2 diabetes mellitus: Plan: with peripheral neuropathy home regimen - metformin - cont to hold HbA1c 6.6% Cont loose novolog SSI (6) CKD (chronic kidney disease) stage 3, GFR 30-59 ml/min: Plan: repeat BMP am (7) Diabetic peripheral neuropathy: Plan: cont cymbalta (8) Osteoporosis: Plan: 25-OH vit D level 46 Plan Chronic conditions: CKD stage III- baseline creatinine 1.2-1.3; repeat BMP am for stability Sleep apnea- CPAP nightly; may use own from home Hypercholesterolemia- cont atorvastatin HTN- ARB held; Normotensive with no meds likely due to acute blood loss anemia Depression with anxiety, insomnia- duloxetine, lorazepam prn - decreased lorazepam dose from 3 mg to 1 mg. Recommend tapering off of this, can contribute to falls GERD- pantoprazole, famotidine Osteoporosis- Prolia every 6 months (most recent 12/05/2023), [facility] -Vitamin D level was normal at 46 DVT ppx - apixaban 2.5mg BID Bowel maintenance - miralax/senna no discharge today due to #1, #2 left message for her son, Dr Neves, 03/20 (on his voicemail) updated pt's at bedside today Admission and Anticipated Discharge Date Admission Date: March 15, 2024 Subjective patient reports "not feeling that great" ongoing cough, congestion, some sputum appetite fair at best feels weak asks for more time in the hospital she is aware of SNF auth getting approved ([facility]) has moved her bowels since surgery mild soreness/pain right hip Review of Systems Review of Systems: gen - weak, fatigued; no fever cv - no orthopnea pulm - cough/congestion GI - no abd pain Physical Exam Physical Exam: gen - coughing (harsh, bronchial cough present); no distress mouth - MMM neck - no JVD heart - RRR, s1 s2 lungs - focal rales R base with some wheezes b/l, no increased work of breathing abd - soft NT ND BS+ ext - right thigh edematous, left leg w/o edema; pulses b/l feet 2+ skin - dressings intact right hip region Results & Data Results & Data Vital Signs (Past 12 Hours) Vital Signs Temp Pulse Pulse Resp BP BP Pulse Ox 03/20/24 19:42 36.8 C 90 17 124/79 94 03/20/24 15:16 36.9 C 91 H 16 106/65 92 03/20/24 11:29 86 16 94 03/20/24 08:29 36.8 C 86 16 95 O2 Del Method 03/20/24 19:42 Room Air 03/20/24 15:16 Room Air 03/20/24 11:29 Room Air 03/20/24 08:29 Room Air Laboratory Results Laboratory Results - last 24 hr 03/19/24 03/20/24 03/20/24 20:49 07:07 11:45 POC Glucose 132 H 126 H 131 H 03/20/24 16:29 POC Glucose 112 H Diagnostic Findings Chest X-Ray 03/20/24 11:19 XR chest 1V portable CLINICAL HISTORY: parainfluenza infection, RLL crackles COMPARISON STUDY: Chest radiograph March 17, 2024. FINDINGS: Lung volumes are normal. No pneumothorax or pleural effusion is present. A 2.2 cm right lower lung airspace opacity has developed since prior exam. Subtle asymmetric interstitial thickening within the right lung is present. There may be a few patchy left lung opacities as well. IMPRESSION: Interval development of a 2.2 cm right lower lung airspace opacity with suspected additional patchy bilateral airspace opacities. The findings favor pneumonia. ACT 112: Negative or not required by law. Electronically signed by: Davy Bartholomew M.D. 03/20/2024 11:48 AM PG Care Time/CCT Total # of Minutes Spent Total Time Spent with Patient: Total time spent is greater than 50% in coordination of care (as documented) at patient's floor/unit and/or counseling patient: Coding Level of Care Code 76083 SUB INP/OBS CARE 3/50MIN Diagnoses RLL pneumonia J18.9 Parainfluenza infection B34.8 Closed fracture of right hip S72.001A Acute UTI (urinary tract infection) N39.0 Type 2 diabetes mellitus without complication, without long-term current use of insulin E11.9 Diabetes mellitus complication status: without complication Diabetes mellitus intermodal customer service insulin use: without intermodal customer service use CKD (chronic kidney disease) stage 3, GFR 30-59 ml/min N18.3 Diabetic peripheral neuropathy E11.42 Osteoporosis M81.0 (5) Type 2 diabetes mellitus Diabetes mellitus complication status: without complication Diabetes mellitus intermodal customer service insulin use: without long-term use Qualified Code(s): E11.9 - Type 2 diabetes mellitus without complications
[2024-03-21 07:03] LABS: Hematocrit (blood only) 29.5 % (37.0-47.0); Hemoglobin 9.5 g/dl (12.0-16.0); Mean Corpuscular Hemoglobin 29.3 pg (25.0-34.0); Mean Corpuscular Hgb Conc 32.2 g/dL (32.0-36.0); Mean Platelet Volume 9.2 fL (9.4-12.4); Platelet Count 228 K/uL (130-400); RDW Coefficient of Variation 14.1 % (11.5-14.5); RDW Standard Deviation 47.6 fL (36.4-46.3); Red Blood Count 3.24 M/uL (4.20-5.40)
[2024-03-21 07:14] LABS: BUN Creatinine Ratio 16.7 (10-20); Calcium 7.8 mg/dl (8.6-10.3); Creatinine Clr Calc Pharmacy 34.9 ml/min
[2024-03-21] MEDS: ALBUTEROL HFA 8 GM INHALER INH SCH (11:18)
--- NOTE | 2024-03-21 15:45 | Ultrasound Report ---
RIGHT LOWER EXTREMITY VENOUS DOPPLER CLINICAL HISTORY: recent fall, R hip Fx w/ surgery, edema COMPARISON STUDY: No previous studies for comparison. TECHNIQUE: Sonography of the deep venous system of the right lower extremity was performed. Compress ion and augmentation were evaluated. FINDINGS: The right common femoral, superficial femoral and popliteal veins were compressible. Augme ntation was normal. Flow was shown within the deep calf vessels. IMPRESSION: No evidence of deep venous thrombus within the right lower extremity. ACT 112: Negative or not required by law. Electronically signed by: Davy Bartholomew M.D. 03/21/2024 3:43 PM
--- NOTE | 2024-03-21 16:04 | XRay Report ---
XR knee RT 1 or 2V routine CLINICAL HISTORY: recent fall, ongoing pain R knee COMPARISON: None FINDINGS: A right femoral intramedullary sonal is partially imaged. There are distal screws. Visualized portions of the hardware intact. There are skin nakul. No fractures within the right knee are pres ent. There is no right knee joint effusion. Valgus deformity is present with lateral compartment join t space narrowing. There is associated osteophytosis. Mild to moderate patellofemoral compartment ost eoarthritis is also present. IMPRESSION: 1. No acute fractures within the right knee. No right knee joint effusion. 2. Severe lateral compartment osteoarthritis. Valgus deformity of the right knee. ACT 112: Negative or not required by law. Electronically signed by: Davy Bartholomew M.D. 03/21/2024 4:03 PM
--- NOTE | 2024-03-21 19:13 | Hospitalist Progress Note ---
Date of Service March 21, 2024 Assessment & Plan (1) RLL pneumonia: Plan: uncertain if cxr findings are due to parainfluenza viral infection itself vs bacterial superinfection in light of worsening cxr, advanced age, ongoing cough/congestion/failure to thrive/etc - would Rx for bacterial pneumonia resumed rocephin 2gm daily (previously received IV rocephin x 3 days earlier this admission) on 03/20 thus, today is dose #5 plan 7 days of Rx in total cont bronchodilators cont mucinex 600mg BID (2) Parainfluenza infection: Plan: tested + for such on day of admission initial cause of cough/congestion now with #1 above (3) Closed fracture of right hip: Plan: s/p mechanical fall with resulting right hip fracture s/p ORIF with troch nail by Dr Emmanuel, [facility], on 03/15 thus, POD #6 DVT prophylaxis - low-dose apixaban 2.5mg BID stay complicated by acute blood loss anemia related Hemoglobin 13.6--> 8.1 symptomatic from such with orthostatic lightheadedness s/p 1 unit pRBCs on 03/18 H/H stable today cont PT/OT ultimate disposition - [facility] for rehab (4) Acute UTI (urinary tract infection): Plan: 2nd ecoli did receive 3 days of IV rocephin earlier in the admission now going back on rocephin for pneumonia rocephin will suffice (5) Type 2 diabetes mellitus: Plan: with peripheral neuropathy home regimen - metformin - cont to hold HbA1c 6.6% Cont loose novolog SSI (6) CKD (chronic kidney disease) stage 3, GFR 30-59 ml/min: Plan: Creatinine stable on am labs (7) Diabetic peripheral neuropathy: Plan: cont cymbalta (8) Osteoporosis: Plan: 25-OH vit D level 46 Plan Chronic conditions: CKD stage III- baseline creatinine 1.2-1.3; repeat BMP am for stability Sleep apnea- CPAP nightly; may use own from home Hypercholesterolemia- cont atorvastatin HTN- ARB held; Normotensive with no meds likely due to acute blood loss anemia Depression with anxiety, insomnia- duloxetine, lorazepam prn - decreased lorazepam dose from 3 mg to 1 mg. Increase cymbalta to 40mg/day for ongoing depression. GERD- pantoprazole, famotidine Osteoporosis- Prolia every 6 months (most recent 12/05/2023), [facility] -Vitamin D level was normal at 46 DVT ppx - apixaban 2.5mg BID Bowel maintenance - miralax/senna Right knee pain - in light of recent fall will obtain x-rays, r/o patellar fracture, etc. pain likely from advanced OA. Right leg pain - obtain doppler, r/o DVT. left message for her son, Dr Neves, 03/20 and again today updated pt's at bedside once again today Admission and Anticipated Discharge Date Admission Date: March 15, 2024 Subjective feels better today sitting in chair comfortably does have right hip/thigh/knee pain with walking has hard time lifting the right leg/hip admits to depression for about 1 year at bedside states she is always down had injection in both knees by ortho not too long ago for OA Review of Systems Review of Systems: pulm - breathing improved, but still coughing; no dyspnea GI - no N/V Physical Exam Physical Exam: gen - sitting in chair, looks better today, minimal cough today mouth - MMM neck - no JVD heart - RRR, s1 s2 lungs - focal rales R base with some scattered wheezes b/l, no increased work of breathing abd - soft NT ND BS+ ext - right thigh edematous, left leg w/o edema; pulses b/l feet 2+ skin - dressings intact right hip region musculo - OA changes of right knee, no effusion, crepitus with passive ROM; tender over the lateral joint line Results & Data Results & Data Vital Signs (Past 12 Hours) Vital Signs Temp Pulse Pulse Resp BP Pulse Ox O2 Del Method 03/21/24 16:57 36.4 C L 96 H 16 124/71 95 Room Air 03/21/24 11:18 81 16 97 Room Air 03/21/24 08:00 Room Air 03/21/24 07:35 36.7 C 89 16 123/77 93 Room Air Laboratory Results Laboratory Results - last 24 hr 03/20/24 03/21/24 03/21/24 20:42 06:30 07:54 WBC 5.70 RBC 3.24 L Hgb 9.5 L Hct 29.5 L MCV 91.0 MCH 29.3 MCHC 32.2 RDW Std Deviation 47.6 H RDW Coeff of Shikha 14.1 Plt Count 228 MPV 9.2 L Sodium 140 Potassium 4.0 Chloride 107 Carbon Dioxide 27 Anion Gap 6 BUN 18 Creatinine 1.08 Est Cr Clr Drug Dosing 34.9 eGFR 50.65 BUN/Creatinine Ratio 16.7 Glucose 125 H POC Glucose 129 H 136 H Calcium 7.8 L 03/21/24 03/21/24 11:41 16:50 WBC RBC Hgb Hct MCV MCH MCHC RDW Std Deviation RDW Coeff of Shikha Plt Count MPV Sodium Potassium Chloride Carbon Dioxide Anion Gap BUN Creatinine Est Cr Clr Drug Dosing eGFR BUN/Creatinine Ratio Glucose POC Glucose 125 H 117 H Calcium PG Care Time/CCT Total # of Minutes Spent Total Time Spent with Patient: Total time spent is greater than 50% in coordination of care (as documented) at patient's floor/unit and/or counseling patient: Coding Level of Care Code 46046 SUB INP/OBS CARE 235MIN Diagnoses RLL pneumonia J18.9 Parainfluenza infection B34.8 Closed fracture of right hip S72.001A Acute UTI (urinary tract infection) N39.0 Type 2 diabetes mellitus without complication, without long-term current use of insulin E11.9 Diabetes mellitus complication status: without complication Diabetes mellitus senior care insulin use: without termite control representative use CKD (chronic kidney disease) stage 3, GFR 30-59 ml/min N18.3 Diabetic peripheral neuropathy E11.42 Osteoporosis M81.0 (5) Type 2 diabetes mellitus Diabetes mellitus complication status: without complication Diabetes mellitus senior care insulin use: without senior care use Qualified Code(s): E11.9 - Type 2 diabetes mellitus without complications
[2024-03-22 07:18] VITALS: BP 145/85; TEMP 98.4; O2SAT 94
[2024-03-22] MEDS: DULoxetine HCL 20 MG CAP PO SCH (09:13)
[2024-03-22] MEDS: LORazepam 0.5 MG TAB PO STA (09:22)
[2024-03-22] MEDS: levoFLOXacin 750 MG TAB PO ONE (09:23)
--- NOTE | 2024-03-22 09:33 | Orthopedic Progress Note ---
Date of Service March 22, 2024 Assessment & Plan (1) Femur fracture, right: Plan: Postop day #7 status post a right hip trochanteric femoral nail. Having some anxiety today, will be receiving ativan, was being seen by hospitalist prior to this evaluation. Likely situational, history of depression in the past. Pain seems moderately to well controlled. She is able to participate with PT and OT. We reviewed this would take some time to improve. Dressing change done today. Incisions look good without dehiscence or infection. Dressing changes as needed. Can get wounds wet in shower at this point, pat dry, then re-apply new dressing. Do not submerge. Eliquis and SCDs for DVT prophylaxis. She may weight-bear as tolerated with PT and OT. Walker. She is receiving antibiotics for small interval development of pneumonia, could also be viral. She had an US of the RLE due to ongoing pain, negative for DVT She had been describing some pain in knee to hospitalist, xrays show significant arthritic changes, history of receiving injections not too long ago. No effusion noted. Will likely be discharged in the next day or 2 to the [facility] per primary service. Promote pulmonary toilet. Follow-up with [facility] orthopedics as previously scheduled. With questions contact our clinic at [phone] Admission and Anticipated Discharge Date Admission Date: March 15, 2024 Subjective Patient seen sitting the chair today. She is doing okay today, feeling anxious about everything but managing. She has some ongoing pain in the right hip and leg but nothing new since the surgery. Has been participating with PT and OT. Physical Exam Constitutional: Resting comfortably in the chair. Slightly anxious appearing but otherwise pleasant and conversational. Cardiovascular: Right DP pulse 2+ Musculoskeletal: Right lower extremity: Trace amount dried blood on two distal dressings. Dressings taken down revealing intact surgical wounds with nakul in place. No dehiscence. Mild surrounding ecchymosis immediately surrounding each incision but no diffuse ecchymosis. No drainage. No surrounding erythema. Thigh is soft with no induration. Minimal diffuse tenderness, nothing focal. Strength 5/5 with ankle plantarflexion, dorsiflexion. Moves all toes. No calf tenderness, no edema in lower leg. Knee no effusion, erythema, or warmth. Neurologic: No sensory deficits to the right lower extremity to light touch Results & Data Vital Signs (Past 12 Hours) Vital Signs Temp Pulse Resp BP Pulse Ox O2 Del Method 03/22/24 07:44 90 18 94 Room Air 03/22/24 07:17 98.4 F 91 H 16 145/85 H 94 Room Air 03/21/24 23:24 Room Air Diagnostic Findings Knee X-Ray 03/21/24 14:57 XR knee RT 1 or 2V routine CLINICAL HISTORY: recent fall, ongoing pain R knee COMPARISON: None FINDINGS: A right femoral intramedullary sonal is partially imaged. There are distal screws. Visualized portions of the hardware intact. There are skin nakul. No fractures within the right knee are present. There is no right knee joint effusion. Valgus deformity is present with lateral compartment joint space narrowing. There is associated osteophytosis. Mild to moderate patellofemoral compartment osteoarthritis is also present. IMPRESSION: 1. No acute fractures within the right knee. No right knee joint effusion. 2. Severe lateral compartment osteoarthritis. Valgus deformity of the right knee. ACT 112: Negative or not required by law. Electronically signed by: Davy Bartholomew M.D. 03/21/2024 4:03 PM Venous Doppler Study 03/21/24 14:57 RIGHT LOWER EXTREMITY VENOUS DOPPLER CLINICAL HISTORY: recent fall, R hip Fx w/ surgery, edema COMPARISON STUDY: No previous studies for comparison. TECHNIQUE: Sonography of the deep venous system of the right lower extremity was performed. Compression and augmentation were evaluated. FINDINGS: The right common femoral, superficial femoral and popliteal veins were compressible. Augmentation was normal. Flow was shown within the deep calf vessels. IMPRESSION: No evidence of deep venous thrombus within the right lower extremity. ACT 112: Negative or not required by law. Electronically signed by: Davy Bartholomew M.D. 03/21/2024 3:43 PM
--- NOTE | 2024-03-22 10:08 | Pharmacy Report ---
Pharmacy Glycemic Short Note 2 - Date of Service March 22, 2024 - Glycemic Short BSG Results (Last 24 hours): 03/21/24 03/21/24 03/21/24 11:41 16:50 21:10 POC Glucose 125 H 117 H 150 H 03/22/24 07:50 POC Glucose 134 H OUTPATIENT ANTIDIABETIC REGIMEN: * metformin 500mg PO daily HbA1C: 6.6% (12/22/23) ASSESSMENT: 03/22/24 * Eloise received 7 units of bolus insulin yesterday * BG at goal, no basal indicated at this time. * No changes to NovoLog at this time, completed 7 days IV Ceftriaxone, plans for DC to [facility] today 03/19 * Eloise received 9 units of bolus insulin yesterday * Fasting BSG acceptable this AM, no basal indicated at this time. * No changes to NovoLog at this time, no glycemic stressors noted today. 03/16 * Patient did not require any insulin yesterday despite appearing to have received steroids in the OR. * Fasting BSG was 149mg/dL this morning. Will not start basal insulin at this time as BSG only slightly out of goal range. * Will continue with fairly loose bolus insulin parameters as ordered for now. T2DM diet started, so if BSGs continue to rise parameters will be tightened as needed. * She continues on ceftriaxone for a UTI. 03/15 * Pt is an 83 year old female admitted in setting of fall and femur fracture. Plan for OR today for surgical repair. History of DM2 on metformin @ home. Pharmacy consulted for inpatient glycemic management. * BSGs so far today, 187-144mg/dL. Receiving IV antibiotics, and currently NPO for planned OR. * Will initiate Novolog ACHS/q6 mild-moderate stress scale. Hold basal for now. PLAN FOR INPATIENT GLYCEMIC CONTROL: * Hold outpatient oral diabetes medications * Basal insulin * hold * Bolus insulin * NovoLog per scale ACHS or Q6hrs while NPO * Goal Range: Low 110 mg/dL - High 140 mg/dL * Correction Factor: 40 mg/dL/unit * Nutritional / Prandial insulin per carb ratio of 1 unit per 15 grams CHO consumed
--- NOTE | 2024-03-22 10:39 | Discharge Summary ---
Discharge Summary Date of Service March 22, 2024 Principal Dx & Hospital Course #1 = Principal Diagnosis (1) RLL pneumonia: uncertain if cxr findings are due to parainfluenza viral infection itself vs bacterial superinfection in light of worsening cxr, advanced age, ongoing cough/congestion/failure to thrive/etc - would Rx for bacterial pneumonia resumed rocephin 2gm daily (previously received IV rocephin x 3 days earlier this admission) on 03/20 thus, today is dose #5 plan 7 days of Rx in total cont bronchodilators cont mucinex 600mg BID (2) Parainfluenza infection: tested + for such on day of admission initial cause of cough/congestion now with #1 above (3) Closed fracture of right hip: s/p mechanical fall with resulting right hip fracture s/p ORIF with troch nail by Dr Emmanuel, [facility], on 03/15 thus, POD #6 DVT prophylaxis - low-dose apixaban 2.5mg BID stay complicated by acute blood loss anemia related Hemoglobin 13.6--> 8.1 symptomatic from such with orthostatic lightheadedness s/p 1 unit pRBCs on 03/18 H/H stable today cont PT/OT ultimate disposition - [facility] for re[facility] (4) Acute UTI (urinary tract infection): 2nd ecoli did receive 3 days of IV rocephin earlier in the admission now going back on rocephin for pneumonia rocephin will suffice (5) Type 2 diabetes mellitus: with peripheral neuropathy home regimen - metformin - cont to hold HbA1c 6.6% Cont loose novolog SSI (6) CKD (chronic kidney disease) stage 3, GFR 30-59 ml/min: Creatinine stable on am labs (7) Diabetic peripheral neuropathy: cont cymbalta (8) Osteoporosis: 25-OH vit D level 46 Plan Chronic conditions: CKD stage III- baseline creatinine 1.2-1.3; repeat BMP am for stability Sleep apnea- CPAP nightly; may use own from home Hypercholesterolemia- cont atorvastatin HTN- ARB held; Normotensive with no meds likely due to acute blood loss anemia Depression with anxiety, insomnia- duloxetine, lorazepam prn - decreased lorazepam dose from 3 mg to 1 mg. Increase cymbalta to 40mg/day for ongoing depression. GERD- pantoprazole, famotidine Osteoporosis- Prolia every 6 months (most recent 12/05/2023), [facility] -Vitamin D level was normal at 46 DVT ppx - apixaban 2.5mg BID Bowel maintenance - miralax/senna Right knee pain - in light of recent fall will obtain x-rays, r/o patellar fracture, etc. pain likely from advanced OA. Right leg pain - obtain doppler, r/o DVT. left message for her son, Dr Neves, 03/20 and again today updated pt's at bedside once again today Admission HPI Per Admitting Provider 83-year-old female presenting to ED via EMS after fall from standing, complaining of R hip pain. ED course: CBC grossly WNL with exception of RDW 46.8, MPV 9.2; PT/INR WNL; CMP BUN 25, creatinine 1.22, BUN/creatinine ratio 20.5, glucose 187; troponin 10.7; UA trace protein, 1+ ketones, positive nitrite, trace LE, presence of WBC, 4+ bacteria; BioFire positive for parainfluenza 1 CXR normal chest x-ray; head CT generalized cerebral atrophy, small vessel disease, encephalomalacia in right posterior parietal lobe with right cerebellar hemisphere, no acute brain insult or skull fractures, no intracranial acute pathology seen; hip and pelvis x-ray (right) comminuted displaced intertrochanteric fracture of the right femur, internal fixation in th e left femur with mildly displaced lesser trochanteric fracture, reduced bilateral hip joint space; pending cervical spine CT read; EKG NSR, rate around 90 bpm; patient provided with 1 L NSS, morphine 4 mg, ceftriaxone 2 g, acetaminophen 1 g in ED. Patient is an 83-year-old female with PMHx T2DM, CKD stage III, hypercholesterolemia, HTN, OP, Sjogren syndrome, sleep apnea, GERD, STEFFANY, and history of prior hip fracture (08/2022) who presents s/p fall from standing. Pt's daughter + present in room at time of visit, help to provide a history. Patient was walking to her bathroom, lost her balance and fell backwards to the ground 2 times. Patient states she did not hit her head, only complaint at this time is right hip pain. Pt states she may have had some dizziness prior to the event, but is not certain. No additional symptoms prior to this event to include chest pain, shortness of breath, palpitations, or headache. Daughter believes that the patient got up from the toilet and her undergarments were around her ankles, causing her to fall. Pt was unable to get off of the floor herself secondary to "not being able to move leg" and was on the ground for ~25-30 minutes before the ambulance came to assist her. Hip pain has subsided for now, no pain elsewhere to include neck, head, abdomen, or other extremities. Has had mild headaches across forehead for the past week, w/ history of migraines. Has occasional bloating and changes in bowel habits as well such as alternating between diarrhea and constipation; last BM the AM of arrival. Patient currently denying chest pain, shortness of breath, palpitations, abdominal pain, N/V/D/C, numbness/tingling, LUTS, or active headache. Please see Dr. Jaramillo's attestation for adjustments/additions to treatment plan. Discharge Exam gen - sitting in chair, looks better today, minimal cough today mouth - MMM neck - no JVD heart - RRR, s1 s2 lungs - focal rales R base with some scattered wheezes b/l, no increased work of breathing abd - soft NT ND BS+ ext - right thigh edematous, left leg w/o edema; pulses b/l feet 2+ skin - dressings intact right hip region musculo - OA changes of right knee, no effusion, crepitus with passive ROM; tender over the lateral joint line Discharge Plan Discharge Items Reason For Visit: R INTERTROCHANTERIC FX, FALL Follow-up/Referrals: Essie Hernandez DO [Primary Care Provider] - Malvin Emmanuel MD [Surgeon] - 03/30/24 9:30 am [employer]tl [employer] Provider Instructions: Orthopedic instructions -Weight bearing as tolerated with walker and assistance as needed -PT/OT, patient can do range of motion of hip as tolerated. No hip precautions. -Frequently ice, at least 20 minutes 5 times a day. -Dressing change daily or as needed with xeroform, gauze and tegaderm. Keep incision covered until follow up appointment. -Okay to shower. You may get incision wet, do not submerge. Pat incision dry and redress after bathing. If waterproof dressing in place may leave in place for bathing. -DVT prophylaxis: TEDs bilaterally, eliquis for 4 weeks. -Pain control: Per hospitalist, Recommend Tylenol 500-1000mg every 8 hours at least. -Follow up in 2 weeks with [facility] for post op evaluation and suture removal. Please call our office sooner @ [phone] if you have any questions or concerns Medications and DC Order Prescriptions: No Action (DME) lancets [OneTouch UltraSoft Lancets] Misc See Rx Instructions .ROUTE .MEDSUPPLY Qty: 100 1RF Rx Instructions: Testing blood sugar once daily lorazepam 2 mg tablet 3 mg PO DAILY PRN (Reason: anxiety) Qty: 135 0RF coenzyme Q10 200 mg capsule 200 mg PO DAILY Patient Comments: *confirm dosage and frequency Rx Instructions: Unable to verify OTC meds at this date/time. cyanocobalamin (vitamin B-12) 1,000 mcg tablet 1,000 mcg PO DAILY Qty: 90 Rx Instructions: Unable to verify OTC meds at this date/time. (DME) Blood Glucose Test Strip See Rx Instructions .ROUTE .MEDSUPPLY Qty: 100 1RF Rx Instructions: As directed. Testing BS daily. Dx: E11.9 (DME) blood-glucose meter [Blood Glucose Monitoring] Kit See Rx Instructions .ROUTE .MEDSUPPLY Qty: 1 0RF Rx Instructions: As directed Testing BS daily. Dx: E11.9 pzmwylkahsf-mumlqidxo-ron C-Mn 789-143-77-2.5 mg capsule 1 cap PO BID Rx Instructions: Unable to verify OTC meds at this date/time. Caltrate 600 plus D 600 mg-20 mcg (800 unit) tablet,chewable 1 tab PO BID Qty: 180 1RF Rx Instructions: Unable to verify OTC meds at this date/time. acetaminophen [Tylenol Extra Strength] 500 mg tablet 500 mg PO TID PRN (Reason: Pain) Rx Instructions: Unable to verify OTC meds at this date/time. famotidine 40 mg tablet 40 mg PO HS Qty: 90 1RF atorvastatin 40 mg tablet 40 mg PO DAILY Qty: 100 3RF duloxetine 30 mg capsule,delayed release(DR/EC) 30 mg PO DAILY Qty: 100 3RF fluticasone propionate [Flonase Allergy Relief] 50 mcg/actuation spray,suspension 2 spray intranasal DAILY Qty: 16 3RF Rx Instructions: Unable to verify OTC meds at this date/time. irbesartan 300 mg tablet 300 mg PO DAILY Qty: 100 3RF Hold Instructions: Resume on 10/01/22. metformin 500 mg tablet extended release 24 hr 500 mg PO DAILY Qty: 100 3RF pantoprazole 40 mg tablet,delayed release (DR/EC) 40 mg PO DAILY Qty: 100 3RF clotrimazole-betamethasone 1-0.05 % cream 1 applic topical BID Qty: 45 1RF azelastine 137 mcg (0.1 %) spray,non-aerosol 137 mcg intranasal BID Qty: 30 3RF Rx Instructions: administer into each nostril ipratropium bromide 21 mcg (0.03 %) spray,non-aerosol 2 spray intranasal DAILY Qty: 30 5RF Rx Instructions: administer into each nostril zinc 50 mg Capsule 50 mg PO DAILY Rx Instructions: Unable to verify OTC meds at this date/time. Saccharomyces boulardii [Daily Probiotic (S. boulardii)] 250 mg Capsule 250 mg PO BID Rx Instructions: Unable to verify OTC meds at this date/time. Admission Data Admit Date/Time: 03/15/24 08:33 Attending Provider: Raiv Garsia Admit Provider: Rylie George Primary Care Provider: Essie Hernandez. Other Providers: Ophelia Calderon; Malvin Emmanuel; [facility] Hospital Stay Data Consultations 03/15/24 06:37 ED Decision to Admit Stat 03/15/24 08:03 Consult Orthopedic Surgery Stat Procedures Performed Operation Date: 03/15/24 09:20 Actual Procedures p Right Troch Nail(Right) - Malvin Emmanuel MD Diagnostic Imagining Performed 03/15/24 FL hip RT 2-3V Routine 03/15/24 05:29 CT cervical spine wo con Stat CT head/brain wo con Stat 03/15/24 09:39 MRI Spine [MR cervical spine wo con] Routine 03/21/24 14:57 US venous doppler LE RT Routine Coding Diagnoses RLL pneumonia J18.9 Parainfluenza infection B34.8 Closed fracture of right hip S72.001A Acute UTI (urinary tract infection) N39.0 Type 2 diabetes mellitus without complication, without long-term current use of insulin E11.9 Diabetes mellitus mcfp insulin use: without mcfp use Diabetes mellitus complication status: without complication CKD (chronic kidney disease) stage 3, GFR 30-59 ml/min N18.3 Diabetic peripheral neuropathy E11.42 Osteoporosis M81.0
[2024-03-22 11:27] VITALS: PULSE 88; RESP 20
== END 2024-03-22 13:01 | DRG 480 ==
LOC: ED 05:19 → SUATTDRO 08:33 → EDINP 08:33 → 3W 19:46